=== PATIENT | female | born 1985 | race Caucasian/White ===

== ENCOUNTER 2018-07-26 11:37 | Inpatient (IN) | payer OTHER ==
[~2018-07-26] VITALS: Ht 167.6 cm; Wt 176.5 kg
[2018-07-26 15:00] VITALS: BP 134/63; PULSE 106; RESP 16
[2018-07-26 15:14] VITALS: Ht 167.6 cm; Wt 176.5 kg
[2018-07-26 16:25] VITALS: PULSE 108
[2018-07-26] MEDS ORDERED: VANCOMYCIN IV PER PHARMACY XX SCH (18:30)
[2018-07-26] MEDS ORDERED: ALBUTEROL/IPRATROPIUM (NEB) 3 ML AMP HHN PRN (18:30)
[2018-07-26] MEDS ORDERED: NITROGLYCERIN (SL) 0.4 MG TAB SL PRN (18:30)
[2018-07-26] MEDS ORDERED: NACL 0.9% 3 ML SYG IV SCH (18:30)
[2018-07-26] MEDS ORDERED: HYDROCODONE/APAP (5/325) TAB PO PRN (18:30)
[2018-07-26] MEDS ORDERED: MAGNESIUM HYDROXIDE 30ML CUP PO PRN (18:30)
[2018-07-26] MEDS ORDERED: LORAZEPAM 2 MG INJ IV PRN (18:30)
[2018-07-26] MEDS ORDERED: hydrALAzine 20 MG INJ IV PRN (18:30)
[2018-07-26] MEDS ORDERED: DOCUSATE SODIUM 100 MG CAP PO PRN (18:30)
[2018-07-26] MEDS ORDERED: ONDANSETRON 4 MG INJ IV PRN (18:30)
[2018-07-26] MEDS ORDERED: ACETAMINOPHEN 325 MG TAB PO PRN (18:30)
[2018-07-26] MEDS: PIPER-TAZO 3.375 GM IV (PMX) 100 ML IVPB SCH (18:41)
[2018-07-26] MEDS: SOD CHLORIDE 0.9% 1,000 ML IV SCH (18:41)
[2018-07-26 20:22] VITALS: PULSE 115
[2018-07-26 20:39] VITALS: BP 112/53; PULSE 117; RESP 18
[2018-07-26] MEDS ORDERED: VANCOMYCIN HCL 2 GM in SOD CHLORIDE 0.9% 500 ML IVPB SCH (21:00)
[2018-07-26] MEDS: HEPARIN 5,000 UNIT/1 ML VIAL SC SCH (21:43)
--- NOTE | 2018-07-26 23:57 | HP ---
Date/Time of Note Date/Time of Note DATE: 07/26/18 TIME: 23:57 Assessment/Plan VTE Prophylaxis Pharmacological prophylaxis: heparin Lines/Catheters IV Catheter Type (from Nrsg): [place] Lock Urinary Cath still in place: No Assessment/Plan Assessment/Plan 1. Left lower extremity cellulitis: Status post fall a week ago -IV antibiotic -Wound care consult -Pain management 2. Morbid obesity: Weight reduction advised 3. History of asthma: Currently no acute exacerbation -Supplemental oxygen and bronchodilators as needed Results 24hrs Laboratory Tests Test 07/26/18 19:13 Free Thyroxine 1.58 HPI/ROS Admit Date/Time Admit Date/Time Jul 26, 2018 at 14:58 Hx of Present Illness 32-year-old morbidly obese female with a history of asthma who presented to ER complaining of left lower extremity and pain. She fell about a week ago and since then she has been noticing progressively worsening left lower extremity redness and some leaking fluid. Denied fever/chills, chest pain or shortness of breath. PMH/Family/Social Past Medical History Past Surgical History Past Surgical Hx: other (see hpi) Family History Significant Family History: no pertinent family hx Social History Alcohol Use: other Smoking Status: Unknown if ever smoked Drug Use: other Exam Constitutional: other (no acute distress) Eyes: PERRL ENMT: nl external ears & nose Neck: supple Respiratory: normal air movement Cardiovascular: nl pulses Gastrointestinal: soft Extremities: normal pulses Medications Current Medications IV Flush (NS 3 ml) 3 ml PER PROTOCOL IV ; Start 07/26/18 at 18:30 Ondansetron HCl (Zofran Inj) 4 mg Q6H PRN IV NAUSEA/VOMITING; Start 07/26/18 at 18:30 Acetaminophen (Tylenol Tab) 650 mg Q6H PRN PO .PAIN 1-3 OR TEMP; Start 07/26/18 at 18:30 Acetaminophen/ Hydrocodone Bitart ([place] (5/325)) 1 tab Q6H PRN PO .MOD PAIN 4- 6 Last administered on 07/26/18at 22:03; Admin Dose 1 TAB; Start 07/26/18 at 18:30 Morphine Sulfate (morphine) 2 mg Q4H PRN IV .SEVERE PAIN 7-10; Start 07/26/18 at 18:30 Docusate Sodium (Colace) 100 mg Q12H PRN PO .CONSTIPATION; Start 07/26/18 at 18:30 Magnesium Hydroxide (Milk Of Mag) 30 ml DAILY PRN PO .CONSTIPATION; Start 07/26/18 at 18:30 Heparin Sodium (Porcine) (Heparin (5000 Units/1ml)) 5,000 unit Q12 SC Last administered on 07/26/18at 21:43; Admin Dose 5,000 UNIT; Start 07/26/18 at 21:00 Lorazepam (Ativan) 0.5 mg Q6H PRN IV ANXIETY; Start 07/26/18 at 18:30 Sodium Chloride 1,000 ml @ 100 mls/hr Q10H IV Last administered on 07/26/18at 18:41; Admin Dose 100 MLS/HR; Start 07/26/18 at 18:15 Albuterol/ Ipratropium (Duoneb) 3 ml Q4H RESP THERAPY PRN HHN SHORTNESS OF BREATH; Start 07/26/18 at 18:30 Piperacillin Sod/ Tazobactam Sod 100 ml @ 200 mls/hr Q6 IVPB Last administered on 07/26/18at 18:41; Admin Dose 200 MLS/HR; Start 07/26/18 at 18:00 Vancomycin HCl (Vanco Iv Per Pharmacy) VANCOMYCIN PER PHARMACY NOTE XX ; Start 07/26/18 at 18:30 Hydralazine HCl (Apresoline) 10 mg Q6H PRN IV ELEVATED BLOOD PRESSURE; Start 07/26/18 at 18:30 Clonidine (Catapres) 0.1 mg Q6H PRN PO ELEVATED BLOOD PRESSURE; Start 07/26/18 at 18:30 Nitroglycerin (Nitroglycerin (Sl Tab) 0.4 Mg) 1 tab Q5M PRN SL ANGINA; Start 07/26/18 at 18:30 Vancomycin HCl 2 gm/Sodium Chloride 500 ml @ 125 mls/hr 2100 IVPB Last administered on 07/26/18at 21:05; Admin Dose 125 MLS/HR; Start 07/26/18 at 21:00; Stop 07/27/18 at 05:59 Vancomycin HCl 1.25 gm/Sodium Chloride 250 ml @ 83.333 mls/ hr Q12H IVPB ; S tart 07/27/18 at 09:00 Coded Allergies: Iodine and Iodide Containing Produc (Verified Allergy, Severe, 07/26/18) only if iodine is introduced into the blood stream.skin is ok. Social History Smoking Status: Current every day smoker Exam/Review of Systems Vital Signs Vitals Vital Signs Date Temp Pulse Resp B/P (MAP) Pulse Ox O2 O2 Flow FiO2 Time Delivery Rate 07/26/18 98.5 117 18 112/53 92 20:39 (72) 07/26/18 Room Air 15:00 GILL GOLDSMITH MD Jul 26, 2018 23:57
[2018-07-27] VITALS (12 sets, daily range): BP systolic 120–147; BP diastolic 60–90; PULSE 103–118; RESP 18–22
[2018-07-27] MEDS ORDERED: SOD CHLORIDE 0.9% 1,000 ML IV ONE (01:00)
[2018-07-27] MEDS: PIPER-TAZO 3.375 GM IV (PMX) 100 ML IVPB SCH ×4 (02:57→18:01)
[2018-07-27] MEDS: morphine 2 MG INJ IV PRN (04:03)
[2018-07-27] MEDS: SOD CHLORIDE 0.9% 1,000 ML IV SCH ×2 (04:15→14:15)
[2018-07-27] MEDS: VANCOMYCIN HCL 1.25 GM in SOD CHLORIDE 0.9% 250 ML IVPB SCH ×2 (08:57→20:00)
[2018-07-27] MEDS: HEPARIN 5,000 UNIT/1 ML VIAL SC SCH ×2 (09:04→20:04)
--- NOTE | 2018-07-27 21:08 | PN ---
Date/Time of Note Date/Time of Note DATE: 07/27/18 TIME: 21:06 Assessment/Plan VTE Prophylaxis Risk score (from Ns)>0 risk: 4 SCD applied (from Ns): No SCD contraindicated: low risk/ambulating Pharmacological prophylaxis: LMWH Lines/Catheters IV Catheter Type (from Nrs): Peripheral IV Urinary Cath still in place: No Assessment/Plan Hospital Course A/P 1) LLE Cellulitis w ulceration; stable, cont wound care/ atb 2) ST 3) sp fall/ injury 4) Asthma 5) Tobacco 6) PETTY risk 7) M Obesity 8) Anemia S: mod pain; no fever/ toxicity O: vss, st PE no pallor/ reg s1s2 no mrg ctab bs+ nt nd; no rrg mild edema; llw dressed; pulses intact Result Diagram: 07/27/1832 07/27/18 0532 Results 24hrs Laboratory Tests Test 07/26/18 22:17 07/27/18 05:32 Urine Color YELLOW Urine Clarity TURBID A Urine pH 5.0 Urine Specific [place] 1.021 Urine Ketones NEGATIVE Urine Nitrite NEGATIVE Urine Bilirubin NEGATIVE Urine Urobilinogen NEGATIVE Urine Leukocyte Esterase NEGATIVE Urine Microscopic RBC 2 Urine Microscopic WBC 8 H Urine Squamous Epithelial Cells FEW Urine Bacteria FEW A Urine Mucus FEW A Urine Hemoglobin NEGATIVE Urine Glucose NEGATIVE Urine Total Protein NEGATIVE White Blood Count 12.7 H Red Blood Count 3.34 L Hemoglobin 8.4 L Hematocrit 28.2 L Mean Corpuscular Volume 84.4 Mean Corpuscular Hemoglobin 25.1 L Mean Corpuscular Hemoglobin Concent 29.8 L Red Cell Distribution Width 14.7 H Platelet Count 525 H Mean Platelet Volume 7.9 Immature Granulocytes % 1.100 H Neutrophils % 77.2 H Lymphocytes % 12.8 L Monocytes % 5.2 Eosinophils % 3.5 Basophils % 0.2 Nucleated Red Blood Cells % 0.0 Immature Granulocytes # 0.140 H Neutrophils # 9.8 H Lymphocytes # 1.6 Monocytes # 0.7 Eosinophils # 0.5 Basophils # 0.0 Nucleated Red Blood Cells # 0.0 Sodium Level 137 Potassium Level 4.6 Chloride Level 103 Carbon Dioxide Level 32 H Anion Gap 2 L Blood Urea Nitrogen 10 Creatinine 0.77 Est Glomerular Filtrat Rate mL/min > 60 Glucose Level 119 Hemoglobin A1c 5.8 Calcium Level 8.2 L Phosphorus Level 3.8 Magnesium Level 2.0 Triglycerides Level 61 Cholesterol Level 133 LDL Cholesterol, Calculated 83 HDL Cholesterol 38 Cholesterol/HDL Ratio 3.5 Thyroid Stimulating Hormone (TSH) 2.230 Exam/Review of Systems Exam Vitals Vital Signs Date Temp Pulse Resp B/P (MAP) Pulse Ox O2 O2 Flow FiO2 Time Delivery Rate 07/27/18 109 20:42 07/27/18 99.6 20 120/90 98 Room Air 19:27 (100) Intake and Output 07/26/18 07/26/18 07/27/18 1515:00 23:00 07:00 IntakeIntake Total 470 ml 2800 ml OutputOutput Total 1 ml BalanceBalance 469 ml 2800 ml Results Results 24hrs Laboratory Tests Test 07/26/18 22:17 07/27/18 05:32 Urine Color YELLOW Urine Clarity TURBID A Urine pH 5.0 Urine Specific [place] 1.021 Urine Ketones NEGATIVE Urine Nitrite NEGATIVE Urine Bilirubin NEGATIVE Urine Urobilinogen NEGATIVE Urine Leukocyte Esterase NEGATIVE Urine Microscopic RBC 2 Urine Microscopic WBC 8 H Urine Squamous Epithelial Cells FEW Urine Bacteria FEW A Urine Mucus FEW A Urine Hemoglobin NEGATIVE Urine Glucose NEGATIVE Urine Total Protein NEGATIVE White Blood Count 12.7 H Red Blood Count 3.34 L Hemoglobin 8.4 L Hematocrit 28.2 L Mean Corpuscular Volume 84.4 Mean Corpuscular Hemoglobin 25.1 L Mean Corpuscular Hemoglobin Concent 29.8 L Red Cell Distribution Width 14.7 H Platelet Count 525 H Mean Platelet Volume 7.9 Immature Granulocytes % 1.100 H Neutrophils % 77.2 H Lymphocytes % 12.8 L Monocytes % 5.2 Eosinophils % 3.5 Basophils % 0.2 Nucleated Red Blood Cells % 0.0 Immature Granulocytes # 0.140 H Neutrophils # 9.8 H Lymphocytes # 1.6 Monocytes # 0.7 Eosinophils # 0.5 Basophils # 0.0 Nucleated Red Blood Cells # 0.0 Sodium Level 137 Potassium Level 4.6 Chloride Level 103 Carbon Dioxide Level 32 H Anion Gap 2 L Blood Urea Nitrogen 10 Creatinine 0.77 Est Glomerular Filtrat Rate mL/min > 60 Glucose Level 119 Hemoglobin A1c 5.8 Calcium Level 8.2 L Phosphorus Level 3.8 Magnesium Level 2.0 Triglycerides Level 61 Cholesterol Level 133 LDL Cholesterol, Calculated 83 HDL Cholesterol 38 Cholesterol/HDL Ratio 3.5 Thyroid Stimulating Hormone (TSH) 2.230 Medications Medication Current Medications IV Flush (NS 3 ml) 3 ml PER PROTOCOL IV ; Start 07/26/18 at 18:30 Ondansetron HCl (Zofran Inj) 4 mg Q6H PRN IV NAUSEA/VOMITING; Start 07/26/18 at 18:30 Acetaminophen (Tylenol Tab) 650 mg Q6H PRN PO .PAIN 1-3 OR TEMP; Start 07/26/18 at 18:30 Acetaminophen/ Hydrocodone Bitart ([place] (5/325)) 1 tab Q6H PRN PO .MOD PAIN 4- 6 Last administered on 07/26/18at 22:03; Admin Dose 1 TAB; Start 07/26/18 at 18:30 Morphine Sulfate (morphine) 2 mg Q4H PRN IV .SEVERE PAIN 7-10 Last administered on 07/27/18 04:03; Admin Dose 2 MG; Start 07/26/18 at 18:30 Docusate Sodium (Colace) 100 mg Q12H PRN PO .CONSTIPATION; Start 07/26/18 at 18:30 Magnesium Hydroxide (Milk Of Mag) 30 ml DAILY PRN PO .CONSTIPATION; Start 07/26/18 at 18:30 Heparin Sodium (Porcine) (Heparin (5000 Units/1ml)) 5,000 unit Q12 SC Last administered on 07/27/18at 20:04; Admin Dose 5,000 UNIT; Start 07/26/18 at 21:00 Lorazepam (Ativan) 0.5 mg Q6H PRN IV ANXIETY; Start 07/26/18 at 18:30 Sodium Chloride 1,000 ml @ 100 mls/hr Q10H IV Last administered on 07/26/18at 18:41; Admin Dose 100 MLS/HR; Start 07/26/18 at 18:15 Albuterol/ Ipratropium (Duoneb) 3 ml Q4H RESP THERAPY PRN HHN SHORTNESS OF BREATH; Start 07/26/18 at 18:30 Piperacillin Sod/ Tazobactam Sod 100 ml @ 200 mls/hr Q6 IVPB Last administered on 07/27/18at 18:01; Admin Dose 200 MLS/HR; Start 07/26/18 at 18:00 Vancomycin HCl (Vanco Iv Per Pharmacy) VANCOMYCIN PER PHARMACY NOTE XX ; Start 07/26/18 at 18:30 Hydralazine HCl (Apresoline) 10 mg Q6H PRN IV ELEVATED BLOOD PRESSURE; Start 07/26/18 at 18:30 Clonidine (Catapres) 0.1 mg Q6H PRN PO ELEVATED BLOOD PRESSURE; Start 07/26/18 at 18:30 Nitroglycerin (Nitroglycerin (Sl Tab) 0.4 Mg) 1 tab Q5M PRN SL ANGINA; Start 07/26/18 at 18:30 Vancomycin HCl 1.25 gm/Sodium Chloride 250 ml @ 83.333 mls/ hr Q12H IVPB Last administered on 07/27/18at 20:00; Admin Dose 83.333 MLS/HR; Start 07/27/18 at 09:00 Miscellaneous Information (*Rx Drug Level Order Reminder*) VANCO TROUGH ON ... ONCE ONCE XX ; Start 07/28/18 at 08:00; Stop 07/28/18 at 08:01 DAVION NOONAN MD Jul 27, 2018 21:08
[2018-07-27] MEDS: HYDROCODONE/APAP (10/325) TAB PO PRN (23:47)
[2018-07-28] VITALS (11 sets, daily range): BP systolic 123–142; BP diastolic 66–86; PULSE 68–116; RESP 18–22
[2018-07-28] MEDS: SOD CHLORIDE 0.9% 1,000 ML IV SCH ×2 (00:15→05:00)
[2018-07-28] MEDS: PIPER-TAZO 3.375 GM IV (PMX) 100 ML IVPB SCH ×4 (00:54→18:38)
[2018-07-28] MEDS: LACTOBACILLUS RHAMNOSUS CAP PO SCH ×2 (09:00→20:51)
[2018-07-28] MEDS: VANCOMYCIN HCL 1.25 GM in SOD CHLORIDE 0.9% 250 ML IVPB SCH (10:54)
[2018-07-28] MEDS: HEPARIN 5,000 UNIT/1 ML VIAL SC SCH ×2 (11:01→20:56)
[2018-07-28] MEDS: VANCOMYCIN 1 GM 250 ML IVPB SCH (18:00)
--- NOTE | 2018-07-28 20:50 | PN ---
Date/Time of Note Date/Time of Note DATE: 07/28/18 TIME: 20:49 Assessment/Plan VTE Prophylaxis Risk score (from Nsg)>0 risk: 5 SCD applied (from Ns): No SCD contraindicated: low risk/ambulating Pharmacological prophylaxis: LMWH Lines/Catheters IV Catheter Type (from Nrsg): Peripheral IV Urinary Cath still in place: No Assessment/Plan Hospital Course A/P 1) LLE Cellulitis w ulceration; stable, cont wound care/ atb 2) ST 3) sp fall/ injury 4) Asthma 5) Tobacco 6) PETTY risk 7) M Obesity 8) Anemia S: 07/27 mod pain; no fever/ toxicity 07/28 about the same O: vss, st PE no pallor/ reg s1s2 no mrg ctab bs+ nt nd; no rrg mild edema; llw dressed; pulses intact Result Diagram: 07/28/18 0512 07/28/18 0816 Results 24hrs Laboratory Tests Test 07/28/18 05:10 07/28/18 05:12 07/28/18 08:16 Serum HCG, Qualitative NEGATIVE White Blood Count 12.6 H Red Blood Count 3.46 L Hemoglobin 8.7 L Hematocrit 28.3 L Mean Corpuscular Volume 81.8 L Mean Corpuscular Hemoglobin 25.1 L Mean Corpuscular Hemoglobin Concent 30.7 L Red Cell Distribution Width 14.8 H Platelet Count 527 H Mean Platelet Volume 8.0 Immature Granulocytes % 1.000 H Neutrophils % 75.8 Lymphocytes % 13.2 L Monocytes % 5.2 Eosinophils % 4.5 Basophils % 0.3 Nucleated Red Blood Cells % 0.2 H Immature Granulocytes # 0.120 H Neutrophils # 9.6 H Lymphocytes # 1.7 Monocytes # 0.7 Eosinophils # 0.6 H Basophils # 0.0 Nucleated Red Blood Cells # 0.0 Prothrombin Time 13.7 Prothrombin Time Ratio 1.1 INR International Normalized Ratio 1.04 Sodium Level 140 Potassium Level 3.9 Chloride Level 103 Carbon Dioxide Level 31 Anion Gap 6 Blood Urea Nitrogen 7 6 L Creatinine 0.76 0.65 Est Glomerular Filtrat Rate mL/min > 60 Glucose Level 112 Calcium Level 8.3 L Vancomycin Level Trough 7.2 L Exam/Review of Systems Exam Vitals Vital Signs Date Temp Pulse Resp B/P (MAP) Pulse Ox O2 O2 Flow FiO2 Time Delivery Rate 07/28/18 99.8 108 22 134/81 97 Room Air 19:44 (98) 07/28/18 08:16 Intake and Output 07/27/18 07/27/18 07/28/18 1414:59 22:59 06:59 IntakeIntake Total 360 ml 640 ml 1450 ml BalanceBalance 360 ml 640 ml 1450 ml Results Results 24hrs Laboratory Tests Test 07/28/18 05:10 07/28/18 05:12 07/28/18 08:16 Serum HCG, Qualitative NEGATIVE White Blood Count 12.6 H Red Blood Count 3.46 L Hemoglobin 8.7 L Hematocrit 28.3 L Mean Corpuscular Volume 81.8 L Mean Corpuscular Hemoglobin 25.1 L Mean Corpuscular Hemoglobin Concent 30.7 L Red Cell Distribution Width 14.8 H Platelet Count 527 H Mean Platelet Volume 8.0 Immature Granulocytes % 1.000 H Neutrophils % 75.8 Lymphocytes % 13.2 L Monocytes % 5.2 Eosinophils % 4.5 Basophils % 0.3 Nucleated Red Blood Cells % 0.2 H Immature Granulocytes # 0.120 H Neutrophils # 9.6 H Lymphocytes # 1.7 Monocytes # 0.7 Eosinophils # 0.6 H Basophils # 0.0 Nucleated Red Blood Cells # 0.0 Prothrombin Time 13.7 Prothrombin Time Ratio 1.1 INR International Normalized Ratio 1.04 Sodium Level 140 Potassium Level 3.9 Chloride Level 103 Carbon Dioxide Level 31 Anion Gap 6 Blood Urea Nitrogen 7 6 L Creatinine 0.76 0.65 Est Glomerular Filtrat Rate mL/min > 60 Glucose Level 112 Calcium Level 8.3 L Vancomycin Level Trough 7.2 L Medications Medication Current Medications IV Flush (NS 3 ml) 3 ml PER PROTOCOL IV ; Start 07/26/18 at 18:30 Ondansetron HCl (Zofran Inj) 4 mg Q6H PRN IV NAUSEA/VOMITING; Start 07/26/18 at 18:30 Acetaminophen (Tylenol Tab) 650 mg Q6H PRN PO .PAIN 1-3 OR TEMP; Start 07/26/18 at 18:30 Morphine Sulfate (morphine) 2 mg Q4H PRN IV .SEVERE PAIN 7-10 Last administered on 07/27/18at 04:03; Admin Dose 2 MG; Start 07/26/18 at 18:30 Docusate Sodium (Colace) 100 mg Q12H PRN PO .CONSTIPATION; Start 07/26/18 at 18:30 Magnesium Hydroxide (Milk Of Mag) 30 ml DAILY PRN PO .CONSTIPATION; Start 07/26/18 at 18:30 Heparin Sodium (Porcine) (Heparin (5000 Units/1ml)) 5,000 unit Q12 SC Last administered on 07/28/18at 11:01; Admin Dose 5,000 UNIT; Start 07/26/18 at 21:00 Lorazepam (Ativan) 0.5 mg Q6H PRN IV ANXIETY; Start 07/26/18 at 18:30 Sodium Chloride 1,000 ml @ 100 mls/hr Q10H IV Last administered on 07/28/18at 05:00; Admin Dose 100 MLS/HR; Start 07/26/18 at 18:15 Albuterol/ Ipratropium (Duoneb) 3 ml Q4H RESP THERAPY PRN HHN SHORTNESS OF BREATH; Start 07/26/18 at 18:30 Piperacillin Sod/ Tazobactam Sod 100 ml @ 200 mls/hr Q6 IVPB Last administered on 07/28/18at 18:38; Admin Dose 200 MLS/HR; Start 07/26/18 at 18:00 Vancomycin HCl (Vanco Iv Per Pharmacy) VANCOMYCIN PER PHARMACY NOTE XX ; Start 07/26/18 at 18:30 Hydralazine HCl (Apresoline) 10 mg Q6H PRN IV ELEVATED BLOOD PRESSURE; Start 07/26/18 at 18:30 Clonidine (Catapres) 0.1 mg Q6H PRN PO ELEVATED BLOOD PRESSURE; Start 07/26/18 at 18:30 Nitroglycerin (Nitroglycerin (Sl Tab) 0.4 Mg) 1 tab Q5M PRN SL ANGINA; Start 07/26/18 at 18:30 Acetaminophen/ Hydrocodone Bitart ([place] (10/325)) 1 tab Q3H PRN PO MODERATE PAIN LEVEL 4-6 Last administered on 07/27/18at 23:47; Admin Dose 1 TAB; Start 07/27/18 at 21:30 Lactobacillus Acidophilus/ Rhamnosus (Culturelle) 1 cap BID PO Last administered on 07/28/18at 09:00; Admin Dose 1 CAP; Start 07/28/18 at 09:00 Vancomycin HCl 250 ml @ 125 mls/hr Q8H IVPB Last administered on 07/28/18at 18:00; Admin Dose 125 MLS/HR; Start 07/28/18 at 18:00 DAVION NOONAN MD Jul 28, 2018 20:50
[2018-07-28] MEDS: HYDROCODONE/APAP (10/325) TAB PO PRN (20:52)
[2018-07-29] VITALS (12 sets, daily range): BP systolic 122–146; BP diastolic 59–86; PULSE 92–120; RESP 18–22
[2018-07-29] MEDS: PIPER-TAZO 3.375 GM IV (PMX) 100 ML IVPB SCH ×4 (00:15→18:46)
[2018-07-29] MEDS: VANCOMYCIN 1 GM 250 ML IVPB SCH ×3 (02:16→20:56)
[2018-07-29] MEDS: LACTOBACILLUS RHAMNOSUS CAP PO SCH ×2 (09:32→20:56)
[2018-07-29] MEDS: HEPARIN 5,000 UNIT/1 ML VIAL SC SCH ×2 (11:00→21:53)
[2018-07-29] MEDS: morphine 2 MG INJ IV PRN (17:07)
--- NOTE | 2018-07-29 18:46 | PN ---
Date/Time of Note Date/Time of Note DATE: 07/29/18 TIME: 18:44 Assessment/Plan VTE Prophylaxis Risk score (from Nsg)>0 risk: 6 SCD applied (from Ns): No SCD contraindicated: low risk/ambulating Pharmacological prophylaxis: LMWH Lines/Catheters IV Catheter Type (from Nrsg): Peripheral IV Urinary Cath still in place: No Assessment/Plan Hospital Course A/P 1) LLE Cellulitis w ulceration; stable, cont wound care/ atb. Leukocytosis remains. Will obtain MRI to rule out abscess and consult ID 2) ST, treat pain 3) sp fall/ injury 4) Asthma 5) Tobacco 6) PETTY risk of outpatient sleep study 7) M Obesity 8) Anemia S: 07/27 mod pain; no fever/ toxicity 07/28 about the same 07/29: Moderate pain. No fever toxicity. Feels the edema is same but I believe her edema/stasis has improved. O: vss, st PE no pallor/ reg s1s2 no mrg ctab bs+ nt nd; no rrg mild edema; tender left chopra; pulses intact Result Diagram: 07/29/18 0508 07/29/18 0508 Results 24hrs Laboratory Tests Test 07/29/18 05:08 07/29/18 17:02 White Blood Count 13.1 H Red Blood Count 3.55 L Hemoglobin 8.8 L Hematocrit 28.9 L Mean Corpuscular Volume 81.4 L Mean Corpuscular Hemoglobin 24.8 L Mean Corpuscular Hemoglobin Concent 30.4 L Red Cell Distribution Width 14.7 H Platelet Count 546 H Mean Platelet Volume 8.1 Immature Granulocytes % 1.500 H Neutrophils % 75.8 Lymphocytes % 11.4 L Monocytes % 6.4 Eosinophils % 4.6 Basophils % 0.3 Nucleated Red Blood Cells % 0.3 H Immature Granulocytes # 0.190 H Neutrophils # 9.9 H Lymphocytes # 1.5 Monocytes # 0.8 Eosinophils # 0.6 H Basophils # 0.0 Nucleated Red Blood Cells # 0.0 Sodium Level 139 Potassium Level 3.9 Chloride Level 104 Carbon Dioxide Level 27 Anion Gap 8 Blood Urea Nitrogen 7 Creatinine 0.62 Est Glomerular Filtrat Rate mL/min > 60 Glucose Level 142 Calcium Level 8.5 Vancomycin Level Trough 14.1 Exam/Review of Systems Exam Vitals Vital Signs Date Temp Pulse Resp B/P (MAP) Pulse Ox O2 O2 Flow FiO2 Time Delivery Rate 07/29/18 101 16:15 07/29/18 97.6 21 141/84 96 Room Air 15:48 (103) 07/28/18 08:16 Intake and Output 07/28/18 07/28/18 07/29/18 1515:00 23:00 07:00 IntakeIntake Total 900 ml 1350 ml OutputOutput Total 3600 ml BalanceBalance -2700 ml 1350 ml Results Results 24hrs Laboratory Tests Test 07/29/18 05:08 07/29/18 17:02 White Blood Count 13.1 H Red Blood Count 3.55 L Hemoglobin 8.8 L Hematocrit 28.9 L Mean Corpuscular Volume 81.4 L Mean Corpuscular Hemoglobin 24.8 L Mean Corpuscular Hemoglobin Concent 30.4 L Red Cell Distribution Width 14.7 H Platelet Count 546 H Mean Platelet Volume 8.1 Immature Granulocytes % 1.500 H Neutrophils % 75.8 Lymphocytes % 11.4 L Monocytes % 6.4 Eosinophils % 4.6 Basophils % 0.3 Nucleated Red Blood Cells % 0.3 H Immature Granulocytes # 0.190 H Neutrophils # 9.9 H Lymphocytes # 1.5 Monocytes # 0.8 Eosinophils # 0.6 H Basophils # 0.0 Nucleated Red Blood Cells # 0.0 Sodium Level 139 Potassium Level 3.9 Chloride Level 104 Carbon Dioxide Level 27 Anion Gap 8 Blood Urea Nitrogen 7 Creatinine 0.62 Est Glomerular Filtrat Rate mL/min > 60 Glucose Level 142 Calcium Level 8.5 Vancomycin Level Trough 14.1 Medications Medication Current Medications IV Flush (NS 3 ml) 3 ml PER PROTOCOL IV ; Start 07/26/18 at 18:30 Ondansetron HCl (Zofran Inj) 4 mg Q6H PRN IV NAUSEA/VOMITING; Start 07/26/18 at 18:30 Acetaminophen (Tylenol Tab) 650 mg Q6H PRN PO .PAIN 1-3 OR TEMP; Start 07/26/18 at 18:30 Morphine Sulfate (morphine) 2 mg Q4H PRN IV .SEVERE PAIN 7-10 Last administered on 07/29/18at 17:07; Admin Dose 2 MG; Start 07/26/18 at 18:30 Docusate Sodium (Colace) 100 mg Q12H PRN PO .CONSTIPATION; Start 07/26/18 at 18:30 Magnesium Hydroxide (Milk Of Mag) 30 ml DAILY PRN PO .CONSTIPATION; Start 07/26/18 at 18:30 Heparin Sodium (Porcine) (Heparin (5000 Units/1ml)) 5,000 unit Q12 SC Last administered on 07/29/18at 11:00; Admin Dose 5,000 UNIT; Start 07/26/18 at 21:00 Lorazepam (Ativan) 0.5 mg Q6H PRN IV ANXIETY; Start 07/26/18 at 18:30 Albuterol/ Ipratropium (Duoneb) 3 ml Q4H RESP THERAPY PRN HHN SHORTNESS OF BREATH; Start 07/26/18 at 18:30 Piperacillin Sod/ Tazobactam Sod 100 ml @ 200 mls/hr Q6 IVPB Last administered on 07/29/18at 12:32; Admin Dose 200 MLS/HR; Start 07/26/18 at 18:00 Vancomycin HCl (Vanco Iv Per Pharmacy) VANCOMYCIN PER PHARMACY NOTE XX ; Start 07/26/18 at 18:30 Hydralazine HCl (Apresoline) 10 mg Q6H PRN IV ELEVATED BLOOD PRESSURE; Start 07/26/18 at 18:30 Clonidine (Catapres) 0.1 mg Q6H PRN PO ELEVATED BLOOD PRESSURE; Start 07/26/18 at 18:30 Nitroglycerin (Nitroglycerin (Sl Tab) 0.4 Mg) 1 tab Q5M PRN SL ANGINA; Start 07/26/18 at 18:30 Acetaminophen/ Hydrocodone Bitart ([place] (10/325)) 1 tab Q3H PRN PO MODERATE PAIN LEVEL 4-6 Last administered on 07/28/18at 20:52; Admin Dose 1 TAB; Start 07/27/18 at 21:30 Lactobacillus Acidophilus/ Rhamnosus (Culturelle) 1 cap BID PO Last administered on 07/29/18at 09:32; Admin Dose 1 CAP; Start 07/28/18 at 09:00 Vancomycin HCl 250 ml @ 125 mls/hr Q8H IVPB Last administered on 07/29/18at 10:00; Admin Dose 125 MLS/HR; Start 07/28/18 at 18:00 DAVION NOONAN MD Jul 29, 2018 18:45
[2018-07-29] MEDS ORDERED: NICOTINE POLACRILEX 2 MG GUM BUCCAL PRN (19:00)
[2018-07-29] MEDS ORDERED: KETOROLAC 30 MG INJ IV PRN (19:00)
[2018-07-30] VITALS: BP 131/58; PULSE 104; PULSE 106; RESP 18
[2018-07-30] MEDS: PIPER-TAZO 3.375 GM IV (PMX) 100 ML IVPB SCH ×4 (00:49→17:47)
[2018-07-30] MEDS: HYDROCODONE/APAP (10/325) TAB PO PRN ×2 (01:02→23:16)
[2018-07-30] MEDS: VANCOMYCIN 1 GM 250 ML IVPB SCH ×4 (02:03→22:47)
[2018-07-30 04:00] VITALS: BP 135/68; PULSE 105; PULSE 93; RESP 18
[2018-07-30 07:52] VITALS: BP 138/75; PULSE 97; RESP 16
[2018-07-30] MEDS: LACTOBACILLUS RHAMNOSUS CAP PO SCH ×2 (10:09→21:18)
[2018-07-30] MEDS: HEPARIN 5,000 UNIT/1 ML VIAL SC SCH ×2 (10:12→21:19)
--- NOTE | 2018-07-30 10:30 | CONS ---
Assessment/Plan Assessment/Plan Hospital Course (Demo Recall) Patient is alert looks comfortable no fevers overnight. WBC today 13.4 H&H 8.9 28.8 platelets 541 neutrophils 77.7 BUN 6 creatinine 0.65 Antimicrobials: Vancomycin, Zosyn Physical examination: This is a morbidly obese well-developed middle-aged woman who is alert in no distress. Head atraumatic normocephalic sclera nonicteric. Chest rise symmetrical, breath sounds clear, diminished at bases. Heart: S1-S2. Abdomen obese soft bowel sounds present. Extremities with bilateral extremit ies edema left lower extremity with some erythema and open wound with purulent drainage Assessment: 1. Left lower extremity cellulitis with infected wound, status post fall 2. Morbid obesity 4. Chronic tobacco use Plan: We will keep patient on broad-spectrum antibiotics, order wound culture and swab her nares for MRSA, keep left lower extremity elevated, consider surgical evaluation Consultation Date/Type/Reason Admit Date/Time Jul 26, 2018 at 14:58 Initial Consult Date Type of Consult id Date/Time of Note DATE: 07/30/18 TIME: 10:30 Exam/Review of Systems Exam Vitals Vital Signs Date Temp Pulse Resp B/P (MAP) Pulse Ox O2 O2 Flow FiO2 Time Delivery Rate 07/30/18 98.8 97 16 138/75 94 Room Air 07:52 (96) 07/28/18 08:16 Intake and Output 07/29/18 07/29/18 07/30/18 1515:00 23:00 07:00 IntakeIntake Total 1550 ml 1230 ml OutputOutput Total 700 ml BalanceBalance 1550 ml 530 ml Results Result Diagram: 07/30/18 0508 07/30/18 0508 Results 24hrs Laboratory Tests Test 07/29/18 17:02 07/30/18 05:08 Vancomycin Level Trough 14.1 White Blood Count 13.4 H Red Blood Count 3.57 L Hemoglobin 8.9 L Hematocrit 28.8 L Mean Corpuscular Volume 80.7 L Mean Corpuscular Hemoglobin 24.9 L Mean Corpuscular Hemoglobin Concent 30.9 L Red Cell Distribution Width 14.8 H Platelet Count 501 H Mean Platelet Volume 8.0 Immature Granulocytes % 0.900 H Neutrophils % 77.7 H Lymphocytes % 11.1 L Monocytes % 5.5 Eosinophils % 4.5 Basophils % 0.3 Nucleated Red Blood Cells % 0.2 H Immature Granulocytes # 0.120 H Neutrophils # 10.4 H Lymphocytes # 1.5 Monocytes # 0.7 Eosinophils # 0.6 H Basophils # 0.0 Nucleated Red Blood Cells # 0.0 Prothrombin Time 13.1 Prothrombin Time Ratio 1.0 INR International Normalized Ratio 0.98 Sodium Level 141 Potassium Level 3.8 Chloride Level 103 Carbon Dioxide Level 28 Anion Gap 10 Blood Urea Nitrogen 8 Creatinine 0.63 Est Glomerular Filtrat Rate mL/min > 60 Glucose Level 131 Calcium Level 8.5 Total Bilirubin 0.2 Direct Bilirubin 0.00 Indirect Bilirubin 0.2 Aspartate Amino Transf (AST/SGOT) 24 Alanine Aminotransferase (ALT/SGPT) 11 L Alkaline Phosphatase 96 Total Protein 7.5 Albumin 3.4 Globulin 4.10 H Albumin/Globulin Ratio 0.82 Medications Medication Current Medications IV Flush (NS 3 ml) 3 ml PER PROTOCOL IV ; Start 07/26/18 at 18:30 Ondansetron HCl (Zofran Inj) 4 mg Q6H PRN IV NAUSEA/VOMITING; Start 07/26/18 at 18:30 Acetaminophen (Tylenol Tab) 650 mg Q6H PRN PO .PAIN 1-3 OR TEMP; Start 07/26/18 at 18:30 Morphine Sulfate (morphine) 2 mg Q4H PRN IV .SEVERE PAIN 7-10 Last administered on 07/29/18at 17:07; Admin Dose 2 MG; Start 07/26/18 at 18:30 Docusate Sodium (Colace) 100 mg Q12H PRN PO .CONSTIPATION; Start 07/26/18 at 18:30 Magnesium Hydroxide (Milk Of Mag) 30 ml DAILY PRN PO .CONSTIPATION; Start 07/26/18 at 18:30 Heparin Sodium (Porcine) (Heparin (5000 Units/1ml)) 5,000 unit Q12 SC Last adm inistered on 07/30/18at 10:12; Admin Dose 5,000 UNIT; Start 07/26/18 at 21:00 Lorazepam (Ativan) 0.5 mg Q6H PRN IV ANXIETY; Start 07/26/18 at 18:30 Albuterol/ Ipratropium (Duoneb) 3 ml Q4H RESP THERAPY PRN HHN SHORTNESS OF BREATH; Start 07/26/18 at 18:30 Piperacillin Sod/ Tazobactam Sod 100 ml @ 200 mls/hr Q6 IVPB Last administered on 07/30/18at 05:31; Admin Dose 200 MLS/HR; Start 07/26/18 at 18:00 Vancomycin HCl (Vanco Iv Per Pharmacy) VANCOMYCIN PER PHARMACY NOTE XX ; Start 07/26/18 at 18:30 Hydralazine HCl (Apresoline) 10 mg Q6H PRN IV ELEVATED BLOOD PRESSURE; Start 07/26/18 at 18:30 Clonidine (Catapres) 0.1 mg Q6H PRN PO ELEVATED BLOOD PRESSURE; Start 07/26/18 at 18:30 Nitroglycerin (Nitroglycerin (Sl Tab) 0.4 Mg) 1 tab Q5M PRN SL ANGINA; Start 07/26/18 at 18:30 Acetaminophen/ Hydrocodone Bitart (Sigel (10/325)) 1 tab Q3H PRN PO MODERATE PAIN LEVEL 4-6 Last administered on 07/30/18at 01:02; Admin Dose 1 TAB; Start 07/27/18 at 21:30 Lactobacillus Acidophilus/ Rhamnosus (Culturelle) 1 cap BID PO Last administered on 07/30/18at 10:09; Admin Dose 1 CAP; Start 07/28/18 at 09:00 Vancomycin HCl 250 ml @ 125 mls/hr Q8H IVPB Last administered on 07/30/18at 10:09; Admin Dose 125 MLS/HR; Start 07/28/18 at 18:00 Ketorolac Tromethamine (Toradol) 30 mg Q6H PRN IV MOD PAIN (4-6) OR TEMP>38C; Start 07/29/18 at 19:00; Stop 08/01/18 at 18:59 Nicotine Polacrilex (Nicorette) 2 mg Q4H PRN BUCCAL CONTROL WITHDRAWAL SYMPTOMS; Start 07/29/18 at 19:00 AGUSTÍN CUMMINGS NP Jul 30, 2018 10:30
[2018-07-30 10:54] VITALS: BP 131/62; PULSE 91; RESP 18
--- NOTE | 2018-07-30 11:53 | PN ---
Date/Time of Note Date/Time of Note DATE: 07/30/18 TIME: 11:51 Assessment/Plan VTE Prophylaxis Risk score (from Ns)>0 risk: 6 SCD applied (from Ns): No SCD contraindicated: other Pharmacological prophylaxis: heparin Lines/Catheters IV Catheter Type (from Rust): Peripheral IV Urinary Cath still in place: No Assessment/Plan Hospital Course SUBJECTIVE: Continues to complain of left lower extremity pain. OBJECTIVE: Physical Exam General: Morbidly obese, 32 year-old female lying in bed in no apparent distress. HEENT: Normocephalic, atraumatic. Eyes: Anicteric sclerae, conjunctivae clear. ENT: Nasal septum midline, oral mucosa moist. Neck supple, no JVD noticed. Respiratory: Bilaterally clear breath sounds. No use of accessory muscles of respiration. No adventitious breath sounds. Cardiovascular: S1, S2 heard. No murmurs or gallops. Abdomen: Soft, nontender, and nondistended. Bowel sounds positive in all 4 quadrants. Genitourinary: Deferred. Extremities: No cyanosis, no clubbing. Edema and erythema of the left chopra area with an open wound. Peripheral pulses palpable. Neurologic: Cranial nerves II through XII grossly intact. The patient is awake, alert, and oriented. Labs & Vitals per chart ASSESSMENT & PLAN 32-year-old female with comorbidities including morbid obesity (BMI more than 62 kg/m) and nicotine use, who had a mechanical fall with impact to the left chopra with a resultant penetrating wound that became worse over a few days before she sought medical attention. The patient was noticed to have left lower extremity cellulitis with an infected left lower extremity wound. The patient was admitted to inpatient setting for further treatment and evaluation. 1. Left lower extremity cellulitis with infected left lower extremity wound. -Continue antimicrobials as per ID. -X-ray of the left tibia and fibula showing marked soft tissue swelling and no acute fractures. Venous Doppler study negative. -Obtain podiatry consult. -Patient unable to get MRI because of weight limits. -Obtain left lower extremity CT scan to evaluate for any underlying abscess. -Continue wound care as per the wound care team. 2. Microcytic hypochromic anemia. -Etiology unclear. -Obtain iron panel. -Monitor H&H closely. 3. Morbid obesity -BMI more than 62. -Fasting lipid panel within normal limits. -Hemoglobin A1c (5.8) borderline elevated. -Weight reduction advised. 4. Nicotine use. -Continue nicotine patch. 5. Fluids, electrolytes, and nutrition. -Low-cholesterol diet. 6. DVT prophylaxis. -Subcutaneous heparin. 7. Plan. -Continue antimicrobials as per ID. -Obtain a left lower extremity CT scan. -Obtain podiatry consult. The patient was seen in collaboration with Dr. Alvarado. Result Diagram: 07/30/18 0508 07/30/18 0508 Results 24hrs Laboratory Tests Test 07/29/18 17:02 07/30/18 05:08 Vancomycin Level Trough 14.1 White Blood Count 13.4 H Red Blood Count 3.57 L Hemoglobin 8.9 L Hematocrit 28.8 L Mean Corpuscular Volume 80.7 L Mean Corpuscular Hemoglobin 24.9 L Mean Corpuscular Hemoglobin Concent 30.9 L Red Cell Distribution Width 14.8 H Platelet Count 501 H Mean Platelet Volume 8.0 Immature Granulocytes % 0.900 H Neutrophils % 77.7 H Lymphocytes % 11.1 L Monocytes % 5.5 Eosinophils % 4.5 Basophils % 0.3 Nucleated Red Blood Cells % 0.2 H Immature Granulocytes # 0.120 H Neutrophils # 10.4 H Lymphocytes # 1.5 Monocytes # 0.7 Eosinophils # 0.6 H Basophils # 0.0 Nucleated Red Blood Cells # 0.0 Prothrombin Time 13.1 Prothrombin Time Ratio 1.0 INR International Normalized Ratio 0.98 Sodium Level 141 Potassium Level 3.8 Chloride Level 103 Carbon Dioxide Level 28 Anion Gap 10 Blood Urea Nitrogen 8 Creatinine 0.63 Est Glomerular Filtrat Rate mL/min > 60 Glucose Level 131 Calcium Level 8.5 Total Bilirubin 0.2 Direct Bilirubin 0.00 Indirect Bilirubin 0.2 Aspartate Amino Transf (AST/SGOT) 24 Alanine Aminotransferase (ALT/SGPT) 11 L Alkaline Phosphatase 96 Total Protein 7.5 Albumin 3.4 Globulin 4.10 H Albumin/Globulin Ratio 0.82 Exam/Review of Systems Exam Vitals Vital Signs Date Temp Pulse Resp B/P (MAP) Pulse Ox O2 O2 Flow FiO2 Time Delivery Rate 07/30/18 97.2 91 18 131/62 96 Room Air 10:54 (85) 07/28/18 08:16 Intake and Output 07/29/18 07/29/18 07/30/18 1515:00 23:00 07:00 IntakeIntake Total 1550 ml 1230 ml OutputOutput Total 700 ml BalanceBalance 1550 ml 530 ml Results Results 24hrs Laboratory Tests Test 07/29/18 17:02 07/30/18 05:08 Vancomycin Level Trough 14.1 White Blood Count 13.4 H Red Blood Count 3.57 L Hemoglobin 8.9 L Hematocrit 28.8 L Mean Corpuscular Volume 80.7 L Mean Corpuscular Hemoglobin 24.9 L Mean Corpuscular Hemoglobin Concent 30.9 L Red Cell Distribution Width 14.8 H Platelet Count 501 H Mean Platelet Volume 8.0 Immature Granulocytes % 0.900 H Neutrophils % 77.7 H Lymphocytes % 11.1 L Monocytes % 5.5 Eosinophils % 4.5 Basophils % 0.3 Nucleated Red Blood Cells % 0.2 H Immature Granulocytes # 0.120 H Neutrophils # 10.4 H Lymphocytes # 1.5 Monocytes # 0.7 Eosinophils # 0.6 H Basophils # 0.0 Nucleated Red Blood Cells # 0.0 Prothrombin Time 13.1 Prothrombin Time Ratio 1.0 INR International Normalized Ratio 0.98 Sodium Level 141 Potassium Level 3.8 Chloride Level 103 Carbon Dioxide Level 28 Anion Gap 10 Blood Urea Nitrogen 8 Creatinine 0.63 Est Glomerular Filtrat Rate mL/min > 60 Glucose Level 131 Calcium Level 8.5 Total Bilirubin 0.2 Direct Bilirubin 0.00 Indirect Bilirubin 0.2 Aspartate Amino Transf (AST/SGOT) 24 Alanine Aminotransferase (ALT/SGPT) 11 L Alkaline Phosphatase 96 Total Protein 7.5 Albumin 3.4 Globulin 4.10 H Albumin/Globulin Ratio 0.82 Medications Medication Current Medications IV Flush (NS 3 ml) 3 ml PER PROTOCOL IV ; Start 07/26/18 at 18:30 Ondansetron HCl (Zofran Inj) 4 mg Q6H PRN IV NAUSEA/VOMITING; Start 07/26/18 at 18:30 Acetaminophen (Tylenol Tab) 650 mg Q6H PRN PO .PAIN 1-3 OR TEMP; Start 07/26/18 at 18:30 Morphine Sulfate (morphine) 2 mg Q4H PRN IV .SEVERE PAIN 7-10 Last administered on 07/29/18at 17:07; Admin Dose 2 MG; Start 07/26/18 at 18:30 Docusate Sodium (Colace) 100 mg Q12H PRN PO .CONSTIPATION; Start 07/26/18 at 18:30 Magnesium Hydroxide (Milk Of Mag) 30 ml DAILY PRN PO .CONSTIPATION; Start 07/26/18 at 18:30 Heparin Sodium (Porcine) (Heparin (5000 Units/1ml)) 5,000 unit Q12 SC Last administered on 07/30/18at 10:12; Admin Dose 5,000 UNIT; Start 07/26/18 at 21:00 Lorazepam (Ativan) 0.5 mg Q6H PRN IV ANXIETY; Start 07/26/18 at 18:30 Albuterol/ Ipratropium (Duoneb) 3 ml Q4H RESP THERAPY PRN HHN SHORTNESS OF BREATH; Start 07/26/18 at 18:30 Piperacillin Sod/ Tazobactam Sod 100 ml @ 200 mls/hr Q6 IVPB Last administered on 07/30/18at 05:31; Admin Dose 200 MLS/HR; Start 07/26/18 at 18:00 Vancomycin HCl (Vanco Iv Per Pharmacy) VANCOMYCIN PER PHARMACY NOTE XX ; Start 07/26/18 at 18:30 Hydralazine HCl (Apresoline) 10 mg Q6H PRN IV ELEVATED BLOOD PRESSURE; Start 07/26/18 at 18:30 Clonidine (Catapres) 0.1 mg Q6H PRN PO ELEVATED BLOOD PRESSURE; Start 07/26/18 at 18:30 Nitroglycerin (Nitroglycerin (Sl Tab) 0.4 Mg) 1 tab Q5M PRN SL ANGINA; Start 07/26/18 at 18:30 Acetaminophen/ Hydrocodone Bitart (Earth (10/325)) 1 tab Q3H PRN PO MODERATE PAIN LEVEL 4-6 Last administered on 07/30/18at 01:02; Admin Dose 1 TAB; Start 07/27/18 at 21:30 Lactobacillus Acidophilus/ Rhamnosus (Culturelle) 1 cap BID PO Last administered on 07/30/18at 10:09; Admin Dose 1 CAP; Start 07/28/18 at 09:00 Vancomycin HCl 250 ml @ 125 mls/hr Q8H IVPB Last administered on 07/30/18at 10:09; Admin Dose 125 MLS/HR; Start 07/28/18 at 18:00 Ketorolac Tromethamine (Toradol) 30 mg Q6H PRN IV MOD PAIN (4-6) OR TEMP>38C; Start 07/29/18 at 19:00; Stop 08/01/18 at 18:59 Nicotine Polacrilex (Nicorette) 2 mg Q4H PRN BUCCAL CONTROL WITHDRAWAL SYMPTOMS; Start 07/29/18 at 19:00 ARIELLE HILLS NP Jul 30, 2018 11:53
--- NOTE | 2018-07-30 13:57 | CONS ---
DATE OF ADMISSION: 07/26/2018 DATE OF CONSULTATION: 07/29/2018 TYPE OF CONSULTATION: Infectious disease. REQUESTING PHYSICIAN: Lorenzo Noonan MD Thank you for this consultation. HISTORY OF PRESENT ILLNESS: This is a 32-year-old morbidly obese woman without significant past medi brady history who was admitted with infected lower extremity. The patient apparently was running after her boyfriend and fell on concrete. It happened over a week ago. She developed abrasion that subse quently became infected. The patient denies other symptoms. VITAL SIGNS: She came with a temperature of 98.1, pulse 106, respirations 16, blood pressure 134/63, saturation 97% on room air. LABORATORY DATA: WBC 12.7, H and H 8.4 and 28.2, platelets 525, neutrophils 77.2. BUN 10, creatinin e 0.77. MICROBIOLOGY: Urinalysis was essentially negative. DIAGNOSTICS: Extremity venous study revealed no evidence for DVT. X-ray revealed no acute fracture, but marked soft tissue swelling. ANTIMICROBIALS: The patient was started on: 1. Vancomycin. 2. Zosyn. SOCIAL HISTORY: The patient lives with her boyfriend. She is a smoker, smokes about pack a day. De nies alcohol. She uses marijuana socially. PAST SURGICAL HISTORY: Denies. PAST MEDICAL HISTORY: Denies any. REVIEW OF SYSTEMS: As per history of present illness. PHYSICAL EXAMINATION: GENERAL: This is a morbidly obese, well-developed, middle-aged woman who is alert, in no distress. HEENT: Head is atraumatic, normocephalic. Sclerae are anicteric. Buccal mucosa is dry. NECK: Obese. CHEST: Rise symmetrical. Breath sounds diminished to bases. HEART: S1, S2. ABDOMEN: Obese, soft. Bowel tones are present. EXTREMITIES: With bilateral lower extremity edema. The patient has left lower extremity swelling, e rythema and open wound with some drainage. DIAGNOSTIC IMPRESSION: This is a morbidly obese 32-year-old woman admitted with infected wound on he r left lower extremity with surrounding cellulitis. The patient is on appropriate broad spectrum cov erage for which we will continue. We will order wound culture, swab her nares for methicillin-resist ant Staphylococcus aureus. Keep left lower extremity elevated. Further recommendations per patient' s clinical course, cultures and diagnostics. She may require surgical evaluation. I discussed with Dr. Reis who was covering for Dr. Houser. Dictated By: AGUSTÍN CUMMINGS G[employer]OLINE TESTER for DESI VERAS/AUBREE Conf#: [id number] DID#: [id number] CC: KWABENA SIMONS; LORENZO NOONAN MD; MARIA ELENA CENTENOM;*EndCC*
[2018-07-30] MEDS ORDERED: LIDOCAINE 1% (MPF) 30 ML INJ INJ PRN (14:30)
--- NOTE | 2018-07-30 14:34 | CONS ---
Assessment/Plan Assessment/Plan Assessment/Plan (Daily) Left lower extremity traumatic ulceration Suspicion for left lower extremity abscess Left lower extremity Cellulitis b/l venous insufficiency Lymphaedema Morbid obesity Nicotine dependence Plan: Consent was obtained and performed bedside excisional debridement of skin/subQ left lower extremity ulceration using a scalpel and pickup/scissors. Skin slough, biofilm, fibrotic tissue removed. Greater than 20cm2 of area was debrided. Copious irrigation and wound cultures were obtained. X-rays reviewed with no soft tissue gas or osseous involvement. Due to body habitus unable to perform MRI, CT is pending. Recommend daily dressing changes with compression. Continue with IV abx per ID recommendations. Patient may weight bear as tolerated. Plan to take to OR for further debridement and I&D for possible abscess formation. NPO after midnight tonight and prepare consent. Consultation Date/Type/Reason Admit Date/Time Jul 26, 2018 at 14:58 Date/Time of Note DATE: 07/30/18 TIME: 14:28 Hx of Present Illness 32 y/o F patient with hx of morbid obesity, nicotine dependence and anemia, presents to the floor with left lower extremity ulcer with cellulitis. Patient states 1 week she slipped and fell on concrete and resulted with a traumatic wound to the left lower extremity. Patient did not treat it and noticed that it worsened over time. Patient reports 8/10 sharp pain to the ulcer site which is local and non-radiating. Reported low grade fevers, denies other constitutional symptoms. ROS negative except for HPI Past Medical History morbid obesity, nicotine dependence and anemia Medications Current Medications IV Flush (NS 3 ml) 3 ml PER PROTOCOL IV ; Start 07/26/18 at 18:30 Ondansetron HCl (Zofran Inj) 4 mg Q6H PRN IV NAUSEA/VOMITING; Start 07/26/18 at 18:30 Acetaminophen (Tylenol Tab) 650 mg Q6H PRN PO .PAIN 1-3 OR TEMP; Start 07/26/18 at 18:30 Morphine Sulfate (morphine) 2 mg Q4H PRN IV .SEVERE PAIN 7-10 Last administered on 07/29/18at 17:07; Admin Dose 2 MG; Start 07/26/18 at 18:30 Docusate Sodium (Colace) 100 mg Q12H PRN PO .CONSTIPATION; Start 07/26/18 at 18:30 Magnesium Hydroxide (Milk Of Mag) 30 ml DAILY PRN PO .CONSTIPATION; Start 07/26/18 at 18:30 Heparin Sodium (Porcine) (Heparin (5000 Units/1ml)) 5,000 unit Q12 SC Last administered on 07/30/18at 10:12; Admin Dose 5,000 UNIT; Start 07/26/18 at 21:00 Lorazepam (Ativan) 0.5 mg Q6H PRN IV ANXIETY; Start 07/26/18 at 18:30 Albuterol/ Ipratropium (Duoneb) 3 ml Q4H RESP THERAPY PRN HHN SHORTNESS OF BREATH; Start 07/26/18 at 18:30 Piperacillin Sod/ Tazobactam Sod 100 ml @ 200 mls/hr Q6 IVPB Last administered on 07/30/18at 12:15; Admin Dose 200 MLS/HR; Start 07/26/18 at 18:00 Vancomycin HCl (Vanco Iv Per Pharmacy) VANCOMYCIN PER PHARMACY NOTE XX ; Start 07/26/18 at 18:30 Hydralazine HCl (Apresoline) 10 mg Q6H PRN IV ELEVATED BLOOD PRESSURE; Start 07/26/18 at 18:30 Clonidine (Catapres) 0.1 mg Q6H PRN PO ELEVATED BLOOD PRESSURE; Start 07/26/18 at 18:30 Nitroglycerin (Nitroglycerin (Sl Tab) 0.4 Mg) 1 tab Q5M PRN SL ANGINA; Start 07/26/18 at 18:30 Acetaminophen/ Hydrocodone Bitart ([place] (10/325)) 1 tab Q3H PRN PO MODERATE PAIN LEVEL 4-6 Last administered on 07/30/18at 01:02; Admin Dose 1 TAB; Start 07/27/18 at 21:30 Lactobacillus Acidophilus/ Rhamnosus (Culturelle) 1 cap BID PO Last admin istered on 07/30/18at 10:09; Admin Dose 1 CAP; Start 07/28/18 at 09:00 Vancomycin HCl 250 ml @ 125 mls/hr Q8H IVPB Last administered on 07/30/18at 10:09; Admin Dose 125 MLS/HR; Start 07/28/18 at 18:00 Ketorolac Tromethamine (Toradol) 30 mg Q6H PRN IV MOD PAIN (4-6) OR TEMP>38C; Start 07/29/18 at 19:00; Stop 08/01/18 at 18:59 Nicotine Polacrilex (Nicorette) 2 mg Q4H PRN BUCCAL CONTROL WITHDRAWAL SYMPTOMS; Start 07/29/18 at 19:00 Miscellaneous Information (*Rx Drug Level Order Reminder*) MERRY MCCAIN ON 07/31 @ 0,900 ONCE ONCE XX ; Start 07/31/18 at 09:00; Stop 07/31/18 at 09:01 Allergies: Coded Allergies: Iodine and Iodide Containing Produc (Verified Allergy, Severe, 07/26/18) only if iodine is introduced into the blood stream.skin is ok. Past Surgical History Past Surgical Hx: no surgical history Family History Significant Family History: no pertinent family hx Social History Smoking Status: Current every day smoker Exam/Review of Systems Exam Vitals Vital Signs Date Temp Pulse Resp B/P (MAP) Pulse Ox O2 O2 Flow FiO2 Time Delivery Rate 07/30/18 97.2 91 18 131/62 96 Room Air 10:54 (85) 07/28/18 08:16 Intake and Output 07/29/18 07/29/18 07/30/18 1515:00 23:00 07:00 IntakeIntake Total 1550 ml 1230 ml OutputOutput Total 700 ml BalanceBalance 1550 ml 530 ml Exam DP/PT pulses palpable b/l Protective sensations intact 3+ pitting edema to bilateral lower extremity There is induration appreciated to the lower extremities b/l Left lower extremity anterolateral ulceration 3 x 7 x 1.5cm. There is necrotic, fibrotic and granular tissue noted. Fluctuance was appreciated. Unable to express purulence. There is tunneling noted to the wound site. muscle strength 5/5 in all compartments of the foot. Tib fib X-ray L IMPRESSION: Marked soft tissue swelling. No acute fracture. Results Result Diagram: 07/30/18 0508 07/30/18 0508 Results 24hrs Laboratory Tests Test 07/29/18 17:02 07/30/18 05:02 07/30/18 05:08 Vancomycin Level Trough 14.1 Erythrocyte Sedimentation Rate 100.0 H C-Reactive Protein 8.4 H White Blood Count 13.4 H Red Blood Count 3.57 L Hemoglobin 8.9 L Hematocrit 28.8 L Mean Corpuscular Volume 80.7 L Mean Corpuscular Hemoglobin 24.9 L Mean Corpuscular Hemoglobin Concent 30.9 L Red Cell Distribution Width 14.8 H Platelet Count 501 H Mean Platelet Volume 8.0 Immature Granulocytes % 0.900 H Neutrophils % 77.7 H Lymphocytes % 11.1 L Monocytes % 5.5 Eosinophils % 4.5 Basophils % 0.3 Nucleated Red Blood Cells % 0.2 H Immature Granulocytes # 0.120 H Neutrophils # 10.4 H Lymphocytes # 1.5 Monocytes # 0.7 Eosinophils # 0.6 H Basophils # 0.0 Nucleated Red Blood Cells # 0.0 Prothrombin Time 13.1 Prothrombin Time Ratio 1.0 INR International Normalized Ratio 0.98 Sodium Level 141 Potassium Level 3.8 Chloride Level 103 Carbon Dioxide Level 28 Anion Gap 10 Blood Urea Nitrogen 8 Creatinine 0.63 Est Glomerular Filtrat Rate mL/min > 60 Glucose Level 131 Calcium Level 8.5 Iron Level 35 Total Iron Binding Capacity 304 Percent Iron Saturation 12 L Ferritin 68.6 Total Bilirubin 0.2 Direct Bilirubin 0.00 Indirect Bilirubin 0.2 Aspartate Amino Transf (AST/SGOT) 24 Alanine Aminotransferase (ALT/SGPT) 11 L Alkaline Phosphatase 96 Total Protein 7.5 Albumin 3.4 Globulin 4.10 H Albumin/Globulin Ratio 0.82 Medications Medication Current Medications IV Flush (NS 3 ml) 3 ml PER PROTOCOL IV ; Start 07/26/18 at 18:30 Ondansetron HCl (Zofran Inj) 4 mg Q6H PRN IV NAUSEA/VOMITING; Start 07/26/18 at 18:30 Acetaminophen (Tylenol Tab) 650 mg Q6H PRN PO .PAIN 1-3 OR TEMP; Start 07/26/18 at 18:30 Morphine Sulfate (morphine) 2 mg Q4H PRN IV .SEVERE PAIN 7-10 Last administered on 07/29/18at 17:07; Admin Dose 2 MG; Start 07/26/18 at 18:30 Docusate Sodium (Colace) 100 mg Q12H PRN PO .CONSTIPATION; Start 07/26/18 at 18:30 Magnesium Hydroxide (Milk Of Mag) 30 ml DAILY PRN PO .CONSTIPATION; Start 07/26/18 at 18:30 Heparin Sodium (Porcine) (Heparin (5000 Units/1ml)) 5,000 unit Q12 SC Last administered on 07/30/18at 10:12; Admin Dose 5,000 UNIT; Start 07/26/18 at 21:00 Lorazepam (Ativan) 0.5 mg Q6H PRN IV ANXIETY; Start 07/26/18 at 18:30 Albuterol/ Ipratropium (Duoneb) 3 ml Q4H RESP THERAPY PRN HHN SHORTNESS OF BREATH; Start 07/26/18 at 18:30 Piperacillin Sod/ Tazobactam Sod 100 ml @ 200 mls/hr Q6 IVPB Last administered on 07/30/18at 12:15; Admin Dose 200 MLS/HR; Start 07/26/18 at 18:00 Vancomycin HCl (Vanco Iv Per Pharmacy) VANCOMYCIN PER PHARMACY NOTE XX ; Start 07/26/18 at 18:30 Hydralazine HCl (Apresoline) 10 mg Q6H PRN IV ELEVATED BLOOD PRESSURE; Start 07/26/18 at 18:30 Clonidine (Catapres) 0.1 mg Q6H PRN PO ELEVATED BLOOD PRESSURE; Start 07/26/18 at 18:30 Nitroglycerin (Nitroglycerin (Sl Tab) 0.4 Mg) 1 tab Q5M PRN SL ANGINA; Start 07/26/18 at 18:30 Acetaminophen/ Hydrocodone Bitart ([place] (10/325)) 1 tab Q3H PRN PO MODERATE PAIN LEVEL 4-6 Last administered on 07/30/18at 01:02; Admin Dose 1 TAB; Start 07/27/18 at 21:30 Lactobacillus Acidophilus/ Rhamnosus (Culturelle) 1 cap BID PO Last administered on 07/30/18at 10:09; Admin Dose 1 CAP; Start 07/28/18 at 09:00 Vancomycin HCl 250 ml @ 125 mls/hr Q8H IVPB Last administered on 07/30/18at 10:09; Admin Dose 125 MLS/HR; Start 07/28/18 at 18:00 Ketorolac Tromethamine (Toradol) 30 mg Q6H PRN IV MOD PAIN (4-6) OR TEMP>38C; Start 07/29/18 at 19:00; Stop 08/01/18 at 18:59 Nicotine Polacrilex (Nicorette) 2 mg Q4H PRN BUCCAL CONTROL WITHDRAWAL SYMPTOMS; Start 07/29/18 at 19:00 Miscellaneous Information (*Rx Drug Level Order Reminder*) VANCO TR ON 07/31 @ 0,900 ONCE ONCE XX ; Start 07/31/18 at 09:00; Stop 07/31/18 at 09:01 SILVIA LINARES DPM Jul 30, 2018 14:34
[2018-07-30] MEDS: morphine 2 MG INJ IV PRN (14:38)
[2018-07-30] MEDS: SODIUM HYPOCHLORITE (1/40) 1 APPLIC BTL IRR SCH (15:03)
[2018-07-30 15:04] VITALS: BP 128/60; PULSE 82; RESP 19
[2018-07-30] MEDS ORDERED: IOHEXOL 300MG/ML 150 ML BTL ONE (15:33)
[2018-07-30] MEDS ORDERED: SOD CHLORIDE 0.9% 0 ML ONE (15:33)
[2018-07-30 20:00] VITALS: BP 155/68; PULSE 100; RESP 18
[2018-07-31] VITALS (23 sets, daily range): BP systolic 104–139; BP diastolic 51–77; PULSE 71–101; RESP 14–53
[2018-07-31] MEDS ORDERED: PIPER-TAZO 3.375 GM IV (PMX) 100 ML IVPB SCH (04:00)
[2018-07-31] MEDS: PIPER-TAZO 3.375 GM IV (PMX) 100 ML IVPB SCH ×3 (05:11→19:27)
[2018-07-31] MEDS: VANCOMYCIN 1 GM 250 ML IVPB SCH ×3 (06:50→23:15)
[2018-07-31] MEDS: morphine 2 MG INJ IV PRN (07:29)
--- NOTE | 2018-07-31 10:10 | PN ---
Date/Time of Note Date/Time of Note DATE: 07/31/18 TIME: 10:09 Assessment/Plan VTE Prophylaxis Risk score (from Ns)>0 risk: 2 SCD applied (from Ns): No SCD contraindicated: other Pharmacological prophylaxis: heparin Lines/Catheters IV Catheter Type (from [facility]): [facility] Urinary Cath still in place: No Assessment/Plan Hospital Course SUBJECTIVE: Continues to complain of left lower extremity pain. OBJECTIVE: Physical Exam General: Morbidly obese, 32 year-old female lying in bed in no apparent distress. HEENT: Normocephalic, atraumatic. Eyes: Anicteric sclerae, conjunctivae clear. ENT: Nasal septum midline, oral mucosa moist. Neck supple, no JVD noticed. Respiratory: Bilaterally clear breath sounds. No use of accessory muscles of respiration. No adventitious breath sounds. Cardiovascular: S1, S2 heard. No murmurs or gallops. Abdomen: Soft, nontender, and nondistended. Bowel sounds positive in all 4 quadrants. Genitourinary: Deferred. Extremities: No cyanosis, no clubbing. Edema and erythema of the left chopra area with an open wound. Peripheral pulses palpable. Neurologic: Cranial nerves II through XII grossly intact. The patient is awake, alert, and oriented. Labs & Vitals per chart ASSESSMENT & PLAN 32-year-old female with comorbidities including morbid obesity (BMI more than 62 kg/m) and nicotine use, who had a mechanical fall with impact to the left chopra with a resultant penetrating wound that became worse over a few days before she sought medical attention. The patient was noticed to have left lower extremity cellulitis with an infected left lower extremity wound. The patient was admitted to inpatient setting for further treatment and evaluation. 1. Left lower extremity cellulitis with infected left lower extremity wound. -Continue antimicrobials as per ID. -X-ray of the left tibia and fibula showing marked soft tissue swelling and no acute fractures. Venous Doppler study negative. -Patient unable to get MRI because of weight limits. -Left lower extremity CT scan showing complex 10.5 x 3.8 x 21.3 cm fluid collection deep in the subcutaneous fat of the lateral and anterolateral left foreleg. -Status post bedside excisional debridement of skin and subcutaneous tissue of the left lower extremity on 07/30/2018. -Plan for further debridement and I&D for possible abscess on 07/31/2018. 2. Microcytic hypochromic anemia. -Etiology unclear. -Iron panel showing no significant iron deficiency. -Monitor H&H closely. 3. Morbid obesity -BMI more than 62. -Fasting lipid panel within normal limits. -Hemoglobin A1c (5.8) borderline elevated. -Weight reduction advised. 4. Nicotine use. -Continue nicotine patch. 5. Fluids, electrolytes, and nutrition. -Low-cholesterol diet. 6. DVT prophylaxis. -Subcutaneous heparin. 7. Plan. -Continue antimicrobials as per ID. -Await further surgical debridement. The patient was seen in collaboration with Dr. Alvarado. Result Diagram: 07/31/18 0433 07/31/183 Results 24hrs Laboratory Tests Test 07/30/18 15:10 07/31/18 01:40 07/31/18 04:33 Erythrocyte Sedimentation Rate 125 H C-Reactive Protein 6.7 H Urine Test NEGATIVE White Blood Count 12.3 H Red Blood Count 3.62 L Hemoglobin 8.9 L Hematocrit 29.4 L Mean Corpuscular Volume 81.2 L Mean Corpuscular Hemoglobin 24.6 L Mean Corpuscular Hemoglobin Concent 30.3 L Red Cell Distribution Width 14.7 H Platelet Count 520 H Mean Platelet Volume 8.0 Immature Granulocytes % 1.100 H Neutrophils % 72.4 Lymphocytes % 14.5 L Monocytes % 6.0 Eosinophils % 5.6 Basophils % 0.4 Nucleated Red Blood Cells % 0.2 H Immature Granulocytes # 0.130 H Neutrophils # 8.9 H Lymphocytes # 1.8 Monocytes # 0.7 Eosinophils # 0.7 H Basophils # 0.1 Nucleated Red Blood Cells # 0.0 Sodium Level 141 Potassium Level 3.9 Chloride Level 102 Carbon Dioxide Level 28 Anion Gap 11 Blood Urea Nitrogen 10 Creatinine 0.70 Est Glomerular Filtrat Rate mL/min > 60 Glucose Level 107 Calcium Level 8.8 Phosphorus Level 4.6 Magnesium Level 1.9 Exam/Review of Systems Exam Vitals Vital Signs Date Temp Pulse Resp B/P (MAP) Pulse Ox O2 O2 Flow FiO2 Time Delivery Rate 07/31/18 98.2 92 18 139/77 96 Room Air 07:38 (97) 07/30/18 21 23:41 07/28/18 08:16 Intake and Output 07/30/18 07/30/18 07/31/18 1515:00 23:00 07:00 IntakeIntake Total 350 ml 420 ml 830 ml BalanceBalance 350 ml 420 ml 830 ml Results Results 24hrs Laboratory Tests Test 07/30/18 15:10 07/31/18 01:40 07/31/18 04:33 Erythrocyte Sedimentation Rate 125 H C-Reactive Protein 6.7 H Urine Test NEGATIVE White Blood Count 12.3 H Red Blood Count 3.62 L Hemoglobin 8.9 L Hematocrit 29.4 L Mean Corpuscular Volume 81.2 L Mean Corpuscular Hemoglobin 24.6 L Mean Corpuscular Hemoglobin Concent 30.3 L Red Cell Distribution Width 14.7 H Platelet Count 520 H Mean Platelet Volume 8.0 Immature Granulocytes % 1.100 H Neutrophils % 72.4 Lymphocytes % 14.5 L Monocytes % 6.0 Eosinophils % 5.6 Basophils % 0.4 Nucleated Red Blood Cells % 0.2 H Immature Granulocytes # 0.130 H Neutrophils # 8.9 H Lymphocytes # 1.8 Monocytes # 0.7 Eosinophils # 0.7 H Basophils # 0.1 Nucleated Red Blood Cells # 0.0 Sodium Level 141 Potassium Level 3.9 Chloride Level 102 Carbon Dioxide Level 28 Anion Gap 11 Blood Urea Nitrogen 10 Creatinine 0.70 Est Glomerular Filtrat Rate mL/min > 60 Glucose Level 107 Calcium Level 8.8 Phosphorus Level 4.6 Magnesium Level 1.9 Medications Medication Current Medications IV Flush (NS 3 ml) 3 ml PER PROTOCOL IV ; Start 07/26/18 at 18:30 Ondansetron HCl (Zofran Inj) 4 mg Q6H PRN IV NAUSEA/VOMITING; Start 07/26/18 at 18:30 Acetaminophen (Tylenol Tab) 650 mg Q6H PRN PO .PAIN 1-3 OR TEMP; Start 07/26/18 at 18:30 Morphine Sulfate (morphine) 2 mg Q4H PRN IV .SEVERE PAIN 7-10 Last administered on 07/31/18at 07:29; Admin Dose 2 MG; Start 07/26/18 at 18:30 Docusate Sodium (Colace) 100 mg Q12H PRN PO .CONSTIPATION; Start 07/26/18 at 18:30 Magnesium Hydroxide (Milk Of Mag) 30 ml DAILY PRN PO .CONSTIPATION; Start 07/26/18 at 18:30 Heparin Sodium (Porcine) (Heparin (5000 Units/1ml)) 5,000 unit Q12 SC Last administered on 07/30/18at 21:19; Admin Dose 5,000 UNIT; Start 07/26/18 at 21:00; Status Hold Lorazepam (Ativan) 0.5 mg Q6H PRN IV ANXIETY; Start 07/26/18 at 18:30 Albuterol/ Ipratropium (Duoneb) 3 ml Q4H RESP THERAPY PRN HHN SHORTNESS OF BREATH; Start 07/26/18 at 18:30 Vancomycin HCl (Vanco Iv Per Pharmacy) VANCOMYCIN PER PHARMACY NOTE XX ; Start 07/26/18 at 18:30 Hydralazine HCl (Apresoline) 10 mg Q6H PRN IV ELEVATED BLOOD PRESSURE; Start 07/26/18 at 18:30 Clonidine (Catapres) 0.1 mg Q6H PRN PO ELEVATED BLOOD PRESSURE; Start 07/26/18 at 18:30 Nitroglycerin (Nitroglycerin (Sl Tab) 0.4 Mg) 1 tab Q5M PRN SL ANGINA; Start 07/26/18 at 18:30 Acetaminophen/ Hydrocodone Bitart ([place] (10/325)) 1 tab Q3H PRN PO MODERATE PAIN LEVEL 4-6 Last administered on 07/30/18at 23:16; Admin Dose 1 TAB; Start 07/27/18 at 21:30 Lactobacillus Acidophilus/ Rhamnosus (Culturelle) 1 cap BID PO Last administered on 07/30/18at 21:18; Admin Dose 1 CAP; Start 07/28/18 at 09:00; Status Hold Ketorolac Tromethamine (Toradol) 30 mg Q6H PRN IV MOD PAIN (4-6) OR TEMP>38C; Start 07/29/18 at 19:00; Stop 08/01/18 at 18:59 Nicotine Polacrilex (Nicorette) 2 mg Q4H PRN BUCCAL CONTROL WITHDRAWAL SYMPTOMS; Start 07/29/18 at 19:00 Sodium Hypochlorite ([place]akin'S (Dilute )) 1 applic DAILY IRR Last administ ered on 07/30/18at 15:03; Admin Dose 1 APPLIC; Start 07/30/18 at 15:00 Piperacillin Sod/ Tazobactam Sod 100 ml @ 200 mls/hr Q6 IVPB Last administered on 07/31/18at 05:11; Admin Dose 200 MLS/HR; Start 07/31/18 at 04:00 Vancomycin HCl 250 ml @ 125 mls/hr Q8H IVPB Last administered on 07/31/18at 06:50; Admin Dose 125 MLS/HR; Start 07/30/18 at 23:00 Miscellaneous Information (*Rx Drug Level Order Reminder*) VANCOMYCIN TROUGH AT 2200 ONCE ONCE XX ; Start 07/31/18 at 22:00; Stop 07/31/18 at 22:01 ARIELLE HILLS NP Jul 31, 2018 10:10
[2018-07-31] MEDS: SODIUM HYPOCHLORITE (1/40) 1 APPLIC BTL IRR SCH (10:44)
--- NOTE | 2018-07-31 11:29 | PREAC ---
Date/Time of Note Date/Time of Note DATE: 07/31/18 TIME: 11:29 Anesthesia Eval and Record Evaluation Time Pre-Procedure Interview DATE: 07/31/18 TIME: 11:29 Age 32 Sex female NPO: 8 hrs Preoperative diagnosis Left lower extremity traumatic ulceration with cellulitis Planned procedure I & D, debridement Past Medical History Past Medical History: Includes Cardio: HTN Pulm: Asthma GI: Morbid obesity Heme: Anemia Surgery & Anesthesia Issues No known issue Meds Anticoagulation: No Beta Cristina within 24 hr: No Reason Beta Cristina not given: Pt. not on B-Cristina Current Medications IV Flush (NS 3 ml) 3 ml PER PROTOCOL IV ; Start 07/26/18 at 18:30 Ondansetron HCl (Zofran Inj) 4 mg Q6H PRN IV NAUSEA/VOMITING; Start 07/26/18 at 18:30 Acetaminophen (Tylenol Tab) 650 mg Q6H PRN PO .PAIN 1-3 OR TEMP; Start 07/26/18 at 18:30 Morphine Sulfate (morphine) 2 mg Q4H PRN IV .SEVERE PAIN 7-10 Last administered on 07/31/18at 07:29; Admin Dose 2 MG; Start 07/26/18 at 18:30 Docusate Sodium (Colace) 100 mg Q12H PRN PO .CONSTIPATION; Start 07/26/18 at 18:30 Magnesium Hydroxide (Milk Of Mag) 30 ml DAILY PRN PO .CONSTIPATION; Start 07/26/18 at 18:30 Heparin Sodium (Porcine) (Heparin (5000 Units/1ml)) 5,000 unit Q12 SC Last administered on 07/30/18at 21:19; Admin Dose 5,000 UNIT; Start 07/26/18 at 21:00; Status Hold Lorazepam (Ativan) 0.5 mg Q6H PRN IV ANXIETY; Start 07/26/18 at 18:30 Albuterol/ Ipratropium (Duoneb) 3 ml Q4H RESP THERAPY PRN HHN SHORTNESS OF B REATH; Start 07/26/18 at 18:30 Vancomycin HCl (Vanco Iv Per Pharmacy) VANCOMYCIN PER PHARMACY NOTE XX ; Start 07/26/18 at 18:30 Hydralazine HCl (Apresoline) 10 mg Q6H PRN IV ELEVATED BLOOD PRESSURE; Start 07/26/18 at 18:30 Clonidine (Catapres) 0.1 mg Q6H PRN PO ELEVATED BLOOD PRESSURE; Start 07/26/18 at 18:30 Nitroglycerin (Nitroglycerin (Sl Tab) 0.4 Mg) 1 tab Q5M PRN SL ANGINA; Start 07/26/18 at 18:30 Acetaminophen/ Hydrocodone Bitart ([place] (10/325)) 1 tab Q3H PRN PO MODERATE PAIN LEVEL 4-6 Last administered on 07/30/18at 23:16; Admin Dose 1 TAB; Start 07/27/18 at 21:30 Lactobacillus Acidophilus/ Rhamnosus (Culturelle) 1 cap BID PO Last administered on 07/30/18at 21:18; Admin Dose 1 CAP; Start 07/28/18 at 09:00; Status Hold Ketorolac Tromethamine (Toradol) 30 mg Q6H PRN IV MOD PAIN (4-6) OR TEMP>38C; Start 07/29/18 at 19:00; Stop 08/01/18 at 18:59 Nicotine Polacrilex (Nicorette) 2 mg Q4H PRN BUCCAL CONTROL WITHDRAWAL SYMPTOMS; Start 07/29/18 at 19:00 Sodium Hypochlorite ([place]akin'S (Dilute )) 1 applic DAILY IRR Last administered on 07/31/18at 10:44; Admin Dose 1 APPLIC; Start 07/30/18 at 15:00 Piperacillin Sod/ Tazobactam Sod 100 ml @ 200 mls/hr Q6 IVPB Last administered on 07/31/18at 05:11; Admin Dose 200 MLS/HR; Start 07/31/18 at 04:00 Vancomycin HCl 250 ml @ 125 mls/hr Q8H IVPB Last administered on 07/31/18at 06:50; Admin Dose 125 MLS/HR; Start 07/30/18 at 23:00 Miscellaneous Information (*Rx Drug Level Order Reminder*) VANCOMYCIN TROUGH AT 2200 ONCE ONCE XX ; Start 07/31/18 at 22:00; Stop 07/31/18 at 22:01 Meds reviewed: Yes Allergies Coded Allergies: Iodine and Iodide Containing Produc (Verified Allergy, Severe, 07/26/18) only if iodine is introduced into the blood stream.skin is ok. Allergies Reviewed: Yes Labs/Studies Labs Reviewed: Reviewed by anesthesiologist Result Diagram: 07/31/18 3556 07/31/18 0433 Laboratory Tests 07/31/18 04:33 test: Negative Pre-procedure Exam Last vitals Vital Signs Date Temp Pulse Resp B/P (MAP) Pulse Ox O2 O2 Flow FiO2 Time Delivery Rate 07/31/18 98.2 92 18 139/77 96 Room Air 07:38 (97) 07/30/18 21 23:41 07/28/18 08:16 Airway: Adequate mouth opening Mallampati: Mallampati II Teeth: Normal Lung: Normal Heart: Normal ASA Physical Status ASA physical status: 3 Emergency: None Planned Anesthetic General/MAC: LMA Planned Pain Management Parenteral pain med Pre-operative Attestations Prior to commencing anesthesia and surgery, the patient was re-evaluated, there was verification of: *The patient's identity *The results of appropriate recent lab work and preoperative vital signs *The above evaluation not changing prior to induction *Anesthetic plan, risk benefits, alternative and complications discussed with patient/family; questions answered; patient/family understands, accepts and wishes to proceed. GIBSON KNUTSON MD Jul 31, 2018 11:29
--- NOTE | 2018-07-31 11:35 | HPN ---
Date/Time of Note Date/Time of Note DATE: 07/31/18 TIME: 11:35 Interval H&P Admission Note Pt. seen H&P reviewed: No system changes SILVIA LINARES DPM Jul 31, 2018 11:35
[2018-07-31] MEDS ORDERED: POLYMYXIN/BACITRACIN 1L IRRIG ONE ×2 (11:46→13:31)
[2018-07-31] MEDS ORDERED: POLYMYXIN B 500000 UNIT INJ ONE ×2 (11:46→12:32)
[2018-07-31] MEDS ORDERED: LIDOCAINE 2% (SDV) 5 ML INJ ONE (11:53)
[2018-07-31] MEDS ORDERED: PROPOFOL 20 ML ONE (11:53)
[2018-07-31] MEDS ORDERED: MEPERIDINE 100 MG INJ ONE (11:53)
[2018-07-31] MEDS ORDERED: BUPIVACAINE 0.5% (SDV) 30 ML INJ ONE (11:59)
[2018-07-31] MEDS ORDERED: LIDOCAINE 1% (MPF) 30 ML INJ ONE (11:59)
[2018-07-31] MEDS ORDERED: hydrALAzine 20 MG INJ IV PRN (12:30)
[2018-07-31] MEDS ORDERED: METOCLOPRAMIDE 10 MG INJ IV PRN (12:30)
[2018-07-31] MEDS ORDERED: OXYCODONE/ACETAMINOPHEN (5/325) TAB PO PRN ×2 (12:30)
[2018-07-31] MEDS ORDERED: EPHEDrine SULFATE 50 MG/5 ML SYG IV PRN (12:30)
[2018-07-31] MEDS ORDERED: ONDANSETRON 4 MG INJ IV PRN (12:30)
[2018-07-31] MEDS ORDERED: DIPHENHYDRAMINE 50 MG INJ IV PRN (12:30)
[2018-07-31] MEDS ORDERED: LABETALOL HCL 20MG INJ IV PRN (12:30)
[2018-07-31] MEDS ORDERED: MIDAZOLAM 1 MG/ML 2 ML INJ IV PRN (12:30)
[2018-07-31] MEDS ORDERED: FENTAnyl 50 MCG/ML VIAL IV PRN ×2 (12:30)
[2018-07-31] MEDS ORDERED: MEPERIDINE 25 MG INJ IV PRN (12:30)
[2018-07-31] MEDS ORDERED: HYDROmorphONE 1 MG/5 ML IV SYRINGE IV PRN ×3 (12:30)
[2018-07-31] MEDS ORDERED: BACITRACIN 50000 UNITS INJ IRR ONE ×2 (12:37)
[2018-07-31] MEDS ORDERED: POLYMYXIN/BACITRACIN 1L IRRIG IRR ONE (12:38)
--- NOTE | 2018-07-31 13:01 | SIPON ---
Date/Time of Note Date/Time of Note DATE: 07/31/18 TIME: 13:00 Operative Report Preoperative Diagnosis left lower extremity traumatic ulcer Left lower extremity suspicion for abscess Left lower extremity Cellulitis b/l venous insufficiency Lymphaedema Postoperative Diagnosis left lower extremity traumatic ulcer Left lower extremity Hematoma Left lower extremity Cellulitis b/l venous insufficiency Lymphaedema Operation/Procedure Performed excisional debridement of left lower extremity Incision and drainage left lower extremity Application of wound VAC Surgeon see signature line personal injury legal assistant none Anesthesia: general Estimated blood loss: 150 - 200 ml's Transfusion Required none Specimen left lower extremity hematoma wound culture Grafts/Implants none Complications none SILVIA LINARES DPM Jul 31, 2018 13:01
--- NOTE | 2018-07-31 13:03 | OPR ---
Date/Time of Note Date/Time of Note DATE: 07/31/18 TIME: 13:03 Operative Report Preoperative Diagnosis left lower extremity traumatic ulcer Left lower extremity suspicion for abscess Left lower extremity Cellulitis b/l venous insufficiency Lymphaedema Postoperative Diagnosis left lower extremity traumatic ulcer Left lower extremity Hematoma Left lower extremity Cellulitis b/l venous insufficiency Lymphaedema Operation/Procedure Performed excisional debridement of left lower extremity Incision and drainage left lower extremity Application of wound VAC Surgeon see signature line An/Ssn 2 4 Operator none Anesthesia Type: general Estimated Blood Loss: 150 - 200 ml's Transfusion none Specimen left lower extremity hematoma wound culture Grafts/Implants none Complications none Indications 32 y/o F patient who suffered a fall on pavement and suffered a traumatic ulceration. Patient noted increased swelling, pain and worsening ulceration presentation. There is surrounding erythema and necrotic tissue formation to the wound base. A CT scan was done and revealed a significant fluid collection to the anterior lateral aspect of leg. Discussed the benefits of surgical intervention to manage ulceration. Patient is amenable to procedure. All of the patient's questions and concerns were addressed no promises or guarantees were given. Procedure Description The patient was brought into the OR and placed on the OR table in the supine position. The left lower extremity was scrubbed, prepped, and draped in the usual aseptic manner. A formal time out was conducted. Attention was directed to the anterior lateral mid diaphyseal region of the left lower extremity ulceration site. Using a scalpel blade a stab incision was made at the base of the ulceration site and there was hematoma and coagulated blood that was evacuated from the ulceration site. The fluid correlated with CT images and appeared to be hematoma formation. No purulence or foul smelling discharge was appreciated. Greater than 150mL of fluid was removed from the ulcer site. Wound cultures were obtained. Subsequently using a pickup/scissors excisional debridement of the ulceration site was performed of the skin/subQ/muscle/fascia. Removed necrotic adipose tissue, fibrotic tissue and biofilm. Less than 20cm2 of area was debrided. The wound measured 3 x 5 x 3.5cm, there was distal undermining of 8cm, proximal undermining 9cm, medial 4cm, and lateral 5cm undermining. Copious pulse lavage with antibiotic infused saline irrigation was used at the ulceration site. No probing to bone, no further drainage was appreciated. Next, a wound VAC was applied to the left lower extremity at 125mmHg low continuous therapy with a successful seal. Dry sterile dressings with compression were applied to the left lower extremity and patient was transferred to the PACU with vital signs stable and neurovascular status intact. SILVIA LINARES DPM Jul 31, 2018 13:03
--- NOTE | 2018-07-31 13:08 | CONS ---
Assessment/Plan Assessment/Plan Hospital Course (Demo Recall) No acute events, no fevers overnight Antimicrobials: Vancomycin, Zosyn Physical examination: This is a morbidly obese well-developed middle-aged woman who is alert in no distress. Head atraumatic normocephalic sclera nonicteric. Chest rise symmetrical, breath sounds clear, diminished at bases. Heart: S1-S2. Abdomen obese soft bowel sounds present. Extremities with bilateral extremitie s edema left lower extremity with some erythema and open wound with purulent drainage Assessment: 1. Left lower extremity cellulitis/abscess, status post fall 2. Morbid obesity 4. Chronic tobacco use Plan: Continue present care and antibiotics, follow wound cultures, follow podiatry recommendations, pending I&D Consultation Date/Type/Reason Admit Date/Time Jul 26, 2018 at 14:58 Initial Consult Date Type of Consult id Date/Time of Note DATE: 07/31/18 TIME: 13:06 Exam/Review of Systems Exam Vitals Vital Signs Date Temp Pulse Resp B/P (MAP) Pulse Ox O2 O2 Flow FiO2 Time Delivery Rate 07/31/18 98.2 92 18 139/77 96 Room Air 07:38 (97) 07/30/18 21 23:41 07/28/18 08:16 Intake and Output 07/30/18 07/30/18 07/31/18 1515:00 23:00 07:00 IntakeIntake Total 350 ml 420 ml 830 ml BalanceBalance 350 ml 420 ml 830 ml Results Result Diagram: 07/31/18 0433 07/31/18 0433 Results 24hrs Laboratory Tests Test 07/30/18 15:10 07/31/18 01:40 07/31/18 04:33 Erythrocyte Sedimentation Rate 125 H C-Reactive Protein 6.7 H Urine Test NEGATIVE White Blood Count 12.3 H Red Blood Count 3.62 L Hemoglobin 8.9 L Hematocrit 29.4 L Mean Corpuscular Volume 81.2 L Mean Corpuscular Hemoglobin 24.6 L Mean Corpuscular Hemoglobin Concent 30.3 L Red Cell Distribution Width 14.7 H Platelet Count 520 H Mean Platelet Volume 8.0 Immature Granulocytes % 1.100 H Neutrophils % 72.4 Lymphocytes % 14.5 L Monocytes % 6.0 Eosinophils % 5.6 Basophils % 0.4 Nucleated Red Blood Cells % 0.2 H Immature Granulocytes # 0.130 H Neutrophils # 8.9 H Lymphocytes # 1.8 Monocytes # 0.7 Eosinophils # 0.7 H Basophils # 0.1 Nucleated Red Blood Cells # 0.0 Sodium Level 141 Potassium Level 3.9 Chloride Level 102 Carbon Dioxide Level 28 Anion Gap 11 Blood Urea Nitrogen 10 Creatinine 0.70 Est Glomerular Filtrat Rate mL/min > 60 Glucose Level 107 Calcium Level 8.8 Phosphorus Level 4.6 Magnesium Level 1.9 Medications Medication Current Medications IV Flush (NS 3 ml) 3 ml PER PROTOCOL IV ; Start 07/26/18 at 18:30 Ondansetron HCl (Zofran Inj) 4 mg Q6H PRN IV NAUSEA/VOMITING; Start 07/26/18 at 18:30 Acetaminophen (Tylenol Tab) 650 mg Q6H PRN PO .PAIN 1-3 OR TEMP; Start 07/26/18 at 18:30 Morphine Sulfate (morphine) 2 mg Q4H PRN IV .SEVERE PAIN 7-10 Last administered on 07/31/18at 07:29; Admin Dose 2 MG; Start 07/26/18 at 18:30 Docusate Sodium (Colace) 100 mg Q12H PRN PO .CONSTIPATION; Start 07/26/18 at 18:30 Magnesium Hydroxide (Milk Of Mag) 30 ml DAILY PRN PO .CONSTIPATION; Start 07/26/18 at 18:30 Heparin Sodium (Porcine) (Heparin (5000 Units/1ml)) 5,000 unit Q12 SC Last administered on 07/30/18at 21:19; Admin Dose 5,000 UNIT; Start 07/26/18 at 21:00; Status Hold Lorazepam (Ativan) 0.5 mg Q6H PRN IV ANXIETY; Start 07/26/18 at 18:30 Albuterol/ Ipratropium (Duoneb) 3 ml Q4H RESP THERAPY PRN HHN SHORTNESS OF BREATH; Start 07/26/18 at 18:30 Vancomycin HCl (Vanco Iv Per Pharmacy) VANCOMYCIN PER PHARMACY NOTE XX ; Start 07/26/18 at 18:30 Hydralazine HCl (Apresoline) 10 mg Q6H PRN IV ELEVATED BLOOD PRESSURE; Start 07/26/18 at 18:30 Clonidine (Catapres) 0.1 mg Q6H PRN PO ELEVATED BLOOD PRESSURE; Start 07/26/18 at 18:30 Nitroglycerin (Nitroglycerin (Sl Tab) 0.4 Mg) 1 tab Q5M PRN SL ANGINA; Start 07/26/18 at 18:30 Acetaminophen/ Hydrocodone Bitart ([place] (10)) 1 tab Q3H PRN PO MODERATE PAIN LEVEL 4-6 Last administered on 07/30/18at 23:16; Admin Dose 1 TAB; Start 07/27/18 at 21:30 Lactobacillus Acidophilus/ Rhamnosus (Culturelle) 1 cap BID PO Last administered on 07/30/18at 21:18; Admin Dose 1 CAP; Start 07/28/18 at 09:00; Status Hold Ketorolac Tromethamine (Toradol) 30 mg Q6H PRN IV MOD PAIN (4-6) OR TEMP>38C; Start 07/29/18 at 19:00; Stop 08/01/18 at 18:59 Nicotine Polacrilex (Nicorette) 2 mg Q4H PRN BUCCAL CONTROL WITHDRAWAL SYMPTOM S; Start 07/29/18 at 19:00 Sodium Hypochlorite (Dakin'S (Dilute )) 1 applic DAILY IRR Last admi nistered on 07/31/18at 10:44; Admin Dose 1 APPLIC; Start 07/30/18 at 15:00 Piperacillin Sod/ Tazobactam Sod 100 ml @ 200 mls/hr Q6 IVPB Last administered on 07/31/18at 05:11; Admin Dose 200 MLS/HR; Start 07/31/18 at 04:00 Vancomycin HCl 250 ml @ 125 mls/hr Q8H IVPB Last administered on 07/31/18at 0 6:50; Admin Dose 125 MLS/HR; Start 07/30/18 at 23:00 Miscellaneous Information (*Rx Drug Level Order Reminder*) VANCOMYCIN TROUGH AT 2200 ONCE ONCE XX ; Start 07/31/18 at 22:00; Stop 07/31/18 at 22:01 Hydromorphone HCl (Dilaudid) 0.2 mg PACU PRN IV MILD PAIN 1-3; Start 07/31/18 at 12:30; Stop 07/31/18 at 18:00 Hydromorphone HCl (Dilaudid) 0.4 mg PACU PRN IV MOD PAIN 4-6; Start 07/31/18 at 12:30; Stop 07/31/18 at 18:00 Hydromorphone HCl (Dilaudid) 0.6 mg PACU PRN IV SEVERE PAIN 7-10; Start 07/31/18 at 12:30; Stop 07/31/18 at 18:00 Fentanyl (Sublimaze) 25 mcg PACU ORDER PRN IV MILD PAIN 1-3; Start 07/31/18 at 12:30; Stop 07/31/18 at 18:00 Fentanyl (Sublimaze) 50 mcg PACU ORDER PRN IV MOD PAIN 4-6; Start 07/31/18 at 12:30; Stop 07/31/18 at 18:00 Fentanyl (Sublimaze) 75 mcg PACU ORDER PRN IV SEVERE PAIN 7-10; Start 07/31/18 at 12:30; Stop 07/31/18 at 18:00 Oxycodone/ Acetaminophen (Percocet (5/ 325)) 1 tab PACU ORDER PRN PO .PAIN 1-5; Start 07/31/18 at 12:30; Stop 07/31/18 at 18:00 Oxycodone/ Acetaminophen (Percocet (5/ 325)) 2 tab PACU ORDER PRN PO .PAIN 6-10; Start 07/31/18 at 12:30; Stop 07/31/18 at 18:00 Ondansetron HCl (Zofran Inj) 4 mg PACU ORDER PRN IV NAUSEA/VOMITING; Start 07/31/18 at 12:30; Stop 07/31/18 at 18:00 Metoclopramide HCl (Reglan) 10 mg PACU ORDER PRN IV NAUSEA/VOMITING; Start 07/31/18 at 12:30; Stop 07/31/18 at 18:00 Labetalol HCl (Labetalol) 5 mg PACU ORDER PRN IV HIGH BLOOD PRESSURE; Start 07/31/18 at 12:30; Stop 07/31/18 at 18:00 Hydralazine HCl (Apresoline) 5 mg PACU ORDER PRN IV HIGH BLOOD PRESSURE; Start 07/31/18 at 12:30; Stop 07/31/18 at 18:00 Ephedrine Sulfate 5 mg PACU ORDER PRN IV BLOOD PRESSURE SUPPORT; Start 07/31/18 at 12:30; Stop 07/31/18 at 18:00 Meperidine HCl (Demerol) 25 mg PACU ORDER PRN IV .RIGORS; Start 07/31/18 at 12:30; Stop 07/31/18 at 18:00 Diphenhydramine HCl (Benadryl) 25 mg PACU ORDER PRN IV .PRURITUS; Start 07/31/18 at 12:30; Stop 07/31/18 at 18:00 Midazolam HCl (Versed) 0.5 mg PACU ORDER PRN IV .ANXIETY; Start 07/31/18 at 12:30; Stop 07/31/18 at 18:00 AGUSTÍN CUMMINGS NP Jul 31, 2018 13:08
[2018-07-31] MEDS: FENTAnyl 50 MCG/ML VIAL IV PRN ×2 (13:24→13:42)
[2018-07-31] MEDS ORDERED: BACITRACIN 50000 UNITS INJ ONE (13:31)
--- NOTE | 2018-07-31 15:16 | PAC ---
Date/Time of Note Date/Time of Note DATE: 07/31/18 TIME: 15:15 Post-Anesthesia Notes Post-Anesthesia Note Last documented vital signs Vital Signs Date Temp Pulse Resp B/P (MAP) Pulse Ox O2 O2 Flow FiO2 Time Delivery Rate 07/31/18 97.6 87 19 125/67 96 Nasal 14:44 (86) Cannula 07/31/18 2.0 14:06 07/30/18 21 23:41 Activity: WNL Respiratory function: WNL Cardiovascular function: WNL Mental status: Baseline Pain reasonably controlled: Yes Hydration appropriate: Yes Nausea/Vomiting absent: Yes GIBSON KNUTSON MD Jul 31, 2018 15:16
[2018-08-01] MEDS: HYDROCODONE/APAP (10/325) TAB PO PRN ×2 (00:09→10:16)
[2018-08-01] MEDS: PIPER-TAZO 3.375 GM IV (PMX) 100 ML IVPB SCH ×4 (01:30→18:19)
[2018-08-01 01:49] VITALS: BP 120/59; PULSE 76; RESP 18
[2018-08-01] MEDS: morphine 2 MG INJ IV PRN ×4 (03:11→20:26)
[2018-08-01] MEDS: VANCOMYCIN 1 GM 250 ML IVPB SCH (07:23)
[2018-08-01] MEDS: SODIUM HYPOCHLORITE (1/40) 1 APPLIC BTL IRR SCH (07:55)
--- NOTE | 2018-08-01 08:16 | PN ---
Date/Time of Note Date/Time of Note DATE: 08/01/18 TIME: 08:14 Assessment/Plan VTE Prophylaxis Risk score (from Ns)>0 risk: 2 SCD applied (from Ns): No SCD contraindicated: other Pharmacological prophylaxis: heparin Lines/Catheters IV [facility]from [facility] [place] Urinary Cath still in place: No Assessment/Plan Hospital Course SUBJECTIVE: Continues to complain of left lower extremity pain. OBJECTIVE: Physical Exam General: Morbidly obese, 32 year-old female lying in bed in no apparent distress. HEENT: Normocephalic, atraumatic. Eyes: Anicteric sclerae, conjunctivae clear. ENT: Nasal septum midline, oral mucosa moist. Neck supple, no JVD noticed. Respiratory: Bilaterally clear breath sounds. No use of accessory muscles of respiration. No adventitious breath sounds. Cardiovascular: S1, S2 heard. No murmurs or gallops. Abdomen: Soft, nontender, and nondistended. Bowel sounds positive in all 4 quadrants. Genitourinary: Deferred. Extremities: No cyanosis, no clubbing. Edema and erythema of the left chopra area with an open wound. Peripheral pulses palpable. Neurologic: Cranial nerves II through XII grossly intact. The patient is awake, alert, and oriented. Labs & Vitals per chart ASSESSMENT & PLAN 32-year-old female with comorbidities including morbid obesity (BMI more than 62 kg/m) and nicotine use, who had a mechanical fall with impact to the left chopra with a resultant penetrating wound that became worse over a few days before she sought medical attention. The patient was noticed to have left lower extremity cellulitis with an infected left lower extremity wound. The patient was admitted to inpatient setting for further treatment and evaluation. 1. Left lower extremity cellulitis with infected left lower extremity wound. -Continue antimicrobials as per ID. -X-ray of the left tibia and fibula showing marked soft tissue swelling and no acute fractures. Venous Doppler study negative. -Patient unable to get MRI because of weight limits. -Left lower extremity CT scan showing complex 10.5 x 3.8 x 21.3 cm fluid collection deep in the subcutaneous fat of the lateral and anterolateral left foreleg. -Status post bedside excisional debridement of skin and subcutaneous tissue of the left lower extremity on 07/30/2018. -S/P excisional debridement of left lower extremity; incision and drainage left lower extremity; and application of wound VAC on 07/31/2018. -Plan for further debridement and I&D for possible abscess on 07/31/2018. 2. Microcytic hypochromic anemia. -Etiology unclear. -Iron panel showing no significant iron deficiency. -Monitor H&H closely. 3. Morbid obesity -BMI more than 62. -Fasting lipid panel within normal limits. -Hemoglobin A1c (5.8) borderline elevated. -Weight reduction advised. 4. Nicotine use. -Continue nicotine patch. 5. Fluids, electrolytes, and nutrition. -Low-cholesterol diet. 6. DVT prophylaxis. -Subcutaneous heparin. 7. Plan. -Continue antimicrobials as per ID. -Await further surgical recommendations. The patient was seen in collaboration with Dr. Alvarado. Result Diagram: 08/01/1842708/01/18427 Results 24hrs Laboratory Tests Test 07/31/18 22:06 08/01/18 04:28 Vancomycin Level Trough 15.6 White Blood Count 12.2 H Red Blood Count 3.50 L Hemoglobin 8.5 L Hematocrit 28.7 L Mean Corpuscular Volume 82.0 Mean Corpuscular Hemoglobin 24.3 L Mean Corpuscular Hemoglobin Concent 29.6 L Red Cell Distribution Width 15.2 H Platelet Count 500 H Mean Platelet Volume 8.1 Immature Granulocytes % 0.800 H Neutrophils % 73.9 Lymphocytes % 11.7 L Monocytes % 6.6 Eosinophils % 6.6 Basophils % 0.4 Nucleated Red Blood Cells % 0.2 H Immature Granulocytes # 0.100 H Neutrophils # 9.0 H Lymphocytes # 1.4 Monocytes # 0.8 Eosinophils # 0.8 H Basophils # 0.1 Nucleated Red Blood Cells # 0.0 Sodium Level 141 Potassium Level 4.4 Chloride Level 105 Carbon Dioxide Level 27 Anion Gap 9 Blood Urea Nitrogen 12 Creatinine 1.06 H Est Glomerular Filtrat Rate mL/min 59 L Glucose Level 146 Calcium Level 8.4 Phosphorus Level 4.7 Magnesium Level 2.2 Exam/Review of Systems Exam Vitals Vital Signs Date Temp Pulse Resp B/P (MAP) Pulse Ox O2 O2 Flow FiO2 Time Delivery Rate 08/01/18 2.0 04:59 08/01/18 98.5 76 18 120/59 93 01:49 (79) 07/31/18 Nasal 20:00 Cannula 07/30/18 21 23:41 Intake and Output 07/31/18 07/31/18 08/01/18 1515:00 23:00 07:00 IntakeIntake Total 1050 ml 570 ml 350 ml OutputOutput Total 50 ml BalanceBalance 1000 ml 570 ml 350 ml Results Results 24hrs Laboratory Tests Test 07/31/18 22:06 08/01/18 04:28 Vancomycin Level Trough 15.6 White Blood Count 12.2 H Red Blood Count 3.50 L Hemoglobin 8.5 L Hematocrit 28.7 L Mean Corpuscular Volume 82.0 Mean Corpuscular Hemoglobin 24.3 L Mean Corpuscular Hemoglobin Concent 29.6 L Red Cell Distribution Width 15.2 H Platelet Count 500 H Mean Platelet Volume 8.1 Immature Granulocytes % 0.800 H Neutrophils % 73.9 Lymphocytes % 11.7 L Monocytes % 6.6 Eosinophils % 6.6 Basophils % 0.4 Nucleated Red Blood Cells % 0.2 H Immature Granulocytes # 0.100 H Neutrophils # 9.0 H Lymphocytes # 1.4 Monocytes # 0.8 Eosinophils # 0.8 H Basophils # 0.1 Nucleated Red Blood Cells # 0.0 Sodium Level 141 Potassium Level 4.4 Chloride Level 105 Carbon Dioxide Level 27 Anion Gap 9 Blood Urea Nitrogen 12 Creatinine 1.06 H Est Glomerular Filtrat Rate mL/min 59 L Glucose Level 146 Calcium Level 8.4 Phosphorus Level 4.7 Magnesium Level 2.2 Medications Medication Current Medications IV Flush (NS 3 ml) 3 ml PER PROTOCOL IV ; Start 07/26/18 at 18:30 Ondansetron HCl (Zofran Inj) 4 mg Q6H PRN IV NAUSEA/VOMITING; Start 07/26/18 at 18:30 Acetaminophen (Tylenol Tab) 650 mg Q6H PRN PO .PAIN 1-3 OR TEMP; Start 07/26/18 at 18:30 Morphine Sulfate (morphine) 2 mg Q4H PRN IV .SEVERE PAIN 7-10 Last administered on 08/01/18at 07:46; Admin Dose 2 MG; Start 07/26/18 at 18:30 Docusate Sodium (Colace) 100 mg Q12H PRN PO .CONSTIPATION; Start 07/26/18 at 18:30 Magnesium Hydroxide (Milk Of Mag) 30 ml DAILY PRN PO .CONSTIPATION; Start 07/26/18 at 18:30 Heparin Sodium (Porcine) (Heparin (5000 Units/1ml)) 5,000 unit Q12 SC Last administered on 07/30/18at 21:19; Admin Dose 5,000 UNIT; Start 07/26/18 at 21:00; Status Hold Lorazepam (Ativan) 0.5 mg Q6H PRN IV ANXIETY; Start 07/26/18 at 18:30 Albuterol/ Ipratropium (Duoneb) 3 ml Q4H RESP THERAPY PRN HHN SHORTNESS OF BREATH; Start 07/26/18 at 18:30 Vancomycin HCl (Vanco Iv Per Pharmacy) VANCOMYCIN PER PHARMACY NOTE XX ; Start 07/26/18 at 18:30 Hydralazine HCl (Apresoline) 10 mg Q6H PRN IV ELEVATED BLOOD PRESSURE; Start 07/26/18 at 18:30 Clonidine (Catapres) 0.1 mg Q6H PRN PO ELEVATED BLOOD PRESSURE; Start 07/26/18 at 18:30 Nitroglycerin (Nitroglycerin (Sl Tab) 0.4 Mg) 1 tab Q5M PRN SL ANGINA; Start 07/26/18 at 18:30 Acetaminophen/ Hydrocodone Bitart ([place] (10/325)) 1 tab Q3H PRN PO MODERATE PAIN LEVEL 4-6 Last administered on 08/01/18at 00:09; Admin Dose 1 TAB; Start 07/27/18 at 21:30 Lactobacillus Acidophilus/ Rhamnosus (Culturelle) 1 cap BID PO Last administered on 07/30/18at 21:18; Admin Dose 1 CAP; Start 07/28/18 at 09:00; Status Hold Ketorolac Tromethamine (Toradol) 30 mg Q6H PRN IV MOD PAIN (4-6) OR TEMP>38C Last administered on 07/31/18at 14:50; Admin Dose 30 MG; Start 07/29/18 at 19:00; Stop 08/01/18 at 18:59 Nicotine Polacrilex (Nicorette) 2 mg Q4H PRN BUCCAL CONTROL WITHDRAWAL SYMPTOMS; Start 07/29/18 at 19:00 Sodium Hypochlorite (Dakin'S (Dilute )) 1 applic DAILY IRR Last adminis tered on 07/31/18at 10:44; Admin Dose 1 APPLIC; Start 07/30/18 at 15:00 Piperacillin Sod/ Tazobactam Sod 100 ml @ 200 mls/hr Q6 IVPB Last administered on 08/01/18at 06:39; Admin Dose 200 MLS/HR; Start 07/31/18 at 04:00 Vancomycin HCl 250 ml @ 125 mls/hr Q8H IVPB Last administered on 08/01/18at 07:23; Admin Dose 125 MLS/HR; Start 07/30/18 at 23:00 ARIELLE HILLS NP Aug 01, 2018 08:16
[2018-08-01 08:30] VITALS: BP 117/63; PULSE 93; RESP 18
[2018-08-01] MEDS: LACTOBACILLUS RHAMNOSUS CAP PO SCH ×2 (09:29→20:56)
[2018-08-01] MEDS: HEPARIN 5,000 UNIT/1 ML VIAL SC SCH ×2 (09:31→21:04)
--- NOTE | 2018-08-01 14:09 | CONS ---
Assessment/Plan Assessment/Plan Hospital Course (Demo Recall) Alert, looks comfortable Antimicrobials: Vancomycin, Zosyn Physical examination: This is a morbidly obese well-developed middle-aged woman who is alert in no distress. Head atraumatic normocephalic sclera nonicteric. Chest rise symmetrical, breath sounds clear, diminished at bases. Heart: S1-S2. Abdomen obese soft bowel sounds present. Extremities with bilateral extremities edema left lower extremity with some erythema and open wound with purulent drainage Assessment: 1. Left lower extremity cellulitis/abscess, status post i/d 2. Morbid obesity 4. Chronic tobacco use Plan: Stable, continue present care and antibiotics, follow wound cultures, podiatry recommendations, wound vac DW pt Consultation Date/Type/Reason Admit Date/Time Jul 26, 2018 at 14:58 Initial Consult Date Type of Consult id Date/Time of Note DATE: 08/01/18 TIME: 14:08 Exam/Review of Systems Exam Vitals Vital Signs Date Temp Pulse Resp B/P (MAP) Pulse Ox O2 O2 Flow FiO2 Time Delivery Rate 08/01/18 2.0 11:33 08/01/18 98.8 93 18 117/63 94 08:30 (81) 07/31/18 Nasal 20:00 Cannula 07/30/18 21 23:41 Intake and Output 07/31/18 07/31/18 08/01/18 1515:00 23:00 07:00 IntakeIntake Total 1050 ml 570 ml 350 ml OutputOutput Total 50 ml BalanceBalance 1000 ml 570 ml 350 ml Results Result Diagram: 08/01/18 0428 08/01/18 0428 Results 24hrs Laboratory Tests Test 07/31/18 22:06 08/01/18 04:28 Vancomycin Level Trough 15.6 White Blood Count 12.2 H Red Blood Count 3.50 L Hemoglobin 8.5 L Hematocrit 28.7 L Mean Corpuscular Volume 82.0 Mean Corpuscular Hemoglobin 24.3 L Mean Corpuscular Hemoglobin Concent 29.6 L Red Cell Distribution Width 15.2 H Platelet Count 500 H Mean Platelet Volume 8.1 Immature Granulocytes % 0.800 H Neutrophils % 73.9 Lymphocytes % 11.7 L Monocytes % 6.6 Eosinophils % 6.6 Basophils % 0.4 Nucleated Red Blood Cells % 0.2 H Immature Granulocytes # 0.100 H Neutrophils # 9.0 H Lymphocytes # 1.4 Monocytes # 0.8 Eosinophils # 0.8 H Basophils # 0.1 Nucleated Red Blood Cells # 0.0 Sodium Level 141 Potassium Level 4.4 Chloride Level 105 Carbon Dioxide Level 27 Anion Gap 9 Blood Urea Nitrogen 12 Creatinine 1.06 H Est Glomerular Filtrat Rate mL/min 59 L Glucose Level 146 Calcium Level 8.4 Phosphorus Level 4.7 Magnesium Level 2.2 Medications Medication Current Medications IV Flush (NS 3 ml) 3 ml PER PROTOCOL IV ; Start 07/26/18 at 18:30 Ondansetron HCl (Zofran Inj) 4 mg Q6H PRN IV NAUSEA/VOMITING; Start 07/26/18 at 18:30 Acetaminophen (Tylenol Tab) 650 mg Q6H PRN PO .PAIN 1-3 OR TEMP; Start 07/26/18 at 18:30 Morphine Sulfate (morphine) 2 mg Q4H PRN IV .SEVERE PAIN 7-10 Last administered on 08/01/18at 07:46; Admin Dose 2 MG; Start 07/26/18 at 18:30 Docusate Sodium (Colace) 100 mg Q12H PRN PO .CONSTIPATION; Start 07/26/18 at 18:30 Magnesium Hydroxide (Milk Of Mag) 30 ml DAILY PRN PO .CONSTIPATION; Start 07/26/18 at 18:30 Heparin Sodium (Porcine) (Heparin (5000 Units/1ml)) 5,000 unit Q12 SC Last administered on 08/01/18at 09:31; Admin Dose 5,000 UNIT; Start 07/26/18 at 21:00 Lorazepam (Ativan) 0.5 mg Q6H PRN IV ANXIETY; Start 07/26/18 at 18:30 Albuterol/ Ipratropium (Duoneb) 3 ml Q4H RESP THERAPY PRN HHN SHORTNESS OF BREATH; Start 07/26/18 at 18:30 Vancomycin HCl (Vanco Iv Per Pharmacy) VANCOMYCIN PER PHARMACY NOTE XX ; Start 07/26/18 at 18:30 Hydralazine HCl (Apresoline) 10 mg Q6H PRN IV ELEVATED BLOOD PRESSURE; Start 07/26/18 at 18:30 Clonidine (Catapres) 0.1 mg Q6H PRN PO ELEVATED BLOOD PRESSURE; Start 07/26/18 at 18:30 Nitroglycerin (Nitroglycerin (Sl Tab) 0.4 Mg) 1 tab Q5M PRN SL ANGINA; Start 07/26/18 at 18:30 Acetaminophen/ Hydrocodone Bitart ([place] (10/325)) 1 tab Q3H PRN PO MODERATE PAIN LEVEL 4-6 Last administered on 08/01/18 10:16; Admin Dose 1 TAB; Start 07/27/18 at 21:30 Lactobacillus Acidophilus/ Rhamnosus (Culturelle) 1 cap BID PO Last administered on 08/01/18 09:29; Admin Dose 1 CAP; Start 07/28/18 at 09:00 Ketorolac Tromethamine (Toradol) 30 mg Q6H PRN IV MOD PAIN (4-6) OR TEMP>38C Last administered on 07/31/18 14:50; Admin Dose 30 MG; Start 07/29/18 at 19:00; Stop 08/01/18 at 18:59 Nicotine Polacrilex (Nicorette) 2 mg Q4H PRN BUCCAL CONTROL WITHDRAWAL SYMPTOMS; Start 07/29/18 at 19:00 Sodium Hypochlorite (Dakin'S (Dilute 40)) 1 applic DAILY IRR Last administered on 07/31/18 10:44; Admin Dose 1 APPLIC; Start 07/30/18 at 15:00 Piperacillin Sod/ Tazobactam Sod 100 ml @ 200 mls/hr Q6 IVPB Last administered on 08/01/18 12:36; Admin Dose 200 MLS/HR; Start 07/31/18 at 04:00 AGUSTÍN CUMMINGS NP Aug 01, 2018 14:09
[2018-08-01 14:28] VITALS: BP 124/67; PULSE 92; RESP 18
[2018-08-01 19:15] VITALS: BP 130/81; PULSE 97; RESP 20
[2018-08-01] MEDS: VANCOMYCIN HCL 1.25 GM in SOD CHLORIDE 0.9% 250 ML IVPB SCH (20:56)
[2018-08-02] MEDS: PIPER-TAZO 3.375 GM IV (PMX) 100 ML IVPB SCH ×3 (00:40→11:47)
[2018-08-02 02:05] VITALS: BP 132/76; PULSE 102; RESP 20
[2018-08-02] MEDS: morphine 2 MG INJ IV PRN ×3 (04:40→17:37)
[2018-08-02 07:44] VITALS: BP 132/84; PULSE 94; RESP 18
[2018-08-02] MEDS: SODIUM HYPOCHLORITE (1/40) 1 APPLIC BTL IRR SCH (08:33)
[2018-08-02] MEDS: VANCOMYCIN HCL 1.25 GM in SOD CHLORIDE 0.9% 250 ML IVPB SCH (08:33)
[2018-08-02] MEDS: LACTOBACILLUS RHAMNOSUS CAP PO SCH ×2 (08:35→22:07)
[2018-08-02] MEDS: HEPARIN 5,000 UNIT/1 ML VIAL SC SCH ×2 (09:03→22:07)
--- NOTE | 2018-08-02 13:22 | CONS ---
Assessment/Plan Assessment/Plan Hospital Course (Demo Recall) Looks comfortable, no fevers Antimicrobials: Vancomycin, Zosyn Physical examination: This is a morbidly obese well-developed middle-aged woman who is alert in no distress. Head atraumatic normocephalic sclera nonicteric. Chest rise symmetrical, breath sounds clear, diminished at bases. Heart: S1-S2. Abdomen obese soft bowel sounds present. Extremities with bilateral extremities edema left lower extremity with some erythema and open wound with purulent drainage Assessment: 1. Left lower extremity cellulitis/abscess, status post i/d===> cx neg 2. Morbid obesity 4. Chronic tobacco use Plan: Stable, will change abx to Bactrim and Cipro [facility] staff Consultation Date/Type/Reason Admit Date/Time Jul 26, 2018 at 14:58 Initial Consult Date Type of Consult id Date/Time of Note DATE: 08/02/18 TIME: 13:22 Exam/Review of Systems Exam Vitals Vital Signs Date Temp Pulse Resp B/P (MAP) Pulse Ox O2 O2 Flow FiO2 Time Delivery Rate 08/02/18 98.0 94 18 132/84 95 Room Air 07:44 (100) 08/02/18 2.0 04:40 07/30/18 21 23:41 Intake and Output 08/01/18 08/01/18 08/02/18 1515:00 23:00 07:00 IntakeIntake Total 1250 ml 508 ml 750 ml OutputOutput Total 600 ml 300 ml BalanceBalance 1250 ml -92 ml 450 ml Results Result Diagram: 08/02/18 0433 08/02/18 0433 Results 24hrs Laboratory Tests Test 08/01/18 14:19 08/02/18 04:33 Erythrocyte Sedimentation Rate 120 H C-Reactive Protein 5.8 H White Blood Count 12.6 H Red Blood Count 3.48 L Hemoglobin 8.5 L Hematocrit 29.0 L Mean Corpuscular Volume 83.3 Mean Corpuscular Hemoglobin 24.4 L Mean Corpuscular Hemoglobin Concent 29.3 L Red Cell Distribution Width 15.5 H Platelet Count 538 H Mean Platelet Volume 8.3 Immature Granulocytes % 1.000 H Neutrophils % 70.1 Lymphocytes % 14.9 L Monocytes % 7.1 Eosinophils % 6.6 Basophils % 0.3 Nucleated Red Blood Cells % 0.4 H Immature Granulocytes # 0.120 H Neutrophils # 8.8 H Lymphocytes # 1.9 Monocytes # 0.9 Eosinophils # 0.8 H Basophils # 0.0 Nucleated Red Blood Cells # 0.1 H Sodium Level 143 Potassium Level 4.6 Chloride Level 104 Carbon Dioxide Level 30 Anion Gap 9 Blood Urea Nitrogen 12 Creatinine 0.95 Est Glomerular Filtrat Rate mL/min > 60 Glucose Level 88 # Calcium Level 8.9 Phosphorus Level 3.5 Magnesium Level 2.3 Medications Medication Current Medications IV Flush (NS 3 ml) 3 ml PER PROTOCOL IV ; Start 07/26/18 at 18:30 Ondansetron HCl (Zofran Inj) 4 mg Q6H PRN IV NAUSEA/VOMITING; Start 07/26/18 at 18:30 Acetaminophen (Tylenol Tab) 650 mg Q6H PRN PO .PAIN 1-3 OR TEMP; Start 07/26/18 at 18:30 Morphine Sulfate (morphine) 2 mg Q4H PRN IV .SEVERE PAIN 7-10 Last administered on 08/02/18at 12:30; Admin Dose 2 MG; Start 07/26/18 at 18:30 Docusate Sodium (Colace) 100 mg Q12H PRN PO .CONSTIPATION; Start 07/26/18 at 18:30 Magnesium Hydroxide (Milk Of Mag) 30 ml DAILY PRN PO .CONSTIPATION; Start 07/26/18 at 18:30 Heparin Sodium (Porcine) (Heparin (5000 Units/1ml)) 5,000 unit Q12 SC Last administered on 08/02/18at 09:03; Admin Dose 5,000 UNIT; Start 07/26/18 at 21:00 Lorazepam (Ativan) 0.5 mg Q6H PRN IV ANXIETY; Start 07/26/18 at 18:30 Albuterol/ Ipratropium (Duoneb) 3 ml Q4H RESP THERAPY PRN HHN SHORTNESS OF BREATH; Start 07/26/18 at 18:30 Vancomycin HCl (Vanco Iv Per Pharmacy) VANCOMYCIN PER PHARMACY NOTE XX ; Start 07/26/18 at 18:30 Hydralazine HCl (Apresoline) 10 mg Q6H PRN IV ELEVATED BLOOD PRESSURE; Start 07/26/18 at 18:30 Clonidine (Catapres) 0.1 mg Q6H PRN PO ELEVATED BLOOD PRESSURE; Start 07/26/18 at 18:30 Nitroglycerin (Nitroglycerin (Sl Tab) 0.4 Mg) 1 tab Q5M PRN SL ANGINA; Start 07/26/18 at 18:30 Acetaminophen/ Hydrocodone Bitart ([place] (10/325)) 1 tab Q3H PRN PO MODERATE PAIN LEVEL 4-6 Last administered on 08/01/18 10:16; Admin Dose 1 TAB; Start 07/27/18 at 21:30 Lactobacillus Acidophilus/ Rhamnosus (Culturelle) 1 cap BID PO Last administered on 08/02/18 08:35; Admin Dose 1 CAP; Start 07/28/18 at 09:00 Nicotine Polacrilex (Nicorette) 2 mg Q4H PRN BUCCAL CONTROL WITHDRAWAL SYMPTOMS; Start 07/29/18 at 19:00 Sodium Hypochlorite (Dakin'S (Dilute )) 1 applic DAILY IRR Last administered on 07/31/18 10:44; Admin Dose 1 APPLIC; Start 07/30/18 at 15:00 Piperacillin Sod/ Tazobactam Sod 100 ml @ 200 mls/hr Q6 IVPB Last administered on 08/02/18at 11:47; Admin Dose 200 MLS/HR; Start 07/31/18 at 04:00 Vancomycin HCl 1.25 gm/Sodium Chloride 250 ml @ 83.333 mls/ hr Q12H IVPB Last administered on 08/02/18 08:33; Admin Dose 83.333 MLS/HR; Start 08/01/18 at 20:00 AGUSTÍN CUMMINGS NP Aug 02, 2018 13:22
--- NOTE | 2018-08-02 13:36 | PN ---
Date/Time of Note Date/Time of Note DATE: 08/02/18 TIME: 13:35 Assessment/Plan VTE Prophylaxis Risk score (from Nsg)>0 risk: 3 SCD applied (from Nsg): Yes Pharmacological prophylaxis: heparin Lines/Catheters IV Catheter Type (from Nrsg): Peripheral IV Urinary Cath still in place: No Assessment/Plan Hospital Course SUBJECTIVE: Continues to complain of left lower extremity pain. OBJECTIVE: Physical Exam General: Morbidly obese, 32 year-old female lying in bed in no apparent distress. HEENT: Normocephalic, atraumatic. Eyes: Anicteric sclerae, conjunctivae clear. ENT: Nasal septum midline, oral mucosa moist. Neck supple, no JVD noticed. Respiratory: Bilaterally clear breath sounds. No use of accessory muscles of respiration. No adventitious breath sounds. Cardiovascular: S1, S2 heard. No murmurs or gallops. Abdomen: Soft, nontender, and nondistended. Bowel sounds positive in all 4 quadrants. Genitourinary: Deferred. Extremities: No cyanosis, no clubbing. Left lower extremity wound with a wound VAC connected to it. Peripheral pulses palpable. Neurologic: Cranial nerves II through XII grossly intact. The patient is awake, alert, and oriented. Labs & Vitals per chart ASSESSMENT & PLAN 32-year-old female with comorbidities including morbid obesity (BMI more than 62 kg/m) and nicotine use, who had a mechanical fall with impact to the left chopra with a resultant penetrating wound that became worse over a few days before she sought medical attention. The patient was noticed to have left lower extremity cellulitis with an infected left lower extremity wound. The patient was admitted to inpatient setting for further treatment and evaluation. 1. Left lower extremity cellulitis with infected left lower extremity wound. -Continue antimicrobials as per ID. -X-ray of the left tibia and fibula showing marked soft tissue swelling and no acute fractures. Venous Doppler study negative. -Patient unable to get MRI because of weight limits. -Left lower extremity CT scan showing complex 10.5 x 3.8 x 21.3 cm fluid collection deep in the subcutaneous fat of the lateral and anterolateral left foreleg. -Status post bedside excisional debridement of skin and subcutaneous tissue of the left lower extremity on 07/30/2018. -S/P excisional debridement of left lower extremity; incision and drainage left lower extremity; and application of wound VAC on 07/31/2018. 2. Microcytic hypochromic anemia. -Etiology unclear. -Iron panel showing no significant iron deficiency. -Monitor H&H closely. 3. Morbid obesity -BMI more than 62. -Fasting lipid panel within normal limits. -Hemoglobin A1c (5.8) borderline elevated. -Weight reduction advised. 4. Nicotine use. -Continue nicotine patch. 5. Fluids, electrolytes, and nutrition. -Low-cholesterol diet. 6. DVT prophylaxis. -Subcutaneous heparin. 7. Plan. -Continue antimicrobials as per ID. -Plan is to discharge the patient home on oral antibiotics after arranging home health for wound care. The patient was seen in collaboration with Dr. Alvarado. Result Diagram: 08/02/1843208/02/183 Results 24hrs Laboratory Tests Test 08/01/18 14:19 08/02/18 04:33 Erythrocyte Sedimentation Rate 120 H C-Reactive Protein 5.8 H White Blood Count 12.6 H Red Blood Count 3.48 L Hemoglobin 8.5 L Hematocrit 29.0 L Mean Corpuscular Volume 83.3 Mean Corpuscular Hemoglobin 24.4 L Mean Corpuscular Hemoglobin Concent 29.3 L Red Cell Distribution Width 15.5 H Platelet Count 538 H Mean Platelet Volume 8.3 Immature Granulocytes % 1.000 H Neutrophils % 70.1 Lymphocytes % 14.9 L Monocytes % 7.1 Eosinophils % 6.6 Basophils % 0.3 Nucleated Red Blood Cells % 0.4 H Immature Granulocytes # 0.120 H Neutrophils # 8.8 H Lymphocytes # 1.9 Monocytes # 0.9 Eosinophils # 0.8 H Basophils # 0.0 Nucleated Red Blood Cells # 0.1 H Sodium Level 143 Potassium Level 4.6 Chloride Level 104 Carbon Dioxide Level 30 Anion Gap 9 Blood Urea Nitrogen 12 Creatinine 0.95 Est Glomerular Filtrat Rate mL/min > 60 Glucose Level 88 # Calcium Level 8.9 Phosphorus Level 3.5 Magnesium Level 2.3 Exam/Review of Systems Exam Vitals Vital Signs Date Temp Pulse Resp B/P (MAP) Pulse Ox O2 O2 Flow FiO2 Time Delivery Rate 08/02/18 98.0 94 18 132/84 95 Room Air 07:44 (100) 08/02/18 2.0 04:40 07/30/18 21 23:41 Intake and Output 08/01/18 08/01/18 08/02/18 1515:00 23:00 07:00 IntakeIntake Total 1250 ml 508 ml 750 ml OutputOutput Total 600 ml 300 ml BalanceBalance 1250 ml -92 ml 450 ml Results Results 24hrs Laboratory Tests Test 08/01/18 14:19 08/02/18 04:33 Erythrocyte Sedimentation Rate 120 H C-Reactive Protein 5.8 H White Blood Count 12.6 H Red Blood Count 3.48 L Hemoglobin 8.5 L Hematocrit 29.0 L Mean Corpuscular Volume 83.3 Mean Corpuscular Hemoglobin 24.4 L Mean Corpuscular Hemoglobin Concent 29.3 L Red Cell Distribution Width 15.5 H Platelet Count 538 H Mean Platelet Volume 8.3 Immature Granulocytes % 1.000 H Neutrophils % 70.1 Lymphocytes % 14.9 L Monocytes % 7.1 Eosinophils % 6.6 Basophils % 0.3 Nucleated Red Blood Cells % 0.4 H Immature Granulocytes # 0.120 H Neutrophils # 8.8 H Lymphocytes # 1.9 Monocytes # 0.9 Eosinophils # 0.8 H Basophils # 0.0 Nucleated Red Blood Cells # 0.1 H Sodium Level 143 Potassium Level 4.6 Chloride Level 104 Carbon Dioxide Level 30 Anion Gap 9 Blood Urea Nitrogen 12 Creatinine 0.95 Est Glomerular Filtrat Rate mL/min > 60 Glucose Level 88 # Calcium Level 8.9 Phosphorus Level 3.5 Magnesium Level 2.3 Medications Medication Current Medications IV Flush (NS 3 ml) 3 ml PER PROTOCOL IV ; Start 07/26/18 at 18:30 Ondansetron HCl (Zofran Inj) 4 mg Q6H PRN IV NAUSEA/VOMITING; Start 07/26/18 at 18:30 Acetaminophen (Tylenol Tab) 650 mg Q6H PRN PO .PAIN 1-3 OR TEMP; Start 07/26/18 at 18:30 Morphine Sulfate (morphine) 2 mg Q4H PRN IV .SEVERE PAIN 7-10 Last administered on 08/02/18at 12:30; Admin Dose 2 MG; Start 07/26/18 at 18:30 Docusate Sodium (Colace) 100 mg Q12H PRN PO .CONSTIPATION; Start 07/26/18 at 18:30 Magnesium Hydroxide (Milk Of Mag) 30 ml DAILY PRN PO .CONSTIPATION; Start 07/26/18 at 18:30 Heparin Sodium (Porcine) (Heparin (5000 Units/1ml)) 5,000 unit Q12 SC Last administered on 08/02/18 09:03; Admin Dose 5,000 UNIT; Start 07/26/18 at 21:00 Lorazepam (Ativan) 0.5 mg Q6H PRN IV ANXIETY; Start 07/26/18 at 18:30 Albuterol/ Ipratropium (Duoneb) 3 ml Q4H RESP THERAPY PRN HHN SHORTNESS OF BREATH; Start 07/26/18 at 18:30 Vancomycin HCl (Vanco Iv Per Pharmacy) VANCOMYCIN PER PHARMACY NOTE XX ; Start 07/26/18 at 18:30 Hydralazine HCl (Apresoline) 10 mg Q6H PRN IV ELEVATED BLOOD PRESSURE; Start 07/26/18 at 18:30 Clonidine (Catapres) 0.1 mg Q6H PRN PO ELEVATED BLOOD PRESSURE; Start 07/26/18 at 18:30 Nitroglycerin (Nitroglycerin (Sl Tab) 0.4 Mg) 1 tab Q5M PRN SL ANGINA; Start 07/26/18 at 18:30 Acetaminophen/ Hydrocodone Bitart ([place] (10/325)) 1 tab Q3H PRN PO MODERATE PAIN LEVEL 4-6 Last administered on 08/01/18 10:16; Admin Dose 1 TAB; Start 07/27/18 at 21:30 Lactobacillus Acidophilus/ Rhamnosus (Culturelle) 1 cap BID PO Last administered on 08/02/18 08:35; Admin Dose 1 CAP; Start 07/28/18 at 09:00 Nicotine Polacrilex (Nicorette) 2 mg Q4H PRN BUCCAL CONTROL WITHDRAWAL SYMPTOMS; Start 07/29/18 at 19:00 Sodium Hypochlorite (Dakin'S (Dilute )) 1 applic DAILY IRR Last administered on 07/31/18 10:44; Admin Dose 1 APPLIC; Start 07/30/18 at 15:00 Piperacillin Sod/ Tazobactam Sod 100 ml @ 200 mls/hr Q6 IVPB Last administered on 08/02/18at 11:47; Admin Dose 200 MLS/HR; Start 07/31/18 at 04:00 Vancomycin HCl 1.25 gm/Sodium Chloride 250 ml @ 83.333 mls/ hr Q12H IVPB Last administered on 3/21/19at 08:33; Admin Dose 83.333 MLS/HR; Start 08/01/18 at 20:00 Trimethoprim/ Sulfamethoxazole (Bactrim (Ds)) 1 tab BID PO ; Start 08/02/18 at 21:00; Status UNV Levofloxacin (Levaquin) 500 mg DAILY@06 PO ; Start 08/03/18 at 06:00; Status UNV ARIELLE HILLS NP Aug 02, 2018 13:36
[2018-08-02] MEDS: HYDROCODONE/APAP (10/325) TAB PO PRN (14:24)
--- NOTE | 2018-08-02 14:27 | CONS ---
Assessment/Plan Assessment/Plan Assessment/Plan (Daily) Left lower extremity traumatic ulceration Left lower extremity hematoma Left lower extremity Cellulitis b/l venous insufficiency Lymphaedema Morbid obesity Nicotine dependence Plan: Recommend to continue with wound VAC dressings. Wound care consulted to change MWF. Patient will need home VAC. Wound Cx currently showing no growth. Patient will need staged procedures for the future to assist with wound healing. Recommend follow up in outpatient [facility] wound clinic. Patient may weight bear as tolerated. Consultation Date/Type/Reason Admit Date/Time Jul 26, 2018 at 14:58 Initial Consult Date Date/Time of Note DATE: 08/02/18 TIME: 14:25 24 HR Interval Summary Free Text/Dictation No acute events overnight. Exam/Review of Systems Exam Vitals Vital Signs Date Temp Pulse Resp B/P (MAP) Pulse Ox O2 O2 Flow FiO2 Time Delivery Rate 08/02/18 98.0 94 18 132/84 95 Room Air 07:44 (100) 08/02/18 2.0 04:40 07/30/18 23:41 Intake and Output 08/01/18 08/01/18 08/02/18 1515:00 23:00 07:00 IntakeIntake Total 1250 ml 508 ml 750 ml OutputOutput Total 600 ml 300 ml BalanceBalance 1250 ml -92 ml 450 ml Exam Dressings are clean dry and intact. Wound VAC canister with serosanguinous drainage output. No strikethrough drainage no proximal streaking. Results Result Diagram: 08/02/18 0433 08/02/18 0433 Results 24hrs Laboratory Tests Test 08/02/18 04:33 White Blood Count 12.6 H Red Blood Count 3.48 L Hemoglobin 8.5 L Hematocrit 29.0 L Mean Corpuscular Volume 83.3 Mean Corpuscular Hemoglobin 24.4 L Mean Corpuscular Hemoglobin Concent 29.3 L Red Cell Distribution Width 15.5 H Platelet Count 538 H Mean Platelet Volume 8.3 Immature Granulocytes % 1.000 H Neutrophils % 70.1 Lymphocytes % 14.9 L Monocytes % 7.1 Eosinophils % 6.6 Basophils % 0.3 Nucleated Red Blood Cells % 0.4 H Immature Granulocytes # 0.120 H Neutrophils # 8.8 H Lymphocytes # 1.9 Monocytes # 0.9 Eosinophils # 0.8 H Basophils # 0.0 Nucleated Red Blood Cells # 0.1 H Sodium Level 143 Potassium Level 4.6 Chloride Level 104 Carbon Dioxide Level 30 Anion Gap 9 Blood Urea Nitrogen 12 Creatinine 0.95 Est Glomerular Filtrat Rate mL/min > 60 Glucose Level 88 # Calcium Level 8.9 Phosphorus Level 3.5 Magnesium Level 2.3 Medications Medication Current Medications IV Flush (NS 3 ml) 3 ml PER PROTOCOL IV ; Start 07/26/18 at 18:30 Ondansetron HCl (Zofran Inj) 4 mg Q6H PRN IV NAUSEA/VOMITING; Start 07/26/18 at 18:30 Acetaminophen (Tylenol Tab) 650 mg Q6H PRN PO .PAIN 1-3 OR TEMP; Start 07/26/18 at 18:30 Morphine Sulfate (morphine) 2 mg Q4H PRN IV .SEVERE PAIN 7-10 Last administered on 08/02/18at 12:30; Admin Dose 2 MG; Start 07/26/18 at 18:30 Docusate Sodium (Colace) 100 mg Q12H PRN PO .CONSTIPATION; Start 07/26/18 at 18:30 Magnesium Hydroxide (Milk Of Mag) 30 ml DAILY PRN PO .CONSTIPATION; Start 07/26/18 at 18:30 Heparin Sodium (Porcine) (Heparin (5000 Units/1ml)) 5,000 unit Q12 SC Last administered on 08/02/18at 09:03; Admin Dose 5,000 UNIT; Start 07/26/18 at 21:00 Lorazepam (Ativan) 0.5 mg Q6H PRN IV ANXIETY; Start 07/26/18 at 18:30 Albuterol/ Ipratropium (Duoneb) 3 ml Q4H RESP THERAPY PRN HHN SHORTNESS OF BREATH; Start 07/26/18 at 18:30 Hydralazine HCl (Apresoline) 10 mg Q6H PRN IV ELEVATED BLOOD PRESSURE; Start 07/26/18 at 18:30 Clonidine (Catapres) 0.1 mg Q6H PRN PO ELEVATED BLOOD PRESSURE; Start 07/26/18 at 18:30 Nitroglycerin (Nitroglycerin (Sl Tab) 0.4 Mg) 1 tab Q5M PRN SL ANGINA; Start 07/26/18 at 18:30 Acetaminophen/ Hydrocodone Bitart ([place] (10/325)) 1 tab Q3H PRN PO MODERATE PAIN LEVEL 4-6 Last administered on 08/01/18at 10:16; Admin Dose 1 TAB; Start 07/27/18 at 21:30 Lactobacillus Acidophilus/ Rhamnosus (Culturelle) 1 cap BID PO Last administered on 08/02/18at 08:35; Admin Dose 1 CAP; Start 07/28/18 at 09:00 Nicotine Polacrilex (Nicorette) 2 mg Q4H PRN BUCCAL CONTROL WITHDRAWAL SYMPTOMS; Start 07/29/18 at 19:00 Sodium Hypochlorite (Dakin'S (Dilute )) 1 applic DAILY IRR Last administered on 07/31/18at 10:44; Admin Dose 1 APPLIC; Start 07/30/18 at 15:00 Trimethoprim/ Sulfamethoxazole (Bactrim (Ds)) 1 tab BID PO ; Start 08/02/18 at 21:00 Levofloxacin (Levaquin) 500 mg DAILY@06 PO ; Start 08/03/18 at 06:00 SILVIA LINARES DPM Aug 02, 2018 14:27
[2018-08-02 15:26] VITALS: BP 120/71; PULSE 89; RESP 18
[2018-08-02 19:50] VITALS: BP 128/63; PULSE 88; RESP 20
[2018-08-02] MEDS: TRIMETHOPRIM/SULFAMETHOX (DS) TAB PO SCH (22:07)
[2018-08-03 02:54] VITALS: BP 137/70; PULSE 98; RESP 20
[2018-08-03] MEDS: HYDROCODONE/APAP (10/325) TAB PO PRN ×3 (05:30→14:58)
[2018-08-03] MEDS ORDERED: LEVOFLOXACIN 500 MG TAB PO SCH (06:00)
[2018-08-03 08:29] VITALS: BP 118/56; PULSE 88; RESP 20
[2018-08-03] MEDS: SODIUM HYPOCHLORITE (1/40) 1 APPLIC BTL IRR SCH (09:00)
[2018-08-03] MEDS: LACTOBACILLUS RHAMNOSUS CAP PO SCH (09:18)
[2018-08-03] MEDS: TRIMETHOPRIM/SULFAMETHOX (DS) TAB PO SCH (09:18)
[2018-08-03] MEDS: HEPARIN 5,000 UNIT/1 ML VIAL SC SCH (09:21)
[2018-08-03] MEDS ORDERED: SULF-182 PO (09:23)
[2018-08-03] MEDS ORDERED: LEVO500T48 PO (09:23)
--- NOTE | 2018-08-03 10:43 | CONS ---
Assessment/Plan Assessment/Plan Hospital Course (Demo Recall) Looks comfortable, no fevers Antimicrobials: Bactrim, Levaquin Wound cx negative Physical examination: This is a morbidly obese well-developed middle-aged woman who is alert in no distress. Head atraumatic normocephalic sclera nonicteric. Chest rise symmetrical, breath sounds clear, diminished at bases. Heart: S1-S2. Abdomen obese soft bowel sounds present. Extremities with bilateral extremities edema left lower extremity with some erythema and open wound with purulent drainage Assessment: 1. Left lower extremity cellulitis/abscess, status post i/d/wound vac===> cx neg 2. Morbid obesity 4. Chronic tobacco use Plan: Stable, podiatry rec-s noted, continue abx/wound vac [facility] staff Consultation Date/Type/Reason Admit Date/Time Jul 26, 2018 at 14:58 Initial Consult Date Type of Consult id Date/Time of Note DATE: 08/03/18 TIME: 10:41 Exam/Review of Systems Exam Vitals Vital Signs Date Temp Pulse Resp B/P (MAP) Pulse Ox O2 O2 Flow FiO2 Time Delivery Rate 08/03/18 98.4 88 20 118/56 97 Room Air 08:29 (76) 08/02/18 2.0 04:40 07/30/18 21 23:41 Intake and Output 08/02/18 08/02/18 08/03/18 1515:00 23:00 07:00 IntakeIntake Total 1050 ml 900 ml 400 ml OutputOutput Total 1 ml 100 ml 410 ml BalanceBalance 1049 ml 800 ml -10 ml Results Result Diagram: 08/03/18 0438 08/03/18 0438 Results 24hrs Laboratory Tests Test 08/03/18 04:38 White Blood Count 13.6 H Red Blood Count 3.54 L Hemoglobin 8.7 L Hematocrit 29.1 L Mean Corpuscular Volume 82.2 Mean Corpuscular Hemoglobin 24.6 L Mean Corpuscular Hemoglobin Concent 29.9 L Red Cell Distribution Width 15.5 H Platelet Count 564 H Mean Platelet Volume 8.4 Immature Granulocytes % 0.700 H Neutrophils % 70.5 Lymphocytes % 16.1 Monocytes % 5.8 Eosinophils % 6.5 Basophils % 0.4 Nucleated Red Blood Cells % 0.1 H Immature Granulocytes # 0.100 H Neutrophils # 9.6 H Lymphocytes # 2.2 Monocytes # 0.8 Eosinophils # 0.9 H Basophils # 0.1 Nucleated Red Blood Cells # 0.0 Sodium Level 140 Potassium Level 4.3 Chloride Level 104 Carbon Dioxide Level 28 Anion Gap 8 Blood Urea Nitrogen 12 Creatinine 0.80 Est Glomerular Filtrat Rate mL/min > 60 Glucose Level 118 Calcium Level 9.1 Medications Medication Current Medications IV Flush (NS 3 ml) 3 ml PER PROTOCOL IV ; Start 07/26/18 at 18:30 Ondansetron HCl (Zofran Inj) 4 mg Q6H PRN IV NAUSEA/VOMITING; Start 07/26/18 at 18:30 Acetaminophen (Tylenol Tab) 650 mg Q6H PRN PO .PAIN 1-3 OR TEMP; Start 07/26/18 at 18:30 Morphine Sulfate (morphine) 2 mg Q4H PRN IV .SEVERE PAIN 7-10 Last administered on 08/02/18at 17:37; Admin Dose 2 MG; Start 07/26/18 at 18:30 Docusate Sodium (Colace) 100 mg Q12H PRN PO .CONSTIPATION; Start 07/26/18 at 1 8:30 Magnesium Hydroxide (Milk Of Mag) 30 ml DAILY PRN PO .CONSTIPATION; Start 07/26/18 at 18:30 Heparin Sodium (Porcine) (Heparin (5000 Units/1ml)) 5,000 unit Q12 SC Last administered on 08/03/18at 09:21; Admin Dose 5,000 UNIT; Start 07/26/18 at 21:00 Lorazepam (Ativan) 0.5 mg Q6H PRN IV ANXIETY; Start 07/26/18 at 18:30 Albuterol/ Ipratropium (Duoneb) 3 ml Q4H RESP THERAPY PRN HHN SHORTNESS OF BREATH; Start 07/26/18 at 18:30 Hydralazine HCl (Apresoline) 10 mg Q6H PRN IV ELEVATED BLOOD PRESSURE; Start 07/26/18 at 18:30 Clonidine (Catapres) 0.1 mg Q6H PRN PO ELEVATED BLOOD PRESSURE; Start 07/26/18 at 18:30 Nitroglycerin (Nitroglycerin (Sl Tab) 0.4 Mg) 1 tab Q5M PRN SL ANGINA; Start 07/26/18 at 18:30 Acetaminophen/ Hydrocodone Bitart ([place] (10/325)) 1 tab Q3H PRN PO MODERATE PAIN LEVEL 4-6 Last administered on 08/03/18 10:07; Admin Dose 1 TAB; Start 07/27/18 at 21:30 Lactobacillus Acidophilus/ Rhamnosus (Culturelle) 1 cap BID PO Last administered on 08/03/18 09:18; Admin Dose 1 CAP; Start 07/28/18 at 09:00 Nicotine Polacrilex (Nicorette) 2 mg Q4H PRN BUCCAL CONTROL WITHDRAWAL SYMPTOMS; Start 07/29/18 at 19:00 Sodium Hypochlorite (Dakin'S (Dilute )) 1 applic DAILY IRR Last administered on 07/31/18 10:44; Admin Dose 1 APPLIC; Start 07/30/18 at 15:00 Trimethoprim/ Sulfamethoxazole (Bactrim (Ds)) 1 tab BID PO Last administered on 08/03/18 09:18; Admin Dose 1 TAB; Start 08/02/18 at 21:00 Levofloxacin (Levaquin) 500 mg DAILY@06 PO Last administered on 08/03/18at 05:30; Admin Dose 500 MG; Start 08/03/18 at 06:00 AGUSTÍN CUMMINGS NP Aug 03, 2018 10:43
--- NOTE | 2018-08-03 11:01 | PDOCDIS ---
Discharge Instructions CONDITION [id number] Patient Condition: [id number] Stable HOME CARE INSTRUCTIONS: [id number] Diet Instructions: [id number] Regular FOLLOW UP/APPOINTMENTS Follow-up Plan Wound Care Clinic at [facility] in one week. . OTHER ORDERS: Other Orders: 1. Complete the course of antibiotics. 2. Take [id number] pain medications as needed for pain control. 3. Please follow-up with the wound care clinic at [facility] in 1 week. 4. Weightbearing on the left lower extremity as tolerated. 5. Please go to the nearest emergency room if you have persistent fevers, significant pain in the left lower extremity despite pain medications, or any other unusual signs/symptoms. 6. Take a regular, preferably low carbohydrate, low-cholesterol diet. ARIELLE HILLS NP Aug 03, 2018 11:01
[2018-08-03] MEDS ORDERED: HYDR-3609 PO (11:46)
--- NOTE | 2018-08-03 17:30 | DS ---
Date/Time of Note Date/Time of Note DATE: 08/03/18 TIME: 17:28 Discharge Summary Admission/Discharge Info Admit Date/Time Jul 26, 2018 at 14:58 Discharge Date/Time Discharge Diagnosis 1. Left lower extremity cellulitis. 2. Left lower extremity hematoma. S/P excisional debridement of left lower extremity; incision and drainage left lower extremity; and application of wound VAC on 07/31/2018. 3. Microcytic hypochromic anemia. 4. Morbid obesity. BMI more than 62. 5. Nicotine use. 6. Homeless status. Patient Condition: Stable Consults 1. Addy Houser MD, Infectious Diseases. 2. Cas Alegre DPM, Podiatry. Procedures Operative Report Preoperative Diagnosis left lower extremity traumatic ulcer Left lower extremity suspicion for abscess Left lower extremity Cellulitis b/l venous insufficiency Lymphedema Postoperative Diagnosis left lower extremity traumatic ulcer Left lower extremity Hematoma Left lower extremity Cellulitis b/l venous insufficiency Lymphaedema Operation/Procedure Performed excisional debridement of left lower extremity Incision and drainage left lower extremity Application of wound VAC Left Lower Extremity CT IMPRESSION: 1. Complex 10.5 x 3.8 x 21.3 cm fluid collection deep in the subcutaneous fat of the lateral and anterolateral left foreleg. This could represent organizing inflammatory phlegmon with or without abscess. Without contrast enhancement, it is difficult, not possible to ascertain if an abscess is present. In the more superficial subcutaneous fat, there is soft tissue stranding representing more diffuse and less extensive cellulitis. 2. No evidence of osteomyelitis. Hx of Present Illness This is a 32-year-old female with comorbidities including morbid obesity (BMI more than 62 kg/m) and nicotine use, who had a mechanical fall with impact to the left chopra with a resultant penetrating wound that became worse over a few days before she sought medical attention. The patient was noticed to have left lower extremity cellulitis with an infected left lower extremity wound. The patient was admitted to inpatient setting for further treatment and evaluation. Hospital Course The patient was maintained on empiric antimicrobial therapy. The patient's left foot wound was growing Streptococcus species. The patient's left foot wound was not getting better. Therefore, a podiatry consult was obtained on 07/30/2018. The patient underwent a bedside excisional debridement of skin and subcutaneous tissue of the left lower extremity on 07/30/2018 followed by excisional debridement of left lower extremity; incision and drainage of hematoma on the left lower extremity; application of wound VAC on 07/31/2018. The patient's left lower extremity CT scan was showing complex 10.5 x 3.8 x 21.3 cm fluid collection deep in the subcutaneous fat of the lateral farhana-lateral left foreleg. The patient was unable to obtain an MRI because of morbid obesity. The patient could not get a CT scan with IV contrast because of allergy to IV dye. The patient was maintained on antimicrobials as per infectious diseases. Wound wound care was following the patient. The patient needs to be continued on wound VAC therapy and the patient may need staged debridement for further management of the wound. The patient already received a tetanus injection at the transferring facility as per the patient. Home health was arranged for dr josette villeda of the left lower extremity. The patient was noticed to have microcytic and hypochromic anemia. The patient's iron panel was not showing any significant iron deficiency. The patient was also noted to be morbidly obese with a BMI of more than 62 kg/m. The patient's hemoglobin A1c was borderline elevated at 5.8. Weight reduction was advised. The patient is also a current nicotine user. The patient was advised on cessation. The patient was maintained on nicotine patch. The patient had a stable hospital course. The patient is stable to be discharged. On the day of discharge, the patient verbalized that she is homeless. Therefore, social staff worker was involved in the patient's care. As per the final conversation with the telephonic nurse case manager, the patient will be discharged to a hotel where the patient can be followed by home health agency. Discharge Instructions 1. Complete the course of antibiotics. 2. Take [id number] pain medications as needed for pain control. 3. Please follow-up with the wound care clinic at [facility] in 1 week. 4. Weightbearing on the left lower extremity as tolerated. 5. Please go to the nearest emergency room if you have persistent fevers, significant pain in the left lower extremity despite pain medications, or any other unusual signs/symptoms. 6. Take a regular, preferably low carbohydrate, low-cholesterol diet. The patient verbalized understanding of her discharge instructions. At this time I would like to thank all the consultants for seeing the patient, doing the necessary procedures, and providing clinical recommendations. The patient was seen in collaboration with Dr. Alvarado. Home Meds Active Scripts Hydrocodone/Acetaminophen (Hydrocodone-Acetamin 10-325 mg) 1 Each Tablet, 1 TAB PO Q6H PRN for MODERATE PAIN LEVEL 4-6, #10 TAB Prov:ARIELLE HILLS PHYSICIAN GYNECOLOGIST 08/03/18 Sulfamethoxazole/Trimethoprim (Sulfamethoxazole-Tmp Ds Tablet) 1 Each Tablet, 1 TAB PO BID, #28 TAB Prov:ARIELLE HILLS PHYSICIAN GYNECOLOGIST 08/03/18 Levofloxacin* (Levaquin*) 500 Mg Tablet, 500 MG PO DAILY@06, #14 TAB Prov:ARIELLE HILLS PHYSICIAN GYNECOLOGIST 08/03/18 Follow-up Plan Wound Care Clinic at [facility] in one week. . Primary Care Provider Not On Staff Doctor Time spent on discharge: > 30 minutes Pending Labs Laboratory Tests Test 08/03/18 04:38 White Blood Count 13.6 10^3/ul (4.8-10.8) Red Blood Count 3.54 10^6/ul (4.20-5.40) Hemoglobin 8.7 g/dl (12.0-16.0) Hematocrit 29.1 % (37.0-47.0) Mean Corpuscular Volume 82.2 fl (82.0-101.0) Mean Corpuscular Hemoglobin 24.6 pg (29.0-33.0) Mean Corpuscular Hemoglobin Concent 29.9 g/dl (32.0-37.0) Red Cell Distribution Width 15.5 % (11.5-14.5) Platelet Count 564 10^3/UL (140-415) Mean Platelet Volume 8.4 fl (7.4-10.4) Immature Granulocytes % 0.700 % (0.001-0.429) Neutrophils % 70.5 % (39.0-77.0) Lymphocytes % 16.1 % (15.0-51.0) Monocytes % 5.8 % (0.0-11.0) Eosinophils % 6.5 % (0.0-7.0) Basophils % 0.4 % (0.0-2.0) Nucleated Red Blood Cells % 0.1 /100WBC (0.0-0.0) Immature Granulocytes # 0.100 10^3/ul (0.0-0.031) Neutrophils # 9.6 10^3/ul (1.6-7.5) Lymphocytes # 2.2 10^3/ul (0.8-2.9) Monocytes # 0.8 10^3/ul (0.3-0.9) Eosinophils # 0.9 10^3/ul (0.0-0.5) Basophils # 0.1 10^3/ul (0.0-0.1) Nucleated Red Blood Cells # 0.0 10^3/ul (0.0-0.0) Sodium Level 140 mmol/L (135-144) Potassium Level 4.3 mmol/L (3.5-5.1) Chloride Level 104 mmol/L (97-110) Carbon Dioxide Level 28 mmol/L (21-31) Anion Gap 8 (5-13) Blood Urea Nitrogen 12 mg/dl (7-20) Creatinine 0.80 mg/dl (0.44-1.00) Est Glomerular Filtrat Rate mL/min > 60 mL/min (>60) Glucose Level 118 mg/dl (70-220) Calcium Level 9.1 mg/dl (8.4-10.2) ARIELLE HILLS NP Aug 03, 2018 17:30
== END 2018-08-03 20:00 | disposition home health service (06) | DRG 571 ==
LOC: 6WM 14:58 → MS1 07-30 08:45
PROVIDERS: ADMIT Hospitalist; ATTEND Internal Medicine
PROC: 0JBP0ZZ Excision of Left Lower Leg Subcutaneous Tissue and Fascia, Open Approach (ICD-10-PCS; 2018-07-26)
PROC: 0JCP0ZZ Extirpation of Matter from Left Lower Leg Subcutaneous Tissue and Fascia, Open Approach (ICD-10-PCS; 2018-07-31)
PROC: 0KBT0ZZ Excision of Left Lower Leg Muscle, Open Approach (ICD-10-PCS; principal; 2018-07-31 11:30)
DX: L03.116 Cellulitis of left lower limb (principal); Z68.44 Body mass index [BMI] 60.0-69.9, adult; S81.802A Unspecified open wound, left lower leg, initial encounter; L08.9 Local infection of the skin and subcutaneous tissue, unspecified; S80.12XA Contusion of left lower leg, initial encounter; E66.01 Morbid (severe) obesity due to excess calories; F17.200 Nicotine dependence, unspecified, uncomplicated; D64.9 Anemia, unspecified; I87.2 Venous insufficiency (chronic) (peripheral); I89.0 Lymphedema, not elsewhere classified; J45.909 Unspecified asthma, uncomplicated; D50.9 Iron deficiency anemia, unspecified; W01.0XXA Fall on same level from slipping, tripping and stumbling without subsequent striking against object, initial encounter
CPT/HCPCS: 73590; 73700; 80048; 80053; 80061; 80202; 81001; 82565; 82728; 83036; 83540; 83735; 84100; 84439; 84443; 84520; 84703; 85025; 85610; 85651; 86140; 87070; 87075; 87086; 87102; 93971; J1170; J1644; J1885; J2175; J2270; J2405; J2543; J3010; J3370; J7030; J7040; J7050; Q9967

== ENCOUNTER 2018-08-31 19:30 | Inpatient (IN) | payer OTHER ==
[~2018-08-31] VITALS: Ht 167.6 cm; Wt 169.0 kg
[~2018-08-31 19:30] MED LIST: HYDR-3609 PO; LEVO500T48 PO; SULF-182 PO
[2018-08-31] MEDS ORDERED: CLINDAMYCIN 900 MG/D5W (PMX) 50 ML IVPB STA (20:34)
[2018-08-31] MEDS ORDERED: CEFEPIME 2GM/50 ML (PMX) 50 ML IVPB STA (20:34)
[2018-08-31] MEDS ORDERED: SODIUM CHLORIDE 0.9% 1L BAG IV* STA (20:34)
[2018-08-31] MEDS ORDERED: VANCOMYCIN 1 GM (PMX) 250 ML IVPB ONE (21:00)
--- NOTE | 2018-08-31 22:59 | ERD ---
ER Documentation Chief Complaint Chief Complaint left leg pain/swelling. sent by pmd for admission HPI 33-year-old female who presents to the emergency room because of left lower extremity cellulitis. Dr. Alegre sent the patient to be admitted. The patient notes significant swelling and drainage from a wound to the lateral asp ect of the left lower extremity. The pain is mild at this time. Patient is currently taking oral antibiotics without success. ROS All systems reviewed and are negative except as per history of present illness. Medications Home Meds Discontinued Scripts Hydrocodone/Acetaminophen (Hydrocodone-Acetamin 10-325 mg) 1 Each Tablet, 1 TAB PO Q6H PRN for MODERATE PAIN LEVEL 4-6, #10 TAB Prov:ARIELLE HILLS MILL HAND 08/03/18 Sulfamethoxazole/Trimethoprim (Sulfamethoxazole-Tmp Ds Tablet) 1 Each Tablet, 1 TAB PO BID, #28 TAB Prov:ARIELLE HILLS MILL HAND 08/03/18 Levofloxacin* (Levaquin*) 500 Mg Tablet, 500 MG PO DAILY@06, #14 TAB Prov:ARIELLE HILLS MILL HAND 08/03/18 Allergies Allergies: Coded Allergies: Iodine and Iodide Containing Produc (Unverified Allergy, Severe, 08/31/18) only if iodine is introduced into the blood stream.skin is ok. PMhx/Soc History of Surgery: Yes (tonsillectomy) Anesthesia Reaction: No Hx Neurological Disorder: No Hx Respiratory Disorders: Yes (asthma) Hx Cardiac Disorders: No Hx Psychiatric Problems: No Hx Miscellaneous Medical Probl: No Hx Alcohol Use: No Hx Substance Use: No Hx Tobacco Use: Yes Smoking Status: Never smoker FmHx Family History: No diabetes Physical Exam Vitals Vital Signs Date Temp Pulse Resp B/P (MAP) Pulse Ox O2 O2 Flow FiO2 Time Delivery Rate 08/31/18 99.7 102 18 130/81 98 Room Air 21:17 (97) 08/31/18 Nasal 20:53 Cannula 08/31/18 99.7 88 18 129/80 98 Room Air 20:18 (96) 08/31/18 99.7 109 18 127/70 97 19:35 (89) Physical Exam General: Well developed, well nourished, no acute distress Head: Normocephalic, atraumatic. Eyes: EOM intact ENT: Moist mucous membranes Neck: Full ROM Respiratory: No respiratory distress Cardiovascular: Well perfused distally Abdominal: Nondistended : Deferred MSK: Significant bilateral lower extremity edema, wound to the left lateral aspect of the leg with associated cellulitis with erythema warmth and tend erness, wound is slightly drainage but the base of the wound was with good granulation tissue. Neurologic: Alert and oriented, moving all extremities, normal speech Skin: As described above Psych: Normal mood Result Diagram: 08/31/18204808/31/182048 Results 24 hrs Laboratory Tests Test 08/31/18 20:49 08/31/18 20:51 White Blood Count 12.6 10^3/ul Red Blood Count 3.96 10^6/ul Hemoglobin 9.6 g/dl Hematocrit 31.9 % Mean Corpuscular Volume 80.6 fl Mean Corpuscular Hemoglobin 24.2 pg Mean Corpuscular Hemoglobin Concent 30.1 g/dl Red Cell Distribution Width 15.9 % Platelet Count 460 10^3/UL Mean Platelet Volume 7.8 fl Immature Granulocytes % 0.500 % Neutrophils % 70.8 % Lymphocytes % 17.0 % Monocytes % 5.0 % Eosinophils % 6.4 % Basophils % 0.3 % Nucleated Red Blood Cells % 0.0 /100WBC Immature Granulocytes # 0.060 10^3/ul Neutrophils # 8.9 10^3/ul Lymphocytes # 2.1 10^3/ul Monocytes # 0.6 10^3/ul Eosinophils # 0.8 10^3/ul Basophils # 0.0 10^3/ul Nucleated Red Blood Cells # 0.0 10^3/ul Erythrocyte Sedimentation Rate 70 mm/Hr Prothrombin Time 13.1 Sec Prothrombin Time Ratio 1.0 INR International Normalized Ratio 0.98 Activated Partial Thromboplast Time 33.2 Sec Sodium Level 141 mmol/L Potassium Level 3.9 mmol/L Chloride Level 105 mmol/L Carbon Dioxide Level 30 mmol/L Anion Gap 6 Blood Urea Nitrogen 15 mg/dl Creatinine 1.02 mg/dl Est Glomerular Filtrat Rate mL/min > 60 mL/min Glucose Level 100 mg/dl Calcium Level 9.6 mg/dl C-Reactive Protein 3.7 mg/dl POC Venous Lactate 1.2 mmol/L Current Medications Medications Dose Sig/Anthony Start Time Status Last (Trade) Ordered Route PRN Stop Time Admin Dose Reason Admin Sodium 1,780 ml BOLUS OVER 2 08/31/18 DC 08/31/18 Chloride HOURS STAT 20:34 20:53 (NS) IV* 08/31/18 20:36 Cefepime HCl 50 ml @ ONCE STAT 08/31/18 DC 08/31/18 100 mls/hr IVPB 20:34 21:14 08/31/18 21:03 Vancomycin 250 ml @ ONCE ONCE 08/31/18 08/31/18 HCl 125 mls/hr IVPB 21:00 21:00 08/31/18 22:59 Clindamycin 50 ml @ 50 ONCE STAT 08/31/18 DC 08/31/18 HCl/ mls/hr IVPB 20:34 21:27 Dextrose 08/31/18 21:33 Procedures/MDM EKG, MONITORS, & DIAGNOSTIC IMAGING: EKG: I reviewed and interpreted a 12-lead EKG. Rhythm: Normal sinus rhythm ST Changes: No contiguous ST segment elevations T waves: No contiguous T wave inversions Impression: No evidence of acute cardiac ischemia Chest x-ray: I reviewed and interpreted a 1 view of the chest Mediastinum: No enlargement Cardiac silhouette: No cardiomegaly Airspace: Clear lung reeder bilaterally without evidence of pneumothorax Bones: No evidence of fracture LAB INTERPRETATION: I reviewed the laboratory testing and it shows white count of 12, elevated ESR and CRP MEDICAL DECISION MAKING: Patient presents with left lower extremity cellulitis. The patient technically qualifies for 2 out of 4 Sirs criteria with source consistent with sepsis. No evidence of endorgan dysfunction. ER COURSE: * Labs reassuring. BP stable. Pain well controlled. CONSULTATION: None DISPOSITION PLAN: Dr Santillan to admit based on insurance information Dr Alegre notified Sepsis Documentation: Patient's infectious symptoms have not stabilized and the patient is at risk of rapid decompensation. The patient will be admitted for careful hydration, antibiotic therapy, and infectious source control. SEVERE SEPSIS CRITERIA: Infectious source: Left lower extremity cellulitis End organ damage indicated by: No endorgan dysfunction at this time SEPSIS MANAGEMENT Time of recognition of sepsis: Upon results of CBC. Time of recognition of severe sepsis: No severe sepsis at this time. Time of recognition of septic shock: No septic shock at this time. 3 HOUR BUNDLE Blood cultures x 2 before broad-spectrum antibiotics: Yes 30 ml/kg NS bolus completed Initial lactate less than 2 Repeat lactate less than 2 SEPTIC SHOCK ASSESSMENT: No lactic acid > 4.0 No persistent hypotension (SBP < 90 or 40 mmHg drop, MAP < 65) despite 30 mL/kg IV fluid bolus VOLUME REASSESSMENT FOR SEPTIC SHOCK: The patient does not meet criteria for septic shock in the emergency department at this time PERSISTENT HYPOTENSION TREATMENT: Comfort care no Central line not Required Vasopressor started not required I considered further perfusion assessment with CVP measurement, SCVO2, bedside ultrasound volume assessment, passive leg raise, trial of further fluid bolus. And proceeded with 30 ml/kg fluid bolus of NSS, broad spectrum antibiotics, and admission. CRITICAL CARE Critical care time 35 minutes Emergent fluid management while maintaining close respiratory support. Provision of immediate and broad-spectrum antibiotic therapy. Simultaneous assessment for possible sources in order to direct targeted therapy. Cons ideration for invasive and chemical support to prevent cardiopulmonary collapse. Critical care time is independent of procedures performed. Departure Diagnosis: Primary Impression: Left leg cellulitis Additional Impression: Sepsis Sepsis type: sepsis due to unspecified organism Qualified Codes: A41.9 - Sepsis, unspecified organism Condition: Stable LINDSEY SANCHEZ MD Aug 31, 2018 22:59
[2018-08-31] MEDS ORDERED: ACETAMINOPHEN 325 MG TAB PO PRN (23:00)
[2018-08-31] MEDS ORDERED: ONDANSETRON 4 MG INJ IV PRN (23:00)
[2018-08-31 23:30] VITALS: BP 132/67; PULSE 106; RESP 18
[2018-08-31] MEDS ORDERED: BISACODYL (EC) 5 MG TAB PO PRN (23:30)
[2018-08-31] MEDS ORDERED: NICOTINE POLACRILEX 2 MG GUM BUCCAL PRN (23:30)
[2018-08-31] MEDS ORDERED: NACL 0.9% 3 ML SYG IV SCH (23:30)
[2018-08-31] MEDS ORDERED: ONDANSETRON 4 MG TAB PO PRN (23:30)
[2018-08-31] MEDS ORDERED: DOCUSATE SODIUM 100 MG CAP PO PRN (23:30)
[2018-08-31] MEDS ORDERED: VANCOMYCIN IV PER PHARMACY XX SCH (23:30)
--- NOTE | 2018-08-31 23:34 | HP ---
Date/Time of Note Date/Time of Note DATE: 08/31/18 TIME: 23:33 Assessment/Plan VTE Prophylaxis SCD applied (from Nsg): Yes Pharmacological prophylaxis: NA/contraindicated (To the right lower extremity) Pharm contraindication: surgical contra Lines/Catheters IV Catheter Type (from Nrsg): Saline Lock Assessment/Plan Hospital Course This is a 33-year-old female being admitted to the [facility] floor for: #1 left lower extremity wound with cellulitis: Patient was previously treated with incision and debridement along with a wound VAC and antibiotic. Appears to be extensive cellulitis of the left lower extremity along with foul odor and discharge noted from the wound. We will put the patient on broad-spectrum antibiotics of vancomycin and Zosyn. Will obtain a CT of the lower extremity to further evaluate. Wound culture. Pain control. Podiatry has been consulted will await further recommendations. ESR and CRP are elevated will trend these. #2 microcytic anemia: Continue to monitor, no signs of bleeding #3 Cardiomegaly: obtain echo #4 Morbid obesity: Most recent hemoglobin A1c was 5.8. Encourage diet and lifestyle modification. We will put the patient on a 1500-calorie diet at the current time #5 DVT GI prophylaxis: SCD to the right lower extremity, no GI prophylaxis indicated Further treatment strategy will be implemented as per the clinical course Result Diagram: 08/31/18204808/31/182048 Results 24hrs Laboratory Tests Test 08/31/18 20:49 08/31/18 20:51 08/31/18 22:40 08/31/18 23:22 White Blood Count 12.6 H Red Blood Count 3.96 L Hemoglobin 9.6 L Hematocrit 31.9 L Mean Corpuscular 80.6 L Volume Mean Corpuscular 24.2 L Hemoglobin Mean Corpuscular 30.1 L Hemoglobin Concent Red Cell 15.9 H Distribution Width Platelet Count 460 H Mean Platelet Volume 7.8 Immature 0.500 H Granulocytes % Neutrophils % 70.8 Lymphocytes % 17.0 Monocytes % 5.0 Eosinophils % 6.4 Basophils % 0.3 Nucleated Red Blood 0.0 Cells % Immature 0.060 H Granulocytes # Neutrophils # 8.9 H Lymphocytes # 2.1 Monocytes # 0.6 Eosinophils # 0.8 H Basophils # 0.0 Nucleated Red Blood 0.0 Cells # Erythrocyte 70 H Sedimentation Rate Prothrombin Time 13.1 Prothrombin Time 1.0 Ratio INR International 0.98 Normalized Ratio Activated 33.2 Partial Thromboplast Time Sodium Level 141 Potassium Level 3.9 Chloride Level 105 Carbon Dioxide Level 30 Anion Gap 6 Blood Urea Nitrogen 15 Creatinine 1.02 H Est Glomerular > 60 Filtrat Rate mL/min Glucose Level 100 Calcium Level 9.6 C-Reactive Protein 3.7 H POC Venous Lactate 1.2 Lactic Acid Level 0.7 POC Beta HCG, NEGATIVE Qualitative HPI/ROS Admit Date/Time Admit Date/Time Hx of Present Illness Chief complaint: Left lower extremity wound, cellulitis This is a 33-year-old female who presents to the emergency room because of left lower extremity cellulitis. Dr. Alegre the hand packer sent the patient to be admitted. The patient notes significant swelling and drainage from a wound to the lateral aspect of the left lower extremity. The pain is mild at this time. Previously was treated for cellulitis and a hematoma with debridement status post wound VAC. She states that she was walking and she fell but she is unsure whether her bone got worse or not. She does report foul odor and discharge from the wound. Denies any fevers. Allergies: Iodine Medications: See Jul Const: As per HPI Eyes : No pain discharge or redness or change in visual acuity ENT: No pain, sore throat, congestion, congestion, dysphagia or discharge Respiratory: No shortness of breath, cough, sputum, wheezing, or pleuritic pain Cardiovascular: No chest pain, palpitation, PND, or edema GI : no change in appetite, abdominal pain, nausea, vomiting, diarrhea, constipation, or change in the color his stool Genitourinary: No dysuria, hematuria, flank pain , discharge or CVA tenderness Musculoskeletal: As per HPI Skin: As per HPI Neuro: No headache, dizziness, syncope, seizure, focal weakness Endocrine: No polyuria, polydipsia, temperature intolerance Psych: No hallucination, depression, anxiety or suicidal ideation PMH/Family/Social Past Medical History 1. Left lower extremity cellulitis. 2. Left lower extremity hematoma. S/P excisional debridement of left lower extremity; 3. Microcytic hypochromic anemia. 4. Morbid obesity. BMI more than 62. Medications Current Medications Ondansetron HCl (Zofran Inj) 4 mg BRIDGE ORDER PRN IV NAUSEA/VOMITING; Start 08/31/18 at 23:00; Stop 4/20/19 at 22:59 Acetaminophen (Tylenol Tab) 650 mg ER BRIDGE PRN PO .MILD PAIN 1-3 OR TEMP; Start 08/31/18 at 23:00; Stop 09/01/18 at 22:59 Vancomycin HCl (Vanco Iv Per Pharmacy) VANCOMYCIN PER PHARMACY PER PROTOCOL XX ; Start 08/31/18 at 23:30 Piperacillin Sod/ Tazobactam Sod 100 ml @ 200 mls/hr Q6 IVPB ; Start 09/01/18 at 00:00 IV Flush (NS 3 ml) 3 ml PER PROTOCOL IV ; Start 08/31/18 at 23:30 Ondansetron HCl (Zofran Tab) 4 mg Q6H PRN PO NAUSEA/VOMITING; Start 08/31/18 at 23:30 Acetaminophen (Tylenol Tab) 650 mg Q6H PRN PO .PAIN 1-3 OR TEMP; Start 08/31/18 at 23:30 Acetaminophen/ Hydrocodone Bitart ([place] (5/325)) 1 tab Q6H PRN PO .MOD PAIN 4- 6; Start 08/31/18 at 23:30 Morphine Sulfate (morphine) 2 mg Q4H PRN IV .SEVERE PAIN 7-10; Start 08/31/18 at 23:30 Docusate Sodium (Colace) 100 mg Q12H PRN PO .CONSTIPATION; Start 08/31/18 at 23:30 Bisacodyl (Dulcolax) 5 mg DAILY PRN PO .CONSTIPATION; Start 08/31/18 at 23:30 Nicotine (Nicoderm 21 Mg/ 24hr) 1 patch DAILY TRANSDERM ; Start 09/01/18 at 09:00 Nicotine Polacrilex (Nicorette) 2 mg Q2H PRN BUCCAL CONTROL WITHDRAWAL SYMPTOMS; Start 08/31/18 at 23:30 Coded Allergies: Iodine and Iodide Containing Produc (Unverified Allergy, Severe, 08/31/18) only if iodine is introduced into the blood stream.skin is ok. Past Surgical History excisional debridement of left lower extremity Incision and drainage left lower extremity Application of wound VAC Family History Significant Family History: no pertinent family hx Social History Homeless Alcohol Use: none Smoking Status: Current every day smoker Drug Use: none Exam/Review of Systems Vital Signs Vitals Vital Signs Date Temp Pulse Resp B/P (MAP) Pulse Ox O2 O2 Flow FiO2 Time Delivery Rate 08/31/18 99.7 98 18 139/82 98 Room Air 23:17 (101) Exam Exam General: Patient is lying in bed in no acute distress HEENT: Atraumatic, normocephalic. The pupils are equal, round and reactive. Extraocular motor are intact Neck: Supple with full range of motion. No rigidity or meningismus Chest: Nontender Lungs: Clear to auscultation bilaterally no crackles rales or wheezing Heart: normal S1-S2, Regular rhythm and rate. No murmur, S3, or S4 Abdomen: Morbidly obese, soft , nontender, nondistended , bowel sounds are present. No guarding no rebound tenderness , No masses or organomegaly. No costovertebral temporal angle mass Extremities: Left lower extremity extensive cellulitis, with a approximately 3 x 6.5cm leg wound below the knee Skin: Approximately 3 x 6.5 cm open leg wound, drainage and foul odor below the knee, cellulitis surrounding the wound Neurologic: Normal mental status, speech normal, cranial nerves II through XII are intact, motor and sensory are intact, no focal weakness Additional Comments PROCEDURE: XR Chest. CLINICAL INDICATION: Shortness of breath. Possible sepsis TECHNIQUE: Single portable view of the chest was obtained COMPARISON: No priors for comparison FINDINGS: The trachea is midline. The cardiac silhouette and pulmonary vascularity are mildly prominent. The lungs are clear. The costophrenic angles are sharp. IMPRESSION: 1. Cardiomegaly and borderline central pulmonary vascular congestion. RPTAT: AAPP Physician [place] Date Time Electronically viewed and signed by Dakota Alexander Physician on 08/31/2018 21:55 JL/ CC: LINDSEY SANCHEZ MD [id number] JACKSON MATTHEW Aug 31, 2018 23:34
[2018-08-31] MEDS: morphine 2 MG INJ IV PRN (23:46)
[2018-08-31] MEDS: PIPER-TAZO 3.375 GM IV (PMX) 100 ML IVPB SCH (23:50)
[2018-08-31 23:57] VITALS: Ht 167.6 cm; Wt 169.0 kg
[2018-09-01] MEDS ORDERED: PENDING SANTYL ORDER FOR WOUND CARE XX PRN (00:30)
[2018-09-01] MEDS: LORAZEPAM 0.5 MG TAB PO PRN ×2 (00:57→22:02)
[2018-09-01] MEDS ORDERED: VANCOMYCIN 1 GM in 250 ML IVPB ONE (01:00)
[2018-09-01] MEDS ORDERED: COLLAGENASE 5 GM (UD JAR) TOP PRN (01:00)
[2018-09-01 02:00] VITALS: BP 136/64; PULSE 104; RESP 18
[2018-09-01] MEDS: morphine 2 MG INJ IV PRN ×3 (04:03→22:02)
[2018-09-01] MEDS: PIPER-TAZO 3.375 GM IV (PMX) 100 ML IVPB SCH ×3 (05:59→17:50)
[2018-09-01 08:12] VITALS: BP 124/70; PULSE 94; RESP 18
[2018-09-01] MEDS: VANCOMYCIN 1 GM 250 ML IVPB SCH ×2 (08:58→18:42)
[2018-09-01] MEDS: COLLAGENASE 5 GM (UD JAR) TOP SCH (08:58)
[2018-09-01] MEDS: NICOTINE (21 MG/24 HR) PATCH TRANSDERM SCH (08:58)
[2018-09-01] MEDS ORDERED: VANCOMYCIN HCL 2 GM in SOD CHLORIDE 0.9% 500 ML IVPB SCH (09:00)
--- NOTE | 2018-09-01 13:18 | PN ---
Date/Time of Note Date/Time of Note DATE: 09/01/18 TIME: 13:16 Assessment/Plan VTE Prophylaxis Risk score (from Ns)>0 risk: 4 SCD applied (from [facility] [place] No SCD contraindicated: low risk/ambulating Pharmacological prophylaxis: heparin Pharm contraindication: low risk/ambulating Lines/Catheters IV Catheter Type (from [facility]): Saline Lock Assessment/Plan Problems: (1) Left leg cellulitis Status: Acute Comment: On antibiotics. Pending is the imaging study of the left lower extremity and consult from podiatry. Continue aggressive management. I am concerned there is some degree of postphlebitic syndrome going on with this extremity. The patient declines to have any type of ultrasound testing done (2) Systemic inflammatory response syndrome (SIRS) Status: Acute Comment: Improving with treatment (3) Asthma Status: Chronic Comment: Quiescent at this time Qualifiers: Asthma severity: mild Asthma persistence: intermittent Asthma complication type: uncomplicated Qualified Codes: J45.20 - Mild intermittent asthma, uncomplicated (4) Morbid obesity with BMI of 60.0-69.9, adult Status: Chronic Comment: Calorie restriction diet, this is compulsive eating disorder (5) Anemia Status: Chronic Comment: Due to chronic inflammation. Qualifiers: Anemia type: unspecified type Qualified Codes: D64.9 - Anemia, unspecified (6) Smoker unmotivated to quit Result Diagram: 09/01/18 0542 09/01/18 0542 Results 24hrs Laboratory Tests Test 08/31/18 20:40 08/31/18 20:49 08/31/18 20:51 08/31/18 22:40 B-Type Natriuretic 79 Peptide White Blood Count 12.6 H Red Blood Count 3.96 L Hemoglobin 9.6 L Hematocrit 31.9 L Mean Corpuscular 80.6 L Volume Mean Corpuscular 24.2 L Hemoglobin Mean Corpuscular 30.1 L Hemoglobin Concent Red Cell 15.9 H Distribution Width Platelet Count 460 H Mean Platelet Volume 7.8 Immature 0.500 H Granulocytes % Neutrophils % 70.8 Lymphocytes % 17.0 Monocytes % 5.0 Eosinophils % 6.4 Basophils % 0.3 Nucleated Red Blood 0.0 Cells % Immature 0.060 H Granulocytes # Neutrophils # 8.9 H Lymphocytes # 2.1 Monocytes # 0.6 Eosinophils # 0.8 H Basophils # 0.0 Nucleated Red Blood 0.0 Cells # Erythrocyte 70 H Sedimentation Rate Prothrombin Time 13.1 Prothrombin Time 1.0 Ratio INR International 0.98 Normalized Ratio Activated 33.2 Partial Thromboplast Time Sodium Level 141 Potassium Level 3.9 Chloride Level 105 Carbon Dioxide Level 30 Anion Gap 6 Blood Urea Nitrogen 15 Creatinine 1.02 H Est Glomerular > 60 Filtrat Rate mL/min Glucose Level 100 Calcium Level 9.6 C-Reactive Protein 3.7 H POC Venous Lactate 1.2 Lactic Acid Level 0.7 Test 08/31/18 23:22 09/01/18 05:42 POC Beta HCG, NEGATIVE Qualitative White Blood Count 11.7 H Red Blood Count 3.83 L Hemoglobin 9.2 L Hematocrit 30.8 L Mean Corpuscular 80.4 L Volume Mean Corpuscular 24.0 L Hemoglobin Mean Corpuscular 29.9 L Hemoglobin Concent Red Cell 16.1 H Distribution Width Platelet Count 436 H Mean Platelet Volume 8.0 Immature 0.500 H Granulocytes % Neutrophils % 69.7 Lymphocytes % 14.9 L Monocytes % 7.2 Eosinophils % 7.4 H Basophils % 0.3 Nucleated Red Blood 0.0 Cells % Immature 0.060 H Granulocytes # Neutrophils # 8.2 H Lymphocytes # 1.8 Monocytes # 0.9 Eosinophils # 0.9 H Basophils # 0.0 Nucleated Red Blood 0.0 Cells # Erythrocyte 65 H Sedimentation Rate Sodium Level 141 Potassium Level 3.8 Chloride Level 107 Carbon Dioxide Level 25 Anion Gap 9 Blood Urea Nitrogen 14 Creatinine 0.84 Est Glomerular > 60 Filtrat Rate mL/min Glucose Level 130 Calcium Level 8.9 Magnesium Level 2.1 Total Bilirubin 0.1 L Direct Bilirubin 0.00 Indirect Bilirubin 0.1 Aspartate Amino 15 Transf (AST/SGOT) Alanine 15 Aminotransferase (AL T/SGPT) Alkaline Phosphatase 113 C-Reactive Protein 3.8 H Total Protein 7.2 Albumin 3.4 Globulin 3.80 H Albumin/Globulin 0.89 Ratio Subjective 24 Hr Interval Summary Free Text/Dictation She reports she is having some degree of pain from the left lower extremity. Constitutional: no complaints (Denies fevers chills or sweats) Respiratory: no complaints Cardiovascular: no complaints Gastrointestinal: no complaints Genitourinary: no complaints Exam/Review of Systems Exam Vitals Vital Signs Date Temp Pulse Resp B/P (MAP) Pulse Ox O2 O2 Flow FiO2 Time Delivery Rate 09/01/18 98.4 94 18 124/70 100 Room Air 08:12 (88) Intake and Output 08/31/18 08/31/18 09/01/18 1515:00 23:00 07:00 IntakeIntake Total 700 ml BalanceBalance 700 ml Constitutional: alert, oriented Neck: supple, non-tender Respiratory: clear to auscultation, normal air movement Cardiovascular: regular rate and rhythm, nl pulses Extremities: other (Left lower extremity with dressing on with areas of erythema but also some chronic venous stasis changes) Results Results 24hrs Laboratory Tests Test 08/31/18 20:40 08/31/18 20:49 08/31/18 20:51 08/31/18 22:40 B-Type Natriuretic 79 Peptide White Blood Count 12.6 H Red Blood Count 3.96 L Hemoglobin 9.6 L Hematocrit 31.9 L Mean Corpuscular 80.6 L Volume Mean Corpuscular 24.2 L Hemoglobin Mean Corpuscular 30.1 L Hemoglobin Concent Red Cell 15.9 H Distribution Width Platelet Count 460 H Mean Platelet Volume 7.8 Immature 0.500 H Granulocytes % Neutrophils % 70.8 Lymphocytes % 17.0 Monocytes % 5.0 Eosinophils % 6.4 Basophils % 0.3 Nucleated Red Blood 0.0 Cells % Immature 0.060 H Granulocytes # Neutrophils # 8.9 H Lymphocytes # 2.1 Monocytes # 0.6 Eosinophils # 0.8 H Basophils # 0.0 Nucleated Red Blood 0.0 Cells # Erythrocyte 70 H Sedimentation Rate Prothrombin Time 13.1 Prothrombin Time 1.0 Ratio INR International 0.98 Normalized Ratio Activated 33.2 Partial Thromboplast Time Sodium Level 141 Potassium Level 3.9 Chloride Level 105 Carbon Dioxide Level 30 Anion Gap 6 Blood Urea Nitrogen 15 Creatinine 1.02 H Est Glomerular > 60 Filtrat Rate mL/min Glucose Level 100 Calcium Level 9.6 C-Reactive Protein 3.7 H POC Venous Lactate 1.2 Lactic Acid Level 0.7 Test 08/31/18 23:22 09/01/18 05:42 POC Beta HCG, NEGATIVE Qualitative White Blood Count 11.7 H Red Blood Count 3.83 L Hemoglobin 9.2 L Hematocrit 30.8 L Mean Corpuscular 80.4 L Volume Mean Corpuscular 24.0 L Hemoglobin Mean Corpuscular 29.9 L Hemoglobin Concent Red Cell 16.1 H Distribution Width Platelet Count 436 H Mean Platelet Volume 8.0 Immature 0.500 H Granulocytes % Neutrophils % 69.7 Lymphocytes % 14.9 L Monocytes % 7.2 Eosinophils % 7.4 H Basophils % 0.3 Nucleated Red Blood 0.0 Cells % Immature 0.060 H Granulocytes # Neutrophils # 8.2 H Lymphocytes # 1.8 Monocytes # 0.9 Eosinophils # 0.9 H Basophils # 0.0 Nucleated Red Blood 0.0 Cells # Erythrocyte 65 H Sedimentation Rate Sodium Level 141 Potassium Level 3.8 Chloride Level 107 Carbon Dioxide Level 25 Anion Gap 9 Blood Urea Nitrogen 14 Creatinine 0.84 Est Glomerular > 60 Filtrat Rate mL/min Glucose Level 130 Calcium Level 8.9 Magnesium Level 2.1 Total Bilirubin 0.1 L Direct Bilirubin 0.00 Indirect Bilirubin 0.1 Aspartate Amino 15 Transf (AST/SGOT) Alanine 15 Aminotransferase (AL T/SGPT) Alkaline Phosphatase 113 C-Reactive Protein 3.8 H Total Protein 7.2 Albumin 3.4 Globulin 3.80 H Albumin/Globulin 0.89 Ratio Medications Medication Current Medications Ondansetron HCl (Zofran Inj) 4 mg BRIDGE ORDER PRN IV NAUSEA/VOMITING; Start 08/31/18 at 23:00; Stop 09/01/18 at 22:59 Acetaminophen (Tylenol Tab) 650 mg ER BRIDGE PRN PO .MILD PAIN 1-3 OR TEMP; Start 08/31/18 at 23:00; Stop 09/01/18 at 22:59 Vancomycin HCl (Vanco Iv Per Pharmacy) VANCOMYCIN PER PHARMACY PER PROTOCOL XX ; Start 08/31/18 at 23:30 Piperacillin Sod/ Tazobactam Sod 100 ml @ 200 mls/hr Q6 IVPB Last administered on 09/01/18at 12:56; Admin Dose 200 MLS/HR; Start 09/01/18 at 00:00 IV Flush (NS 3 ml) 3 ml PER PROTOCOL IV ; Start 08/31/18 at 23:30 Ondansetron HCl (Zofran Tab) 4 mg Q6H PRN PO NAUSEA/VOMITING; Start 08/31/18 at 23:30 Acetaminophen (Tylenol Tab) 650 mg Q6H PRN PO .PAIN 1-3 OR TEMP; Start 08/31/18 at 23:30 Acetaminophen/ Hydrocodone Bitart ([place] (5/325)) 1 tab Q6H PRN PO .MOD PAIN 4- 6; Start 08/31/18 at 23:30 Morphine Sulfate (morphine) 2 mg Q4H PRN IV .SEVERE PAIN 7-10 Last administered on 09/01/18at 04:03; Admin Dose 2 MG; Start 08/31/18 at 23:30 Docusate Sodium (Colace) 100 mg Q12H PRN PO .CONSTIPATION; Start 08/31/18 at 23:30 Bisacodyl (Dulcolax) 5 mg DAILY PRN PO .CONSTIPATION; Start 08/31/18 at 23:30 Nicotine (Nicoderm 21 Mg/ 24hr) 1 patch DAILY TRANSDERM Last administered on 09/01/18 08:58; Admin Dose 1 PATCH; Start 09/01/18 at 09:00 Nicotine Polacrilex (Nicorette) 2 mg Q2H PRN BUCCAL CONTROL WITHDRAWAL SYMPTOMS; Start 08/31/18 at 23:30 Lorazepam (Ativan) 0.5 mg Q8H PRN PO ANXIETY Last administered on 09/01/18 00:57; Admin Dose 0.5 MG; Start 09/01/18 at 00:30 Collagenase (Santyl) 1 applic DAILY TOP Last administered on 09/01/18 08:58; Admin Dose 1 APPLIC; Start 09/01/18 at 09:00 Collagenase (Santyl) 1 applic PRN PRN TOP SOIL Last administered on 09/01/18 01:13; Admin Dose 1 APPLIC; Start 09/01/18 at 01:00 Vancomycin HCl 250 ml @ 125 mls/hr Q8H IVPB Last administered on 09/01/18 08:58; Admin Dose 125 MLS/HR; Start 09/01/18 at 09:00 Miscellaneous Information (*Rx Drug Level Order Reminder*) VANCO TROUGH ON @ 0,000 0000 ONCE XX ; Start 09/02/18 at 00:00; Stop 09/02/18 at 00:01 KATELYNN WHEELER MD Sep 01, 2018 13:18
--- NOTE | 2018-09-01 15:58 | RADRPT ---
Echocardiogram Report Patient Name: BRENNAN DENNEYPatient ID: [id number] : 1985 (33y 1m)Study Date: 09/01/2018 10:39:20 AM Gender: FAccession #: [id number] Tech: Amanda De Leon [facility] Location: [id number]- Ref.Physician: JACKSON MATTHEW Height(Cm): BSA: Weight(Kg): Quality: Technically Difficult StudyAccount #: Procedures: Echocardiographic Report: Transthoracic echocardiogram with complete 2D, M-Mode, and doppler examination. Indications: Cardiomegaly. Measurements: 2D/M Mode Doppler Measurement Value Normal Range Measurement Value Normal Range LVIDd 2D 3.8 [ 3.8 - 5.2 ] cm AV Peak Rohan 1.8 [ 100.0 - 170.0 ] cm/sec LVIDs 2D 2.5 [ 2.2 - 3.5 ] cm AV Peak PG 13.0 [ 2.0 - 9.0 ] mmHg LVPWd 2D 1.0 [ 0.6 - 0.9 ] cm LVOT Peak Rohan 1.0 [ 70.0 - 110.0 ] cm/sec IVSd 2D 1.1 [ 0.6 - 0.9 ] cm LVOT Peak PG 4.0 [ 2.0 - 6.0 ] mmHg IVS/LVPW 2D 1.1 ratio MV E Peak Rohan 1.1 [ 60.0 - 130.0 ] cm/sec AoR Diam 2D 2.3 [ 2.3 - 3.1 ] cm MV A Peak Rohan 0.8 [ 100.0 - 120.0 ] cm/sec LA/Ao 2D 1 ratio MV E/A 1.4 [ 0.8 - 1.5 ] ratio LA Dimen 2D 3.4 [ 2.7 - 3.8 ] cm MV Decel Time 183 [ 104 - 258 ] msec Med E` Rohan 0.1 cm/sec MV E/A 1.4 [ 0.8 - 1.5 ] ratio Findings: Left Ventricle: Normal left ventricular systolic function. Normal left ventricular cavity size. Normal left ventricular wall thickness. Ejection fraction is visually estimated at 55-60 %. Tissue Doppler/Mitral Doppler indices are within normal limits. Right Ventricle: Normal right ventricular size. Normal right ventricular systolic function. Left Atrium: The left atrium is normal in size. Right Atrium: The right atrium is normal in size. Atrial Septum: Normal atrial septum. Ventricular septum: Normal/intact ventricular septum. Mitral Valve: Normal appearance of the mitral valve. No mitral valve regurgitation is seen. Aortic Valve: Aortic valve not well visualized. No aortic regurgitation. Tricuspid Valve: Normal appearance of the tricuspid valve. Unable to obtain RVSP due to minimal presence of tricuspid regurgitation. No evidence of tricuspid regurgitation. Pulmonic Valve: Pulmonic valve not well visualized. Pericardium: No significant pericardial effusion. Aorta: Normal aortic root. IVC: The IVC is not well visualized. Pulmonary Artery: Not well visualized. Conclusions: Technically difficult study due to patient body habitus. Normal left ventricular systolic and diastolic function. No significant valvular abnormalities seen. Electronically Signed By: Lindsey Salazar 2018-09-01 15:57:40 PDT
--- NOTE | 2018-09-01 19:39 | CONS ---
Assessment/Plan Assessment/Plan Assessment/Plan (Daily) Left lower extremity venous ulceration Hx of trauma and laceration to left lower extremity Hx of hematoma Left lower extremity cellulitis Edema b/l Morbid obesity homelessness Nicotine dependence Plan Continue with daily dressing changes and elevate limbs and apply compression. Continue with IV abx. Appreciate assistance from aids social worker for placement. Plan for monday OR debridement with application of wound vac. NPO after midnight tonight and prepare consent. Attempted to order vascular studies, however per nursing patient refused exam. Consultation Date/Type/Reason Admit Date/Time Date/Time of Note DATE: 09/01/18 TIME: 19:38 Hx of Present Illness 33 y/o F patient who is homeless presents to the floor with left lower extremity ulceration and increased redness. Patient states she has been living in her car for the past couple weeks and has been doing wound VAC dressing changes herself. She also reports that it has been difficult to control the swelling and her legs have been in the downward position for the majority of the time. Patient denies f/c/n/v no chest pain or shortness of breath. She denies significant pain to the leg ROS Negative except for HPI Past Medical History 1. Left lower extremity cellulitis. 2. Left lower extremity hematoma. 3. Microcytic hypochromic anemia. 4. Morbid obesity. BMI more than 62. Home Meds Discontinued Scripts Hydrocodone/Acetaminophen (Hydrocodone-Acetamin 10-325 mg) 1 Each Tablet, 1 TAB PO Q6H PRN for MODERATE PAIN LEVEL 4-6, #10 TAB Prov:[employer] 08/03/18 Sulfamethoxazole/Trimethoprim (Sulfamethoxazole-Tmp Ds Tablet) 1 Each Tablet, 1 TAB PO BID, #28 TAB Prov:[employer] 08/03/18 Levofloxacin* (Levaquin*) 500 Mg Tablet, 500 MG PO DAILY@06, #14 TAB Prov:[employer] 08/03/18 Medications Current Medications Ondansetron HCl (Zofran Inj) 4 mg BRIDGE ORDER PRN IV NAUSEA/VOMITING; Start 08/31/18 at 23:00; Stop 09/01/18 at 22:59 Acetaminophen (Tylenol Tab) 650 mg ER BRIDGE PRN PO .MILD PAIN 1-3 OR TEMP; Start 08/31/18 at 23:00; Stop 09/01/18 at 22:59 Vancomycin HCl (Vanco Iv Per Pharmacy) VANCOMYCIN PER PHARMACY PER PROTOCOL XX ; Start 08/31/18 at 23:30 Piperacillin Sod/ Tazobactam Sod 100 ml @ 200 mls/hr Q6 IVPB Last administered on 09/01/18at 17:50; Admin Dose 200 MLS/HR; Start 09/01/18 at 00:00 IV Flush (NS 3 ml) 3 ml PER PROTOCOL IV ; Start 08/31/18 at 23:30 Ondansetron HCl (Zofran Tab) 4 mg Q6H PRN PO NAUSEA/VOMITING; Start 08/31/18 at 23:30 Acetaminophen (Tylenol Tab) 650 mg Q6H PRN PO .PAIN 1-3 OR TEMP; Start 08/31/18 at 23:30 Acetaminophen/ Hydrocodone Bitart ([place] (5/325)) 1 tab Q6H PRN PO .MOD PAIN 4- 6; Start 08/31/18 at 23:30 Morphine Sulfate (morphine) 2 mg Q4H PRN IV .SEVERE PAIN 7-10 Last administered on 09/01/18at 14:50; Admin Dose 2 MG; Start 08/31/18 at 23:30 Docusate Sodium (Colace) 100 mg Q12H PRN PO .CONSTIPATION; Start 08/31/18 at 23:30 Bisacodyl (Dulcolax) 5 mg DAILY PRN PO .CONSTIPATION; Start 08/31/18 at 23:30 Nicotine (Nicoderm 21 Mg/ 24hr) 1 patch DAILY TRANSDERM Last administered on 09/01/18 08:58; Admin Dose 1 PATCH; Start 09/01/18 at 09:00 Nicotine Polacrilex (Nicorette) 2 mg Q2H PRN BUCCAL CONTROL WITHDRAWAL SYMPTOMS; Start 08/31/18 at 23:30 Lorazepam (Ativan) 0.5 mg Q8H PRN PO ANXIETY Last administered on 09/01/18 00:57; Admin Dose 0.5 MG; Start 09/01/18 at 00:30 Collagenase (Santyl) 1 applic DAILY TOP Last administered on 09/01/18 08:58; Admin Dose 1 APPLIC; Start 09/01/18 at 09:00 Collagenase (Santyl) 1 applic PRN PRN TOP SOIL Last administered on 09/01/18 01:13; Admin Dose 1 APPLIC; Start 09/01/18 at 01:00 Vancomycin HCl 250 ml @ 125 mls/hr Q8H IVPB Last administered on 09/01/18at 18:42; Admin Dose 125 MLS/HR; Start 09/01/18 at 09:00 Miscellaneous Information (*Rx Drug Level Order Reminder*) VANCO TROUGH ON @ 0,000 0000 ONCE XX ; Start 09/02/18 at 00:00; Stop 09/02/18 at 00:01 Allergies: Coded Allergies: Iodine and Iodide Containing Produc (Unverified Allergy, Severe, 08/31/18) only if iodine is introduced into the blood stream.skin is ok. Past Surgical History incision and drainage and previous debridement of leg Family History Significant Family History: hypertension Social History Alcohol Use: none Smoking Status: Never smoker Drug Use: none Exam/Review of Systems Exam Vitals Vital Signs Date Temp Pulse Resp B/P (MAP) Pulse Ox O2 O2 Flow FiO2 Time Delivery Rate 09/01/18 98.4 94 18 124/70 100 Room Air 08:12 (88) Intake and Output 08/31/18 08/31/18 09/01/18 1515:00 23:00 07:00 IntakeIntake Total 800 ml BalanceBalance 800 ml Exam Palpable pedal pulses 3+ pitting edema Left leg ulceration 8 x 5 x 1.5cm, wound base is fibrogranular there is tunneling in the proximal and lateral aspect of the ulcer with mild serous drainage. No active purulence appreciated. Mild pain on palpation to ulcer site Protective sensations intact Muscle strength 5/5 in all compartments of the foot. Results Result Diagram: 09/01/18 0542 09/01/18 0542 Results 24hrs Laboratory Tests Test 08/31/18 20:40 08/31/18 20:49 08/31/18 20:51 08/31/18 22:40 B-Type Natriuretic 79 Peptide White Blood Count 12.6 H Red Blood Count 3.96 L Hemoglobin 9.6 L Hematocrit 31.9 L Mean Corpuscular 80.6 L Volume Mean Corpuscular 24.2 L Hemoglobin Mean Corpuscular 30.1 L Hemoglobin Concent Red Cell 15.9 H Distribution Width Platelet Count 460 H Mean Platelet Volume 7.8 Immature 0.500 H Granulocytes % Neutrophils % 70.8 Lymphocytes % 17.0 Monocytes % 5.0 Eosinophils % 6.4 Basophils % 0.3 Nucleated Red Blood 0.0 Cells % Immature 0.060 H Granulocytes # Neutrophils # 8.9 H Lymphocytes # 2.1 Monocytes # 0.6 Eosinophils # 0.8 H Basophils # 0.0 Nucleated Red Blood 0.0 Cells # Erythrocyte 70 H Sedimentation Rate Prothrombin Time 13.1 Prothrombin Time 1.0 Ratio INR International 0.98 Normalized Ratio Activated 33.2 Partial Thromboplast Time Sodium Level 141 Potassium Level 3.9 Chloride Level 105 Carbon Dioxide Level 30 Anion Gap 6 Blood Urea Nitrogen 15 Creatinine 1.02 H Est Glomerular > 60 Filtrat Rate mL/min Glucose Level 100 Calcium Level 9.6 C-Reactive Protein 3.7 H POC Venous Lactate 1.2 Lactic Acid Level 0.7 Test 08/31/18 23:22 09/01/18 05:42 POC Beta HCG, NEGATIVE Qualitative White Blood Count 11.7 H Red Blood Count 3.83 L Hemoglobin 9.2 L Hematocrit 30.8 L Mean Corpuscular 80.4 L Volume Mean Corpuscular 24.0 L Hemoglobin Mean Corpuscular 29.9 L Hemoglobin Concent Red Cell 16.1 H Distribution Width Platelet Count 436 H Mean Platelet Volume 8.0 Immature 0.500 H Granulocytes % Neutrophils % 69.7 Lymphocytes % 14.9 L Monocytes % 7.2 Eosinophils % 7.4 H Basophils % 0.3 Nucleated Red Blood 0.0 Cells % Immature 0.060 H Granulocytes # Neutrophils # 8.2 H Lymphocytes # 1.8 Monocytes # 0.9 Eosinophils # 0.9 H Basophils # 0.0 Nucleated Red Blood 0.0 Cells # Erythrocyte 65 H Sedimentation Rate Sodium Level 141 Potassium Level 3.8 Chloride Level 107 Carbon Dioxide Level 25 Anion Gap 9 Blood Urea Nitrogen 14 Creatinine 0.84 Est Glomerular > 60 Filtrat Rate mL/min Glucose Level 130 Calcium Level 8.9 Magnesium Level 2.1 Total Bilirubin 0.1 L Direct Bilirubin 0.00 Indirect Bilirubin 0.1 Aspartate Amino 15 Transf (AST/SGOT) Alanine 15 Aminotransferase (AL T/SGPT) Alkaline Phosphatase 113 C-Reactive Protein 3.8 H Total Protein 7.2 Albumin 3.4 Globulin 3.80 H Albumin/Globulin 0.89 Ratio Medications Medication Current Medications Ondansetron HCl (Zofran Inj) 4 mg BRIDGE ORDER PRN IV NAUSEA/VOMITING; Start 08/31/18 at 23:00; Stop 09/01/18 at 22:59 Acetaminophen (Tylenol Tab) 650 mg ER BRIDGE PRN PO .MILD PAIN 1-3 OR TEMP; Start 08/31/18 at 23:00; Stop 09/01/18 at 22:59 Vancomycin HCl (Vanco Iv Per Pharmacy) VANCOMYCIN PER PHARMACY PER PROTOCOL XX ; Start 08/31/18 at 23:30 Piperacillin Sod/ Tazobactam Sod 100 ml @ 200 mls/hr Q6 IVPB Last administered on 09/01/18at 17:50; Admin Dose 200 MLS/HR; Start 09/01/18 at 00:00 IV Flush (NS 3 ml) 3 ml PER PROTOCOL IV ; Start 08/31/18 at 23:30 Ondansetron HCl (Zofran Tab) 4 mg Q6H PRN PO NAUSEA/VOMITING; Start 08/31/18 at 23:30 Acetaminophen (Tylenol Tab) 650 mg Q6H PRN PO .PAIN 1-3 OR TEMP; Start 08/31/18 at 23:30 Acetaminophen/ Hydrocodone Bitart ([place] (5/325)) 1 tab Q6H PRN PO .MOD PAIN 4- 6; Start 08/31/18 at 23:30 Morphine Sulfate (morphine) 2 mg Q4H PRN IV .SEVERE PAIN 7-10 Last administered on 09/01/18at 14:50; Admin Dose 2 MG; Start 08/31/18 at 23:30 Docusate Sodium (Colace) 100 mg Q12H PRN PO .CONSTIPATION; Start 08/31/18 at 23 :30 Bisacodyl (Dulcolax) 5 mg DAILY PRN PO .CONSTIPATION; Start 08/31/18 at 23:30 Nicotine (Nicoderm 21 Mg/ 24hr) 1 patch DAILY TRANSDERM Last administered on 09/01/18at 08:58; Admin Dose 1 PATCH; Start 09/01/18 at 09:00 Nicotine Polacrilex (Nicorette) 2 mg Q2H PRN BUCCAL CONTROL WITHDRAWAL SYMPTO MS; Start 08/31/18 at 23:30 Lorazepam (Ativan) 0.5 mg Q8H PRN PO ANXIETY Last administered on 09/01/18at 00:57; Admin Dose 0.5 MG; Start 09/01/18 at 00:30 Collagenase (Santyl) 1 applic DAILY TOP Last administered on 09/01/18at 08:58; Admin Dose 1 APPLIC; Start 09/01/18 at 09:00 Collagenase (Santyl) 1 applic PRN PRN TOP SOIL Last administered on 09/01/18at 01:13; Admin Dose 1 APPLIC; Start 09/01/18 at 01:00 Vancomycin HCl 250 ml @ 125 mls/hr Q8H IVPB Last administered on 09/01/18at 18:42; Admin Dose 125 MLS/HR; Start 09/01/18 at 09:00 Miscellaneous Information (*Rx Drug Level Order Reminder*) VANCO TROUGH ON @ 0,000 0000 ONCE XX ; Start 09/02/18 at 00:00; Stop 09/02/18 at 00:01 SILVIA LINARES DPM Sep 01, 2018 19:39
[2018-09-01 20:28] VITALS: BP 117/59; PULSE 87; RESP 18
[2018-09-02] MEDS: PIPER-TAZO 3.375 GM IV (PMX) 100 ML IVPB SCH ×4 (00:29→19:57)
[2018-09-02] MEDS: VANCOMYCIN 1 GM 250 ML IVPB SCH ×3 (02:09→17:18)
[2018-09-02 02:32] VITALS: BP 127/52; PULSE 100; RESP 20
[2018-09-02 08:03] VITALS: BP 115/55; PULSE 90; RESP 20
[2018-09-02] MEDS: NICOTINE (21 MG/24 HR) PATCH TRANSDERM SCH (09:25)
[2018-09-02] MEDS: morphine 2 MG INJ IV PRN ×3 (09:35→19:56)
--- NOTE | 2018-09-02 09:59 | PN ---
Date/Time of Note Date/Time of Note DATE: 09/02/18 TIME: 09:57 Assessment/Plan VTE [place] [facility] [place]: 4 [place] [facility] [place] SCD contraindicated: bilateral LE trauma Pharmacological prophylaxis: heparin Lines/Catheters IV Catheter Type (from [facility] Saline Lock Assessment/Plan Problems: (1) Left leg cellulitis Status: Acute Comment: Improving with IV antibiotic therapy nicely. The wound will be dealt with tomorrow by podiatry,. She is going to need long-term antibiotic therapy and a wound VAC we will try make arrangements for her to have a place to go to. (2) Systemic inflammatory response syndrome (SIRS) Status: Acute Comment: Resolving nicely (3) Morbid obesity with BMI of 60.0-69.9, adult Status: Chronic Comment: Calorie restriction diet (4) Asthma Status: Chronic Comment: Quiescent at this time Qualifiers: Asthma severity: mild Asthma persistence: intermittent Asthma complication type: uncomplicated Qualified Codes: J45.20 - Mild intermittent asthma, uncomplicated (5) Homeless single person Status: Chronic Comment: Assistance from social work for placement while she has a wound VAC (6) Smoker unmotivated to quit Status: Chronic Comment: Re-counseled Result Diagram: 09/02/18 0535 09/02/18 0535 Results 24hrs Laboratory Tests Test 09/02/18 01:08 09/02/18 05:35 Vancomycin Level Trough 14.5 White Blood Count 11.4 H Red Blood Count 3.84 L Hemoglobin 9.2 L Hematocrit 30.5 L Mean Corpuscular Volume 79.4 L Mean Corpuscular Hemoglobin 24.0 L Mean Corpuscular Hemoglobin Concent 30.2 L Red Cell Distribution Width 15.8 H Platelet Count 446 H Mean Platelet Volume 8.2 Immature Granulocytes % 0.500 H Neutrophils % 69.3 Lymphocytes % 14.6 L Monocytes % 4.7 Eosinophils % 10.6 H Basophils % 0.3 Nucleated Red Blood Cells % 0.0 Immature Granulocytes # 0.060 H Neutrophils # 7.9 H Lymphocytes # 1.7 Monocytes # 0.5 Eosinophils # 1.2 H Basophils # 0.0 Nucleated Red Blood Cells # 0.0 Erythrocyte Sedimentation Rate 58 H Sodium Level 139 Potassium Level 4.2 Chloride Level 106 Carbon Dioxide Level 27 Anion Gap 6 Blood Urea Nitrogen 10 Creatinine 0.79 Est Glomerular Filtrat Rate mL/min > 60 Glucose Level 111 Calcium Level 8.7 Total Bilirubin 0.2 Direct Bilirubin 0.00 Indirect Bilirubin 0.2 Aspartate Amino Transf (AST/SGOT) 15 Alanine Aminotransferase (ALT/SGPT) 10 L Alkaline Phosphatase 113 C-Reactive Protein 4.7 H Total Protein 7.4 Albumin 3.4 Globulin 4.00 H Albumin/Globulin Ratio 0.85 Subjective 24 Hr Interval Summary Free Text/Dictation Patient reports the pain from her leg is better. Constitutional: no complaints Respiratory: no complaints Cardiovascular: no complaints Gastrointestinal: no complaints Genitourinary: no complaints Skin: other (Still with pain at left lower extremity wound but better) Exam/Review of Systems Exam Vitals Vital Signs Date Temp Pulse Resp B/P (MAP) Pulse Ox O2 O2 Flow FiO2 Time Delivery Rate 09/02/18 98.0 90 20 115/55 98 08:03 (75) 09/02/18 Room Air 02:32 Intake and Output 09/01/18 09/01/18 09/02/18 1515:00 23:00 07:00 IntakeIntake Total 550 ml 600 ml 500 ml BalanceBalance 550 ml 600 ml 500 ml Constitutional: alert, oriented Neck: supple, non-tender Respiratory: clear to auscultation, normal air movement Cardiovascular: regular rate and rhythm, nl pulses Gastrointestinal: soft, nl liver, spleen, non-tender Extremities: other (Area of erythema is receding from pen sorensen) Results Results 24hrs Laboratory Tests Test 09/02/18 01:08 09/02/18 05:35 Vancomycin Level Trough 14.5 White Blood Count 11.4 H Red Blood Count 3.84 L Hemoglobin 9.2 L Hematocrit 30.5 L Mean Corpuscular Volume 79.4 L Mean Corpuscular Hemoglobin 24.0 L Mean Corpuscular Hemoglobin Concent 30.2 L Red Cell Distribution Width 15.8 H Platelet Count 446 H Mean Platelet Volume 8.2 Immature Granulocytes % 0.500 H Neutrophils % 69.3 Lymphocytes % 14.6 L Monocytes % 4.7 Eosinophils % 10.6 H Basophils % 0.3 Nucleated Red Blood Cells % 0.0 Immature Granulocytes # 0.060 H Neutrophils # 7.9 H Lymphocytes # 1.7 Monocytes # 0.5 Eosinophils # 1.2 H Basophils # 0.0 Nucleated Red Blood Cells # 0.0 Erythrocyte Sedimentation Rate 58 H Sodium Level 139 Potassium Level 4.2 Chloride Level 106 Carbon Dioxide Level 27 Anion Gap 6 Blood Urea Nitrogen 10 Creatinine 0.79 Est Glomerular Filtrat Rate mL/min > 60 Glucose Level 111 Calcium Level 8.7 Total Bilirubin 0.2 Direct Bilirubin 0.00 Indirect Bilirubin 0.2 Aspartate Amino Transf (AST/SGOT) 15 Alanine Aminotransferase (ALT/SGPT) 10 L Alkaline Phosphatase 113 C-Reactive Protein 4.7 H Total Protein 7.4 Albumin 3.4 Globulin 4.00 H Albumin/Globulin Ratio 0.85 Medications Medication Current Medications Vancomycin HCl (Vanco Iv Per Pharmacy) VANCOMYCIN PER PHARMACY PER PROTOCOL XX ; Start 08/31/18 at 23:30 Piperacillin Sod/ Tazobactam Sod 100 ml @ 200 mls/hr Q6 IVPB Last administered on 09/02/18at 05:42; Admin Dose 200 MLS/HR; Start 09/01/18 at 00:00 IV Flush (NS 3 ml) 3 ml PER PROTOCOL IV ; Start 08/31/18 at 23:30 Ondansetron HCl (Zofran Tab) 4 mg Q6H PRN PO NAUSEA/VOMITING; Start 08/31/18 at 23:30 Acetaminophen (Tylenol Tab) 650 mg Q6H PRN PO .PAIN 1-3 OR TEMP; Start 08/31/18 at 23:30 Acetaminophen/ Hydrocodone Bitart ([place] (5/325)) 1 tab Q6H PRN PO .MOD PAIN 4-6; Start 08/31/18 at 23:30 Morphine Sulfate (morphine) 2 mg Q4H PRN IV .SEVERE PAIN 7-10 Last administered on 09/02/18at 09:35; Admin Dose 2 MG; Start 08/31/18 at 23:30 Docusate Sodium (Colace) 100 mg Q12H PRN PO .CONSTIPATION; Start 08/31/18 at 23:30 Bisacodyl (Dulcolax) 5 mg DAILY PRN PO .CONSTIPATION; Start 08/31/18 at 23:30 Nicotine (Nicoderm 21 Mg/ 24hr) 1 patch DAILY TRANSDERM Last administered on 09/02/18at 09:25; Admin Dose 1 PATCH; Start 09/01/18 at 09:00 Nicotine Polacrilex (Nicorette) 2 mg Q2H PRN BUCCAL CONTROL WITHDRAWAL SYMPTOMS; Start 08/31/18 at 23:30 Lorazepam (Ativan) 0.5 mg Q8H PRN PO ANXIETY Last administered on 09/01/18at 22:02; Admin Dose 0.5 MG; Start 09/01/18 at 00:30 Collagenase (Santyl) 1 applic DAILY TOP Last administered on 09/01/18at 08:58; Admin Dose 1 APPLIC; Start 09/01/18 at 09:00 Collagenase (Santyl) 1 applic PRN PRN TOP SOIL Last administered on 09/01/18at 01:13; Admin Dose 1 APPLIC; Start 09/01/18 at 01:00 Vancomycin HCl 250 ml @ 125 mls/hr Q8H IVPB Last administered on 09/02/18 09:26; Admin Dose 125 MLS/HR; Start 09/01/18 at 09:00 Miscellaneous Information (*Rx Drug Level Order Reminder*) VANCO TROUGH ON 08/14... 0800 ONCE XX ; Start 09/03/18 at 08:00; Stop 09/03/18 at 08:01 KATELYNN WHEELER MD Sep 02, 2018 09:59
[2018-09-02 14:30] VITALS: BP 135/76; PULSE 95; RESP 20
[2018-09-02] MEDS: COLLAGENASE 5 GM (UD JAR) TOP SCH (17:01)
[2018-09-02 20:30] VITALS: BP 100/55; PULSE 91; RESP 18
[2018-09-03] MEDS: morphine 2 MG INJ IV PRN ×4 (00:05→18:08)
[2018-09-03] MEDS: PIPER-TAZO 3.375 GM IV (PMX) 100 ML IVPB SCH ×4 (01:01→18:06)
[2018-09-03] MEDS: VANCOMYCIN 1 GM 250 ML IVPB SCH ×3 (01:02→16:49)
[2018-09-03 02:20] VITALS: BP 120/59; PULSE 97; RESP 18
[2018-09-03 08:09] VITALS: BP 122/77; PULSE 94; RESP 18
[2018-09-03] MEDS: COLLAGENASE 5 GM (UD JAR) TOP SCH (08:51)
[2018-09-03] MEDS: NICOTINE (21 MG/24 HR) PATCH TRANSDERM SCH (08:51)
--- NOTE | 2018-09-03 12:30 | PN ---
Date/Time of Note Date/Time of Note DATE: 09/03/18 TIME: 12:26 Assessment/Plan VTE Prophylaxis Risk score (from [facility])>0 risk: 5 SCD applied (from [facility] [place]): No SCD contraindicated: other Pharmacological prophylaxis: LMWH Lines/Catheters IV Catheter Type (from [facility]): Saline Lock Urinary Cath still in place: No Assessment/Plan Assessment/Plan 1. Left lower extremity cellulitis and wound, on zosyn and vancomycin, surgery today, keep it elevated 2. sepsis, improve 3. Morbid obesity, weight loss 4. Asthma, stable 5. Tobacco use, advise to quit 6. DVT prophylaxis: lovenox Result Diagram: 09/03/18 0848 09/03/18 0848 Results 24hrs Laboratory Tests Test 09/03/18 08:48 White Blood Count 10.3 Red Blood Count 3.76 L Hemoglobin 9.0 L Hematocrit 30.0 L Mean Corpuscular Volume 79.8 L Mean Corpuscular Hemoglobin 23.9 L Mean Corpuscular Hemoglobin Concent 30.0 L Red Cell Distribution Width 15.9 H Platelet Count 433 H Mean Platelet Volume 8.3 Immature Granulocytes % 0.700 H Neutrophils % 69.5 Lymphocytes % 15.9 Monocytes % 5.0 Eosinophils % 8.5 H Basophils % 0.4 Nucleated Red Blood Cells % 0.0 Immature Granulocytes # 0.070 H Neutrophils # 7.2 Lymphocytes # 1.6 Monocytes # 0.5 Eosinophils # 0.9 H Basophils # 0.0 Nucleated Red Blood Cells # 0.0 Erythrocyte Sedimentation Rate 82 H Sodium Level 139 Potassium Level 4.1 Chloride Level 106 Carbon Dioxide Level 28 Anion Gap 5 Blood Urea Nitrogen 9 Creatinine 0.79 Est Glomerular Filtrat Rate mL/min > 60 Glucose Level 98 Calcium Level 8.6 Total Bilirubin 0.2 Direct Bilirubin 0.00 Indirect Bilirubin 0.2 Aspartate Amino Transf (AST/SGOT) 14 L Alanine Aminotransferase (ALT/SGPT) 10 L Alkaline Phosphatase 99 C-Reactive Protein 3.7 H Total Protein 7.4 Albumin 3.3 Globulin 4.10 H Albumin/Globulin Ratio 0.80 Beta HCG, Quantitative < 2.4 Vancomycin Level Trough 14.2 Subjective 24 Hr Interval Summary Free Text/Dictation no fever or chills Exam/Review of Systems Exam Vitals Vital Signs Date Temp Pulse Resp B/P (MAP) Pulse Ox O2 O2 Flow FiO2 Time Delivery Rate 09/03/18 99.1 94 18 122/77 96 Room Air 08:09 (92) Intake and Output 09/02/18 09/02/18 09/03/18 1515:00 23:00 07:00 IntakeIntake Total 350 ml 1850 ml 450 ml BalanceBalance 350 ml 1850 ml 450 ml Constitutional: alert, oriented, well developed, obese Head: normocephalic, atraumatic Eyes: nl conjunctiva, EOMI, nl lids, PERRL ENMT: nl external ears & nose, nl lips & teeth, nl nasal mucosa & septum Neck: supple, non-tender Respiratory: clear to auscultation, normal air movement; No congested cough, No crackles/rales, No diminished breath sounds, No intercostal retraction, No labored breathing, No respirations, No tactile fremitus, No wheezing, No other Cardiovascular: regular rate and rhythm, nl pulses; No bruits, No diastolic murmur, No edema, No gallop, No irregular rhythm, No jugular venous distention (JVD), No murmurs/extra sounds, No rub, No systolic murmur, No S3, No S4, No other Gastrointestinal: soft, nl liver, spleen, non-tender Extremities: other (left lower extremity swelling, wound) Neurological: INVENTORY AND PRICING ASSOCIATE II-XII intact, nl mental status, nl speech, nl strength Results Results 24hrs Laboratory Tests Test 09/03/18 08:48 White Blood Count 10.3 Red Blood Count 3.76 L Hemoglobin 9.0 L Hematocrit 30.0 L Mean Corpuscular Volume 79.8 L Mean Corpuscular Hemoglobin 23.9 L Mean Corpuscular Hemoglobin Concent 30.0 L Red Cell Distribution Width 15.9 H Platelet Count 433 H Mean Platelet Volume 8.3 Immature Granulocytes % 0.700 H Neutrophils % 69.5 Lymphocytes % 15.9 Monocytes % 5.0 Eosinophils % 8.5 H Basophils % 0.4 Nucleated Red Blood Cells % 0.0 Immature Granulocytes # 0.070 H Neutrophils # 7.2 Lymphocytes # 1.6 Monocytes # 0.5 Eosinophils # 0.9 H Basophils # 0.0 Nucleated Red Blood Cells # 0.0 Erythrocyte Sedimentation Rate 82 H Sodium Level 139 Potassium Level 4.1 Chloride Level 106 Carbon Dioxide Level 28 Anion Gap 5 Blood Urea Nitrogen 9 Creatinine 0.79 Est Glomerular Filtrat Rate mL/min > 60 Glucose Level 98 Calcium Level 8.6 Total Bilirubin 0.2 Direct Bilirubin 0.00 Indirect Bilirubin 0.2 Aspartate Amino Transf (AST/SGOT) 14 L Alanine Aminotransferase (ALT/SGPT) 10 L Alkaline Phosphatase 99 C-Reactive Protein 3.7 H Total Protein 7.4 Albumin 3.3 Globulin 4.10 H Albumin/Globulin Ratio 0.80 Beta HCG, Quantitative < 2.4 Vancomycin Level Trough 14.2 Medications Medication Current Medications Vancomycin HCl (Vanco Iv Per Pharmacy) VANCOMYCIN PER PHARMACY PER PROTOCOL XX ; Start 08/31/18 at 23:30 Piperacillin Sod/ Tazobactam Sod 100 ml @ 200 mls/hr Q6 IVPB Last administered on 09/03/18at 05:56; Admin Dose 200 MLS/HR; Start 09/01/18 at 00:00 IV Flush (NS 3 ml) 3 ml PER PROTOCOL IV ; Start 08/31/18 at 23:30 Ondansetron HCl (Zofran Tab) 4 mg Q6H PRN PO NAUSEA/VOMITING; Start 08/31/18 at 23:30 Acetaminophen (Tylenol Tab) 650 mg Q6H PRN PO .PAIN 1-3 OR TEMP; Start 08/31/18 at 23:30 Acetaminophen/ Hydrocodone Bitart ([place] (5/325)) 1 tab Q6H PRN PO .MOD PAIN 4- 6; Start 08/31/18 at 23:30 Morphine Sulfate (morphine) 2 mg Q4H PRN IV .SEVERE PAIN 7-10 Last administered on 09/03/18at 08:50; Admin Dose 2 MG; Start 08/31/18 at 23:30 Docusate Sodium (Colace) 100 mg Q12H PRN PO .CONSTIPATION; Start 08/31/18 at 23:30 Bisacodyl (Dulcolax) 5 mg DAILY PRN PO .CONSTIPATION; Start 08/31/18 at 23:30 Nicotine (Nicoderm 21 Mg/ 24hr) 1 patch DAILY TRANSDERM Last administered on 09/03/18at 08:51; Admin Dose 1 PATCH; Start 09/01/18 at 09:00 Nicotine Polacrilex (Nicorette) 2 mg Q2H PRN BUCCAL CONTROL WITHDRAWAL SYMPTOMS; Start 08/31/18 at 23:30 Lorazepam (Ativan) 0.5 mg Q8H PRN PO ANXIETY Last administered on 09/01/18 22:02; Admin Dose 0.5 MG; Start 09/01/18 at 00:30 Collagenase (Santyl) 1 applic DAILY TOP Last administered on 09/03/18 08:51; Admin Dose 1 APPLIC; Start 09/01/18 at 09:00 Collagenase (Santyl) 1 applic PRN PRN TOP SOIL Last administered on 09/01/18 01:13; Admin Dose 1 APPLIC; Start 09/01/18 at 01:00 Vancomycin HCl 250 ml @ 125 mls/hr Q8H IVPB Last administered on 09/03/18 08:51; Admin Dose 125 MLS/HR; Start 09/01/18 at 09:00 JEREMI KEN MD Sep 03, 2018 12:30
[2018-09-03 14:00] VITALS: BP 146/79; PULSE 93; RESP 18
--- NOTE | 2018-09-03 16:56 | HPN ---
Date/Time of Note Date/Time of Note DATE: 09/03/18 TIME: 16:56 Interval H&P Admission Note Pt. seen H&P reviewed: No system changes SILVIA LINARES DPM Sep 03, 2018 16:56
--- NOTE | 2018-09-03 19:10 | CONS ---
Assessment/Plan Assessment/Plan Assessment/Plan (Daily) Left lower extremity venous ulceration Hx of trauma and laceration to left lower extremity Hx of hematoma Left lower extremity cellulitis Edema b/l Morbid obesity homelessness Nicotine dependence Plan Per nursing, patient ordered food and ate prior to surgery despite explaining to patient that she had surgery today and needed to be kept NPO. Spoke with patient and explained that surgery will need to be delayed. Rescheduled for Monday 7:30am. Continue with daily dressing changes and elevate limbs and apply compression. Continue with IV abx. Appreciate assistance from social scientist for placement. Consultation Date/Type/Reason Admit Date/Time Aug 31, 2018 at 22:53 Initial Consult Date Date/Time of Note DATE: 09/03/18 TIME: 19:10 24 HR Interval Summary Free Text/Dictation Patient complaining of NPO status. Exam/Review of Systems Exam Vitals Vital Signs Date Temp Pulse Resp B/P (MAP) Pulse Ox O2 O2 Flow FiO2 Time Delivery Rate 09/03/18 98.3 93 18 146/79 99 Room Air 14:00 (101) Intake and Output 09/02/18 09/02/18 09/03/18 1515:00 23:00 07:00 IntakeIntake Total 350 ml 1850 ml 450 ml BalanceBalance 350 ml 1850 ml 450 ml Exam Palpable pedal pulses 3+ pitting edema Left leg ulceration 8 x 5 x 1.5cm, wound base is fibrogranular there is tunneling in the proximal and lateral aspect of the ulcer with mild serous d rainage. No active purulence appreciated. Mild pain on palpation to ulcer site Protective sensations intact Muscle strength 5/5 in all compartments of the foot. Results Result Diagram: 09/03/18 0848 09/03/18 0848 Results 24hrs Laboratory Tests Test 09/03/18 08:48 White Blood Count 10.3 Red Blood Count 3.76 L Hemoglobin 9.0 L Hematocrit 30.0 L Mean Corpuscular Volume 79.8 L Mean Corpuscular Hemoglobin 23.9 L Mean Corpuscular Hemoglobin Concent 30.0 L Red Cell Distribution Width 15.9 H Platelet Count 433 H Mean Platelet Volume 8.3 Immature Granulocytes % 0.700 H Neutrophils % 69.5 Lymphocytes % 15.9 Monocytes % 5.0 Eosinophils % 8.5 H Basophils % 0.4 Nucleated Red Blood Cells % 0.0 Immature Granulocytes # 0.070 H Neutrophils # 7.2 Lymphocytes # 1.6 Monocytes # 0.5 Eosinophils # 0.9 H Basophils # 0.0 Nucleated Red Blood Cells # 0.0 Erythrocyte Sedimentation Rate 82 H Sodium Level 139 Potassium Level 4.1 Chloride Level 106 Carbon Dioxide Level 28 Anion Gap 5 Blood Urea Nitrogen 9 Creatinine 0.79 Est Glomerular Filtrat Rate mL/min > 60 Glucose Level 98 Calcium Level 8.6 Total Bilirubin 0.2 Direct Bilirubin 0.00 Indirect Bilirubin 0.2 Aspartate Amino Transf (AST/SGOT) 14 L Alanine Aminotransferase (ALT/SGPT) 10 L Alkaline Phosphatase 99 C-Reactive Protein 3.7 H Total Protein 7.4 Albumin 3.3 Globulin 4.10 H Albumin/Globulin Ratio 0.80 Beta HCG, Quantitative < 2.4 Vancomycin Level Trough 14.2 Medications Medication Current Medications Vancomycin HCl (Vanco Iv Per Pharmacy) VANCOMYCIN PER PHARMACY PER PROTOCOL XX ; Start 08/31/18 at 23:30 Piperacillin Sod/ Tazobactam Sod 100 ml @ 200 mls/hr Q6 IVPB Last administered on 09/03/18at 18:06; Admin Dose 200 MLS/HR; Start 09/01/18 at 00:00 IV Flush (NS 3 ml) 3 ml PER PROTOCOL IV ; Start 08/31/18 at 23:30 Ondansetron HCl (Zofran Tab) 4 mg Q6H PRN PO NAUSEA/VOMITING; Start 08/31/18 at 23:30 Acetaminophen (Tylenol Tab) 650 mg Q6H PRN PO .PAIN 1-3 OR TEMP; Start 08/31/18 at 23:30 Acetaminophen/ Hydrocodone Bitart ([place] (5/325)) 1 tab Q6H PRN PO .MOD PAIN 4- 6; Start 08/31/18 at 23:30 Morphine Sulfate (morphine) 2 mg Q4H PRN IV .SEVERE PAIN 7-10 Last administered on 09/03/18at 18:08; Admin Dose 2 MG; Start 08/31/18 at 23:30 Docusate Sodium (Colace) 100 mg Q12H PRN PO .CONSTIPATION; Start 08/31/18 at 23:30 Bisacodyl (Dulcolax) 5 mg DAILY PRN PO .CONSTIPATION; Start 08/31/18 at 23:30 Nicotine (Nicoderm 21 Mg/ 24hr) 1 patch DAILY TRANSDERM Last administered on 09/03/18 08:51; Admin Dose 1 PATCH; Start 09/01/18 at 09:00 Nicotine Polacrilex (Nicorette) 2 mg Q2H PRN BUCCAL CONTROL WITHDRAWAL SYMPTOMS; Start 08/31/18 at 23:30 Lorazepam (Ativan) 0.5 mg Q8H PRN PO ANXIETY Last administered on 09/01/18 22:02; Admin Dose 0.5 MG; Start 09/01/18 at 00:30 Collagenase (Santyl) 1 applic DAILY TOP Last administered on 09/03/18 08:51; Admin Dose 1 APPLIC; Start 09/01/18 at 09:00 Collagenase (Santyl) 1 applic PRN PRN TOP SOIL Last administered on 09/01/18 01:13; Admin Dose 1 APPLIC; Start 09/01/18 at 01:00 Vancomycin HCl 250 ml @ 125 mls/hr Q8H IVPB Last administered on 09/03/18 16:49; Admin Dose 125 MLS/HR; Start 09/01/18 at 09:00 SILVIA LINARES DPM Sep 03, 2018 19:10
[2018-09-03 20:35] VITALS: BP 141/77; PULSE 96; RESP 18
[2018-09-04] MEDS: PIPER-TAZO 3.375 GM IV (PMX) 100 ML IVPB SCH ×4 (00:28→17:38)
[2018-09-04] MEDS: VANCOMYCIN 1 GM 250 ML IVPB SCH ×3 (01:20→18:08)
[2018-09-04 01:58] VITALS: BP 129/56; PULSE 93; RESP 18
[2018-09-04] MEDS: morphine 2 MG INJ IV PRN ×3 (06:15→21:42)
[2018-09-04 08:00] VITALS: BP 125/58; PULSE 76; RESP 18
[2018-09-04] MEDS: NICOTINE (21 MG/24 HR) PATCH TRANSDERM SCH (08:34)
[2018-09-04] MEDS: COLLAGENASE 5 GM (UD JAR) TOP SCH (08:34)
--- NOTE | 2018-09-04 11:28 | PN ---
Date/Time of Note Date/Time of Note DATE: 09/04/18 TIME: 11:26 Assessment/Plan VTE Prophylaxis Risk score (from Ns)>0 risk: 5 [place] [facility] [place] contraindicated: other Pharmacological prophylaxis: LMWH Lines/Catheters IV [facility] Type (from [facility] Saline Lock Urinary Cath still in place: No Assessment/Plan Assessment/Plan 1. Left lower extremity cellulitis and wound, on zosyn and vancomycin, surgery postponed yesterday since she ate prior to surgery, keep it elevated 2. sepsis, improve 3. Morbid obesity, weight loss 4. Asthma, stable 5. Tobacco use, advise to quit 6. DVT prophylaxis: lovenox Result Diagram: 09/04/184 09/04/184 Results 24hrs Laboratory Tests Test 09/04/18 04:54 White Blood Count 12.7 #H Red Blood Count 3.83 L Hemoglobin 9.3 L Hematocrit 30.2 L Mean Corpuscular Volume 78.9 L Mean Corpuscular Hemoglobin 24.3 L Mean Corpuscular Hemoglobin Concent 30.8 L Red Cell Distribution Width 15.6 H Platelet Count 481 H Mean Platelet Volume 8.1 Immature Granulocytes % 0.700 H Neutrophils % 68.0 Lymphocytes % 17.8 Monocytes % 5.4 Eosinophils % 7.8 H Basophils % 0.3 Nucleated Red Blood Cells % 0.0 Immature Granulocytes # 0.090 H Neutrophils # 8.7 H Lymphocytes # 2.3 Monocytes # 0.7 Eosinophils # 1.0 H Basophils # 0.0 Nucleated Red Blood Cells # 0.0 Sodium Level 140 Potassium Level 4.1 Chloride Level 105 Carbon Dioxide Level 28 Anion Gap 7 Blood Urea Nitrogen 13 Creatinine 0.79 Est Glomerular Filtrat Rate mL/min > 60 Glucose Level 109 Calcium Level 9.5 Total Bilirubin 0.2 Direct Bilirubin 0.00 Indirect Bilirubin 0.2 Aspartate Amino Transf (AST/SGOT) 19 Alanine Aminotransferase (ALT/SGPT) 11 L Alkaline Phosphatase 124 H Total Protein 8.1 Albumin 3.7 Globulin 4.40 H Albumin/Globulin Ratio 0.84 Subjective 24 Hr Interval Summary Free Text/Dictation afebrile.surgery postponed since she ate yesterday Exam/Review of Systems Exam Vitals Vital Signs Date Temp Pulse Resp B/P (MAP) Pulse Ox O2 O2 Flow FiO2 Time Delivery Rate 09/04/18 98.8 76 18 125/58 94 08:00 (80) 09/03/18 Room Air 14:00 Intake and Output 09/03/18 09/03/18 09/04/18 1515:00 23:00 07:00 IntakeIntake Total 650 ml 850 ml 1410 ml BalanceBalance 650 ml 850 ml 1410 ml Constitutional: alert, oriented, well developed, obese Psych: no complaints Head: normocephalic, atraumatic Eyes: nl conjunctiva, EOMI, nl lids ENMT: nl external ears & nose, nl lips & teeth, nl nasal mucosa & septum Neck: supple, non-tender Respiratory: clear to auscultation, normal air movement; No congested cough, No crackles/rales, No diminished breath sounds, No intercostal retraction, No labored breathing, No respirations, No tactile fremitus, No wheezing, No other Cardiovascular: regular rate and rhythm, nl pulses; No bruits, No diastolic murmur, No edema, No gallop, No irregular rhythm, No jugular venous distention (JVD), No murmurs/extra sounds, No rub, No systolic murmur, No S3, No S4, No other Gastrointestinal: soft, nl liver, spleen, non-tender Musculoskeletal: nl extremities to inspection Extremities: normal pulses, other (left lower extremity wound) Neurological: HORSE TRADER II-XII intact, nl mental status, nl speech, nl strength Results Results 24hrs Laboratory Tests Test 09/04/18 04:54 White Blood Count 12.7 #H Red Blood Count 3.83 L Hemoglobin 9.3 L Hematocrit 30.2 L Mean Corpuscular Volume 78.9 L Mean Corpuscular Hemoglobin 24.3 L Mean Corpuscular Hemoglobin Concent 30.8 L Red Cell Distribution Width 15.6 H Platelet Count 481 H Mean Platelet Volume 8.1 Immature Granulocytes % 0.700 H Neutrophils % 68.0 Lymphocytes % 17.8 Monocytes % 5.4 Eosinophils % 7.8 H Basophils % 0.3 Nucleated Red Blood Cells % 0.0 Immature Granulocytes # 0.090 H Neutrophils # 8.7 H Lymphocytes # 2.3 Monocytes # 0.7 Eosinophils # 1.0 H Basophils # 0.0 Nucleated Red Blood Cells # 0.0 Sodium Level 140 Potassium Level 4.1 Chloride Level 105 Carbon Dioxide Level 28 Anion Gap 7 Blood Urea Nitrogen 13 Creatinine 0.79 Est Glomerular Filtrat Rate mL/min > 60 Glucose Level 109 Calcium Level 9.5 Total Bilirubin 0.2 Direct Bilirubin 0.00 Indirect Bilirubin 0.2 Aspartate Amino Transf (AST/SGOT) 19 Alanine Aminotransferase (ALT/SGPT) 11 L Alkaline Phosphatase 124 H Total Protein 8.1 Albumin 3.7 Globulin 4.40 H Albumin/Globulin Ratio 0.84 Medications Medication Current Medications Vancomycin HCl (Vanco Iv Per Pharmacy) VANCOMYCIN PER PHARMACY PER PROTOCOL XX ; Start 08/31/18 at 23:30 Piperacillin Sod/ Tazobactam Sod 100 ml @ 200 mls/hr Q6 IVPB Last administered on 09/04/18at 05:38; Admin Dose 200 MLS/HR; Start 09/01/18 at 00:00 IV Flush (NS 3 ml) 3 ml PER PROTOCOL IV ; Start 08/31/18 at 23:30 Ondansetron HCl (Zofran Tab) 4 mg Q6H PRN PO NAUSEA/VOMITING; Start 08/31/18 at 23:30 Acetaminophen (Tylenol Tab) 650 mg Q6H PRN PO .PAIN 1-3 OR TEMP; Start 08/31/18 at 23:30 Acetaminophen/ Hydrocodone Bitart ([place] (5/325)) 1 tab Q6H PRN PO .MOD PAIN 4- 6; Start 08/31/18 at 23:30 Morphine Sulfate (morphine) 2 mg Q4H PRN IV .SEVERE PAIN 7-10 Last administered on 09/04/18at 06:15; Admin Dose 2 MG; Start 08/31/18 at 23:30 Docusate Sodium (Colace) 100 mg Q12H PRN PO .CONSTIPATION; Start 08/31/18 at 23:30 Bisacodyl (Dulcolax) 5 mg DAILY PRN PO .CONSTIPATION; Start 08/31/18 at 23:30 Nicotine (Nicoderm 21 Mg/ 24hr) 1 patch DAILY TRANSDERM Last administered on 09/04/18at 08:34; Admin Dose 1 PATCH; Start 09/01/18 at 09:00 Nicotine Polacrilex (Nicorette) 2 mg Q2H PRN BUCCAL CONTROL WITHDRAWAL SYMPTOMS; Start 08/31/18 at 23:30 Lorazepam (Ativan) 0.5 mg Q8H PRN PO ANXIETY Last administered on 09/01/18 22:02; Admin Dose 0.5 MG; Start 09/01/18 at 00:30 Collagenase (Santyl) 1 applic DAILY TOP Last administered on 09/04/18 08:34; Admin Dose 1 APPLIC; Start 09/01/18 at 09:00 Collagenase (Santyl) 1 applic PRN PRN TOP SOIL Last administered on 09/01/18 01:13; Admin Dose 1 APPLIC; Start 09/01/18 at 01:00 Vancomycin HCl 250 ml @ 125 mls/hr Q8H IVPB Last administered on 09/04/18 08:34; Admin Dose 125 MLS/HR; Start 09/01/18 at 09:00 JEREMI KEN MD Sep 04, 2018 11:28
[2018-09-04 14:00] VITALS: BP 165/53; PULSE 76; RESP 18
[2018-09-04 21:29] VITALS: BP 126/60; PULSE 85; RESP 18
[2018-09-04] MEDS ORDERED: DIPHENHYDRAMINE 25 MG CAP PO PRN (23:00)
[2018-09-05] MEDS: VANCOMYCIN 1 GM 250 ML IVPB SCH ×3 (00:58→16:42)
[2018-09-05] MEDS: morphine 2 MG INJ IV PRN ×4 (02:02→18:43)
[2018-09-05 02:50] VITALS: BP 109/55; PULSE 98; RESP 20
[2018-09-05] MEDS: PIPER-TAZO 3.375 GM IV (PMX) 100 ML IVPB SCH ×5 (07:45→23:16)
[2018-09-05 08:00] VITALS: BP 111/59; PULSE 77; RESP 18
[2018-09-05] MEDS: NICOTINE (21 MG/24 HR) PATCH TRANSDERM SCH (09:26)
[2018-09-05] MEDS: COLLAGENASE 5 GM (UD JAR) TOP SCH (09:26)
--- NOTE | 2018-09-05 12:37 | PN ---
Date/Time of Note Date/Time of Note DATE: 09/05/18 TIME: 12:34 Assessment/Plan VTE Prophylaxis Risk score (from Ns)>0 risk: 5 SCD applied (from [facility] [place] No SCD contraindicated: other Pharmacological prophylaxis: LMWH Lines/Catheters IV [facility] Type (from [facility] Saline Lock Urinary Cath still in place: No Assessment/Plan Assessment/Plan 1. Left lower extremity cellulitis and wound, on zosyn and vancomycin, awaiting for surgical I&D today 2. sepsis, improve 3. Morbid obesity, weight loss 4. Asthma, stable 5. Tobacco use, advise to quit 6. DVT prophylaxis: lovenox Result Diagram: 09/04/18 0454 09/04/18 0454 Subjective 24 Hr Interval Summary Free Text/Dictation no event, awaiting for surgery Exam/Review of Systems Exam Vitals Vital Signs Date Temp Pulse Resp B/P (MAP) Pulse Ox O2 O2 Flow FiO2 Time Delivery Rate 09/05/18 98.4 77 18 111/59 96 08:00 (76) 09/03/18 Room Air 14:00 Intake and Output 09/04/18 09/04/18 09/05/18 1515:00 23:00 07:00 IntakeIntake Total 350 ml 350 ml 350 ml BalanceBalance 350 ml 350 ml 350 ml Constitutional: alert, oriented, well developed, obese Psych: no complaints, nl mood/affect Head: normocephalic, atraumatic Eyes: nl conjunctiva, EOMI, nl lids, PERRL ENMT: nl external ears & nose, nl lips & teeth, nl nasal mucosa & septum, mucosa pink and moist Neck: supple, non-tender Respiratory: clear to auscultation, normal air movement; No congested cough, No crackles/rales, No diminished breath sounds, No intercostal retraction, No labored breathing, No respirations, No tactile fremitus, No wheezing, No other Cardiovascular: regular rate and rhythm, nl pulses; No bruits, No diastolic murmur, No edema, No gallop, No irregular rhythm, No jugular venous distention (JVD), No murmurs/extra sounds, No rub, No systolic murmur, No S3, No S4, No other Gastrointestinal: soft, nl liver, spleen, non-tender Musculoskeletal: nl extremities to inspection Extremities: normal pulses, other (left lower extremity wound) Neurological: CAVING GUIDE II-XII intact, nl mental status, nl speech, nl strength Medications Medication Current Medications Vancomycin HCl (Vanco Iv Per Pharmacy) VANCOMYCIN PER PHARMACY PER PROTOCOL XX ; Start 08/31/18 at 23:30 Piperacillin Sod/ Tazobactam Sod 100 ml @ 200 mls/hr Q6 IVPB Last administered on 09/05/18 12:31; Admin Dose 200 MLS/HR; Start 09/01/18 at 00:00 IV Flush (NS 3 ml) 3 ml PER PROTOCOL IV ; Start 08/31/18 at 23:30 Ondansetron HCl (Zofran Tab) 4 mg Q6H PRN PO NAUSEA/VOMITING; Start 08/31/18 at 23:30 Acetaminophen (Tylenol Tab) 650 mg Q6H PRN PO .PAIN 1-3 OR TEMP; Start 08/31/18 at 23:30 Acetaminophen/ Hydrocodone Bitart ([place] (5/325)) 1 tab Q6H PRN PO .MOD PAIN 4- 6; Start 08/31/18 at 23:30 Morphine Sulfate (morphine) 2 mg Q4H PRN IV .SEVERE PAIN 7-10 Last administered on 09/05/18 09:24; Admin Dose 2 MG; Start 08/31/18 at 23:30 Docusate Sodium (Colace) 100 mg Q12H PRN PO .CONSTIPATION; Start 08/31/18 at 23:30 Bisacodyl (Dulcolax) 5 mg DAILY PRN PO .CONSTIPATION; Start 08/31/18 at 23:30 Nicotine (Nicoderm 21 Mg/ 24hr) 1 patch DAILY TRANSDERM Last administered on 09/05/18 09:26; Admin Dose 1 PATCH; Start 09/01/18 at 09:00 Nicotine Polacrilex (Nicorette) 2 mg Q2H PRN BUCCAL CONTROL WITHDRAWAL SYMPTOMS; Start 08/31/18 at 23:30 Lorazepam (Ativan) 0.5 mg Q8H PRN PO ANXIETY Last administered on 09/01/18 22:02; Admin Dose 0.5 MG; Start 09/01/18 at 00:30 Collagenase (Santyl) 1 applic DAILY TOP Last administered on 09/05/18 09:26; Admin Dose 1 APPLIC; Start 09/01/18 at 09:00 Collagenase (Santyl) 1 applic PRN PRN TOP SOIL Last administered on 09/01/18at 01:13; Admin Dose 1 APPLIC; Start 09/01/18 at 01:00 Vancomycin HCl 250 ml @ 125 mls/hr Q8H IVPB Last administered on 09/05/18at 09:27; Admin Dose 125 MLS/HR; Start 09/01/18 at 09:00 Diphenhydramine HCl (Benadryl) 25 mg Q6H PRN PO ITCHING; Start 09/04/18 at 23:00; Stop 09/05/18 at 23:00 JEREMI KEN MD Sep 05, 2018 12:37
[2018-09-05 14:00] VITALS: BP 133/64; PULSE 76; RESP 18
--- NOTE | 2018-09-05 16:04 | PREAC ---
Date/Time of Note Date/Time of Note DATE: 09/05/18 TIME: 16:03 Anesthesia Eval and Record Evaluation Time Pre-Procedure Interview DATE: 09/05/18 TIME: 16:03 Age 33 Sex female NPO: 8 hrs Preoperative diagnosis Left lower extremity cellulitis Planned procedure LEFT FOOT LOWER EXTREMITY DEBRIDEMENT Past Medical History Past Medical History: Includes GI: Morbid obesity Heme: Anemia Surgery & Anesthesia Issues No known issue Meds Anticoagulation: No Beta Cristina within 24 hr: No Reason Beta Cristina not given: Pt. not on B-Cristina Discontinued Scripts Hydrocodone/Acetaminophen (Hydrocodone-Acetamin 10-325 mg) 1 Each Tablet, 1 TAB PO Q6H PRN for MODERATE PAIN LEVEL 4-6, #10 TAB Prov:[employer]IST 08/03/18 Sulfamethoxazole/Trimethoprim (Sulfamethoxazole-Tmp Ds Tablet) 1 Each Tablet, 1 TAB PO BID, #28 TAB Prov:[employer]LE [employer]IST 08/03/18 Levofloxacin* (Levaquin*) 500 Mg Tablet, 500 MG PO DAILY@06, #14 TAB Prov:ARIELLE [employer] ARTIST 08/03/18 Current Medications Vancomycin HCl (Vanco Iv Per Pharmacy) VANCOMYCIN PER PHARMACY PER PROTOCOL XX ; Start 08/31/18 at 23:30 Piperacillin Sod/ Tazobactam Sod 100 ml @ 200 mls/hr Q6 IVPB Last administered on 09/05/18at 12:31; Admin Dose 200 MLS/HR; Start 09/01/18 at 00:00 IV Flush (NS 3 ml) 3 ml PER PROTOCOL IV ; Start 08/31/18 at 23:30 Ondansetron HCl (Zofran Tab) 4 mg Q6H PRN PO NAUSEA/VOMITING; Start 08/31/18 at 23:30 Acetaminophen (Tylenol Tab) 650 mg Q6H PRN PO .PAIN 1-3 OR TEMP; Start 08/31/18 at 23:30 Acetaminophen/ Hydrocodone Bitart ([place] (5/325)) 1 tab Q6H PRN PO .MOD PAIN 4- 6; Start 08/31/18 at 23:30 Morphine Sulfate (morphine) 2 mg Q4H PRN IV .SEVERE PAIN 7-10 Last administered on 09/05/18at 14:09; Admin Dose 2 MG; Start 08/31/18 at 23:30 Docusate Sodium (Colace) 100 mg Q12H PRN PO .CONSTIPATION; Start 08/31/18 at 23:30 Bisacodyl (Dulcolax) 5 mg DAILY PRN PO .CONSTIPATION; Start 08/31/18 at 23:30 Nicotine (Nicoderm 21 Mg/ 24hr) 1 patch DAILY TRANSDERM Last administered on 09/05/18 09:26; Admin Dose 1 PATCH; Start 09/01/18 at 09:00 Nicotine Polacrilex (Nicorette) 2 mg Q2H PRN BUCCAL CONTROL WITHDRAWAL SYMPTOMS; Start 08/31/18 at 23:30 Lorazepam (Ativan) 0.5 mg Q8H PRN PO ANXIETY Last administered on 09/01/18 22:02; Admin Dose 0.5 MG; Start 09/01/18 at 00:30 Collagenase (Santyl) 1 applic DAILY TOP Last administered on 09/05/18 09:26; Admin Dose 1 APPLIC; Start 09/01/18 at 09:00 Collagenase (Santyl) 1 applic PRN PRN TOP SOIL Last administered on 09/01/18 01:13; Admin Dose 1 APPLIC; Start 09/01/18 at 01:00 Vancomycin HCl 250 ml @ 125 mls/hr Q8H IVPB Last administered on 09/05/18 09:27; Admin Dose 125 MLS/HR; Start 09/01/18 at 09:00 Diphenhydramine HCl (Benadryl) 25 mg Q6H PRN PO ITCHING; Start 09/04/18 at 23:00; Stop 09/05/18 at 23:00 Meds reviewed: Yes Allergies Coded Allergies: Iodine and Iodide Containing Produc (Unverified Allergy, Severe, 08/31/18) only if iodine is introduced into the blood stream.skin is ok. Allergies Reviewed: Yes Labs/Studies Labs Reviewed: Reviewed by anesthesiologist Result Diagram: 09/04/184 09/04/18453 test: Negative Studies: 2D Echo (EF 55%) Pre-procedure Exam Last vitals Vital Signs Date Temp Pulse Resp B/P (MAP) Pulse Ox O2 O2 Flow FiO2 Time Delivery Rate 09/05/18 98.8 76 18 133/64 96 14:00 (87) 09/03/18 Room Air 14:00 Airway: Adequate mouth opening Mallampati: Mallampati II Teeth: Normal Lung: Normal Heart: Normal ASA Physical Status ASA physical status: 4 Emergency: None Planned Anesthetic General/MAC: ETT Pre-operative Attestations Prior to commencing anesthesia and surgery, the patient was re-evaluated, there was verification of: *The patient's identity *The results of appropriate recent lab work and preoperative vital signs *The above evaluation not changing prior to induction *Anesthetic plan, risk benefits, alternative and complications discussed with patient/family; questions answered; patient/family understands, accepts and wishes to proceed. ARMANDO TOTH Sep 05, 2018 16:04
[2018-09-05 20:23] VITALS: BP 125/56; PULSE 93; RESP 20
[2018-09-05] MEDS: HYDROCODONE/APAP (5/325) TAB PO PRN (23:16)
[2018-09-06] VITALS (17 sets, daily range): BP systolic 101–136; BP diastolic 52–72; PULSE 74–97; RESP 16–19
[2018-09-06] MEDS: VANCOMYCIN 1 GM 250 ML IVPB SCH ×3 (00:57→22:48)
[2018-09-06] MEDS: PIPER-TAZO 3.375 GM IV (PMX) 100 ML IVPB SCH ×3 (05:24→22:07)
[2018-09-06] MEDS ORDERED: CEFAZOLIN 1 GM INJ ONE (07:00)
[2018-09-06] MEDS: NICOTINE (21 MG/24 HR) PATCH TRANSDERM SCH (08:46)
[2018-09-06] MEDS: HYDROCODONE/APAP (5/325) TAB PO PRN ×2 (08:51→22:17)
[2018-09-06] MEDS: COLLAGENASE 5 GM (UD JAR) TOP SCH (09:00)
--- NOTE | 2018-09-06 13:29 | PN ---
Date/Time of Note Date/Time of Note DATE: 09/06/18 TIME: 13:27 Assessment/Plan VTE Prophylaxis Risk score (from Ns)>0 risk: 3 [place] [facility] [place] contraindicated: other Pharmacological prophylaxis: LMWH Lines/Catheters IV Catheter Type (from [facility] Saline Lock Urinary Cath still in place: No Assessment/Plan Assessment/Plan 1. Left lower extremity cellulitis and wound, on zosyn and vancomycin, surgical I&D today 2. sepsis, improve 3. Morbid obesity, weight loss 4. Asthma, stable 5. Tobacco use, advise to quit 6. 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 Result Diagram: 09/06/18 0849 09/06/18 0849 Results 24hrs Laboratory Tests Test 09/06/18 08:49 White Blood Count 12.6 H Red Blood Count 3.93 L Hemoglobin 9.3 L Hematocrit 30.9 L Mean Corpuscular Volume 78.6 L Mean Corpuscular Hemoglobin 23.7 L Mean Corpuscular Hemoglobin Concent 30.1 L Red Cell Distribution Width 15.7 H Platelet Count 491 H Mean Platelet Volume 8.1 Immature Granulocytes % 0.500 H Neutrophils % 75.2 Lymphocytes % 14.7 L Monocytes % 4.2 Eosinophils % 5.1 Basophils % 0.3 Nucleated Red Blood Cells % 0.0 Immature Granulocytes # 0.060 H Neutrophils # 9.5 H Lymphocytes # 1.9 Monocytes # 0.5 Eosinophils # 0.6 H Basophils # 0.0 Nucleated Red Blood Cells # 0.0 Sodium Level 141 Potassium Level 3.9 Chloride Level 107 Carbon Dioxide Level 25 Anion Gap 9 Blood Urea Nitrogen 13 Creatinine 0.71 Est Glomerular Filtrat Rate mL/min > 60 Glucose Level 152 Calcium Level 9.0 Vancomycin Level Trough 11.9 Subjective 24 Hr Interval Summary Free Text/Dictation no event, afebrile Exam/Review of Systems Exam Vitals Vital Signs Date Temp Pulse Resp B/P (MAP) Pulse Ox O2 O2 Flow FiO2 Time Delivery Rate 09/06/18 97.8 81 18 118/59 94 08:57 (78) 09/03/18 Room Air 14:00 Intake and Output 09/05/18 09/05/18 09/06/18 1515:00 23:00 07:00 IntakeIntake Total 900 ml 350 ml 770 ml BalanceBalance 900 ml 350 ml 770 ml Constitutional: alert, oriented, well developed Psych: no complaints, nl mood/affect Head: normocephalic, atraumatic Eyes: nl conjunctiva, EOMI, nl lids, PERRL ENMT: nl external ears & nose, nl lips & teeth, nl nasal mucosa & septum Neck: supple, non-tender Respiratory: clear to auscultation, normal air movement; No congested cough, No crackles/rales, No diminished breath sounds, No intercostal retraction, No labored breathing, No respirations, No tactile fremitus, No wheezing, No other Cardiovascular: regular rate and rhythm, nl pulses; No bruits, No diastolic murmur, No edema, No gallop, No irregular rhythm, No jugular venous distention (JVD), No murmurs/extra sounds, No rub, No systolic murmur, No S3, No S4, No other Gastrointestinal: soft, nl liver, spleen, non-tender Musculoskeletal: nl extremities to inspection Extremities: normal pulses, other (left lower extremity wound) Neurological: TONGUE AND GROOVE MACHINE SETTER II-XII intact, nl mental status, nl speech, nl strength Results Results 24hrs Laboratory Tests Test 09/06/18 08:49 White Blood Count 12.6 H Red Blood Count 3.93 L Hemoglobin 9.3 L Hematocrit 30.9 L Mean Corpuscular Volume 78.6 L Mean Corpuscular Hemoglobin 23.7 L Mean Corpuscular Hemoglobin Concent 30.1 L Red Cell Distribution Width 15.7 H Platelet Count 491 H Mean Platelet Volume 8.1 Immature Granulocytes % 0.500 H Neutrophils % 75.2 Lymphocytes % 14.7 L Monocytes % 4.2 Eosinophils % 5.1 Basophils % 0.3 Nucleated Red Blood Cells % 0.0 Immature Granulocytes # 0.060 H Neutrophils # 9.5 H Lymphocytes # 1.9 Monocytes # 0.5 Eosinophils # 0.6 H Basophils # 0.0 Nucleated Red Blood Cells # 0.0 Sodium Level 141 Potassium Level 3.9 Chloride Level 107 Carbon Dioxide Level 25 Anion Gap 9 Blood Urea Nitrogen 13 Creatinine 0.71 Est Glomerular Filtrat Rate mL/min > 60 Glucose Level 152 Calcium Level 9.0 Vancomycin Level Trough 11.9 Medications Medication Current Medications Vancomycin HCl (Vanco Iv Per Pharmacy) VANCOMYCIN PER PHARMACY PER PROTOCOL XX ; Start 08/31/18 at 23:30 Piperacillin Sod/ Tazobactam Sod 100 ml @ 200 mls/hr Q6 IVPB Last administered on 09/06/18 05:24; Admin Dose 200 MLS/HR; Start 09/01/18 at 00:00 IV Flush (NS 3 ml) 3 ml PER PROTOCOL IV ; Start 08/31/18 at 23:30 Ondansetron HCl (Zofran Tab) 4 mg Q6H PRN PO NAUSEA/VOMITING; Start 08/31/18 at 23:30 Acetaminophen (Tylenol Tab) 650 mg Q6H PRN PO .PAIN 1-3 OR TEMP; Start 08/31/18 at 23:30 Acetaminophen/ Hydrocodone Bitart ([place] (5/325)) 1 tab Q6H PRN PO .MOD PAIN 4- 6 Last administered on 09/06/18 08:51; Admin Dose 1 TAB; Start 08/31/18 at 23:30 Morphine Sulfate (morphine) 2 mg Q4H PRN IV .SEVERE PAIN 7-10 Last administered on 09/05/18 18:43; Admin Dose 2 MG; Start 08/31/18 at 23:30 Docusate Sodium (Colace) 100 mg Q12H PRN PO .CONSTIPATION; Start 08/31/18 at 23:30 Bisacodyl (Dulcolax) 5 mg DAILY PRN PO .CONSTIPATION; Start 08/31/18 at 23:30 Nicotine (Nicoderm 21 Mg/ 24hr) 1 patch DAILY TRANSDERM Last administered on 09/06/18 08:46; Admin Dose 1 PATCH; Start 09/01/18 at 09:00 Nicotine Polacrilex (Nicorette) 2 mg Q2H PRN BUCCAL CONTROL WITHDRAWAL SYMPTOMS; Start 08/31/18 at 23:30 Lorazepam (Ativan) 0.5 mg Q8H PRN PO ANXIETY Last administered on 09/01/18 22:02; Admin Dose 0.5 MG; Start 09/01/18 at 00:30 Collagenase (Santyl) 1 applic DAILY TOP Last administered on 09/05/18 09:26; Admin Dose 1 APPLIC; Start 09/01/18 at 09:00 Collagenase (Santyl) 1 applic PRN PRN TOP SOIL Last administered on 09/01/18 01:13; Admin Dose 1 APPLIC; Start 09/01/18 at 01:00 Vancomycin HCl 250 ml @ 125 mls/hr Q8H IVPB Last administered on 09/06/18at 10:16; Admin Dose 125 MLS/HR; Start 09/01/18 at 09:00 JEREMI KEN MD Sep 06, 2018 13:29
[2018-09-06] MEDS: morphine 2 MG INJ IV PRN (13:45)
--- NOTE | 2018-09-06 13:50 | CONS ---
DATE OF ADMISSION: 08/31/2018 DATE OF CONSULTATION: 09/06/2018 TYPE OF CONSULTATION: Infectious disease. REASON FOR CONSULTATION: Antibiotic management. HISTORY OF PRESENT ILLNESS: Cheryle Wood is a 33-year-old female on 08/31/2018 with left leg pain, s welling and being seen for left lower extremity cellulitis. Dr. Linares sent the patient to be adm itted. She has significant swelling and drainage from the wound on the lateral aspect of the left lo wer extremity. Pain is mild at this time. PAST MEDICAL HISTORY: Status post tonsillectomy. The patient also has a history of asthma. She was placed on Bactrim and Levaquin prior to admission. FAMILY HISTORY: Noncontributory. SOCIAL HISTORY: She is a smoker. She does not drink or abuse drugs. ALLERGIES: 1. IODINE. 2. IODIDE. MEDICATIONS: Per chart. REVIEW OF SYSTEMS: Noncontributory. HOSPITAL COURSE: On admission, white count 12.6, H and H 9.6 and 31.9, platelet count 460,000. BUN and creatinine is 15/1.02, glucose of 100, neutrophils 71%. The patient was started on vancomycin an d cefepime as well as clindamycin. Chest x-ray shows no acute infiltrates, no evidence of pneumothor ax. The patient was seen by Dr. Linares for left lower extremity venous ulceration, history of tra jes and laceration of the left lower extremity, history of hematoma, left lower extremity cellulitis, edema, morbid obesity, homelessness, nicotine dependence. He recommended to continue daily dressing . Plan for debridement with application of wound VAC. On 09/03/2018, the patient was seen by Dr. Goddard. On 09/04/2018, she ate prior to surgery. Currently, left lower extremity cellulitis on van comycin and Zosyn. White count on 09/04/2018 is 12.7, on 09/05/2018 no change and plan is for left l ower extremity debridement on vancomycin and Zosyn. PAST MEDICAL HISTORY: Operations as outlined. PHYSICAL EXAMINATION: GENERAL: She is a morbidly obese female who is alert, responsive, in no acute distress. VITAL SIGNS: Stable. She is afebrile. SKIN: Without generalized rash. HEENT: Within normal limits. NECK: Supple. LYMPH NODES: None palpable. CHEST: Decreased breath sounds at the bases. HEART: Without murmur or gallop. ABDOMEN: Soft, nontender without organosplenomegaly or masses. EXTREMITIES: She has bilateral lower extremity edema, wound on the left lateral aspect of the leg as sociated with cellulitis, erythema, warmth and tenderness. ANCILLARY LABORATORY DATA: Her blood cultures are negative. Her white count is 12.6 today. We will await the surgery. I will dictate my findings to the hospitalist and to Dr. Linares. Dictated By: DESI MARTINEZ MD, JD/AUBREE Conf#: [id number] DID#: [id number] CC: SILVIA LINARES DPM; JEREMI KEN MD; JACKSON MATTHEW MD;*End*
--- NOTE | 2018-09-06 17:02 | HPN ---
Date/Time of Note Date/Time of Note DATE: 09/06/18 TIME: 17:02 Interval H&P Admission Note Pt. seen H&P reviewed: No system changes SILVIA LINARES DPM Sep 06, 2018 17:02
[2018-09-06] MEDS ORDERED: MIDAZOLAM 1 MG/ML 2 ML INJ ONE (17:23)
[2018-09-06] MEDS ORDERED: LIDOCAINE 2% (SDV) 5 ML INJ ONE (18:39)
[2018-09-06] MEDS ORDERED: PROPOFOL 20 ML ONE (18:39)
[2018-09-06] MEDS ORDERED: ETOMIDATE 20 MG INJ ONE (18:39)
[2018-09-06] MEDS ORDERED: METOCLOPRAMIDE 10 MG INJ ONE (18:39)
[2018-09-06] MEDS ORDERED: ONDANSETRON 4 MG INJ ONE (18:39)
--- NOTE | 2018-09-06 18:44 | SIPON ---
Date/Time of Note Date/Time of Note DATE: 09/06/18 TIME: 18:44 Operative Report Preoperative Diagnosis Left lower extremity venous ulceration Hx of trauma and laceration to left lower extremity Hx of hematoma Left lower extremity cellulitis Edema b/l Morbid obesity Postoperative Diagnosis Left lower extremity venous ulceration Hx of trauma and laceration to left lower extremity Hx of hematoma Left lower extremity cellulitis Edema b/l Morbid obesity Operation/Procedure Performed excisional debridement of left lower extremity application of wound VAC left lower extremity Surgeon see signature line application assistant none Anesthesia: general Estimated blood loss: 10 - 50 ml's Transfusion Required none Specimen left leg wound culture Grafts/Implants none Complications none SILVIA LINARES DPM Sep 06, 2018 18:44
--- NOTE | 2018-09-06 18:46 | OPR ---
Date/Time of Note Date/Time of Note DATE: 09/06/18 TIME: 18:46 Operative Report Preoperative Diagnosis Left lower extremity venous ulceration Hx of trauma and laceration to left lower extremity Hx of hematoma Left lower extremity cellulitis Edema b/l Morbid obesity Postoperative Diagnosis Left lower extremity venous ulceration Hx of trauma and laceration to left lower extremity Hx of hematoma Left lower extremity cellulitis Edema b/l Morbid obesity Operation/Procedure Performed excisional debridement of left lower extremity application of wound VAC left lower extremity Surgeon see signature line Industrial Twisting 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 Patient had developed cellulitis and was admitted to the hospital to receive IV antibiotics. Patient is amenable to surgical excisional debridement with application of wound VAC. All of the patient's questions and concerns were addressed. No promises or guarantees were given. Procedure Description Patient was brought into the OR and placed on the OR table in the supine position. The left lower extremity was scrubbed, prepped, and draped in the usual aseptic fashion. A formal time out was conducted. Attention was directed to the left lower extremity ulceration site which measured 5.5 x 6.5 x 1.5cm, wound base was fibrotic and granular there was adipose tissue exposed. Excisional debridement of skin/subQ/fascia was performed using sharp debridement pickup/scissors and curette. Biofilm, fibrotic tissue, and non-viable tissue was removed. 35.75cm2 of area was debrided. There was tunneling noted to the proximal aspect approximately 3cm. There was no purulence expressed and there was no probing to bone. Copious pulse lavage irrigation was used for the surgical site. Wound cultures were obtained from the ulcer site. A wound VAC was applied using black foam with a successful seal and set to 125mmHg low continuous therapy. Compression dressings were applied and patient was transferred to the PACU with vital signs stable and neurovascular status intact. SILVIA LINARES DPM Sep 06, 2018 18:46
--- NOTE | 2018-09-06 18:57 | PAC ---
Date/Time of Note Date/Time of Note DATE: 09/06/18 TIME: 18:57 Post-Anesthesia Notes Post-Anesthesia Note Last documented vital signs Vital Signs Date Temp Pulse Resp B/P (MAP) Pulse Ox O2 O2 Flow FiO2 Time Delivery Rate 09/06/18 97.8 88 18 111/54 98 14:14 (73) 09/03/18 Room Air 14:00 Activity: WNL Respiratory function: WNL Cardiovascular function: WNL Mental status: Baseline Pain reasonably controlled: Yes Hydration appropriate: Yes Nausea/Vomiting absent: Yes Comments BP:107/56, P:92, Spo2:100%, T:98,8 SYMONE ROPER MD Sep 06, 2018 18:57
[2018-09-06] MEDS ORDERED: OXYCODONE/ACETAMINOPHEN (5/325) TAB PO PRN ×2 (19:00)
[2018-09-06] MEDS ORDERED: FENTAnyl 50 MCG/ML VIAL IV PRN (19:00)
[2018-09-06] MEDS ORDERED: DIPHENHYDRAMINE 50 MG INJ IV PRN (19:00)
[2018-09-06] MEDS ORDERED: MEPERIDINE 25 MG INJ IV PRN (19:00)
[2018-09-06] MEDS ORDERED: ONDANSETRON 4 MG INJ IV PRN (19:00)
[2018-09-06] MEDS ORDERED: METOCLOPRAMIDE 10 MG INJ IV PRN (19:00)
[2018-09-06] MEDS ORDERED: HYDROmorphONE 1 MG/5 ML IV SYRINGE IV PRN ×2 (19:00)
[2018-09-07 02:00] VITALS: BP 130/67; PULSE 87; RESP 18
[2018-09-07] MEDS: PIPER-TAZO 3.375 GM IV (PMX) 100 ML IVPB SCH ×4 (04:17→21:59)
[2018-09-07] MEDS: morphine 2 MG INJ IV PRN ×2 (04:18→17:07)
[2018-09-07] MEDS: VANCOMYCIN 1 GM 250 ML IVPB SCH ×3 (05:19→22:54)
[2018-09-07] MEDS: ACETAMINOPHEN 325 MG TAB PO PRN ×2 (07:32→17:09)
[2018-09-07] MEDS: NICOTINE (21 MG/24 HR) PATCH TRANSDERM SCH (07:43)
[2018-09-07] MEDS: HYDROCODONE/APAP (5/325) TAB PO PRN (07:43)
[2018-09-07] MEDS: COLLAGENASE 5 GM (UD JAR) TOP SCH (07:43)
[2018-09-07 08:22] VITALS: BP 132/81; PULSE 89; RESP 18
--- NOTE | 2018-09-07 14:11 | PN ---
Date/Time of Note Date/Time of Note DATE: 09/07/18 TIME: 14:05 Assessment/Plan VTE Prophylaxis Risk score (from Ns)>0 risk: 5 [place] [facility] [place] contraindicated: other Pharmacological prophylaxis: LMWH Lines/Catheters IV C[facility]ter Type (from [facility]): Peripheral IV Urinary Cath still in place: No Assessment/Plan Assessment/Plan 1. Left lower extremity venous ulcer and cellulitis and wound, s/p excisional debridement on 10/06/2018, on wound VAC, continue on zosyn and vancomycin 2. sepsis, improve 3. Morbid obesity, weight loss 4. Asthma, stable 5. Tobacco use, advise to quit 6. 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 Result Diagram: 09/07/18 0854 09/07/18 0854 Results 24hrs Laboratory Tests Test 09/07/18 08:54 White Blood Count 11.7 H Red Blood Count 3.67 L Hemoglobin 8.9 L Hematocrit 29.6 L Mean Corpuscular Volume 80.7 L Mean Corpuscular Hemoglobin 24.3 L Mean Corpuscular Hemoglobin Concent 30.1 L Red Cell Distribution Width 15.8 H Platelet Count 486 H Mean Platelet Volume 8.2 Immature Granulocytes % 0.500 H Neutrophils % 73.7 Lymphocytes % 16.1 Monocytes % 4.4 Eosinophils % 5.0 Basophils % 0.3 Nucleated Red Blood Cells % 0.0 Immature Granulocytes # 0.060 H Neutrophils # 8.6 H Lymphocytes # 1.9 Monocytes # 0.5 Eosinophils # 0.6 H Basophils # 0.0 Nucleated Red Blood Cells # 0.0 Sodium Level 139 Potassium Level 4.3 Chloride Level 104 Carbon Dioxide Level 27 Anion Gap 8 Blood Urea Nitrogen 12 Creatinine 0.85 Est Glomerular Filtrat Rate mL/min > 60 Glucose Level 161 Calcium Level 8.6 Subjective 24 Hr Interval Summary Free Text/Dictation afebrile, talked about discharge plan, states she has no place to go Exam/Review of Systems Exam Vitals Vital Signs Date Temp Pulse Resp B/P (MAP) Pulse Ox O2 O2 Flow FiO2 Time Delivery Rate 09/07/18 98.0 89 18 132/81 97 08:22 (98) 09/06/18 Nasal 2.0 19:47 Cannula Intake and Output 09/06/18 09/06/1809/07/19 1515:00 23:00 07:00 IntakeIntake Total 690 ml 1100 ml 350 ml OutputOutput Total 10 ml BalanceBalance 690 ml 1090 ml 350 ml Constitutional: alert, oriented, well developed, obese Psych: no complaints, nl mood/affect Head: normocephalic, atraumatic Eyes: nl conjunctiva, EOMI, nl lids, nl sclera, PERRL ENMT: nl external ears & nose, nl lips & teeth, nl nasal mucosa & septum Neck: supple, non-tender Respiratory: clear to auscultation, normal air movement; No congested cough, No crackles/rales, No diminished breath sounds, No intercostal retraction, No labored breathing, No respirations, No tactile fremitus, No wheezing, No other Cardiovascular: regular rate and rhythm, nl pulses Gastrointestinal: soft, nl liver, spleen, non-tender Musculoskeletal: nl extremities to inspection Extremities: other (left lower extremity wound) Neurological: [employer]DS II-XII intact, nl mental status, nl speech, nl strength Results Results 24hrs Laboratory Tests Test 09/07/18 08:54 White Blood Count 11.7 H Red Blood Count 3.67 L Hemoglobin 8.9 L Hematocrit 29.6 L Mean Corpuscular Volume 80.7 L Mean Corpuscular Hemoglobin 24.3 L Mean Corpuscular Hemoglobin Concent 30.1 L Red Cell Distribution Width 15.8 H Platelet Count 486 H Mean Platelet Volume 8.2 Immature Granulocytes % 0.500 H Neutrophils % 73.7 Lymphocytes % 16.1 Monocytes % 4.4 Eosinophils % 5.0 Basophils % 0.3 Nucleated Red Blood Cells % 0.0 Immature Granulocytes # 0.060 H Neutrophils # 8.6 H Lymphocytes # 1.9 Monocytes # 0.5 Eosinophils # 0.6 H Basophils # 0.0 Nucleated Red Blood Cells # 0.0 Sodium Level 139 Potassium Level 4.3 Chloride Level 104 Carbon Dioxide Level 27 Anion Gap 8 Blood Urea Nitrogen 12 Creatinine 0.85 Est Glomerular Filtrat Rate mL/min > 60 Glucose Level 161 Calcium Level 8.6 Medications Medication Current Medications Vancomycin HCl (Vanco Iv Per Pharmacy) VANCOMYCIN PER PHARMACY PER PROTOCOL XX ; Start 08/31/18 at 23:30 IV Flush (NS 3 ml) 3 ml PER PROTOCOL IV ; Start 08/31/18 at 23:30 Ondansetron HCl (Zofran Tab) 4 mg Q6H PRN PO NAUSEA/VOMITING; Start 08/31/18 at 23:30 Acetaminophen (Tylenol Tab) 650 mg Q6H PRN PO .PAIN 1-3 OR TEMP Last administered on 09/07/18 07:32; Admin Dose 650 MG; Start 08/31/18 at 23:30 Acetaminophen/ Hydrocodone Bitart ([place] (5/325)) 1 tab Q6H PRN PO .MOD PAIN 4- 6 Last administered on 09/07/18 07:43; Admin Dose 1 TAB; Start 08/31/18 at 23:30 Morphine Sulfate (morphine) 2 mg Q4H PRN IV .SEVERE PAIN 7-10 Last administered on 09/07/18 04:18; Admin Dose 2 MG; Start 08/31/18 at 23:30 Docusate Sodium (Colace) 100 mg Q12H PRN PO .CONSTIPATION; Start 08/31/18 at 23:30 Bisacodyl (Dulcolax) 5 mg DAILY PRN PO .CONSTIPATION; Start 08/31/18 at 23:30 Nicotine (Nicoderm 21 Mg/ 24hr) 1 patch DAILY TRANSDERM Last administered on 09/07/18 07:43; Admin Dose 1 PATCH; Start 09/01/18 at 09:00 Nicotine Polacrilex (Nicorette) 2 mg Q2H PRN BUCCAL CONTROL WITHDRAWAL SYMPTOMS; Start 08/31/18 at 23:30 Lorazepam (Ativan) 0.5 mg Q8H PRN PO ANXIETY Last administered on 09/01/18 22:02; Admin Dose 0.5 MG; Start 09/01/18 at 00:30 Collagenase (Santyl) 1 applic DAILY TOP Last administered on 09/05/18 09:26; Admin Dose 1 APPLIC; Start 09/01/18 at 09:00 Collagenase (Santyl) 1 applic PRN PRN TOP SOIL Last administered on 09/01/18 01:13; Admin Dose 1 APPLIC; Start 09/01/18 at 01:00 Vancomycin HCl 250 ml @ 125 mls/hr Q8H IVPB Last administered on 09/07/18 05:19; Admin Dose 125 MLS/HR; Start 09/06/18 at 22:00 Piperacillin Sod/ Tazobactam Sod 100 ml @ 200 mls/hr Q6H IVPB Last administered on 09/07/18at 09:59; Admin Dose 200 MLS/HR; Start 09/06/18 at 21:30 JEREMI KEN MD Sep 07, 2018 14:11
--- NOTE | 2018-09-07 14:51 | CONS ---
Assessment/Plan Assessment/Plan Hospital Course (Demo Recall) Alert looks comfortable no fevers overnight WBC 11.7 platelets 486 neutrophils 73.7 BUN 12 creatinine 0.85 Microbiology: Blood cultures remain negative wound culture pending, previously grew strep Antimicrobials: Zosyn, vancomycin Physical examination: Morbidly obese well-developed middle-aged white woman who is in no distress. Head atraumatic normocephalic. Neck is obese. Chest rise s ymmetrical. Breath sounds diminished to bases. Heart: S1-S2. Abdomen obese bowel tones present. Extremities: Left lower extremity dressing intact Assessment: 1. Left lower extremity cellulitis/venous ulceration status post I&D with wound VAC application 2. Morbid obesity Plan: Patient is stable, continue present care and antibiotics, wound care per podiatry, follow intraoperative cultures Consultation Date/Type/Reason Admit Date/Time Aug 31, 2018 at 22:53 Initial Consult Date Type of Consult id Date/Time of Note DATE: 09/07/18 TIME: 14:50 Exam/Review of Systems Exam Vitals Vital Signs Date Temp Pulse Resp B/P (MAP) Pulse Ox O2 O2 Flow FiO2 Time Delivery Rate 09/07/18 98.0 89 18 132/81 97 08:22 (98) 09/06/18 Nasal 2.0 19:47 Cannula Intake and Output 09/06/18 09/06/18 09/07/18 1515:00 23:00 07:00 IntakeIntake Total 690 ml 1100 ml 350 ml OutputOutput Total 10 ml BalanceBalance 690 ml 1090 ml 350 ml Results Result Diagram: 09/07/18 0854 09/07/18 0854 Results 24hrs Laboratory Tests Test 09/07/18 08:54 White Blood Count 11.7 H Red Blood Count 3.67 L Hemoglobin 8.9 L Hematocrit 29.6 L Mean Corpuscular Volume 80.7 L Mean Corpuscular Hemoglobin 24.3 L Mean Corpuscular Hemoglobin Concent 30.1 L Red Cell Distribution Width 15.8 H Platelet Count 486 H Mean Platelet Volume 8.2 Immature Granulocytes % 0.500 H Neutrophils % 73.7 Lymphocytes % 16.1 Monocytes % 4.4 Eosinophils % 5.0 Basophils % 0.3 Nucleated Red Blood Cells % 0.0 Immature Granulocytes # 0.060 H Neutrophils # 8.6 H Lymphocytes # 1.9 Monocytes # 0.5 Eosinophils # 0.6 H Basophils # 0.0 Nucleated Red Blood Cells # 0.0 Sodium Level 139 Potassium Level 4.3 Chloride Level 104 Carbon Dioxide Level 27 Anion Gap 8 Blood Urea Nitrogen 12 Creatinine 0.85 Est Glomerular Filtrat Rate mL/min > 60 Glucose Level 161 Calcium Level 8.6 Medications Medication Current Medications Vancomycin HCl (Vanco Iv Per Pharmacy) VANCOMYCIN PER PHARMACY PER PROTOCOL XX ; Start 08/31/18 at 23:30 IV Flush (NS 3 ml) 3 ml PER PROTOCOL IV ; Start 08/31/18 at 23:30 Ondansetron HCl (Zofran Tab) 4 mg Q6H PRN PO NAUSEA/VOMITING; Start 08/31/18 at 23:30 Acetaminophen (Tylenol Tab) 650 mg Q6H PRN PO .PAIN 1-3 OR TEMP Last administered on 09/07/18 07:32; Admin Dose 650 MG; Start 08/31/18 at 23:30 Acetaminophen/ Hydrocodone Bitart ([place] (5/325)) 1 tab Q6H PRN PO .MOD PAIN 4- 6 Last administered on 09/07/18 07:43; Admin Dose 1 TAB; Start 08/31/18 at 23:30 Morphine Sulfate (morphine) 2 mg Q4H PRN IV .SEVERE PAIN 7-10 Last administered on 09/07/18 04:18; Admin Dose 2 MG; Start 08/31/18 at 23:30 Docusate Sodium (Colace) 100 mg Q12H PRN PO .CONSTIPATION; Start 08/31/18 at 23:30 Bisacodyl (Dulcolax) 5 mg DAILY PRN PO .CONSTIPATION; Start 08/31/18 at 23:30 Nicotine (Nicoderm 21 Mg/ 24hr) 1 patch DAILY TRANSDERM Last administered on 09/07/18 07:43; Admin Dose 1 PATCH; Start 09/01/18 at 09:00 Nicotine Polacrilex (Nicorette) 2 mg Q2H PRN BUCCAL CONTROL WITHDRAWAL SYMPTOMS; Start 08/31/18 at 23:30 Lorazepam (Ativan) 0.5 mg Q8H PRN PO ANXIETY Last administered on 09/01/18 22:02; Admin Dose 0.5 MG; Start 09/01/18 at 00:30 Collagenase (Santyl) 1 applic DAILY TOP Last administered on 4/24/19at 09:26; Admin Dose 1 APPLIC; Start 09/01/18 at 09:00 Collagenase (Santyl) 1 applic PRN PRN TOP SOIL Last administered on 09/01/18 01:13; Admin Dose 1 APPLIC; Start 09/01/18 at 01:00 Vancomycin HCl 250 ml @ 125 mls/hr Q8H IVPB Last administered on 09/07/18 14:20; Admin Dose 125 MLS/HR; Start 09/06/18 at 22:00 Piperacillin Sod/ Tazobactam Sod 100 ml @ 200 mls/hr Q6H IVPB Last adm inistered on 09/07/18 09:59; Admin Dose 200 MLS/HR; Start 09/06/18 at 21:30 AGUSTÍN CUMMINGS NP Sep 07, 2018 14:51
[2018-09-07 14:53] VITALS: BP 121/61; PULSE 96; RESP 18
[2018-09-07 20:00] VITALS: BP 120/66; PULSE 87; RESP 18
[2018-09-08 02:04] VITALS: BP 124/68; PULSE 99; RESP 19
[2018-09-08] MEDS: PIPER-TAZO 3.375 GM IV (PMX) 100 ML IVPB SCH ×4 (04:35→20:53)
[2018-09-08] MEDS: VANCOMYCIN 1 GM 250 ML IVPB SCH ×3 (05:48→22:02)
[2018-09-08 08:00] VITALS: BP 110/64; PULSE 76; RESP 20
[2018-09-08] MEDS: COLLAGENASE 5 GM (UD JAR) TOP SCH (08:39)
[2018-09-08] MEDS: NICOTINE (21 MG/24 HR) PATCH TRANSDERM SCH (08:39)
[2018-09-08] MEDS: morphine 2 MG INJ IV PRN (10:14)
[2018-09-08] MEDS: HYDROCODONE/APAP (5/325) TAB PO PRN (11:05)
[2018-09-08 14:00] VITALS: BP 129/60; PULSE 95; RESP 20
--- NOTE | 2018-09-08 15:33 | PN ---
Date/Time of Note Date/Time of Note DATE: 09/08/18 TIME: 15:31 Assessment/Plan VTE Prophylaxis Risk score (from Ns)>0 risk: 4 SCD applied (from [facility] [place]): No SCD contraindicated: bilateral LE trauma Pharmacological prophylaxis: LMWH Lines/Catheters IV Catheter Type (from [facility]): Peripheral IV Urinary Cath still in place: No Assessment/Plan Problems: (1) Left leg cellulitis Status: Acute Comment: Status post debridement with a wound VAC. If podiatry is in agreement having the patient ambulate will be in the patient's best interest. (2) Morbid obesity with BMI of 60.0-69.9, adult Status: Chronic Comment: Calorie restriction diet Result Diagram: 09/08/18 0502 09/07/18 0854 Results 24hrs Laboratory Tests Test 09/08/18 05:02 White Blood Count 11.3 H Red Blood Count 3.61 L Hemoglobin 8.7 L Hematocrit 29.0 L Mean Corpuscular Volume 80.3 L Mean Corpuscular Hemoglobin 24.1 L Mean Corpuscular Hemoglobin Concent 30.0 L Red Cell Distribution Width 15.8 H Platelet Count 474 H Mean Platelet Volume 8.4 Immature Granulocytes % 0.400 Neutrophils % 69.4 Lymphocytes % 18.8 Monocytes % 5.4 Eosinophils % 5.7 Basophils % 0.3 Nucleated Red Blood Cells % 0.0 Immature Granulocytes # 0.050 H Neutrophils # 7.8 H Lymphocytes # 2.1 Monocytes # 0.6 Eosinophils # 0.7 H Basophils # 0.0 Nucleated Red Blood Cells # 0.0 Subjective 24 Hr Interval Summary Free Text/Dictation Patient reports that she would like to be able to walk around Constitutional: no complaints Respiratory: no complaints Cardiovascular: no complaints Gastrointestinal: no complaints Exam/Review of Systems Exam Vitals Vital Signs Date Temp Pulse Resp B/P (MAP) Pulse Ox O2 O2 Flow FiO2 Time Delivery Rate 09/08/18 98.8 95 20 129/60 96 14:00 (83) 09/07/18 Room Air 14:53 09/06/18 2.0 19:47 Intake and Output 09/07/18 09/07/18 09/08/18 1515:00 23:00 07:00 IntakeIntake Total 830 ml 690 ml 350 ml BalanceBalance 830 ml 690 ml 350 ml Constitutional: alert, oriented Respiratory: clear to auscultation, normal air movement Cardiovascular: regular rate and rhythm, nl pulses Gastrointestinal: soft, nl liver, spleen, non-tender Results Results 24hrs Laboratory Tests Test 09/08/18 05:02 White Blood Count 11.3 H Red Blood Count 3.61 L Hemoglobin 8.7 L Hematocrit 29.0 L Mean Corpuscular Volume 80.3 L Mean Corpuscular Hemoglobin 24.1 L Mean Corpuscular Hemoglobin Concent 30.0 L Red Cell Distribution Width 15.8 H Platelet Count 474 H Mean Platelet Volume 8.4 Immature Granulocytes % 0.400 Neutrophils % 69.4 Lymphocytes % 18.8 Monocytes % 5.4 Eosinophils % 5.7 Basophils % 0.3 Nucleated Red Blood Cells % 0.0 Immature Granulocytes # 0.050 H Neutrophils # 7.8 H Lymphocytes # 2.1 Monocytes # 0.6 Eosinophils # 0.7 H Basophils # 0.0 Nucleated Red Blood Cells # 0.0 Medications Medication Current Medications Vancomycin HCl (Vanco Iv Per Pharmacy) VANCOMYCIN PER PHARMACY PER PROTOCOL XX ; Start 08/31/18 at 23:30 IV Flush (NS 3 ml) 3 ml PER PROTOCOL IV ; Start 08/31/18 at 23:30 Ondansetron HCl (Zofran Tab) 4 mg Q6H PRN PO NAUSEA/VOMITING; Start 08/31/18 at 23:30 Acetaminophen (Tylenol Tab) 650 mg Q6H PRN PO .PAIN 1-3 OR TEMP Last administered on 09/07/18at 17:09; Admin Dose 650 MG; Start 08/31/18 at 23:30 Acetaminophen/ Hydrocodone Bitart ([place] (5/325)) 1 tab Q6H PRN PO .MOD PAIN 4- 6 Last administered on 09/08/18at 11:05; Admin Dose 1 TAB; Start 08/31/18 at 23:30 Morphine Sulfate (morphine) 2 mg Q4H PRN IV .SEVERE PAIN 7-10 Last administered on 09/08/18at 10:14; Admin Dose 2 MG; Start 08/31/18 at 23:30 Docusate Sodium (Colace) 100 mg Q12H PRN PO .CONSTIPATION; Start 08/31/18 at 23:30 Bisacodyl (Dulcolax) 5 mg DAILY PRN PO .CONSTIPATION; Start 08/31/18 at 23:30 Nicotine (Nicoderm 21 Mg/ 24hr) 1 patch DAILY TRANSDERM Last administered on 09/08/18 08:39; Admin Dose 1 PATCH; Start 09/01/18 at 09:00 Nicotine Polacrilex (Nicorette) 2 mg Q2H PRN BUCCAL CONTROL WITHDRAWAL SYMPTOMS; Start 08/31/18 at 23:30 Lorazepam (Ativan) 0.5 mg Q8H PRN PO ANXIETY Last administered on 09/01/18 22:02; Admin Dose 0.5 MG; Start 09/01/18 at 00:30 Collagenase (Santyl) 1 applic DAILY TOP Last administered on 09/08/18 08:39; Admin Dose 1 APPLIC; Start 09/01/18 at 09:00 Collagenase (Santyl) 1 applic PRN PRN TOP SOIL Last administered on 09/01/18 01:13; Admin Dose 1 APPLIC; Start 09/01/18 at 01:00 Vancomycin HCl 250 ml @ 125 mls/hr Q8H IVPB Last administered on 09/08/18 13:29; Admin Dose 125 MLS/HR; Start 09/06/18 at 22:00 Piperacillin Sod/ Tazobactam Sod 100 ml @ 200 mls/hr Q6H IVPB Last administered on 09/08/18 08:39; Admin Dose 200 MLS/HR; Start 09/06/18 at 21:30 Lactobacillus Acidophilus/ Rhamnosus (Culturelle) 1 cap BID PO ; Start 09/08/18 at 21:00 Enoxaparin Sodium (Lovenox) 40 mg DAILY SC ; Start 09/08/18 at 15:30 KATELYNN WHEELER MD Sep 08, 2018 15:33
--- NOTE | 2018-09-08 15:40 | CONS ---
Assessment/Plan Assessment/Plan Hospital Course (Demo Recall) ID PROGRESS NOTE ID ASSESSMENT = see alternative ID Note of same date DUPLICATE NOTE OPENED IN ERROR . Consultation Date/Type/Reason Admit Date/Time Aug 31, 2018 at 22:53 Initial Consult Date Date/Time of Note DATE: 09/08/18 TIME: 15:40 Exam/Review of Systems Exam Vitals Vital Signs Date Temp Pulse Resp B/P (MAP) Pulse Ox O2 O2 Flow FiO2 Time Delivery Rate 09/08/18 98.8 95 20 129/60 96 14:00 (83) 09/07/18 Room Air 14:53 09/06/18 2.0 19:47 Intake and Output 09/07/18 09/07/18 09/08/18 1515:00 23:00 07:00 IntakeIntake Total 830 ml 690 ml 350 ml BalanceBalance 830 ml 690 ml 350 ml Results Result Diagram: 09/08/18 0502 09/07/18 0854 Results 24hrs Laboratory Tests Test 09/08/18 05:02 White Blood Count 11.3 H Red Blood Count 3.61 L Hemoglobin 8.7 L Hematocrit 29.0 L Mean Corpuscular Volume 80.3 L Mean Corpuscular Hemoglobin 24.1 L Mean Corpuscular Hemoglobin Concent 30.0 L Red Cell Distribution Width 15.8 H Platelet Count 474 H Mean Platelet Volume 8.4 Immature Granulocytes % 0.400 Neutrophils % 69.4 Lymphocytes % 18.8 Monocytes % 5.4 Eosinophils % 5.7 Basophils % 0.3 Nucleated Red Blood Cells % 0.0 Immature Granulocytes # 0.050 H Neutrophils # 7.8 H Lymphocytes # 2.1 Monocytes # 0.6 Eosinophils # 0.7 H Basophils # 0.0 Nucleated Red Blood Cells # 0.0 Medications Medication Current Medications Vancomycin HCl (Vanco Iv Per Pharmacy) VANCOMYCIN PER PHARMACY PER PROTOCOL XX ; Start 08/31/18 at 23:30 IV Flush (NS 3 ml) 3 ml PER PROTOCOL IV ; Start 08/31/18 at 23:30 Ondansetron HCl (Zofran Tab) 4 mg Q6H PRN PO NAUSEA/VOMITING; Start 08/31/18 at 23:30 Acetaminophen (Tylenol Tab) 650 mg Q6H PRN PO .PAIN 1-3 OR TEMP Last administered on 09/07/18at 17:09; Admin Dose 650 MG; Start 08/31/18 at 23:30 Acetaminophen/ Hydrocodone Bitart ([place] (5/325)) 1 tab Q6H PRN PO .MOD PAIN 4- 6 Last administered on 09/08/18 11:05; Admin Dose 1 TAB; Start 08/31/18 at 23:30 Morphine Sulfate (morphine) 2 mg Q4H PRN IV .SEVERE PAIN 7-10 Last administered on 09/08/18 10:14; Admin Dose 2 MG; Start 08/31/18 at 23:30 Docusate Sodium (Colace) 100 mg Q12H PRN PO .CONSTIPATION; Start 08/31/18 at 23:30 Bisacodyl (Dulcolax) 5 mg DAILY PRN PO .CONSTIPATION; Start 08/31/18 at 23:30 Nicotine (Nicoderm 21 Mg/ 24hr) 1 patch DAILY TRANSDERM Last administered on 09/08/18 08:39; Admin Dose 1 PATCH; Start 09/01/18 at 09:00 Nicotine Polacrilex (Nicorette) 2 mg Q2H PRN BUCCAL CONTROL WITHDRAWAL SYMPTOMS; Start 08/31/18 at 23:30 Lorazepam (Ativan) 0.5 mg Q8H PRN PO ANXIETY Last administered on 09/01/18 22:02; Admin Dose 0.5 MG; Start 09/01/18 at 00:30 Collagenase (Santyl) 1 applic DAILY TOP Last administered on 09/08/18 08:39; Admin Dose 1 APPLIC; Start 09/01/18 at 09:00 Collagenase (Santyl) 1 applic PRN PRN TOP SOIL Last administered on 09/01/18 01:13; Admin Dose 1 APPLIC; Start 09/01/18 at 01:00 Vancomycin HCl 250 ml @ 125 mls/hr Q8H IVPB Last administered on 09/08/18 13:29; Admin Dose 125 MLS/HR; Start 09/06/18 at 22:00 Piperacillin Sod/ Tazobactam Sod 100 ml @ 200 mls/hr Q6H IVPB Last administered on 09/08/18 08:39; Admin Dose 200 MLS/HR; Start 09/06/18 at 21:30 Lactobacillus Acidophilus/ Rhamnosus (Culturelle) 1 cap BID PO ; Start 09/08/18 at 21:00 Enoxaparin Sodium (Lovenox) 40 mg DAILY SC ; Start 09/08/18 at 15:30 SANJAY MCNEIL NP Sep 08, 2018 15:40
[2018-09-08] MEDS: ENOXAPARIN 40 MG/0.4 ML SYG SC SCH (16:12)
--- NOTE | 2018-09-08 17:22 | CONS ---
Assessment/Plan Assessment/Plan Hospital Course (Demo Recall) ID PROGRESS NOTE CURRENT ABX=Day # => Vanco IV + Zosyn 24H INTERVAL SUMMARY * Ambulatory in room, no fevers, VSS, she reports messy soft stools * Pleasant, polite, appears to be coping well MICRO * 09/06/18 LEFT LEG WOUND: WOUND CULTURE Preliminary Organism 1 ENTEROCOCCUS SPECIES QUANTITY SCANT GROWTH * 08/31/18 BCX (-) PHYSICAL EXAMINATION: GENERAL:VSS, NAD == super morbid obese HEENT: Unremarkable NECK: Supple, trachea midline. CHEST: Rise symmetrical, without dyspnea on observation HEART: Pulse RRR ABDOMEN: Soft, ND EXTREMITIES: Warm, moves all extremities == BLEXT hyperpigmentation changes, llext wound wrapped == photos reviewed ID ASSESSMENT 33 yo F admit with: 1. Left lower extremity cellulitis/venous ulceration status post I&D 2. Morbid obesity 3. COPD-> Asthma = asymptomatic 4. ABX associated loose stools INVASIVES: ABX ALLERGY: IODINE CURRENT ABX: => Vanco IV + Zosyn ID RECOMMENDATIONS 1. Awaiting results of wound Cx pending final 2. If Enterococcus is sensitive to Vanco -- will consider DC Zosyn due to soft stools, difficult personal hygeine due to large body habitus. . . Consultation Date/Type/Reason Admit Date/Time Aug 31, 2018 at 22:53 Initial Consult Date Date/Time of Note DATE: 09/08/18 TIME: 17:17 Exam/Review of Systems Exam Vitals Vital Signs Date Temp Pulse Resp B/P (MAP) Pulse Ox O2 O2 Flow FiO2 Time Delivery Rate 09/08/18 98.8 95 20 129/60 96 14:00 (83) 09/07/18 Room Air 14:53 09/06/18 2.0 19:47 Intake and Output 09/07/18 09/07/18 09/08/18 1414:59 22:59 06:59 IntakeIntake Total 830 ml 690 ml 350 ml BalanceBalance 830 ml 690 ml 350 ml Results Result Diagram: 09/08/18 0502 09/07/18 0854 Results 24hrs Laboratory Tests Test 09/08/18 05:02 White Blood Count 11.3 H Red Blood Count 3.61 L Hemoglobin 8.7 L Hematocrit 29.0 L Mean Corpuscular Volume 80.3 L Mean Corpuscular Hemoglobin 24.1 L Mean Corpuscular Hemoglobin Concent 30.0 L Red Cell Distribution Width 15.8 H Platelet Count 474 H Mean Platelet Volume 8.4 Immature Granulocytes % 0.400 Neutrophils % 69.4 Lymphocytes % 18.8 Monocytes % 5.4 Eosinophils % 5.7 Basophils % 0.3 Nucleated Red Blood Cells % 0.0 Immature Granulocytes # 0.050 H Neutrophils # 7.8 H Lymphocytes # 2.1 Monocytes # 0.6 Eosinophils # 0.7 H Basophils # 0.0 Nucleated Red Blood Cells # 0.0 Medications Medication Current Medications Vancomycin HCl (Vanco Iv Per Pharmacy) VANCOMYCIN PER PHARMACY PER PROTOCOL XX ; Start 08/31/18 at 23:30 IV Flush (NS 3 ml) 3 ml PER PROTOCOL IV ; Start 08/31/18 at 23:30 Ondansetron HCl (Zofran Tab) 4 mg Q6H PRN PO NAUSEA/VOMITING; Start 08/31/18 at 23:30 Acetaminophen (Tylenol Tab) 650 mg Q6H PRN PO .PAIN 1-3 OR TEMP Last administered on 09/07/18at 17:09; Admin Dose 650 MG; Start 08/31/18 at 23:30 Acetaminophen/ Hydrocodone Bitart ([place] (5/325)) 1 tab Q6H PRN PO .MOD PAIN 4- 6 Last administered on 09/08/18at 11:05; Admin Dose 1 TAB; Start 08/31/18 at 23:30 Morphine Sulfate (morphine) 2 mg Q4H PRN IV .SEVERE PAIN 7-10 Last administered on 09/08/18at 10:14; Admin Dose 2 MG; Start 08/31/18 at 23:30 Docusate Sodium (Colace) 100 mg Q12H PRN PO .CONSTIPATION; Start 08/31/18 at 23:30 Bisacodyl (Dulcolax) 5 mg DAILY PRN PO .CONSTIPATION; Start 08/31/18 at 23:30 Nicotine (Nicoderm 21 Mg/ 24hr) 1 patch DAILY TRANSDERM Last administered on 09/08/18at 08:39; Admin Dose 1 PATCH; Start 09/01/18 at 09:00 Nicotine Polacrilex (Nicorette) 2 mg Q2H PRN BUCCAL CONTROL WITHDRAWAL SYMPTOMS; Start 08/31/18 at 23:30 Lorazepam (Ativan) 0.5 mg Q8H PRN PO ANXIETY Last administered on 09/01/18 22:02; Admin Dose 0.5 MG; Start 09/01/18 at 00:30 Collagenase (Santyl) 1 applic DAILY TOP Last administered on 09/08/18 08:39; Admin Dose 1 APPLIC; Start 09/01/18 at 09:00 Collagenase (Santyl) 1 applic PRN PRN TOP SOIL Last administered on 09/01/18 01:13; Admin Dose 1 APPLIC; Start 09/01/18 at 01:00 Vancomycin HCl 250 ml @ 125 mls/hr Q8H IVPB Last administered on 09/08/18 13:29; Admin Dose 125 MLS/HR; Start 09/06/18 at 22:00 Piperacillin Sod/ Tazobactam Sod 100 ml @ 200 mls/hr Q6H IVPB Last administered on 09/08/18 16:00; Admin Dose 200 MLS/HR; Start 09/06/18 at 21:30 Lactobacillus Acidophilus/ Rhamnosus (Culturelle) 1 cap BID PO ; Start 09/08/18 at 21:00 Enoxaparin Sodium (Lovenox) 40 mg DAILY SC Last administered on 09/08/18 16:12; Admin Dose 40 MG; Start 09/08/18 at 15:30 SANJAY MCNEIL NP Sep 08, 2018 17:22
[2018-09-08 19:30] VITALS: BP 142/86; PULSE 99; RESP 20
[2018-09-08] MEDS: LACTOBACILLUS RHAMNOSUS CAP PO SCH (20:52)
[2018-09-09] MEDS: HYDROCODONE/APAP (5/325) TAB PO PRN (01:33)
[2018-09-09 02:15] VITALS: BP 131/65; PULSE 104; RESP 18
[2018-09-09] MEDS: PIPER-TAZO 3.375 GM IV (PMX) 100 ML IVPB SCH ×4 (04:06→21:42)
[2018-09-09] MEDS: VANCOMYCIN 1 GM 250 ML IVPB SCH ×3 (07:02→22:25)
[2018-09-09 08:01] VITALS: BP 128/62; PULSE 99; RESP 17
--- NOTE | 2018-09-09 09:07 | PN ---
Date/Time of Note Date/Time of Note DATE: 09/09/18 TIME: 09:04 Assessment/Plan VTE Prophylaxis Risk score (from Ns)>0 risk: 4 SCD applied (from [facility]): No SCD contraindicated: bilateral LE trauma Pharmacological prophylaxis: LMWH Lines/Catheters IV Catheter Type (from [facility]): Peripheral IV Urinary Cath still in place: No Assessment/Plan Problems: (1) Left leg cellulitis Status: Acute Comment: At this time we do not have this sensitivities for enterococcus. As such he antibiotics at this moment remain unchanged. Now on probiotics, ambulation as per podiatry consult (2) Anemia Status: Chronic Comment: Noted. Stable Qualifiers: Anemia type: unspecified type Qualified Codes: D64.9 - Anemia, unspecified (3) Smoker unmotivated to quit Status: Chronic Comment: On nicotine patch. (4) Morbid obesity with BMI of 60.0-69.9, adult Status: Chronic Comment: Calorie restriction diet (5) Asthma Status: Chronic Comment: Quiescent at this time Qualifiers: Asthma severity: mild Asthma persistence: intermittent Asthma complication type: uncomplicated Qualified Codes: J45.20 - Mild intermittent asthma, uncomplicated Result Diagram: 09/08/18 0502 09/07/18 0854 Subjective 24 Hr Interval Summary Free Text/Dictation Patient reports that her leg feels a little bit better. She has not been ambulatory. Constitutional: no complaints (No fevers chills or sweats) Respiratory: no complaints (No wheezing no shortness of breath no cough) Cardiovascular: no complaints Gastrointestinal: no complaints Genitourinary: no complaints Exam/Review of Systems Exam Vitals Vital Signs Date Temp Pulse Resp B/P (MAP) Pulse Ox O2 O2 Flow FiO2 Time Delivery Rate 09/09/18 98.5 99 17 128/62 98 Room Air 08:01 (84) 09/06/18 2.0 19:47 Intake and Output 09/08/18 09/08/18 09/09/18 1515:00 23:00 07:00 IntakeIntake Total 1530 ml 900 ml 350 ml BalanceBalance 1530 ml 900 ml 350 ml Constitutional: alert, oriented Neck: supple, non-tender Respiratory: clear to auscultation, normal air movement Cardiovascular: regular rate and rhythm Extremities: other (Left leg wound smaller than photos from admission. There is still area of erythema on the leg which may represent chronic venous stasis changes) Medications Medication Current Medications Vancomycin HCl (Vanco Iv Per Pharmacy) VANCOMYCIN PER PHARMACY PER PROTOCOL XX ; Start 08/31/18 at 23:30 IV Flush (NS 3 ml) 3 ml PER PROTOCOL IV ; Start 08/31/18 at 23:30 Ondansetron HCl (Zofran Tab) 4 mg Q6H PRN PO NAUSEA/VOMITING; Start 08/31/18 at 23:30 Acetaminophen (Tylenol Tab) 650 mg Q6H PRN PO .PAIN 1-3 OR TEMP Last administered on 09/07/18 17:09; Admin Dose 650 MG; Start 08/31/18 at 23:30 Acetaminophen/ Hydrocodone Bitart ([place] (5/325)) 1 tab Q6H PRN PO .MOD PAIN 4- 6 Last administered on 09/09/18 01:33; Admin Dose 1 TAB; Start 08/31/18 at 23:30 Morphine Sulfate (morphine) 2 mg Q4H PRN IV .SEVERE PAIN 7-10 Last administered on 09/08/18 10:14; Admin Dose 2 MG; Start 08/31/18 at 23:30 Docusate Sodium (Colace) 100 mg Q12H PRN PO .CONSTIPATION; Start 08/31/18 at 23:30 Bisacodyl (Dulcolax) 5 mg DAILY PRN PO .CONSTIPATION; Start 08/31/18 at 23:30 Nicotine (Nicoderm 21 Mg/ 24hr) 1 patch DAILY TRANSDERM Last administered on 09/08/18 08:39; Admin Dose 1 PATCH; Start 09/01/18 at 09:00 Nicotine Polacrilex (Nicorette) 2 mg Q2H PRN BUCCAL CONTROL WITHDRAWAL SYMPTOMS; Start 08/31/18 at 23:30 Lorazepam (Ativan) 0.5 mg Q8H PRN PO ANXIETY Last administered on 09/01/18 22:02; Admin Dose 0.5 MG; Start 09/01/18 at 00:30 Collagenase (Santyl) 1 applic DAILY TOP Last administered on 09/08/18 08:39; Admin Dose 1 APPLIC; Start 09/01/18 at 09:00 Collagenase (Santyl) 1 applic PRN PRN TOP SOIL Last administered on 09/01/18 01:13; Admin Dose 1 APPLIC; Start 09/01/18 at 01:00 Vancomycin HCl 250 ml @ 125 mls/hr Q8H IVPB Last administered on 09/09/18at 07:02; Admin Dose 125 MLS/HR; Start 09/06/18 at 22:00 Piperacillin Sod/ Tazobactam Sod 100 ml @ 200 mls/hr Q6H IVPB Last administered on 09/09/18at 04:06; Admin Dose 200 MLS/HR; Start 09/06/18 at 21:30 Lactobacillus Acidophilus/ Rhamnosus (Culturelle) 1 cap BID PO Last administered on 09/08/18at 20:52; Admin Dose 1 CAP; Start 09/08/18 at 21:00 Enoxaparin Sodium (Lovenox) 40 mg DAILY SC Last administered on 09/08/18at 16:12; Admin Dose 40 MG; Start 09/08/18 at 15:30 KATELYNN WHEELER MD Sep 09, 2018 09:06
[2018-09-09] MEDS: NICOTINE (21 MG/24 HR) PATCH TRANSDERM SCH (09:33)
[2018-09-09] MEDS: COLLAGENASE 5 GM (UD JAR) TOP SCH (09:34)
[2018-09-09] MEDS: ENOXAPARIN 40 MG/0.4 ML SYG SC SCH (09:35)
[2018-09-09] MEDS: LACTOBACILLUS RHAMNOSUS CAP PO SCH ×2 (09:35→20:58)
--- NOTE | 2018-09-09 13:32 | CONS ---
Assessment/Plan Assessment/Plan Hospital Course (Demo Recall) ID PROGRESS NOTE CURRENT ABX=Day # => Vanco IV + Zosyn 24H INTERVAL SUMMARY * NO fevers, VSS, no new issues == still pending micro sensitivities * Pleasant, polite, appears to be coping well MICRO * 09/06/18 LEFT LEG WOUND: WOUND CULTURE Preliminary WOUND CULTURE Preliminary Organism 1 ENTEROCOCCUS SPECIES QUANTITY SCANT GROWTH Organism 2 DIPTHEROIDS QUANTITY SCANT GROWTH * 08/31/18 BCX (-) PHYSICAL EXAMINATION: GENERAL:VSS, NAD == super morbid obese HEENT: Unremarkable NECK: Supple, trachea midline. CHEST: Rise symmetrical, without dyspnea on observation HEART: Pulse RRR ABDOMEN: Soft, ND EXTREMITIES: Warm, moves all extremities == BLEXT hyperpigmentation changes, llext wound wrapped == photos reviewed ID ASSESSMENT 33 yo F admit with: 1. Left lower extremity cellulitis/venous ulceration status post I&D 2. Morbid obesity 3. COPD-> Asthma = asymptomatic 4. ABX associated loose stools INVASIVES: ABX ALLERGY: IODINE CURRENT ABX: => Vanco IV + Zosyn ID RECOMMENDATIONS 1. Awaiting results of wound Cx pending final == If sensitive to Amoxicillin -- may DC home on PO Amoxillin x 10 days to OP follow up . Consultation Date/Type/Reason Admit Date/Time Aug 31, 2018 at 22:53 Initial Consult Date Date/Time of Note DATE: 09/09/18 TIME: 13:29 Exam/Review of Systems Exam Vitals Vital Signs Date Temp Pulse Resp B/P (MAP) Pulse Ox O2 O2 Flow FiO2 Time Delivery Rate 09/09/18 98.5 99 17 128/62 98 Room Air 08:01 (84) 09/06/18 2.0 19:47 Intake and Output 09/08/18 09/08/18 09/09/18 1515:00 23:00 07:00 IntakeIntake Total 1530 ml 900 ml 350 ml BalanceBalance 1530 ml 900 ml 350 ml Results Result Diagram: 09/08/18 0502 09/07/18 0854 Medications Medication Current Medications Vancomycin HCl (Vanco Iv Per Pharmacy) VANCOMYCIN PER PHARMACY PER PROTOCOL XX ; Start 08/31/18 at 23:30 IV Flush (NS 3 ml) 3 ml PER PROTOCOL IV ; Start 08/31/18 at 23:30 Ondansetron HCl (Zofran Tab) 4 mg Q6H PRN PO NAUSEA/VOMITING; Start 08/31/18 at 23:30 Acetaminophen (Tylenol Tab) 650 mg Q6H PRN PO .PAIN 1-3 OR TEMP Last administered on 09/07/18 17:09; Admin Dose 650 MG; Start 08/31/18 at 23:30 Acetaminophen/ Hydrocodone Bitart ([place] (5/325)) 1 tab Q6H PRN PO .MOD PAIN 4- 6 Last administered on 09/09/18 01:33; Admin Dose 1 TAB; Start 08/31/18 at 23:30 Morphine Sulfate (morphine) 2 mg Q4H PRN IV .SEVERE PAIN 7-10 Last administered on 09/08/18 10:14; Admin Dose 2 MG; Start 08/31/18 at 23:30 Docusate Sodium (Colace) 100 mg Q12H PRN PO .CONSTIPATION; Start 08/31/18 at 23:30 Bisacodyl (Dulcolax) 5 mg DAILY PRN PO .CONSTIPATION; Start 08/31/18 at 23:30 Nicotine (Nicoderm 21 Mg/ 24hr) 1 patch DAILY TRANSDERM Last administered on 09/09/18 09:33; Admin Dose 1 PATCH; Start 09/01/18 at 09:00; Stop 10/01/18 at 08:59 Nicotine Polacrilex (Nicorette) 2 mg Q2H PRN BUCCAL CONTROL WITHDRAWAL SYMPTOMS; Start 08/31/18 at 23:30 Lorazepam (Ativan) 0.5 mg Q8H PRN PO ANXIETY Last administered on 09/01/18 22:02; Admin Dose 0.5 MG; Start 09/01/18 at 00:30 Collagenase (Santyl) 1 applic DAILY TOP Last administered on 09/09/18 09:34; Admin Dose 1 APPLIC; Start 09/01/18 at 09:00 Collagenase (Santyl) 1 applic PRN PRN TOP SOIL Last administered on 09/01/18 01:13; Admin Dose 1 APPLIC; Start 09/01/18 at 01:00 Vancomycin HCl 250 ml @ 125 mls/hr Q8H IVPB Last administered on 09/09/18 07:02; Admin Dose 125 MLS/HR; Start 09/06/18 at 22:00 Piperacillin Sod/ Tazobactam Sod 100 ml @ 200 mls/hr Q6H IVPB Last administered on 09/09/18 09:34; Admin Dose 200 MLS/HR; Start 09/06/18 at 21:30 Lactobacillus Acidophilus/ Rhamnosus (Culturelle) 1 cap BID PO Last admi nistered on 09/09/18 09:35; Admin Dose 1 CAP; Start 09/08/18 at 21:00 Enoxaparin Sodium (Lovenox) 40 mg DAILY SC Last administered on 09/09/18 09:35; Admin Dose 40 MG; Start 09/08/18 at 15:30 SANJAY MCNEIL NP Sep 09, 2018 13:32
[2018-09-09 15:03] VITALS: BP 163/87; PULSE 103; RESP 17
[2018-09-09 15:26] VITALS: BP 139/86; PULSE 94
[2018-09-09 20:00] VITALS: BP 138/77; PULSE 96; RESP 19
[2018-09-10 02:00] VITALS: BP 128/78; PULSE 98; RESP 19
[2018-09-10] MEDS: PIPER-TAZO 3.375 GM IV (PMX) 100 ML IVPB SCH (06:01)
[2018-09-10] MEDS: VANCOMYCIN 1 GM 250 ML IVPB SCH (06:55)
[2018-09-10 08:00] VITALS: BP 116/60; PULSE 94; RESP 17
[2018-09-10] MEDS: COLLAGENASE 5 GM (UD JAR) TOP SCH (09:00)
[2018-09-10] MEDS: LACTOBACILLUS RHAMNOSUS CAP PO SCH ×2 (10:17→21:39)
[2018-09-10] MEDS: ENOXAPARIN 40 MG/0.4 ML SYG SC SCH (10:19)
[2018-09-10] MEDS: NICOTINE (21 MG/24 HR) PATCH TRANSDERM SCH (10:20)
[2018-09-10] MEDS: ZYVOX 600 MG TAB PO SCH ×2 (11:49→21:39)
--- NOTE | 2018-09-10 13:52 | CONS ---
Assessment/Plan Assessment/Plan Hospital Course (Demo Recall) Alert looks comfortable no fevers overnight Microbiology: Blood cultures remain negative wound culture + VRE Antimicrobials: Zyvox Physical examination: Morbidly obese well-developed middle-aged white woman who is in no distress. Head atraumatic normocephalic. Neck is obese. Chest rise symmetrical. Breath sounds diminished to bases. Heart: S1-S2. Abdomen obese bowel tones present. Extremities: Left lower extremity dressing intact Assessment: 1. Left lower extremity cellulitis/venous ulceration status post I&D with wound VAC application 2. Morbid obesity Plan: Patient is stable, commend discharge home on oral Zyvox for 2 weeks Consultation Date/Type/Reason Admit Date/Time Aug 31, 2018 at 22:53 Initial Consult Date Type of Consult id Date/Time of Note DATE: 09/10/18 TIME: 13:51 Exam/Review of Systems Exam Vitals Vital Signs Date Temp Pulse Resp B/P (MAP) Pulse Ox O2 O2 Flow FiO2 Time Delivery Rate 09/10/18 94 17 116/60 100 Room Air 08:00 (78) 09/10/18 98.3 02:00 09/06/18 2.0 19:47 Intake and Output 09/09/18 09/09/18 09/10/18 1515:00 23:00 07:00 IntakeIntake Total 350 ml 1590 ml 350 ml OutputOutput Total 50 ml 10 ml BalanceBalance 350 ml 1540 ml 340 ml Results Result Diagram: 09/10/18 0617 09/10/18 0617 Results 24hrs Laboratory Tests Test 09/10/18 06:17 White Blood Count 10.6 Red Blood Count 3.71 L Hemoglobin 8.9 L Hematocrit 29.7 L Mean Corpuscular Volume 80.1 L Mean Corpuscular Hemoglobin 24.0 L Mean Corpuscular Hemoglobin Concent 30.0 L Red Cell Distribution Width 15.9 H Platelet Count 502 H Mean Platelet Volume 8.3 Immature Granulocytes % 0.400 Neutrophils % 71.7 Lymphocytes % 17.6 Monocytes % 4.9 Eosinophils % 5.0 Basophils % 0.4 Nucleated Red Blood Cells % 0.0 Immature Granulocytes # 0.040 H Neutrophils # 7.6 H Lymphocytes # 1.9 Monocytes # 0.5 Eosinophils # 0.5 Basophils # 0.0 Nucleated Red Blood Cells # 0.0 Erythrocyte Sedimentation Rate 64 H Sodium Level 142 Potassium Level 4.0 Chloride Level 106 Carbon Dioxide Level 29 Anion Gap 7 Blood Urea Nitrogen 10 Creatinine 0.74 Est Glomerular Filtrat Rate mL/min > 60 Glucose Level 94 Calcium Level 9.4 Total Bilirubin 0.1 L Direct Bilirubin 0.00 Indirect Bilirubin 0.1 Aspartate Amino Transf (AST/SGOT) 18 Alanine Aminotransferase (ALT/SGPT) 13 Alkaline Phosphatase 88 Total Protein 7.8 Albumin 3.6 Globulin 4.20 H Albumin/Globulin Ratio 0.85 Medications Medication Current Medications IV Flush (NS 3 ml) 3 ml PER PROTOCOL IV ; Start 08/31/18 at 23:30 Ondansetron HCl (Zofran Tab) 4 mg Q6H PRN PO NAUSEA/VOMITING; Start 08/31/18 at 23:30 Acetaminophen (Tylenol Tab) 650 mg Q6H PRN PO .PAIN 1-3 OR TEMP Last administered on 09/07/18 17:09; Admin Dose 650 MG; Start 08/31/18 at 23:30 Acetaminophen/ Hydrocodone Bitart ([place] (5/325)) 1 tab Q6H PRN PO .MOD PAIN 4- 6 Last administered on 09/09/18 01:33; Admin Dose 1 TAB; Start 08/31/18 at 23:30 Morphine Sulfate (morphine) 2 mg Q4H PRN IV .SEVERE PAIN 7-10 Last administered on 09/08/18 10:14; Admin Dose 2 MG; Start 08/31/18 at 23:30 Docusate Sodium (Colace) 100 mg Q12H PRN PO .CONSTIPATION; Start 08/31/18 at 23:30 Bisacodyl (Dulcolax) 5 mg DAILY PRN PO .CONSTIPATION; Start 08/31/18 at 23:30 Nicotine (Nicoderm 21 Mg/ 24hr) 1 patch DAILY TRANSDERM Last administered on 09/10/18 10:20; Admin Dose 1 PATCH; Start 09/01/18 at 09:00; Stop 10/01/18 at 08:59 Nicotine Polacrilex (Nicorette) 2 mg Q2H PRN BUCCAL CONTROL WITHDRAWAL SYM PTOMS; Start 08/31/18 at 23:30 Lorazepam (Ativan) 0.5 mg Q8H PRN PO ANXIETY Last administered on 09/01/18 22:02; Admin Dose 0.5 MG; Start 09/01/18 at 00:30 Collagenase (Santyl) 1 applic DAILY TOP Last administered on 09/09/18at 09:34; Admin Dose 1 APPLIC; Start 09/01/18 at 09:00 Collagenase (Santyl) 1 applic PRN PRN TOP SOIL Last administered on 09/01/18at 01:13; Admin Dose 1 APPLIC; Start 09/01/18 at 01:00 Lactobacillus Acidophilus/ Rhamnosus (Culturelle) 1 cap BID PO Last administered on 09/10/18at 10:17; Admin Dose 1 CAP; Start 09/08/18 at 21:00 Enoxaparin Sodium (Lovenox) 40 mg DAILY SC Last administered on 09/10/18 10:19; Admin Dose 40 MG; Start 09/08/18 at 15:30 Linezolid (Zyvox) 600 mg BID PO Last administered on 09/10/18at 11:49; Admin Dose 600 MG; Start 09/10/18 at 11:00 AGUSTÍN CUMMINGS NP Sep 10, 2018 13:52
[2018-09-10 14:17] VITALS: BP 150/89; PULSE 105; RESP 17
--- NOTE | 2018-09-10 15:41 | PN ---
Date/Time of Note Date/Time of Note DATE: 09/10/18 TIME: 15:40 Assessment/Plan VTE Prophylaxis Risk score (from Ns)>0 risk: 2 SCD applied (from Ns): Yes Pharmacological prophylaxis: heparin Lines/Catheters IV C[facility] Type [facility]from [facility] [place] Urinary Cath still in place: No Assessment/Plan Hospital Course A/P: 33 yo female with morbid obesity and wound infection of L leg - wound vac - Requires MRSA coverage -> linezolid as outpatient Result Diagram: 09/10/18 0617 09/10/18 0617 Results 24hrs Laboratory Tests Test 09/10/18 06:17 White Blood Count 10.6 Red Blood Count 3.71 L Hemoglobin 8.9 L Hematocrit 29.7 L Mean Corpuscular Volume 80.1 L Mean Corpuscular Hemoglobin 24.0 L Mean Corpuscular Hemoglobin Concent 30.0 L Red Cell Distribution Width 15.9 H Platelet Count 502 H Mean Platelet Volume 8.3 Immature Granulocytes % 0.400 Neutrophils % 71.7 Lymphocytes % 17.6 Monocytes % 4.9 Eosinophils % 5.0 Basophils % 0.4 Nucleated Red Blood Cells % 0.0 Immature Granulocytes # 0.040 H Neutrophils # 7.6 H Lymphocytes # 1.9 Monocytes # 0.5 Eosinophils # 0.5 Basophils # 0.0 Nucleated Red Blood Cells # 0.0 Erythrocyte Sedimentation Rate 64 H Sodium Level 142 Potassium Level 4.0 Chloride Level 106 Carbon Dioxide Level 29 Anion Gap 7 Blood Urea Nitrogen 10 Creatinine 0.74 Est Glomerular Filtrat Rate mL/min > 60 Glucose Level 94 Calcium Level 9.4 Total Bilirubin 0.1 L Direct Bilirubin 0.00 Indirect Bilirubin 0.1 Aspartate Amino Transf (AST/SGOT) 18 Alanine Aminotransferase (ALT/SGPT) 13 Alkaline Phosphatase 88 Total Protein 7.8 Albumin 3.6 Globulin 4.20 H Albumin/Globulin Ratio 0.85 Subjective 24 Hr Interval Summary Free Text/Dictation Wound vac placed to LLE wound Comfortable Frustrated to still be hospitalized Exam/Review of Systems Exam Vitals Vital Signs Date Temp Pulse Resp B/P (MAP) Pulse Ox O2 O2 Flow FiO2 Time Delivery Rate 09/10/18 98.2 105 17 150/89 98 Room Air 14:17 (109) 09/06/18 2.0 19:47 Intake and Output 09/09/18 09/09/18 09/10/18 1414:59 22:59 06:59 IntakeIntake Total 350 ml 1590 ml 350 ml OutputOutput Total 50 ml 10 ml BalanceBalance 350 ml 1540 ml 340 ml Constitutional: alert, oriented, well developed Psych: no complaints, nl mood/affect Head: normocephalic, atraumatic Eyes: nl conjunctiva, EOMI, nl lids, nl sclera, PERRL ENMT: nl external ears & nose, nl lips & teeth, nl nasal mucosa & septum Neck: supple, non-tender Respiratory: clear to auscultation, normal air movement Cardiovascular: regular rate and rhythm, nl pulses Gastrointestinal: soft, nl liver, spleen, non-tender Musculoskeletal: nl extremities to inspection, nl gait and stance Extremities: normal pulses Neurological: HOSE TUBING BACKER II-XII intact, nl mental status, nl speech, nl strength Skin: nl turgor; No rash or lesions Lymph: nl lymph nodes Results Results 24hrs Laboratory Tests Test 09/10/18 06:17 White Blood Count 10.6 Red Blood Count 3.71 L Hemoglobin 8.9 L Hematocrit 29.7 L Mean Corpuscular Volume 80.1 L Mean Corpuscular Hemoglobin 24.0 L Mean Corpuscular Hemoglobin Concent 30.0 L Red Cell Distribution Width 15.9 H Platelet Count 502 H Mean Platelet Volume 8.3 Immature Granulocytes % 0.400 Neutrophils % 71.7 Lymphocytes % 17.6 Monocytes % 4.9 Eosinophils % 5.0 Basophils % 0.4 Nucleated Red Blood Cells % 0.0 Immature Granulocytes # 0.040 H Neutrophils # 7.6 H Lymphocytes # 1.9 Monocytes # 0.5 Eosinophils # 0.5 Basophils # 0.0 Nucleated Red Blood Cells # 0.0 Erythrocyte Sedimentation Rate 64 H Sodium Level 142 Potassium Level 4.0 Chloride Level 106 Carbon Dioxide Level 29 Anion Gap 7 Blood Urea Nitrogen 10 Creatinine 0.74 Est Glomerular Filtrat Rate mL/min > 60 Glucose Level 94 Calcium Level 9.4 Total Bilirubin 0.1 L Direct Bilirubin 0.00 Indirect Bilirubin 0.1 Aspartate Amino Transf (AST/SGOT) 18 Alanine Aminotransferase (ALT/SGPT) 13 Alkaline Phosphatase 88 Total Protein 7.8 Albumin 3.6 Globulin 4.20 H Albumin/Globulin Ratio 0.85 Medications Medication Current Medications IV Flush (NS 3 ml) 3 ml PER PROTOCOL IV ; Start 08/31/18 at 23:30 Ondansetron HCl (Zofran Tab) 4 mg Q6H PRN PO NAUSEA/VOMITING; Start 08/31/18 at 23:30 Acetaminophen (Tylenol Tab) 650 mg Q6H PRN PO .PAIN 1-3 OR TEMP Last administered on 09/07/18 17:09; Admin Dose 650 MG; Start 08/31/18 at 23:30 Acetaminophen/ Hydrocodone Bitart ([place] (5/325)) 1 tab Q6H PRN PO .MOD PAIN 4- 6 Last administered on 09/09/18 01:33; Admin Dose 1 TAB; Start 08/31/18 at 23:30 Morphine Sulfate (morphine) 2 mg Q4H PRN IV .SEVERE PAIN 7-10 Last administered on 09/08/18 10:14; Admin Dose 2 MG; Start 08/31/18 at 23:30 Docusate Sodium (Colace) 100 mg Q12H PRN PO .CONSTIPATION; Start 08/31/18 at 23:30 Bisacodyl (Dulcolax) 5 mg DAILY PRN PO .CONSTIPATION; Start 08/31/18 at 23:30 Nicotine (Nicoderm 21 Mg/ 24hr) 1 patch DAILY TRANSDERM Last administered on 09/10/18 10:20; Admin Dose 1 PATCH; Start 09/01/18 at 09:00; Stop 10/01/18 at 08:59 Nicotine Polacrilex (Nicorette) 2 mg Q2H PRN BUCCAL CONTROL WITHDRAWAL SYMPTOMS; Start 08/31/18 at 23:30 Lorazepam (Ativan) 0.5 mg Q8H PRN PO ANXIETY Last administered on 09/01/18 22:02; Admin Dose 0.5 MG; Start 09/01/18 at 00:30 Collagenase (Santyl) 1 applic DAILY TOP Last administered on 09/09/18 09:34; Admin Dose 1 APPLIC; Start 09/01/18 at 09:00 Collagenase (Santyl) 1 applic PRN PRN TOP SOIL Last administered on 09/01/18 01:13; Admin Dose 1 APPLIC; Start 09/01/18 at 01:00 Lactobacillus Acidophilus/ Rhamnosus (Culturelle) 1 cap BID PO Last administered on 09/10/18 10:17; Admin Dose 1 CAP; Start 09/08/18 at 21:00 Enoxaparin Sodium (Lovenox) 40 mg DAILY SC Last administered on 09/10/18at 10:19; Admin Dose 40 MG; Start 09/08/18 at 15:30 Linezolid (Zyvox) 600 mg BID PO Last administered on 09/10/18at 11:49; Admin Dose 600 MG; Start 09/10/18 at 11:00 LYNDA TREJO MD Sep 10, 2018 15:41
--- NOTE | 2018-09-10 19:33 | CONS ---
Assessment/Plan Assessment/Plan Assessment/Plan (Daily) Left lower extremity venous ulceration Hx of trauma and laceration to left lower extremity Hx of hematoma Left lower extremity cellulitis Edema b/l Morbid obesity homelessness Nicotine dependence Plan Continue with wound VAC dressing changes. 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 Appreciate ID recommendations 2 weeks linezolid. Appreciate assistance from licensed clinical social worker for placement. Recommend continue with compression dressing changes. Educated patient on infection precautions. Will need to continue with wound VAC in outpatient setting. Consultation Date/Type/Reason Admit Date/Time Aug 31, 2018 at 22:53 Initial Consult Date Date/Time of Note DATE: 09/10/18 TIME: 19:32 24 HR Interval Summary Free Text/Dictation No acute events overnight Exam/Review of Systems Exam Vitals Vital Signs Date Temp Pulse Resp B/P (MAP) Pulse Ox O2 O2 Flow FiO2 Time Delivery Rate 09/10/18 98.2 105 17 150/89 98 Room Air 14:17 (109) 09/06/18 2.0 19:47 Intake and Output 09/09/18 09/09/18 09/10/18 1515:00 23:00 07:00 IntakeIntake Total 350 ml 1590 ml 350 ml OutputOutput Total 50 ml 10 ml BalanceBalance 350 ml 1540 ml 340 ml Exam Wound VAC dressings clean dry and intact No erythema appreciated to the left lower extremity Serosanguinous drainage noted in canister operating at 125mmHg low continuous therapy Results Result Diagram: 09/10/18 0617 09/10/18 0617 Results 24hrs Laboratory Tests Test 09/10/18 06:17 White Blood Count 10.6 Red Blood Count 3.71 L Hemoglobin 8.9 L Hematocrit 29.7 L Mean Corpuscular Volume 80.1 L Mean Corpuscular Hemoglobin 24.0 L Mean Corpuscular Hemoglobin Concent 30.0 L Red Cell Distribution Width 15.9 H Platelet Count 502 H Mean Platelet Volume 8.3 Immature Granulocytes % 0.400 Neutrophils % 71.7 Lymphocytes % 17.6 Monocytes % 4.9 Eosinophils % 5.0 Basophils % 0.4 Nucleated Red Blood Cells % 0.0 Immature Granulocytes # 0.040 H Neutrophils # 7.6 H Lymphocytes # 1.9 Monocytes # 0.5 Eosinophils # 0.5 Basophils # 0.0 Nucleated Red Blood Cells # 0.0 Erythrocyte Sedimentation Rate 64 H Sodium Level 142 Potassium Level 4.0 Chloride Level 106 Carbon Dioxide Level 29 Anion Gap 7 Blood Urea Nitrogen 10 Creatinine 0.74 Est Glomerular Filtrat Rate mL/min > 60 Glucose Level 94 Hemoglobin A1c 5.9 Calcium Level 9.4 Total Bilirubin 0.1 L Direct Bilirubin 0.00 Indirect Bilirubin 0.1 Aspartate Amino Transf (AST/SGOT) 18 Alanine Aminotransferase (ALT/SGPT) 13 Alkaline Phosphatase 88 Total Protein 7.8 Albumin 3.6 Globulin 4.20 H Albumin/Globulin Ratio 0.85 Medications Medication Current Medications IV Flush (NS 3 ml) 3 ml PER PROTOCOL IV ; Start 08/31/18 at 23:30 Ondansetron HCl (Zofran Tab) 4 mg Q6H PRN PO NAUSEA/VOMITING; Start 08/31/18 at 23:30 Acetaminophen (Tylenol Tab) 650 mg Q6H PRN PO .PAIN 1-3 OR TEMP Last administered on 09/07/18 17:09; Admin Dose 650 MG; Start 08/31/18 at 23:30 Acetaminophen/ Hydrocodone Bitart ([place] (5/325)) 1 tab Q6H PRN PO .MOD PAIN 4- 6 Last administered on 09/09/18 01:33; Admin Dose 1 TAB; Start 08/31/18 at 23:30 Morphine Sulfate (morphine) 2 mg Q4H PRN IV .SEVERE PAIN 7-10 Last administered on 09/08/18 10:14; Admin Dose 2 MG; Start 08/31/18 at 23:30 Docusate Sodium (Colace) 100 mg Q12H PRN PO .CONSTIPATION; Start 08/31/18 at 23:30 Bisacodyl (Dulcolax) 5 mg DAILY PRN PO .CONSTIPATION; Start 08/31/18 at 23:30 Nicotine (Nicoderm 21 Mg/ 24hr) 1 patch DAILY TRANSDERM Last administered on 09/10/18 10:20; Admin Dose 1 PATCH; Start 09/01/18 at 09:00; Stop 10/01/18 at 08:59 Nicotine Polacrilex (Nicorette) 2 mg Q2H PRN BUCCAL CONTROL WITHDRAWAL SYMPTOMS; Start 08/31/18 at 23:30 Lorazepam (Ativan) 0.5 mg Q8H PRN PO ANXIETY Last administered on 4/20/19at 22:02; Admin Dose 0.5 MG; Start 09/01/18 at 00:30 Collagenase (Santyl) 1 applic DAILY TOP Last administered on 09/09/18at 09:34; Admin Dose 1 APPLIC; Start 09/01/18 at 09:00 Collagenase (Santyl) 1 applic PRN PRN TOP SOIL Last administered on 09/01/18at 01:13; Admin Dose 1 APPLIC; Start 09/01/18 at 01:00 Lactobacillus Acidophilus/ Rhamnosus (Culturelle) 1 cap BID PO Last administ ered on 09/10/18at 10:17; Admin Dose 1 CAP; Start 09/08/18 at 21:00 Enoxaparin Sodium (Lovenox) 40 mg DAILY SC Last administered on 09/10/18at 10:19; Admin Dose 40 MG; Start 09/08/18 at 15:30 Linezolid (Zyvox) 600 mg BID PO Last administered on 09/10/18at 11:49; Admin Dose 600 MG; Start 09/10/18 at 11:00 SILVIA LINARES DPM Sep 10, 2018 19:33
[2018-09-10 20:18] VITALS: BP 152/93; PULSE 86; RESP 18
[2018-09-11 02:38] VITALS: BP 133/70; PULSE 94; RESP 20
[2018-09-11 07:30] VITALS: BP 122/58; PULSE 91; RESP 18
[2018-09-11] MEDS: ENOXAPARIN 40 MG/0.4 ML SYG SC SCH ×2 (09:00→09:31)
[2018-09-11] MEDS: NICOTINE (21 MG/24 HR) PATCH TRANSDERM SCH (09:29)
[2018-09-11] MEDS: LACTOBACILLUS RHAMNOSUS CAP PO SCH ×2 (09:32→21:16)
[2018-09-11] MEDS: ZYVOX 600 MG TAB PO SCH ×2 (09:32→21:16)
[2018-09-11] MEDS: COLLAGENASE 5 GM (UD JAR) TOP SCH (09:32)
--- NOTE | 2018-09-11 11:47 | CONS ---
Assessment/Plan Assessment/Plan Hospital Course (Demo Recall) All noted, no events Microbiology: Blood cultures remain negative wound culture + VRE, Cory[place] bacterium group JK Antimicrobials: Zyvox Physical examination: Morbidly obese well-developed middle-aged white woman who is in no distress. Head atraumatic normocephalic. Neck is obese. Chest rise symmetrical. Breath sounds diminished to bases. Heart: S1-S2. Abdomen obese bowel tones present. Extremities: Left lower extremity dressing intact Assessment: 1. Left lower extremity cellulitis/venous ulceration status post I&D with wound VAC application 2. Morbid obesity Plan: Patient is stable, pending discharge home on oral Zyvox to complete 2 weeks Consultation Date/Type/Reason Admit Date/Time Aug 31, 2018 at 22:53 Initial Consult Date Type of Consult id Date/Time of Note DATE: 09/11/18 TIME: 11:46 Exam/Review of Systems Exam Vitals Vital Signs Date Temp Pulse Resp B/P (MAP) Pulse Ox O2 O2 Flow FiO2 Time Delivery Rate 09/11/18 97.6 91 18 122/58 96 Room Air 07:30 (79) Intake and Output 09/10/18 09/10/18 09/11/18 1515:00 23:00 07:00 IntakeIntake Total 850 ml 650 ml OutputOutput Total 13 ml BalanceBalance 850 ml 637 ml Results Result Diagram: 09/10/18 0617 09/10/18 0617 Medications Medication Current Medications IV Flush (NS 3 ml) 3 ml PER PROTOCOL IV ; Start 08/31/18 at 23:30 Ondansetron HCl (Zofran Tab) 4 mg Q6H PRN PO NAUSEA/VOMITING; Start 08/31/18 at 23:30 Acetaminophen (Tylenol Tab) 650 mg Q6H PRN PO .PAIN 1-3 OR TEMP Last administered on 09/07/18at 17:09; Admin Dose 650 MG; Start 08/31/18 at 23:30 Acetaminophen/ Hydrocodone Bitart ([place] (5/325)) 1 tab Q6H PRN PO .MOD PAIN 4- 6 Last administered on 09/09/18at 01:33; Admin Dose 1 TAB; Start 08/31/18 at 23:30 Morphine Sulfate (morphine) 2 mg Q4H PRN IV .SEVERE PAIN 7-10 Last administered on 09/08/18 10:14; Admin Dose 2 MG; Start 08/31/18 at 23:30 Docusate Sodium (Colace) 100 mg Q12H PRN PO .CONSTIPATION; Start 08/31/18 at 23:30 Bisacodyl (Dulcolax) 5 mg DAILY PRN PO .CONSTIPATION; Start 08/31/18 at 23:30 Nicotine (Nicoderm 21 Mg/ 24hr) 1 patch DAILY TRANSDERM Last administered on 09/11/18 09:29; Admin Dose 1 PATCH; Start 09/01/18 at 09:00; Stop 10/01/18 at 08:59 Nicotine Polacrilex (Nicorette) 2 mg Q2H PRN BUCCAL CONTROL WITHDRAWAL SYMPTOMS; Start 08/31/18 at 23:30 Lorazepam (Ativan) 0.5 mg Q8H PRN PO ANXIETY Last administered on 09/01/18 22:02; Admin Dose 0.5 MG; Start 09/01/18 at 00:30 Collagenase (Santyl) 1 applic DAILY TOP Last administered on 09/11/18 09:32; Admin Dose 1 APPLIC; Start 09/01/18 at 09:00 Collagenase (Santyl) 1 applic PRN PRN TOP SOIL Last administered on 09/01/18 01:13; Admin Dose 1 APPLIC; Start 09/01/18 at 01:00 Lactobacillus Acidophilus/ Rhamnosus (Culturelle) 1 cap BID PO Last admin istered on 09/11/18 09:32; Admin Dose 1 CAP; Start 09/08/18 at 21:00 Enoxaparin Sodium (Lovenox) 40 mg DAILY SC Last administered on 09/10/18 10:19; Admin Dose 40 MG; Start 09/08/18 at 15:30 Linezolid (Zyvox) 600 mg BID PO Last administered on 09/11/18 09:32; Admin Dose 600 MG; Start 09/10/18 at 11:00 AGUSTÍN CUMMINGS NP Sep 11, 2018 11:47
[2018-09-11] MEDS: HYDROCODONE/APAP (5/325) TAB PO PRN (12:56)
[2018-09-11 14:00] VITALS: BP 168/88; PULSE 80; RESP 18
--- NOTE | 2018-09-11 14:39 | PN ---
Date/Time of Note Date/Time of Note DATE: 09/11/18 TIME: 14:35 Assessment/Plan VTE Prophylaxis Risk score (from Nsg)>0 risk: 5 SCD applied (from Nsg): Yes Pharmacological prophylaxis: heparin Lines/Catheters IV Catheter Type (from Nrsg): Saline Lock Urinary Cath still in place: No Assessment/Plan Hospital Course A/P: 33 yo female with morbid obesity and wound infection of L leg - wound vac x [address] Alegre - Requires MRSA coverage -> abx per ID Placement in SNF pending Result Diagram: 09/10/1861609/10/18616 Subjective 24 Hr Interval Summary Free Text/Dictation No change to clinical status Awaiting placement Exam/Review of Systems Exam Vitals Vital Signs Date Temp Pulse Resp B/P (MAP) Pulse Ox O2 O2 Flow FiO2 Time Delivery Rate 09/11/18 97.6 91 18 122/58 96 Room Air 07:30 (79) Intake and Output 09/10/18 09/10/18 09/11/18 1515:00 23:00 07:00 IntakeIntake Total 850 ml 650 ml OutputOutput Total 13 ml BalanceBalance 850 ml 637 ml Medications Medication Current Medications IV Flush (NS 3 ml) 3 ml PER PROTOCOL IV ; Start 08/31/18 at 23:30 Ondansetron HCl (Zofran Tab) 4 mg Q6H PRN PO NAUSEA/VOMITING; Start 08/31/18 at 23:30 Acetaminophen (Tylenol Tab) 650 mg Q6H PRN PO .PAIN 1-3 OR TEMP Last administered on 09/07/18at 17:09; Admin Dose 650 MG; Start 08/31/18 at 23:30 Acetaminophen/ Hydrocodone Bitart ([place] (5/325)) 1 tab Q6H PRN PO .MOD PAIN 4- 6 Last administered on 09/11/18 12:56; Admin Dose 1 TAB; Start 08/31/18 at 23:30 Morphine Sulfate (morphine) 2 mg Q4H PRN IV .SEVERE PAIN 7-10 Last administered on 09/08/18at 10:14; Admin Dose 2 MG; Start 08/31/18 at 23:30 Docusate Sodium (Colace) 100 mg Q12H PRN PO .CONSTIPATION; Start 08/31/18 at 23 :30 Bisacodyl (Dulcolax) 5 mg DAILY PRN PO .CONSTIPATION; Start 08/31/18 at 23:30 Nicotine (Nicoderm 21 Mg/ 24hr) 1 patch DAILY TRANSDERM Last administered on 09/11/18 09:29; Admin Dose 1 PATCH; Start 09/01/18 at 09:00; Stop 10/01/18 at 08:59 Nicotine Polacrilex (Nicorette) 2 mg Q2H PRN BUCCAL CONTROL WITHDRAWAL SYMPTOMS; Start 08/31/18 at 23:30 Lorazepam (Ativan) 0.5 mg Q8H PRN PO ANXIETY Last administered on 09/01/18 22:02; Admin Dose 0.5 MG; Start 09/01/18 at 00:30 Collagenase (Santyl) 1 applic DAILY TOP Last administered on 09/11/18 09:32; Admin Dose 1 APPLIC; Start 09/01/18 at 09:00 Collagenase (Santyl) 1 applic PRN PRN TOP SOIL Last administered on 09/01/18 01:13; Admin Dose 1 APPLIC; Start 09/01/18 at 01:00 Lactobacillus Acidophilus/ Rhamnosus (Culturelle) 1 cap BID PO Last administered on 09/11/18 09:32; Admin Dose 1 CAP; Start 09/08/18 at 21:00 Enoxaparin Sodium (Lovenox) 40 mg DAILY SC Last administered on 09/10/18 10:19; Admin Dose 40 MG; Start 09/08/18 at 15:30 Linezolid (Zyvox) 600 mg BID PO Last administered on 09/11/18 09:32; Admin Dose 600 MG; Start 09/10/18 at 11:00 LYNDA TREJO MD Sep 11, 2018 14:39
[2018-09-11 16:48] VITALS: BP 130/79; PULSE 92
[2018-09-11 20:00] VITALS: BP 136/81; PULSE 95; RESP 19
[2018-09-12 02:00] VITALS: BP 133/68; PULSE 104; RESP 19
[2018-09-12 08:00] VITALS: BP 133/78; PULSE 89; RESP 16
[2018-09-12] MEDS: COLLAGENASE 5 GM (UD JAR) TOP SCH (09:00)
[2018-09-12] MEDS: LACTOBACILLUS RHAMNOSUS CAP PO SCH ×2 (09:46→21:32)
[2018-09-12] MEDS: ZYVOX 600 MG TAB PO SCH ×2 (09:46→21:32)
[2018-09-12] MEDS: NICOTINE (21 MG/24 HR) PATCH TRANSDERM SCH (09:46)
[2018-09-12] MEDS: ENOXAPARIN 40 MG/0.4 ML SYG SC SCH (09:48)
--- NOTE | 2018-09-12 11:50 | CONS ---
Assessment/Plan Assessment/Plan Hospital Course (Demo Recall) No acute events per report Microbiology: Blood cultures remain negative wound culture + VRE, Corynebacterium group JK Antimicrobials: Zyvox Physical examination: Morbidly obese well-developed middle-aged white woman who is in no distress. Head atraumatic normocephalic. Neck is obese. Chest rise symmetrical. Breath sounds diminished to bases. Heart: S1-S2. Abdomen obese bowel tones present. Extremities: Left lower extremity dressing intact Assessment: 1. Left lower extremity cellulitis/venous ulceration status post I&D with wound VAC application 2. Morbid obesity Plan: Stable, pending discharge arrangements, Zyvox to complete 10-14 days Consultation Date/Type/Reason Admit Date/Time Aug 31, 2018 at 22:53 Initial Consult Date Type of Consult id Date/Time of Note DATE: 09/12/18 TIME: 11:48 Exam/Review of Systems Exam Vitals Vital Signs Date Temp Pulse Resp B/P (MAP) Pulse Ox O2 O2 Flow FiO2 Time Delivery Rate 09/12/18 98.1 89 16 133/78 99 Room Air 08:00 (96) Intake and Output 09/11/18 09/11/18 09/12/18 1515:00 23:00 07:00 IntakeIntake Total 500 ml 600 ml OutputOutput Total 10 ml 5 ml BalanceBalance 490 ml 595 ml Results Result Diagram: 09/10/1861609/10/18616 Medications Medication Current Medications IV Flush (NS 3 ml) 3 ml PER PROTOCOL IV ; Start 08/31/18 at 23:30 Ondansetron HCl (Zofran Tab) 4 mg Q6H PRN PO NAUSEA/VOMITING; Start 08/31/18 at 23:30 Acetaminophen (Tylenol Tab) 650 mg Q6H PRN PO .PAIN 1-3 OR TEMP Last administered on 09/07/18at 17:09; Admin Dose 650 MG; Start 08/31/18 at 23:30 Acetaminophen/ Hydrocodone Bitart ([place] (5/325)) 1 tab Q6H PRN PO .MOD PAIN 4- 6 Last administered on 09/11/18at 12:56; Admin Dose 1 TAB; Start 08/31/18 at 23:30 Morphine Sulfate (morphine) 2 mg Q4H PRN IV .SEVERE PAIN 7-10 Last administered on 09/08/18 10:14; Admin Dose 2 MG; Start 08/31/18 at 23:30 Docusate Sodium (Colace) 100 mg Q12H PRN PO .CONSTIPATION; Start 08/31/18 at 23:30 Bisacodyl (Dulcolax) 5 mg DAILY PRN PO .CONSTIPATION; Start 08/31/18 at 23:30 Nicotine (Nicoderm 21 Mg/ 24hr) 1 patch DAILY TRANSDERM Last administered on 09/12/18 09:46; Admin Dose 1 PATCH; Start 09/01/18 at 09:00; Stop 10/01/18 at 08:59 Nicotine Polacrilex (Nicorette) 2 mg Q2H PRN BUCCAL CONTROL WITHDRAWAL SYMPTOMS; Start 08/31/18 at 23:30 Lorazepam (Ativan) 0.5 mg Q8H PRN PO ANXIETY Last administered on 09/01/18 22:02; Admin Dose 0.5 MG; Start 09/01/18 at 00:30 Collagenase (Santyl) 1 applic DAILY TOP Last administered on 09/11/18 09:32; Admin Dose 1 APPLIC; Start 09/01/18 at 09:00 Collagenase (Santyl) 1 applic PRN PRN TOP SOIL Last administered on 09/01/18 01:13; Admin Dose 1 APPLIC; Start 09/01/18 at 01:00 Lactobacillus Acidophilus/ Rhamnosus (Culturelle) 1 cap BID PO Last admini stered on 09/12/18 09:46; Admin Dose 1 CAP; Start 09/08/18 at 21:00 Enoxaparin Sodium (Lovenox) 40 mg DAILY SC Last administered on 09/12/18 09:48; Admin Dose 40 MG; Start 09/08/18 at 15:30 Linezolid (Zyvox) 600 mg BID PO Last administered on 09/12/18 09:46; Admin Dose 600 MG; Start 09/10/18 at 11:00 AGUSTÍN CUMMINGS NP September 12, 2018 11:50
--- NOTE | 2018-09-12 13:22 | PN ---
Date/Time of Note Date/Time of Note DATE: 09/12/18 TIME: 13:21 Assessment/Plan VTE Prophylaxis Risk score (from Nsg)>0 risk: 5 SCD applied (from Nsg): Yes Pharmacological prophylaxis: heparin Lines/Catheters IV Catheter Type (from Nrsg): Saline Lock Urinary Cath still in place: No Assessment/Plan Hospital Course Exam: Well-appearing in no distress AO x3 Regular rate and rhythm Breathing comfortably Obese Left lower extremity wound VAC in place A/P: 33 yo female with morbid obesity and wound infection of L leg - wound vac x [address] Alegre - Requires MRSA coverage -> abx per ID Placement in SNF pending Result Diagram: 09/10/18 0617 09/10/18 0617 Subjective 24 Hr Interval Summary Free Text/Dictation No change to clinical status. Continues wound VAC and antibiotics. Awaiting placement Exam/Review of Systems Exam Vitals Vital Signs Date Temp Pulse Resp B/P (MAP) Pulse Ox O2 O2 Flow FiO2 Time Delivery Rate 09/12/18 98.1 89 16 133/78 99 Room Air 08:00 (96) Intake and Output 09/11/18 09/11/18 09/12/18 1515:00 23:00 07:00 IntakeIntake Total 500 ml 600 ml OutputOutput Total 10 ml 5 ml BalanceBalance 490 ml 595 ml Medications Medication Current Medications IV Flush (NS 3 ml) 3 ml PER PROTOCOL IV ; Start 08/31/18 at 23:30 Ondansetron HCl (Zofran Tab) 4 mg Q6H PRN PO NAUSEA/VOMITING; Start 08/31/18 at 23:30 Acetaminophen (Tylenol Tab) 650 mg Q6H PRN PO .PAIN 1-3 OR TEMP Last administered on 09/07/18 17:09; Admin Dose 650 MG; Start 08/31/18 at 23:30 Acetaminophen/ Hydrocodone Bitart ([place] (5/325)) 1 tab Q6H PRN PO .MOD PAIN 4- 6 Last administered on 09/11/18at 12:56; Admin Dose 1 TAB; Start 08/31/18 at 23:30 Morphine Sulfate (morphine) 2 mg Q4H PRN IV .SEVERE PAIN 7-10 Last administered on 09/08/18at 10:14; Admin Dose 2 MG; Start 08/31/18 at 23:30 Docusate Sodium (Colace) 100 mg Q12H PRN PO .CONSTIPATION; Start 08/31/18 at 23:30 Bisacodyl (Dulcolax) 5 mg DAILY PRN PO .CONSTIPATION; Start 08/31/18 at 23:30 Nicotine (Nicoderm 21 Mg/ 24hr) 1 patch DAILY TRANSDERM Last administered on 09/12/18 09:46; Admin Dose 1 PATCH; Start 09/01/18 at 09:00; Stop 10/01/18 at 08:59 Nicotine Polacrilex (Nicorette) 2 mg Q2H PRN BUCCAL CONTROL WITHDRAWAL SYMPTOM S; Start 08/31/18 at 23:30 Lorazepam (Ativan) 0.5 mg Q8H PRN PO ANXIETY Last administered on 09/01/18 22:02; Admin Dose 0.5 MG; Start 09/01/18 at 00:30 Collagenase (Santyl) 1 applic DAILY TOP Last administered on 09/11/18 09:32; Admin Dose 1 APPLIC; Start 09/01/18 at 09:00 Collagenase (Santyl) 1 applic PRN PRN TOP SOIL Last administered on 09/01/18 01:13; Admin Dose 1 APPLIC; Start 09/01/18 at 01:00 Lactobacillus Acidophilus/ Rhamnosus (Culturelle) 1 cap BID PO Last administered on 09/12/18 09:46; Admin Dose 1 CAP; Start 09/08/18 at 21:00 Enoxaparin Sodium (Lovenox) 40 mg DAILY SC Last administered on 09/12/18 09:48; Admin Dose 40 MG; Start 09/08/18 at 15:30 Linezolid (Zyvox) 600 mg BID PO Last administered on 09/12/18 09:46; Admin Dose 600 MG; Start 09/10/18 at 11:00 LYNDA TREJO MD September 12, 2018 13:22
[2018-09-12 14:40] VITALS: BP 156/92; PULSE 100; RESP 16
[2018-09-12 20:30] VITALS: BP 135/77; PULSE 93; RESP 18
[2018-09-13 02:30] VITALS: BP 143/77; PULSE 90; RESP 18
[2018-09-13 07:45] VITALS: BP 159/87; PULSE 94; RESP 18
[2018-09-13] MEDS: COLLAGENASE 5 GM (UD JAR) TOP SCH (09:00)
[2018-09-13] MEDS: ASCORBIC ACID 500 MG TAB PO SCH ×2 (10:17→20:23)
[2018-09-13] MEDS: NICOTINE (21 MG/24 HR) PATCH TRANSDERM SCH (10:17)
[2018-09-13] MEDS: LACTOBACILLUS RHAMNOSUS CAP PO SCH ×2 (10:17→20:23)
[2018-09-13] MEDS: MULTIVITAMINS/MINERALS TAB PO SCH (10:18)
[2018-09-13] MEDS: ENOXAPARIN 40 MG/0.4 ML SYG SC SCH (10:18)
[2018-09-13] MEDS: ZYVOX 600 MG TAB PO SCH ×2 (10:18→20:23)
[2018-09-13] MEDS: HYDROCODONE/APAP (5/325) TAB PO PRN (10:38)
--- NOTE | 2018-09-13 13:53 | CONS ---
Assessment/Plan Assessment/Plan Hospital Course (Demo Recall) No acute events Microbiology: Blood cultures remain negative wound culture + VRE, Corynebact erium group JK Antimicrobials: Zyvox Physical examination: Morbidly obese well-developed middle-aged white woman who is in no distress. Head atraumatic normocephalic. Neck is obese. Chest rise symmetrical. Breath sounds diminished to bases. Heart: S1-S2. Abdomen obese bowel tones present. Extremities: Left lower extremity dressing intact Assessment: 1. Left lower extremity cellulitis/venous ulceration status post I&D with wound VAC application 2. Morbid obesity Plan: Stable, pending discharge arrangements, Zyvox to complete 10-14 days Consultation Date/Type/Reason Admit Date/Time Aug 31, 2018 at 22:53 Initial Consult Date Type of Consult id Date/Time of Note DATE: 09/13/18 TIME: 13:53 Exam/Review of Systems Exam Vitals Vital Signs Date Temp Pulse Resp B/P (MAP) Pulse Ox O2 O2 Flow FiO2 Time Delivery Rate 09/13/18 98.0 94 18 159/87 97 Room Air 07:45 (111) Intake and Output 09/12/18 09/12/18 09/13/18 1515:00 23:00 07:00 IntakeIntake Total 950 ml 1230 ml OutputOutput Total 10 ml BalanceBalance 950 ml 1220 ml Results Result Diagram: 09/10/1861609/10/1817 Medications Medication Current Medications IV Flush (NS 3 ml) 3 ml PER PROTOCOL IV ; Start 08/31/18 at 23:30 Ondansetron HCl (Zofran Tab) 4 mg Q6H PRN PO NAUSEA/VOMITING; Start 08/31/18 at 23:30 Acetaminophen (Tylenol Tab) 650 mg Q6H PRN PO .PAIN 1-3 OR TEMP Last administered on 09/07/18at 17:09; Admin Dose 650 MG; Start 08/31/18 at 23:30 Acetaminophen/ Hydrocodone Bitart ([place] (5/325)) 1 tab Q6H PRN PO .MOD PAIN 4- 6 Last administered on 09/13/18at 10:38; Admin Dose 1 TAB; Start 08/31/18 at 23:30 Morphine Sulfate (morphine) 2 mg Q4H PRN IV .SEVERE PAIN 7-10 Last administered on 09/08/18 10:14; Admin Dose 2 MG; Start 08/31/18 at 23:30 Docusate Sodium (Colace) 100 mg Q12H PRN PO .CONSTIPATION; Start 08/31/18 at 23:30 Bisacodyl (Dulcolax) 5 mg DAILY PRN PO .CONSTIPATION; Start 08/31/18 at 23:30 Nicotine (Nicoderm 21 Mg/ 24hr) 1 patch DAILY TRANSDERM Last administered on 09/13/18 10:17; Admin Dose 1 PATCH; Start 09/01/18 at 09:00; Stop 10/01/18 at 08:59 Nicotine Polacrilex (Nicorette) 2 mg Q2H PRN BUCCAL CONTROL WITHDRAWAL SYMPT OMS; Start 08/31/18 at 23:30 Lorazepam (Ativan) 0.5 mg Q8H PRN PO ANXIETY Last administered on 09/01/18 22:02; Admin Dose 0.5 MG; Start 09/01/18 at 00:30 Collagenase (Santyl) 1 applic DAILY TOP Last administered on 09/11/18 09:32; Admin Dose 1 APPLIC; Start 09/01/18 at 09:00 Collagenase (Santyl) 1 applic PRN PRN TOP SOIL Last administered on 09/01/18 01:13; Admin Dose 1 APPLIC; Start 09/01/18 at 01:00 Lactobacillus Acidophilus/ Rhamnosus (Culturelle) 1 cap BID PO Last administered on 09/13/18 10:17; Admin Dose 1 CAP; Start 09/08/18 at 21:00 Enoxaparin Sodium (Lovenox) 40 mg DAILY SC Last administered on 09/13/18 10:18; Admin Dose 40 MG; Start 09/08/18 at 15:30 Linezolid (Zyvox) 600 mg BID PO Last administered on 09/13/18 10:18; Admin Dose 600 MG; Start 09/10/18 at 11:00 Ascorbic Acid (Vitamin C) 500 mg BID PO Last administered on 09/13/18 10:17; Admin Dose 500 MG; Start 09/13/18 at 09:00 Multivitamins/ Minerals (Theragran-M) 1 tab DAILY PO Last administered on 09/13/18 10:18; Admin Dose 1 TAB; Start 09/13/18 at 09:00 AGUSTÍN CUMMINGS NP September 13, 2018 13:53
[2018-09-13 14:24] VITALS: BP 138/84; PULSE 109; RESP 16
--- NOTE | 2018-09-13 17:04 | PN ---
Date/Time of Note Date/Time of Note DATE: 09/13/18 TIME: 17:03 Assessment/Plan VTE Prophylaxis Risk score (from Nsg)>0 risk: 2 SCD applied (from Nsg): Yes Pharmacological prophylaxis: heparin Lines/Catheters IV Catheter Type (from Nrsg): Saline Lock Urinary Cath still in place: No Assessment/Plan Hospital Course Exam: Well-appearing in no distress AO x3 Regular rate and rhythm Breathing comfortably Obese Left lower extremity wound VAC in place A/P: 33 yo female with morbid obesity and wound infection of L leg - wound vac x [address] Alegre - Requires MRSA coverage -> abx per ID Placement in SNF pending Result Diagram: 09/10/1861609/10/18616 Subjective 24 Hr Interval Summary Free Text/Dictation No change to clinical status Awaiting placemnet Exam/Review of Systems Exam Vitals Vital Signs Date Temp Pulse Resp B/P (MAP) Pulse Ox O2 O2 Flow FiO2 Time Delivery Rate 09/13/18 98.0 109 16 138/84 94 Room Air 14:24 (102) Intake and Output 09/12/18 09/12/18 09/13/18 1515:00 23:00 07:00 IntakeIntake Total 950 ml 1230 ml OutputOutput Total 10 ml BalanceBalance 950 ml 1220 ml Medications Medication Current Medications IV Flush (NS 3 ml) 3 ml PER PROTOCOL IV ; Start 08/31/18 at 23:30 Ondansetron HCl (Zofran Tab) 4 mg Q6H PRN PO NAUSEA/VOMITING; Start 08/31/18 at 23:30 Acetaminophen (Tylenol Tab) 650 mg Q6H PRN PO .PAIN 1-3 OR TEMP Last administered on 09/07/18 17:09; Admin Dose 650 MG; Start 08/31/18 at 23:30 Acetaminophen/ Hydrocodone Bitart ([place] (5/325)) 1 tab Q6H PRN PO .MOD PAIN 4- 6 Last administered on 09/13/18 10:38; Admin Dose 1 TAB; Start 08/31/18 at 23:30 Morphine Sulfate (morphine) 2 mg Q4H PRN IV .SEVERE PAIN 7-10 Last administered on 09/08/18 10:14; Admin Dose 2 MG; Start 08/31/18 at 23:30 Docusate Sodium (Colace) 100 mg Q12H PRN PO .CONSTIPATION; Start 08/31/18 at 23:30 Bisacodyl (Dulcolax) 5 mg DAILY PRN PO .CONSTIPATION; Start 08/31/18 at 23:30 Nicotine (Nicoderm 21 Mg/ 24hr) 1 patch DAILY TRANSDERM Last administered on 09/13/18 10:17; Admin Dose 1 PATCH; Start 09/01/18 at 09:00; Stop 10/01/18 at 08:59 Nicotine Polacrilex (Nicorette) 2 mg Q2H PRN BUCCAL CONTROL WITHDRAWAL SYMPTOMS; Start 08/31/18 at 23:30 Lorazepam (Ativan) 0.5 mg Q8H PRN PO ANXIETY Last administered on 09/01/18 22:02; Admin Dose 0.5 MG; Start 09/01/18 at 00:30 Collagenase (Santyl) 1 applic DAILY TOP Last administered on 09/11/18 09:32; Admin Dose 1 APPLIC; Start 09/01/18 at 09:00 Collagenase (Santyl) 1 applic PRN PRN TOP SOIL Last administered on 09/01/18 01:13; Admin Dose 1 APPLIC; Start 09/01/18 at 01:00 Lactobacillus Acidophilus/ Rhamnosus (Culturelle) 1 cap BID PO Last administered on 09/13/18 10:17; Admin Dose 1 CAP; Start 09/08/18 at 21:00 Enoxaparin Sodium (Lovenox) 40 mg DAILY SC Last administered on 09/13/18 10:18; Admin Dose 40 MG; Start 09/08/18 at 15:30 Linezolid (Zyvox) 600 mg BID PO Last administered on 09/13/18 10:18; Admin Dose 600 MG; Start 09/10/18 at 11:00 Ascorbic Acid (Vitamin C) 500 mg BID PO Last administered on 09/13/18 10:17; Admin Dose 500 MG; Start 09/13/18 at 09:00 Multivitamins/ Minerals (Theragran-M) 1 tab DAILY PO Last administered on 09/13/18 10:18; Admin Dose 1 TAB; Start 09/13/18 at 09:00 LYNDA TREJO MD September 13, 2018 17:04
[2018-09-13 20:25] VITALS: BP 148/82; PULSE 105; RESP 18
[2018-09-14 02:25] VITALS: BP 133/70; PULSE 104; RESP 18
[2018-09-14 08:00] VITALS: BP 126/62; PULSE 98; RESP 17
[2018-09-14] MEDS: LACTOBACILLUS RHAMNOSUS CAP PO SCH ×2 (10:23→20:36)
[2018-09-14] MEDS: ZYVOX 600 MG TAB PO SCH ×2 (10:23→20:36)
[2018-09-14] MEDS: MULTIVITAMINS/MINERALS TAB PO SCH (10:23)
[2018-09-14] MEDS: NICOTINE (21 MG/24 HR) PATCH TRANSDERM SCH (10:23)
[2018-09-14] MEDS: ASCORBIC ACID 500 MG TAB PO SCH ×2 (10:23→20:36)
[2018-09-14] MEDS: ENOXAPARIN 40 MG/0.4 ML SYG SC SCH (10:30)
--- NOTE | 2018-09-14 14:20 | CONS ---
Assessment/Plan Assessment/Plan Hospital Course (Demo Recall) No changes Microbiology: Blood cultures remain negative wound culture + VRE, Corynebacterium group JK Antimicrobials: Zyvox Physical examination: Morbidly obese well-developed middle-aged white woman who is in no distress. Head atraumatic normocephalic. Neck is obese. Chest rise symmetrical. Breath sounds diminished to bases. Heart: S1-S2. Abdomen obese bowel tones present. Extremities: Left lower extremity dressing intact Assessment: 1. Left lower extremity cellulitis/venous ulceration status post I&D with wound VAC application 2. Morbid obesity Plan: Stable, pending discharge arrangements, Zyvox for 5 more days Consultation Date/Type/Reason Admit Date/Time Aug 31, 2018 at 22:53 Initial Consult Date Type of Consult id Date/Time of Note DATE: 09/14/18 TIME: 14:19 Exam/Review of Systems Exam Vitals Vital Signs Date Temp Pulse Resp B/P (MAP) Pulse Ox O2 O2 Flow FiO2 Time Delivery Rate 09/14/18 97.9 98 17 126/62 94 Room Air 08:00 (83) Intake and Output 09/13/18 09/13/18 09/14/18 1414:59 22:59 06:59 IntakeIntake Total 800 ml 400 ml 1400 ml OutputOutput Total 0 ml BalanceBalance 800 ml 400 ml 1400 ml Results Result Diagram: 09/10/1861609/10/1817 Medications Medication Current Medications IV Flush (NS 3 ml) 3 ml PER PROTOCOL IV ; Start 08/31/18 at 23:30 Ondansetron HCl (Zofran Tab) 4 mg Q6H PRN PO NAUSEA/VOMITING; Start 08/31/18 at 23:30 Acetaminophen (Tylenol Tab) 650 mg Q6H PRN PO .PAIN 1-3 OR TEMP Last administered on 09/07/18at 17:09; Admin Dose 650 MG; Start 08/31/18 at 23:30 Acetaminophen/ Hydrocodone Bitart ([place] (5/325)) 1 tab Q6H PRN PO .MOD PAIN 4- 6 Last administered on 09/13/18at 10:38; Admin Dose 1 TAB; Start 08/31/18 at 23:30 Morphine Sulfate (morphine) 2 mg Q4H PRN IV .SEVERE PAIN 7-10 Last administered on 09/08/18 10:14; Admin Dose 2 MG; Start 08/31/18 at 23:30 Docusate Sodium (Colace) 100 mg Q12H PRN PO .CONSTIPATION; Start 08/31/18 at 23:30 Bisacodyl (Dulcolax) 5 mg DAILY PRN PO .CONSTIPATION; Start 08/31/18 at 23:30 Nicotine (Nicoderm 21 Mg/ 24hr) 1 patch DAILY TRANSDERM Last administered on 09/14/18 10:23; Admin Dose 1 PATCH; Start 09/01/18 at 09:00; Stop 10/01/18 at 08:59 Nicotine Polacrilex (Nicorette) 2 mg Q2H PRN BUCCAL CONTROL WITHDRAWAL SYMPTOM S; Start 08/31/18 at 23:30 Lorazepam (Ativan) 0.5 mg Q8H PRN PO ANXIETY Last administered on 09/01/18 22:02; Admin Dose 0.5 MG; Start 09/01/18 at 00:30 Collagenase (Santyl) 1 applic PRN PRN TOP SOIL Last administered on 09/01/18 01:13; Admin Dose 1 APPLIC; Start 09/01/18 at 01:00 Lactobacillus Acidophilus/ Rhamnosus (Culturelle) 1 cap BID PO Last administered on 09/14/18 10:23; Admin Dose 1 CAP; Start 09/08/18 at 21:00 Enoxaparin Sodium (Lovenox) 40 mg DAILY SC Last administered on 09/14/18 10:30; Admin Dose 40 MG; Start 09/08/18 at 15:30 Linezolid (Zyvox) 600 mg BID PO Last administered on 09/14/18 10:23; Admin Dose 600 MG; Start 09/10/18 at 11:00 Ascorbic Acid (Vitamin C) 500 mg BID PO Last administered on 09/14/18 10:23; Admin Dose 500 MG; Start 09/13/18 at 09:00 Multivitamins/ Minerals (Theragran-M) 1 tab DAILY PO Last administered on 09/14/18 10:23; Admin Dose 1 TAB; Start 09/13/18 at 09:00 AGUSTÍN CUMMINGS NP September 14, 2018 14:20
--- NOTE | 2018-09-14 16:30 | PN ---
Date/Time of Note Date/Time of Note DATE: 09/14/18 TIME: 16:30 Assessment/Plan VTE Prophylaxis Risk score (from Nsg)>0 risk: 2 SCD applied (from Nsg): Yes Pharmacological prophylaxis: heparin Lines/Catheters IV Catheter Type (from Nrsg): Saline Lock Urinary Cath still in place: No Assessment/Plan Hospital Course Exam: Well-appearing in no distress AO x3 Regular rate and rhythm Breathing comfortably Obese Left lower extremity wound VAC in place A/P: 33 yo female with morbid obesity and wound infection of L leg - wound vac x [address] Alegre - Requires MRSA coverage -> abx per ID Placement in SNF pending Result Diagram: 09/10/1861609/10/18616 Subjective 24 Hr Interval Summary Free Text/Dictation No change to clinical status Awaiting placement Exam/Review of Systems Exam Vitals Vital Signs Date Temp Pulse Resp B/P (MAP) Pulse Ox O2 O2 Flow FiO2 Time Delivery Rate 09/14/18 97.9 98 17 126/62 94 Room Air 08:00 (83) Intake and Output 09/13/18 09/13/18 09/14/18 1515:00 23:00 07:00 IntakeIntake Total 800 ml 400 ml 1400 ml OutputOutput Total 0 ml BalanceBalance 800 ml 400 ml 1400 ml Medications Medication Current Medications IV Flush (NS 3 ml) 3 ml PER PROTOCOL IV ; Start 08/31/18 at 23:30 Ondansetron HCl (Zofran Tab) 4 mg Q6H PRN PO NAUSEA/VOMITING; Start 08/31/18 at 23:30 Acetaminophen (Tylenol Tab) 650 mg Q6H PRN PO .PAIN 1-3 OR TEMP Last administered on 09/07/18at 17:09; Admin Dose 650 MG; Start 08/31/18 at 23:30 Acetaminophen/ Hydrocodone Bitart ([place] (5/325)) 1 tab Q6H PRN PO .MOD PAIN 4- 6 Last administered on 09/13/18 10:38; Admin Dose 1 TAB; Start 08/31/18 at 23:30 Morphine Sulfate (morphine) 2 mg Q4H PRN IV .SEVERE PAIN 7-10 Last administered on 09/08/18 10:14; Admin Dose 2 MG; Start 08/31/18 at 23:30 Docusate Sodium (Colace) 100 mg Q12H PRN PO .CONSTIPATION; Start 08/31/18 at 23:30 Bisacodyl (Dulcolax) 5 mg DAILY PRN PO .CONSTIPATION; Start 08/31/18 at 23:30 Nicotine (Nicoderm 21 Mg/ 24hr) 1 patch DAILY TRANSDERM Last administered on 09/14/18 10:23; Admin Dose 1 PATCH; Start 09/01/18 at 09:00; Stop 10/01/18 at 08:59 Nicotine Polacrilex (Nicorette) 2 mg Q2H PRN BUCCAL CONTROL WITHDRAWAL SYMPTOMS; Start 08/31/18 at 23:30 Lorazepam (Ativan) 0.5 mg Q8H PRN PO ANXIETY Last administered on 09/01/18 22:02; Admin Dose 0.5 MG; Start 09/01/18 at 00:30 Collagenase (Santyl) 1 applic PRN PRN TOP SOIL Last administered on 09/01/18 0 1:13; Admin Dose 1 APPLIC; Start 09/01/18 at 01:00 Lactobacillus Acidophilus/ Rhamnosus (Culturelle) 1 cap BID PO Last administered on 09/14/18 10:23; Admin Dose 1 CAP; Start 09/08/18 at 21:00 Enoxaparin Sodium (Lovenox) 40 mg DAILY SC Last administered on 09/14/18 10:30; Admin Dose 40 MG; Start 09/08/18 at 15:30 Linezolid (Zyvox) 600 mg BID PO Last administered on 09/14/18 10:23; Admin Dose 600 MG; Start 09/10/18 at 11:00 Ascorbic Acid (Vitamin C) 500 mg BID PO Last administered on 09/14/18 10:23; Admin Dose 500 MG; Start 09/13/18 at 09:00 Multivitamins/ Minerals (Theragran-M) 1 tab DAILY PO Last administered on 09/14/18 10:23; Admin Dose 1 TAB; Start 09/13/18 at 09:00 LYNDA TREJO MD September 14, 2018 16:30
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
[2018-09-14 20:25] VITALS: BP 143/86; PULSE 100; RESP 18
[2018-09-15 02:20] VITALS: BP 145/85; PULSE 94; RESP 18
[2018-09-15 07:50] VITALS: BP 121/75; PULSE 100; RESP 16
[2018-09-15] MEDS: ZYVOX 600 MG TAB PO SCH ×2 (08:51→21:13)
[2018-09-15] MEDS: ASCORBIC ACID 500 MG TAB PO SCH ×2 (08:52→21:13)
[2018-09-15] MEDS: NICOTINE (21 MG/24 HR) PATCH TRANSDERM SCH (08:52)
[2018-09-15] MEDS: MULTIVITAMINS/MINERALS TAB PO SCH (08:52)
[2018-09-15] MEDS: LACTOBACILLUS RHAMNOSUS CAP PO SCH ×2 (08:52→21:13)
[2018-09-15] MEDS: ENOXAPARIN 40 MG/0.4 ML SYG SC SCH (08:53)
[2018-09-15] MEDS: HYDROCODONE/APAP (5/325) TAB PO PRN (11:07)
--- NOTE | 2018-09-15 11:29 | CONS ---
Consultation Date/Type/Reason Admit Date/Time Aug 31, 2018 at 22:53 Initial Consult Date Type of Consult SUBJECTIVE: Pt is awake, alert, no acute distress. No fevers. VS: stable T: 97.8 LABs: Reviewed. Microbiology: Blood cultures remain negative wound culture + VRE, Corynebacterium group JK Antimicrobials: Zyvox Physical examination: GEN:Morbidly obese well-developed middle-aged white woman, who is in no distress. HENT: Head atraumatic normocephalic. Neck is obese. PULM: Chest rise symmetrical. Breath sounds diminished to bases. Heart: S1-S2. Abdomen obese bowel tones present. Extremities: Left lower extremity dressing intact Assessment: 1. Left lower extremity cellulitis/venous ulceration status post I&D with wound VAC application 2. Morbid obesity Plan: Pt remains stable. Continue Zyvox for 4 more days. Pending D/C . Date/Time of Note DATE: 09/15/18 TIME: 11:26 Exam/Review of Systems Exam Vitals Vital Signs Date Temp Pulse Resp B/P (MAP) Pulse Ox O2 O2 Flow FiO2 Time Delivery Rate 09/15/18 97.8 100 16 121/75 97 Room Air 07:50 (90) Intake and Output 09/14/18 09/14/18 09/15/18 1515:00 23:00 07:00 IntakeIntake Total 1440 ml OutputOutput Total 40 ml BalanceBalance 1400 ml Medications Medication Current Medications IV Flush (NS 3 ml) 3 ml PER PROTOCOL IV ; Start 08/31/18 at 23:30 Ondansetron HCl (Zofran Tab) 4 mg Q6H PRN PO NAUSEA/VOMITING; Start 08/31/18 at 23:30 Acetaminophen (Tylenol Tab) 650 mg Q6H PRN PO .PAIN 1-3 OR TEMP Last administered on 09/07/18at 17:09; Admin Dose 650 MG; Start 08/31/18 at 23:30 Acetaminophen/ Hydrocodone Bitart ([place] (5/325)) 1 tab Q6H PRN PO .MOD PAIN 4- 6 Last administered on 09/15/18at 11:07; Admin Dose 1 TAB; Start 08/31/18 at 23:30 Morphine Sulfate (morphine) 2 mg Q4H PRN IV .SEVERE PAIN 7-10 Last administered on 09/08/18 10:14; Admin Dose 2 MG; Start 08/31/18 at 23:30 Docusate Sodium (Colace) 100 mg Q12H PRN PO .CONSTIPATION; Start 08/31/18 at 23:30 Bisacodyl (Dulcolax) 5 mg DAILY PRN PO .CONSTIPATION; Start 08/31/18 at 23:30 Nicotine (Nicoderm 21 Mg/ 24hr) 1 patch DAILY TRANSDERM Last administered on 09/15/18 08:52; Admin Dose 1 PATCH; Start 09/01/18 at 09:00; Stop 10/01/18 at 08:59 Nicotine Polacrilex (Nicorette) 2 mg Q2H PRN BUCCAL CONTROL WITHDRAWAL SYMPTOMS; Start 08/31/18 at 23:30 Lorazepam (Ativan) 0.5 mg Q8H PRN PO ANXIETY Last administered on 09/01/18 22:02; Admin Dose 0.5 MG; Start 09/01/18 at 00:30 Collagenase (Santyl) 1 applic PRN PRN TOP SOIL Last administered on 09/01/18 01:13; Admin Dose 1 APPLIC; Start 09/01/18 at 01:00 Lactobacillus Acidophilus/ Rhamnosus (Culturelle) 1 cap BID PO Last administered on 09/15/18 08:52; Admin Dose 1 CAP; Start 09/08/18 at 21:00 Enoxaparin Sodium (Lovenox) 40 mg DAILY SC Last administered on 09/15/18 08:53; Admin Dose 40 MG; Start 09/08/18 at 15:30 Linezolid (Zyvox) 600 mg BID PO Last administered on 09/15/18 08:51; Admin Dose 600 MG; Start 09/10/18 at 11:00 Ascorbic Acid (Vitamin C) 500 mg BID PO Last administered on 09/15/18 08:52; Admin Dose 500 MG; Start 09/13/18 at 09:00 Multivitamins/ Minerals (Theragran-M) 1 tab DAILY PO Last administered on 09/15/18 08:52; Admin Dose 1 TAB; Start 09/13/18 at 09:00 SARAH SIMON September 15, 2018 11:29
[2018-09-15 14:00] VITALS: BP 143/83; PULSE 101; RESP 18
--- NOTE | 2018-09-15 15:29 | PN ---
Date/Time of Note Date/Time of Note DATE: 09/15/18 TIME: 15:29 Assessment/Plan VTE Prophylaxis Risk score (from Nsg)>0 risk: 2 SCD applied (from Nsg): Yes Pharmacological prophylaxis: heparin Lines/Catheters IV Catheter Type (from Nrsg): Saline Lock Urinary Cath still in place: No Assessment/Plan Hospital Course Exam: Well-appearing in no distress AO x3 Regular rate and rhythm Breathing comfortably Obese Left lower extremity wound VAC in place A/P: 33 yo female with morbid obesity and wound infection of L leg - wound vac x [address] Alegre - Requires MRSA coverage -> abx per ID Placement in SNF pending Subjective 24 Hr Interval Summary Free Text/Dictation Stable Awaiting placement Exam/Review of Systems Exam Vitals Vital Signs Date Temp Pulse Resp B/P (MAP) Pulse Ox O2 O2 Flow FiO2 Time Delivery Rate 09/15/18 98.6 101 18 143/83 97 Room Air 14:00 (103) Intake and Output 09/14/18 09/14/18 09/15/18 1515:00 23:00 07:00 IntakeIntake Total 1440 ml OutputOutput Total 40 ml BalanceBalance 1400 ml Medications Medication Current Medications IV Flush (NS 3 ml) 3 ml PER PROTOCOL IV ; Start 08/31/18 at 23:30 Ondansetron HCl (Zofran Tab) 4 mg Q6H PRN PO NAUSEA/VOMITING; Start 08/31/18 at 23:30 Acetaminophen (Tylenol Tab) 650 mg Q6H PRN PO .PAIN 1-3 OR TEMP Last administered on 09/07/18at 17:09; Admin Dose 650 MG; Start 08/31/18 at 23:30 Acetaminophen/ Hydrocodone Bitart ([place] (5/325)) 1 tab Q6H PRN PO .MOD PAIN 4- 6 Last administered on 09/15/18 11:07; Admin Dose 1 TAB; Start 08/31/18 at 23:30 Morphine Sulfate (morphine) 2 mg Q4H PRN IV .SEVERE PAIN 7-10 Last administered on 09/08/18 10:14; Admin Dose 2 MG; Start 08/31/18 at 23:30 Docusate Sodium (Colace) 100 mg Q12H PRN PO .CONSTIPATION; Start 08/31/18 at 23:30 Bisacodyl (Dulcolax) 5 mg DAILY PRN PO .CONSTIPATION; Start 08/31/18 at 23:30 Nicotine (Nicoderm 21 Mg/ 24hr) 1 patch DAILY TRANSDERM Last administered on 09/15/18 08:52; Admin Dose 1 PATCH; Start 09/01/18 at 09:00; Stop 10/01/18 at 08:59 Nicotine Polacrilex (Nicorette) 2 mg Q2H PRN BUCCAL CONTROL WITHDRAWAL SYMPTOMS; Start 08/31/18 at 23:30 Lorazepam (Ativan) 0.5 mg Q8H PRN PO ANXIETY Last administered on 09/01/18 22:02; Admin Dose 0.5 MG; Start 09/01/18 at 00:30 Collagenase (Santyl) 1 applic PRN PRN TOP SOIL Last administered on 09/01/18 01:13; Admin Dose 1 APPLIC; Start 09/01/18 at 01:00 Lactobacillus Acidophilus/ Rhamnosus (Culturelle) 1 cap BID PO Last administered on 09/15/18 08:52; Admin Dose 1 CAP; Start 09/08/18 at 21:00 Enoxaparin Sodium (Lovenox) 40 mg DAILY SC Last administered on 09/15/18 08:53; Admin Dose 40 MG; Start 09/08/18 at 15:30 Linezolid (Zyvox) 600 mg BID PO Last administered on 09/15/18 08:51; Admin Dose 600 MG; Start 09/10/18 at 11:00 Ascorbic Acid (Vitamin C) 500 mg BID PO Last administered on 09/15/18 08:52; Admin Dose 500 MG; Start 09/13/18 at 09:00 Multivitamins/ Minerals (Theragran-M) 1 tab DAILY PO Last administered on 09/15/18 08:52; Admin Dose 1 TAB; Start 09/13/18 at 09:00 LYNDA TREJO MD September 15, 2018 15:29
[2018-09-15 20:00] VITALS: BP 135/81; PULSE 83; RESP 18
[2018-09-16 02:00] VITALS: BP 154/69; PULSE 103; RESP 18
[2018-09-16 08:14] VITALS: BP 136/81; PULSE 81; RESP 17
[2018-09-16] MEDS: ZYVOX 600 MG TAB PO SCH ×2 (10:10→21:26)
[2018-09-16] MEDS: MULTIVITAMINS/MINERALS TAB PO SCH (10:10)
[2018-09-16] MEDS: LACTOBACILLUS RHAMNOSUS CAP PO SCH ×2 (10:10→21:26)
[2018-09-16] MEDS: ASCORBIC ACID 500 MG TAB PO SCH ×2 (10:10→21:26)
[2018-09-16] MEDS: NICOTINE (21 MG/24 HR) PATCH TRANSDERM SCH (10:10)
[2018-09-16] MEDS: ENOXAPARIN 40 MG/0.4 ML SYG SC SCH (10:11)
--- NOTE | 2018-09-16 12:04 | CONS ---
Consultation Date/Type/Reason Admit Date/Time Aug 31, 2018 at 22:53 Initial Consult Date Type of Consult SUBJECTIVE: Pt is awake, alert, afebrile . VS: stable T: 98.1 LABs: Reviewed. WBC- 11.1 Microbiology: Blood cultures remain negative wound culture + VRE, Corynebacterium group JK Antimicrobials: Zyvox Physical examination: GEN:Morbidly obese well-developed middle-aged white woman, who is in no distress. HENT: Head atraumatic normocephalic. Neck is obese. PULM: Chest rise symmetrical. Breath sounds diminished to bases. Heart: S1-S2. Abdomen obese bowel tones present. Extremities: Left lower extremity dressing intact Assessment: 1. Left lower extremity cellulitis/venous ulceration status post I&D with wound VAC application 2. Morbid obesity Plan: Pt remains stable. Continue Zyvox for 3 more days. Pending D/C . Date/Time of Note DATE: 09/16/18 TIME: 12:04 Exam/Review of Systems Exam Vitals Vital Signs Date Temp Pulse Resp B/P (MAP) Pulse Ox O2 O2 Flow FiO2 Time Delivery Rate 09/16/18 98.1 81 17 136/81 97 Room Air 08:14 (99) Intake and Output 09/15/18 09/15/18 09/16/18 1414:59 22:59 06:59 IntakeIntake Total 1800 ml 600 ml BalanceBalance 1800 ml 600 ml Results Result Diagram: 09/16/18 1029 Results 24hrs Laboratory Tests Test 09/16/18 10:29 White Blood Count 11.1 H Red Blood Count 4.24 Hemoglobin 10.1 L Hematocrit 34.1 L Mean Corpuscular Volume 80.4 L Mean Corpuscular Hemoglobin 23.8 L Mean Corpuscular Hemoglobin Concent 29.6 L Red Cell Distribution Width 15.6 H Platelet Count 607 #H Mean Platelet Volume 8.0 Immature Granulocytes % 0.400 Neutrophils % 67.8 Lymphocytes % 19.7 Monocytes % 5.0 Eosinophils % 6.6 Basophils % 0.5 Nucleated Red Blood Cells % 0.0 Immature Granulocytes # 0.040 H Neutrophils # 7.5 Lymphocytes # 2.2 Monocytes # 0.6 Eosinophils # 0.7 H Basophils # 0.1 Nucleated Red Blood Cells # 0.0 Medications Medication Current Medications IV Flush (NS 3 ml) 3 ml PER PROTOCOL IV ; Start 08/31/18 at 23:30 Ondansetron HCl (Zofran Tab) 4 mg Q6H PRN PO NAUSEA/VOMITING; Start 08/31/18 at 23:30 Acetaminophen (Tylenol Tab) 650 mg Q6H PRN PO .PAIN 1-3 OR TEMP Last administered on 09/07/18 17:09; Admin Dose 650 MG; Start 08/31/18 at 23:30 Acetaminophen/ Hydrocodone Bitart ([place] (5/325)) 1 tab Q6H PRN PO .MOD PAIN 4- 6 Last administered on 09/15/18 11:07; Admin Dose 1 TAB; Start 08/31/18 at 23:30 Morphine Sulfate (morphine) 2 mg Q4H PRN IV .SEVERE PAIN 7-10 Last administered on 09/08/18 10:14; Admin Dose 2 MG; Start 08/31/18 at 23:30 Docusate Sodium (Colace) 100 mg Q12H PRN PO .CONSTIPATION; Start 08/31/18 at 23:30 Bisacodyl (Dulcolax) 5 mg DAILY PRN PO .CONSTIPATION; Start 08/31/18 at 23:30 Nicotine (Nicoderm 21 Mg/ 24hr) 1 patch DAILY TRANSDERM Last administered on 09/16/18 10:10; Admin Dose 1 PATCH; Start 09/01/18 at 09:00; Stop 10/01/18 at 08:59 Nicotine Polacrilex (Nicorette) 2 mg Q2H PRN BUCCAL CONTROL WITHDRAWAL SYMPTOMS; Start 08/31/18 at 23:30 Lorazepam (Ativan) 0.5 mg Q8H PRN PO ANXIETY Last administered on 09/01/18 22:02; Admin Dose 0.5 MG; Start 09/01/18 at 00:30 Collagenase (Santyl) 1 applic PRN PRN TOP SOIL Last administered on 09/01/18 01:13; Admin Dose 1 APPLIC; Start 09/01/18 at 01:00 Lactobacillus Acidophilus/ Rhamnosus (Culturelle) 1 cap BID PO Last administered on 09/16/18 10:10; Admin Dose 1 CAP; Start 09/08/18 at 21:00 Enoxaparin Sodium (Lovenox) 40 mg DAILY SC Last administered on 09/16/18 10:11; Admin Dose 40 MG; Start 09/08/18 at 15:30 Linezolid (Zyvox) 600 mg BID PO Last administered on 09/16/18 10:10; Admin Dose 600 MG; Start 09/10/18 at 11:00 Ascorbic Acid (Vitamin C) 500 mg BID PO Last administered on 09/16/18 10:10; Admin Dose 500 MG; Start 09/13/18 at 09:00 Multivitamins/ Minerals (Theragran-M) 1 tab DAILY PO Last administered on 09/16/18 10:10; Admin Dose 1 TAB; Start 09/13/18 at 09:00 SARAH SIMON September 16, 2018 12:04
[2018-09-16 14:27] VITALS: BP 141/82; PULSE 98; RESP 17
--- NOTE | 2018-09-16 15:45 | PN ---
Date/Time of Note Date/Time of Note DATE: 09/16/18 TIME: 15:44 Assessment/Plan VTE Prophylaxis Risk score (from Nsg)>0 risk: 2 SCD applied (from Nsg): Yes Pharmacological prophylaxis: heparin Lines/Catheters IV Catheter Type (from Nrsg): Saline Lock Urinary Cath still in place: No Assessment/Plan Hospital Course Exam: Well-appearing in no distress AO x3 Regular rate and rhythm Breathing comfortably Obese Left lower extremity wound VAC in place A/P: 33 yo female with morbid obesity and wound infection of L leg - wound vac x [address] Alegre - Requires MRSA coverage -> abx per ID Placement in SNF pending. Complicated by lack of housing and need for chornic wound vac Result Diagram: 09/16/18 1029 Results 24hrs Laboratory Tests Test 09/16/18 10:29 White Blood Count 11.1 H Red Blood Count 4.24 Hemoglobin 10.1 L Hematocrit 34.1 L Mean Corpuscular Volume 80.4 L Mean Corpuscular Hemoglobin 23.8 L Mean Corpuscular Hemoglobin Concent 29.6 L Red Cell Distribution Width 15.6 H Platelet Count 607 #H Mean Platelet Volume 8.0 Immature Granulocytes % 0.400 Neutrophils % 67.8 Lymphocytes % 19.7 Monocytes % 5.0 Eosinophils % 6.6 Basophils % 0.5 Nucleated Red Blood Cells % 0.0 Immature Granulocytes # 0.040 H Neutrophils # 7.5 Lymphocytes # 2.2 Monocytes # 0.6 Eosinophils # 0.7 H Basophils # 0.1 Nucleated Red Blood Cells # 0.0 Subjective 24 Hr Interval Summary Free Text/Dictation No change to clinical status Awaiting placement Exam/Review of Systems Exam Vitals Vital Signs Date Temp Pulse Resp B/P (MAP) Pulse Ox O2 O2 Flow FiO2 Time Delivery Rate 09/16/18 98.6 98 17 141/82 95 Room Air 14:27 (101) Intake and Output 09/15/18 09/15/18 09/16/18 1515:00 23:00 07:00 IntakeIntake Total 1800 ml 600 ml BalanceBalance 1800 ml 600 ml Results Results 24hrs Laboratory Tests Test 09/16/18 10:29 White Blood Count 11.1 H Red Blood Count 4.24 Hemoglobin 10.1 L Hematocrit 34.1 L Mean Corpuscular Volume 80.4 L Mean Corpuscular Hemoglobin 23.8 L Mean Corpuscular Hemoglobin Concent 29.6 L Red Cell Distribution Width 15.6 H Platelet Count 607 #H Mean Platelet Volume 8.0 Immature Granulocytes % 0.400 Neutrophils % 67.8 Lymphocytes % 19.7 Monocytes % 5.0 Eosinophils % 6.6 Basophils % 0.5 Nucleated Red Blood Cells % 0.0 Immature Granulocytes # 0.040 H Neutrophils # 7.5 Lymphocytes # 2.2 Monocytes # 0.6 Eosinophils # 0.7 H Basophils # 0.1 Nucleated Red Blood Cells # 0.0 Medications Medication Current Medications IV Flush (NS 3 ml) 3 ml PER PROTOCOL IV ; Start 08/31/18 at 23:30 Ondansetron HCl (Zofran Tab) 4 mg Q6H PRN PO NAUSEA/VOMITING; Start 08/31/18 at 23:30 Acetaminophen (Tylenol Tab) 650 mg Q6H PRN PO .PAIN 1-3 OR TEMP Last administered on 09/07/18 17:09; Admin Dose 650 MG; Start 08/31/18 at 23:30 Acetaminophen/ Hydrocodone Bitart ([place] (5/325)) 1 tab Q6H PRN PO .MOD PAIN 4- 6 Last administered on 09/15/18 11:07; Admin Dose 1 TAB; Start 08/31/18 at 23:30 Morphine Sulfate (morphine) 2 mg Q4H PRN IV .SEVERE PAIN 7-10 Last administered on 09/08/18 10:14; Admin Dose 2 MG; Start 08/31/18 at 23:30 Docusate Sodium (Colace) 100 mg Q12H PRN PO .CONSTIPATION; Start 08/31/18 at 23:30 Bisacodyl (Dulcolax) 5 mg DAILY PRN PO .CONSTIPATION; Start 08/31/18 at 23:30 Nicotine (Nicoderm 21 Mg/ 24hr) 1 patch DAILY TRANSDERM Last administered on 09/16/18 10:10; Admin Dose 1 PATCH; Start 09/01/18 at 09:00; Stop 10/01/18 at 08:59 Nicotine Polacrilex (Nicorette) 2 mg Q2H PRN BUCCAL CONTROL WITHDRAWAL SYMPTOMS; Start 08/31/18 at 23:30 Lorazepam (Ativan) 0.5 mg Q8H PRN PO ANXIETY Last administered on 09/01/18 22:02; Admin Dose 0.5 MG; Start 09/01/18 at 00:30 Collagenase (Santyl) 1 applic PRN PRN TOP SOIL Last administered on 09/01/18 01:13; Admin Dose 1 APPLIC; Start 09/01/18 at 01:00 Lactobacillus Acidophilus/ Rhamnosus (Culturelle) 1 cap BID PO Last adm inistered on 09/16/18 10:10; Admin Dose 1 CAP; Start 09/08/18 at 21:00 Enoxaparin Sodium (Lovenox) 40 mg DAILY SC Last administered on 09/16/18 10:11; Admin Dose 40 MG; Start 09/08/18 at 15:30 Linezolid (Zyvox) 600 mg BID PO Last administered on 09/16/18 10:10; Admin Dose 600 MG; Start 09/10/18 at 11:00 Ascorbic Acid (Vitamin C) 500 mg BID PO Last administered on 09/16/18 10:10; Admin Dose 500 MG; Start 09/13/18 at 09:00 Multivitamins/ Minerals (Theragran-M) 1 tab DAILY PO Last administered on 09/16/18 10:10; Admin Dose 1 TAB; Start 09/13/18 at 09:00 LYNDA TREJO MD September 16, 2018 15:45
[2018-09-16 20:00] VITALS: BP 141/91; PULSE 102; RESP 18
[2018-09-17 02:00] VITALS: BP 142/75; PULSE 103; RESP 18
[2018-09-17 07:56] VITALS: BP 135/82; PULSE 75; RESP 18
[2018-09-17] MEDS: MULTIVITAMINS/MINERALS TAB PO SCH (09:54)
[2018-09-17] MEDS: NICOTINE (21 MG/24 HR) PATCH TRANSDERM SCH (09:54)
[2018-09-17] MEDS: LACTOBACILLUS RHAMNOSUS CAP PO SCH ×2 (09:54→21:43)
[2018-09-17] MEDS: ZYVOX 600 MG TAB PO SCH ×2 (09:54→21:43)
[2018-09-17] MEDS: ASCORBIC ACID 500 MG TAB PO SCH ×2 (09:54→21:43)
[2018-09-17] MEDS: ENOXAPARIN 40 MG/0.4 ML SYG SC SCH (09:55)
--- NOTE | 2018-09-17 13:32 | CONS ---
Assessment/Plan Assessment/Plan Hospital Course (Demo Recall) No changes Microbiology: Blood cultures remain negative wound culture + VRE, Corynebacterium group JK Antimicrobials: Zyvox Physical examination: Morbidly obese well-developed middle-aged white woman who is in no distress. Head atraumatic normocephalic. Neck is obese. Chest rise symmetrical. Breath sounds diminished to bases. Heart: S1-S2. Abdomen obese bowel tones present. Extremities: Left lower extremity dressing intact Assessment: 1. Left lower extremity cellulitis/venous ulceration status post I&D with wound VAC application 2. Morbid obesity Plan: Remains stable, pending discharge arrangements,continue Zyvox to complete 10-14 days Consultation Date/Type/Reason Admit Date/Time Aug 31, 2018 at 22:53 Initial Consult Date Type of Consult id Date/Time of Note DATE: 09/17/18 TIME: 13:31 Exam/Review of Systems Exam Vitals Vital Signs Date Temp Pulse Resp B/P (MAP) Pulse Ox O2 O2 Flow FiO2 Time Delivery Rate 09/17/18 98.0 75 18 135/82 98 Room Air 07:56 (99) Intake and Output 09/16/18 09/16/18 09/17/18 1515:00 23:00 07:00 IntakeIntake Total 300 ml 500 ml 800 ml OutputOutput Total 0 ml 0 ml BalanceBalance 300 ml 500 ml 800 ml Results Result Diagram: 09/16/18 1029 Medications Medication Current Medications IV Flush (NS 3 ml) 3 ml PER PROTOCOL IV ; Start 08/31/18 at 23:30 Ondansetron HCl (Zofran Tab) 4 mg Q6H PRN PO NAUSEA/VOMITING; Start 08/31/18 at 23:30 Acetaminophen (Tylenol Tab) 650 mg Q6H PRN PO .PAIN 1-3 OR TEMP Last administered on 09/07/18at 17:09; Admin Dose 650 MG; Start 08/31/18 at 23:30 Acetaminophen/ Hydrocodone Bitart ([place] (5/325)) 1 tab Q6H PRN PO .MOD PAIN 4- 6 Last administered on 09/15/18 11:07; Admin Dose 1 TAB; Start 08/31/18 at 23:30 Morphine Sulfate (morphine) 2 mg Q4H PRN IV .SEVERE PAIN 7-10 Last administered on 09/08/18 10:14; Admin Dose 2 MG; Start 08/31/18 at 23:30 Docusate Sodium (Colace) 100 mg Q12H PRN PO .CONSTIPATION; Start 08/31/18 at 23:30 Bisacodyl (Dulcolax) 5 mg DAILY PRN PO .CONSTIPATION; Start 08/31/18 at 23:30 Nicotine (Nicoderm 21 Mg/ 24hr) 1 patch DAILY TRANSDERM Last administered on 09/17/18 09:54; Admin Dose 1 PATCH; Start 09/01/18 at 09:00; Stop 10/01/18 at 08:59 Nicotine Polacrilex (Nicorette) 2 mg Q2H PRN BUCCAL CONTROL WITHDRAWAL SYMPTOMS; Start 08/31/18 at 23:30 Lorazepam (Ativan) 0.5 mg Q8H PRN PO ANXIETY Last administered on 09/01/18 22:02; Admin Dose 0.5 MG; Start 09/01/18 at 00:30 Collagenase (Santyl) 1 applic PRN PRN TOP SOIL Last administered on 09/01/18 01:13; Admin Dose 1 APPLIC; Start 09/01/18 at 01:00 Lactobacillus Acidophilus/ Rhamnosus (Culturelle) 1 cap BID PO Last administered on 09/17/18 09:54; Admin Dose 1 CAP; Start 09/08/18 at 21:00 Enoxaparin Sodium (Lovenox) 40 mg DAILY SC Last administered on 09/17/18 09:55; Admin Dose 40 MG; Start 09/08/18 at 15:30 Linezolid (Zyvox) 600 mg BID PO Last administered on 09/17/18 09:54; Admin Dose 600 MG; Start 09/10/18 at 11:00 Ascorbic Acid (Vitamin C) 500 mg BID PO Last administered on 09/17/18 09:54; Admin Dose 500 MG; Start 09/13/18 at 09:00 Multivitamins/ Minerals (Theragran-M) 1 tab DAILY PO Last administered on 09/17/18 09:54; Admin Dose 1 TAB; Start 09/13/18 at 09:00 AGUSTÍN CUMMINGS NP September 17, 2018 13:32
--- NOTE | 2018-09-17 15:24 | PN ---
Date/Time of Note Date/Time of Note DATE: 09/17/18 TIME: 15:23 Assessment/Plan VTE Prophylaxis Risk score (from Nsg)>0 risk: 4 Pharmacological prophylaxis: LMWH Lines/Catheters IV Catheter Type (from Nrsg): Saline Lock Urinary Cath still in place: No Assessment/Plan Hospital Course 33 yo female with morbid obesity and wound infection of L leg - wound vac x [address] Alegre - Requires MRSA coverage -> abx per ID Prophylaxis: Lovenox Placement in SNF pending. Complicated by lack of housing and need for chronic wound vac Result Diagram: 09/16/18 1029 Subjective 24 Hr Interval Summary Constitutional: no complaints Exam/Review of Systems Exam Vitals Vital Signs Date Temp Pulse Resp B/P (MAP) Pulse Ox O2 O2 Flow FiO2 Time Delivery Rate 09/17/18 98.0 75 18 135/82 98 Room Air 07:56 (99) Intake and Output 09/16/18 09/16/18 09/17/18 1515:00 23:00 07:00 IntakeIntake Total 300 ml 500 ml 800 ml OutputOutput Total 0 ml 0 ml BalanceBalance 300 ml 500 ml 800 ml Constitutional: alert, oriented Respiratory: clear to auscultation Cardiovascular: regular rate and rhythm Gastrointestinal: soft; No distended Musculoskeletal: No nl extremities to inspection Medications Medication Current Medications IV Flush (NS 3 ml) 3 ml PER PROTOCOL IV ; Start 08/31/18 at 23:30 Ondansetron HCl (Zofran Tab) 4 mg Q6H PRN PO NAUSEA/VOMITING; Start 08/31/18 at 23:30 Acetaminophen (Tylenol Tab) 650 mg Q6H PRN PO .PAIN 1-3 OR TEMP Last administered on 09/07/18at 17:09; Admin Dose 650 MG; Start 08/31/18 at 23:30 Acetaminophen/ Hydrocodone Bitart ([place] (5/325)) 1 tab Q6H PRN PO .MOD PAIN 4- 6 Last administered on 09/15/18 11:07; Admin Dose 1 TAB; Start 08/31/18 at 23:30 Morphine Sulfate (morphine) 2 mg Q4H PRN IV .SEVERE PAIN 7-10 Last administered on 09/08/18 10:14; Admin Dose 2 MG; Start 08/31/18 at 23:30 Docusate Sodium (Colace) 100 mg Q12H PRN PO .CONSTIPATION; Start 08/31/18 at 23:30 Bisacodyl (Dulcolax) 5 mg DAILY PRN PO .CONSTIPATION; Start 08/31/18 at 23:30 Nicotine (Nicoderm 21 Mg/ 24hr) 1 patch DAILY TRANSDERM Last administered on 09/17/18 09:54; Admin Dose 1 PATCH; Start 09/01/18 at 09:00; Stop 10/01/18 at 08:59 Nicotine Polacrilex (Nicorette) 2 mg Q2H PRN BUCCAL CONTROL WITHDRAWAL SYMPTOMS; Start 08/31/18 at 23:30 Lorazepam (Ativan) 0.5 mg Q8H PRN PO ANXIETY Last administered on 09/01/18 22:02; Admin Dose 0.5 MG; Start 09/01/18 at 00:30 Collagenase (Santyl) 1 applic PRN PRN TOP SOIL Last administered on 09/01/18 01:13; Admin Dose 1 APPLIC; Start 09/01/18 at 01:00 Lactobacillus Acidophilus/ Rhamnosus (Culturelle) 1 cap BID PO Last administe red on 09/17/18 09:54; Admin Dose 1 CAP; Start 09/08/18 at 21:00 Enoxaparin Sodium (Lovenox) 40 mg DAILY SC Last administered on 09/17/18 09:55; Admin Dose 40 MG; Start 09/08/18 at 15:30 Linezolid (Zyvox) 600 mg BID PO Last administered on 09/17/18 09:54; Admin Dose 600 MG; Start 09/10/18 at 11:00 Ascorbic Acid (Vitamin C) 500 mg BID PO Last administered on 09/17/18 09:54; Admin Dose 500 MG; Start 09/13/18 at 09:00 Multivitamins/ Minerals (Theragran-M) 1 tab DAILY PO Last administered on 09:54; Admin Dose 1 TAB; Start 09/13/18 at 09:00 Hydrocortisone (Hydrocortisone 1% Cr) 1 applic BID TOP ; Start 09/17/18 at 21:00; Status LUIS RINCON September 17, 2018 15:24
[2018-09-17 15:42] VITALS: BP 145/84; PULSE 97; RESP 17
[2018-09-17] MEDS: HYDROCORTISONE 1% 28 GM CR TOP SCH ×2 (17:31→21:47)
[2018-09-17 20:53] VITALS: BP 136/80; PULSE 96; RESP 18
[2018-09-17] MEDS ORDERED: HYDROCORTISONE 1% 28 GM CR TOP SCH (21:00)
[2018-09-18] MEDS: ZOLPIDEM 5 MG TAB PO PRN ×2 (00:28→21:54)
[2018-09-18 02:18] VITALS: BP 141/74; PULSE 95; RESP 18
[2018-09-18 08:27] VITALS: BP 142/64; PULSE 94; RESP 16
[2018-09-18] MEDS: NICOTINE (21 MG/24 HR) PATCH TRANSDERM SCH (09:07)
[2018-09-18] MEDS: ZYVOX 600 MG TAB PO SCH ×2 (09:08→20:31)
[2018-09-18] MEDS: LACTOBACILLUS RHAMNOSUS CAP PO SCH ×2 (09:08→20:32)
[2018-09-18] MEDS: MULTIVITAMINS/MINERALS TAB PO SCH (09:08)
[2018-09-18] MEDS: ENOXAPARIN 40 MG/0.4 ML SYG SC SCH (09:08)
[2018-09-18] MEDS: ASCORBIC ACID 500 MG TAB PO SCH ×2 (09:08→20:32)
[2018-09-18] MEDS: HYDROCORTISONE 1% 28 GM CR TOP SCH ×2 (09:09→20:35)
[2018-09-18] MEDS: HYDROCODONE/APAP (5/325) TAB PO PRN (11:56)
--- NOTE | 2018-09-18 12:23 | CONS ---
Assessment/Plan Assessment/Plan Hospital Course (Demo Recall) No changes Microbiology: Blood cultures remain negative wound culture + VRE, Corynebacterium group JK Antimicrobials: Zyvox Physical examination: Morbidly obese well-developed middle-aged white woman who is in no distress. Head atraumatic normocephalic. Neck is obese. Chest rise symmetrical. Breath sounds diminished to bases. Heart: S1-S2. Abdomen obese bowel tones present. Extremities: Left lower extremity dressing intact Assessment: 1. Left lower extremity cellulitis/venous ulceration status post I&D with wound VAC application 2. Morbid obesity Plan: Remains stable, pending discharge arrangements, continue Zyvox for couple more days Consultation Date/Type/Reason Admit Date/Time Aug 31, 2018 at 22:53 Initial Consult Date Type of Consult id Date/Time of Note DATE: 09/18/18 TIME: 12:23 Exam/Review of Systems Exam Vitals Vital Signs Date Temp Pulse Resp B/P (MAP) Pulse Ox O2 O2 Flow FiO2 Time Delivery Rate 09/18/18 97.9 94 16 142/64 97 08:27 (90) 09/17/18 Room Air 15:42 Intake and Output 09/17/18 09/17/18 09/18/18 1414:59 22:59 06:59 IntakeIntake Total 400 ml 300 ml BalanceBalance 400 ml 300 ml Results Result Diagram: 09/16/18 1029 Medications Medication Current Medications IV Flush (NS 3 ml) 3 ml PER PROTOCOL IV ; Start 08/31/18 at 23:30 Ondansetron HCl (Zofran Tab) 4 mg Q6H PRN PO NAUSEA/VOMITING; Start 08/31/18 at 23:30 Acetaminophen (Tylenol Tab) 650 mg Q6H PRN PO .PAIN 1-3 OR TEMP Last administered on 09/07/18at 17:09; Admin Dose 650 MG; Start 08/31/18 at 23:30 Acetaminophen/ Hydrocodone Bitart ([place] (5/325)) 1 tab Q6H PRN PO .MOD PAIN 4- 6 Last administered on 09/18/18at 11:56; Admin Dose 1 TAB; Start 08/31/18 at 23:30 Morphine Sulfate (morphine) 2 mg Q4H PRN IV .SEVERE PAIN 7-10 Last administered on 09/08/18at 10:14; Admin Dose 2 MG; Start 08/31/18 at 23:30 Docusate Sodium (Colace) 100 mg Q12H PRN PO .CONSTIPATION; Start 08/31/18 at 23:30 Bisacodyl (Dulcolax) 5 mg DAILY PRN PO .CONSTIPATION; Start 08/31/18 at 23:30 Nicotine (Nicoderm 21 Mg/ 24hr) 1 patch DAILY TRANSDERM Last administered on 09/18/18 09:07; Admin Dose 1 PATCH; Start 09/01/18 at 09:00; Stop 10/01/18 at 08:59 Nicotine Polacrilex (Nicorette) 2 mg Q2H PRN BUCCAL CONTROL WITHDRAWAL SYMPTOMS; Start 08/31/18 at 23:30 Lorazepam (Ativan) 0.5 mg Q8H PRN PO ANXIETY Last administered on 09/01/18 22:02; Admin Dose 0.5 MG; Start 09/01/18 at 00:30 Collagenase (Santyl) 1 applic PRN PRN TOP SOIL Last administered on 09/01/18 01:13; Admin Dose 1 APPLIC; Start 09/01/18 at 01:00 Lactobacillus Acidophilus/ Rhamnosus (Culturelle) 1 cap BID PO Last administered on 09/18/18 09:08; Admin Dose 1 CAP; Start 09/08/18 at 21:00 Enoxaparin Sodium (Lovenox) 40 mg DAILY SC Last administered on 09/18/18 09:08; Admin Dose 40 MG; Start 09/08/18 at 15:30 Linezolid (Zyvox) 600 mg BID PO Last administered on 09/18/18 09:08; Admin Dose 600 MG; Start 09/10/18 at 11:00 Ascorbic Acid (Vitamin C) 500 mg BID PO Last administered on 09/18/18 09:08; Admin Dose 500 MG; Start 09/13/18 at 09:00 Multivitamins/ Minerals (Theragran-M) 1 tab DAILY PO Last administered on 09/18/18 09:08; Admin Dose 1 TAB; Start 09/13/18 at 09:00 Hydrocortisone (Hydrocortisone 1% Cr) 1 applic BID TOP Last administered on 09/18/18 09:09; Admin Dose 1 APPLIC; Start 09/17/18 at 16:30 Zolpidem Tartrate (Ambien) 5 mg HS PRN PO INSOMNIA Last administered on 09/18/18at 00:28; Admin Dose 5 MG; Start 09/18/18 at 00:00 AGUSTÍN CUMMINGS NP September 18, 2018 12:23
[2018-09-18 14:14] VITALS: BP 136/75; PULSE 101; RESP 16
--- NOTE | 2018-09-18 15:39 | PN ---
Date/Time of Note Date/Time of Note DATE: 09/18/18 TIME: 15:38 Assessment/Plan VTE Prophylaxis Risk score (from Nsg)>0 risk: 3 Pharmacological prophylaxis: LMWH Lines/Catheters IV Catheter Type (from Nrsg): Saline Lock Urinary Cath still in place: No Assessment/Plan Hospital Course 33 yo female with morbid obesity and wound infection of L leg - wound vac x [address] Alegre - Requires MRSA coverage -> abx per ID Prophylaxis: Lovenox Placement in SNF pending. Complicated by lack of housing and need for chronic wound vac Result Diagram: 09/16/18 1029 Subjective 24 Hr Interval Summary Constitutional: no complaints Exam/Review of Systems Exam Vitals Vital Signs Date Temp Pulse Resp B/P (MAP) Pulse Ox O2 O2 Flow FiO2 Time Delivery Rate 09/18/18 97.8 101 16 136/75 97 14:14 (95) 09/17/18 Room Air 15:42 Intake and Output 09/17/18 09/17/18 09/18/18 1515:00 23:00 07:00 IntakeIntake Total 400 ml 300 ml BalanceBalance 400 ml 300 ml Constitutional: alert, oriented Respiratory: clear to auscultation Cardiovascular: regular rate and rhythm Gastrointestinal: soft; No distended Musculoskeletal: nl extremities to inspection Medications Medication Current Medications IV Flush (NS 3 ml) 3 ml PER PROTOCOL IV ; Start 08/31/18 at 23:30 Ondansetron HCl (Zofran Tab) 4 mg Q6H PRN PO NAUSEA/VOMITING; Start 08/31/18 at 23:30 Acetaminophen (Tylenol Tab) 650 mg Q6H PRN PO .PAIN 1-3 OR TEMP Last administered on 09/07/18at 17:09; Admin Dose 650 MG; Start 08/31/18 at 23:30 Acetaminophen/ Hydrocodone Bitart ([place] (5/325)) 1 tab Q6H PRN PO .MOD PAIN 4- 6 Last administered on 09/18/18at 11:56; Admin Dose 1 TAB; Start 08/31/18 at 23:30 Morphine Sulfate (morphine) 2 mg Q4H PRN IV .SEVERE PAIN 7-10 Last administered on 09/08/18at 10:14; Admin Dose 2 MG; Start 08/31/18 at 23:30 Docusate Sodium (Colace) 100 mg Q12H PRN PO .CONSTIPATION; Start 08/31/18 at 23:30 Bisacodyl (Dulcolax) 5 mg DAILY PRN PO .CONSTIPATION; Start 08/31/18 at 23:30 Nicotine (Nicoderm 21 Mg/ 24hr) 1 patch DAILY TRANSDERM Last administered on 09/18/18 09:07; Admin Dose 1 PATCH; Start 09/01/18 at 09:00; Stop 10/01/18 at 08:59 Nicotine Polacrilex (Nicorette) 2 mg Q2H PRN BUCCAL CONTROL WITHDRAWAL SYMPTOMS; Start 08/31/18 at 23:30 Lorazepam (Ativan) 0.5 mg Q8H PRN PO ANXIETY Last administered on 09/01/18 22:02; Admin Dose 0.5 MG; Start 09/01/18 at 00:30 Collagenase (Santyl) 1 applic PRN PRN TOP SOIL Last administered on 09/01/18 01:13; Admin Dose 1 APPLIC; Start 09/01/18 at 01:00 Lactobacillus Acidophilus/ Rhamnosus (Culturelle) 1 cap BID PO Last administered on 09/18/18 09:08; Admin Dose 1 CAP; Start 09/08/18 at 21:00 Enoxaparin Sodium (Lovenox) 40 mg DAILY SC Last administered on 09/18/18 09:08; Admin Dose 40 MG; Start 09/08/18 at 15:30 Linezolid (Zyvox) 600 mg BID PO Last administered on 09/18/18 09:08; Admin Dose 600 MG; Start 09/10/18 at 11:00 Ascorbic Acid (Vitamin C) 500 mg BID PO Last administered on 09/18/18 09:08; Admin Dose 500 MG; Start 09/13/18 at 09:00 Multivitamins/ Minerals (Theragran-M) 1 tab DAILY PO Last administered on 09/18/18 09:08; Admin Dose 1 TAB; Start 09/13/18 at 09:00 Hydrocortisone (Hydrocortisone 1% Cr) 1 applic BID TOP Last administered on 09/18/18 09:09; Admin Dose 1 APPLIC; Start 09/17/18 at 16:30 Zolpidem Tartrate (Ambien) 5 mg HS PRN PO INSOMNIA Last administered on 5/7/19at 00:28; Admin Dose 5 MG; Start 09/18/18 at 00:00 LUIS ARDON September 18, 2018 15:39
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
[2018-09-18 20:00] VITALS: BP 119/59; PULSE 97; RESP 18
[2018-09-19 02:00] VITALS: BP 134/78; PULSE 96; RESP 17
[2018-09-19 07:49] VITALS: BP 124/74; PULSE 87; RESP 16
[2018-09-19] MEDS: NICOTINE (21 MG/24 HR) PATCH TRANSDERM SCH (09:00)
[2018-09-19] MEDS: LACTOBACILLUS RHAMNOSUS CAP PO SCH ×2 (09:08→20:11)
[2018-09-19] MEDS: ASCORBIC ACID 500 MG TAB PO SCH ×2 (09:08→20:11)
[2018-09-19] MEDS: ZYVOX 600 MG TAB PO SCH ×2 (09:08→20:11)
[2018-09-19] MEDS: MULTIVITAMINS/MINERALS TAB PO SCH (09:08)
[2018-09-19] MEDS: HYDROCORTISONE 1% 28 GM CR TOP SCH ×2 (09:09→20:11)
[2018-09-19] MEDS: ENOXAPARIN 40 MG/0.4 ML SYG SC SCH (09:09)
[2018-09-19 14:30] VITALS: BP 135/79; PULSE 86; RESP 16
--- NOTE | 2018-09-19 14:31 | CONS ---
Assessment/Plan Assessment/Plan Hospital Course (Demo Recall) No changes per report Microbiology: Blood cultures remain negative wound culture + VRE, Coryn ebacterium group JK Antimicrobials: Zyvox Physical examination: Morbidly obese well-developed middle-aged white woman who is in no distress. Head atraumatic normocephalic. Neck is obese. Chest rise symmetrical. Breath sounds diminished to bases. Heart: S1-S2. Abdomen obese bowel tones present. Extremities: Left lower extremity dressing intact Assessment: 1. Left lower extremity cellulitis/venous ulceration status post I&D with wound VAC application 2. Morbid obesity Plan: Podiatry rec-s noted, continue Zyvox for couple more days Consultation Date/Type/Reason Admit Date/Time Aug 31, 2018 at 22:53 Initial Consult Date Type of Consult id Date/Time of Note DATE: 09/19/18 TIME: 14:30 Exam/Review of Systems Exam Vitals Vital Signs Date Temp Pulse Resp B/P (MAP) Pulse Ox O2 O2 Flow FiO2 Time Delivery Rate 09/19/18 97.7 87 16 124/74 96 07:49 (91) 09/17/18 Room Air 15:42 Intake and Output 09/18/18 09/18/18 09/19/18 1515:00 23:00 07:00 IntakeIntake Total 620 ml 1400 ml OutputOutput Total 50 ml BalanceBalance 620 ml 1350 ml Results Result Diagram: 09/16/18 1029 Medications Medication Current Medications IV Flush (NS 3 ml) 3 ml PER PROTOCOL IV ; Start 08/31/18 at 23:30 Ondansetron HCl (Zofran Tab) 4 mg Q6H PRN PO NAUSEA/VOMITING; Start 08/31/18 at 23:30 Acetaminophen (Tylenol Tab) 650 mg Q6H PRN PO .PAIN 1-3 OR TEMP Last administered on 09/07/18at 17:09; Admin Dose 650 MG; Start 08/31/18 at 23:30 Acetaminophen/ Hydrocodone Bitart ([place] (5/325)) 1 tab Q6H PRN PO .MOD PAIN 4- 6 Last administered on 09/18/18at 11:56; Admin Dose 1 TAB; Start 08/31/18 at 23:30 Morphine Sulfate (morphine) 2 mg Q4H PRN IV .SEVERE PAIN 7-10 Last administered on 09/08/18 10:14; Admin Dose 2 MG; Start 08/31/18 at 23:30 Docusate Sodium (Colace) 100 mg Q12H PRN PO .CONSTIPATION; Start 08/31/18 at 2 3:30 Bisacodyl (Dulcolax) 5 mg DAILY PRN PO .CONSTIPATION; Start 08/31/18 at 23:30 Nicotine (Nicoderm 21 Mg/ 24hr) 1 patch DAILY TRANSDERM Last administered on 09/18/18 09:07; Admin Dose 1 PATCH; Start 09/01/18 at 09:00; Stop 10/01/18 at 08:59 Nicotine Polacrilex (Nicorette) 2 mg Q2H PRN BUCCAL CONTROL WITHDRAWAL SYMPTOMS; Start 08/31/18 at 23:30 Lorazepam (Ativan) 0.5 mg Q8H PRN PO ANXIETY Last administered on 09/01/18 22:02; Admin Dose 0.5 MG; Start 09/01/18 at 00:30 Collagenase (Santyl) 1 applic PRN PRN TOP SOIL Last administered on 09/01/18 01:13; Admin Dose 1 APPLIC; Start 09/01/18 at 01:00 Lactobacillus Acidophilus/ Rhamnosus (Culturelle) 1 cap BID PO Last administered on 09/19/18 09:08; Admin Dose 1 CAP; Start 09/08/18 at 21:00 Enoxaparin Sodium (Lovenox) 40 mg DAILY SC Last administered on 09/19/18 09:09; Admin Dose 40 MG; Start 09/08/18 at 15:30 Linezolid (Zyvox) 600 mg BID PO Last administered on 09/19/18 09:08; Admin Dose 600 MG; Start 09/10/18 at 11:00 Ascorbic Acid (Vitamin C) 500 mg BID PO Last administered on 09/19/18 09:08; Admin Dose 500 MG; Start 09/13/18 at 09:00 Multivitamins/ Minerals (Theragran-M) 1 tab DAILY PO Last administered on 09/19/18 09:08; Admin Dose 1 TAB; Start 09/13/18 at 09:00 Hydrocortisone (Hydrocortisone 1% Cr) 1 applic BID TOP Last administered on 09/19/18 09:09; Admin Dose 1 APPLIC; Start 09/17/18 at 16:30 Zolpidem Tartrate (Ambien) 5 mg HS PRN PO INSOMNIA Last administered on 09/18/18at 21:54; Admin Dose 5 MG; Start 09/18/18 at 00:00 AGUSTÍN CUMMINGS NP September 19, 2018 14:31
--- NOTE | 2018-09-19 14:34 | PN ---
Date/Time of Note Date/Time of Note DATE: 09/19/18 TIME: 14:34 Assessment/Plan VTE Prophylaxis Risk score (from Nsg)>0 risk: 3 Pharmacological prophylaxis: LMWH Lines/Catheters IV Catheter Type (from Nrsg): Saline Lock Urinary Cath still in place: No Assessment/Plan Hospital Course 33 yo female with morbid obesity and wound infection of L leg - wound vac x [address] Alegre - Requires MRSA coverage -> abx per ID Prophylaxis: Lovenox Placement in SNF pending. Complicated by lack of housing and need for chronic wound vac Result Diagram: 09/16/18 1029 Subjective 24 Hr Interval Summary Constitutional: no complaints Exam/Review of Systems Exam Vitals Vital Signs Date Temp Pulse Resp B/P (MAP) Pulse Ox O2 O2 Flow FiO2 Time Delivery Rate 09/19/18 97.7 87 16 124/74 96 07:49 (91) 09/17/18 Room Air 15:42 Intake and Output 09/18/18 09/18/18 09/19/18 1515:00 23:00 07:00 IntakeIntake Total 620 ml 1400 ml OutputOutput Total 50 ml BalanceBalance 620 ml 1350 ml Constitutional: alert, oriented Respiratory: clear to auscultation Cardiovascular: regular rate and rhythm Gastrointestinal: soft; No distended Musculoskeletal: No nl extremities to inspection Medications Medication Current Medications IV Flush (NS 3 ml) 3 ml PER PROTOCOL IV ; Start 08/31/18 at 23:30 Ondansetron HCl (Zofran Tab) 4 mg Q6H PRN PO NAUSEA/VOMITING; Start 08/31/18 at 23:30 Acetaminophen (Tylenol Tab) 650 mg Q6H PRN PO .PAIN 1-3 OR TEMP Last administered on 09/07/18at 17:09; Admin Dose 650 MG; Start 08/31/18 at 23:30 Acetaminophen/ Hydrocodone Bitart ([place] (5/325)) 1 tab Q6H PRN PO .MOD PAIN 4- 6 Last administered on 09/18/18at 11:56; Admin Dose 1 TAB; Start 08/31/18 at 23:30 Morphine Sulfate (morphine) 2 mg Q4H PRN IV .SEVERE PAIN 7-10 Last administered on 09/08/18at 10:14; Admin Dose 2 MG; Start 08/31/18 at 23:30 Docusate Sodium (Colace) 100 mg Q12H PRN PO .CONSTIPATION; Start 08/31/18 at 23:30 Bisacodyl (Dulcolax) 5 mg DAILY PRN PO .CONSTIPATION; Start 08/31/18 at 23:30 Nicotine (Nicoderm 21 Mg/ 24hr) 1 patch DAILY TRANSDERM Last administered on 09/18/18 09:07; Admin Dose 1 PATCH; Start 09/01/18 at 09:00; Stop 10/01/18 at 08:59 Nicotine Polacrilex (Nicorette) 2 mg Q2H PRN BUCCAL CONTROL WITHDRAWAL SYMPTOMS; Start 08/31/18 at 23:30 Lorazepam (Ativan) 0.5 mg Q8H PRN PO ANXIETY Last administered on 09/01/18 22:02; Admin Dose 0.5 MG; Start 09/01/18 at 00:30 Collagenase (Santyl) 1 applic PRN PRN TOP SOIL Last administered on 09/01/18 01:13; Admin Dose 1 APPLIC; Start 09/01/18 at 01:00 Lactobacillus Acidophilus/ Rhamnosus (Culturelle) 1 cap BID PO Last administered on 09/19/18 09:08; Admin Dose 1 CAP; Start 09/08/18 at 21:00 Enoxaparin Sodium (Lovenox) 40 mg DAILY SC Last administered on 09/19/18 09:09; Admin Dose 40 MG; Start 09/08/18 at 15:30 Linezolid (Zyvox) 600 mg BID PO Last administered on 09/19/18 09:08; Admin Dose 600 MG; Start 09/10/18 at 11:00 Ascorbic Acid (Vitamin C) 500 mg BID PO Last administered on 09/19/18 09:08; Admin Dose 500 MG; Start 09/13/18 at 09:00 Multivitamins/ Minerals (Theragran-M) 1 tab DAILY PO Last administered on 09/19/18 09:08; Admin Dose 1 TAB; Start 09/13/18 at 09:00 Hydrocortisone (Hydrocortisone 1% Cr) 1 applic BID TOP Last administered on 09/19/18 09:09; Admin Dose 1 APPLIC; Start 09/17/18 at 16:30 Zolpidem Tartrate (Ambien) 5 mg HS PRN PO INSOMNIA Last administered on 5/7/19at 21:54; Admin Dose 5 MG; Start 09/18/18 at 00:00 LUIS ARDON September 19, 2018 14:34
[2018-09-19 20:00] VITALS: BP 139/77; PULSE 91; RESP 18
[2018-09-19] MEDS: HYDROCODONE/APAP (5/325) TAB PO PRN (21:14)
[2018-09-20] MEDS: ZOLPIDEM 5 MG TAB PO PRN (00:05)
[2018-09-20 02:00] VITALS: BP 136/63; PULSE 94; RESP 17
[2018-09-20 08:00] VITALS: BP 146/74; PULSE 97; RESP 17
[2018-09-20] MEDS: MULTIVITAMINS/MINERALS TAB PO SCH (09:10)
[2018-09-20] MEDS: LACTOBACILLUS RHAMNOSUS CAP PO SCH ×2 (09:10→20:55)
[2018-09-20] MEDS: NICOTINE (21 MG/24 HR) PATCH TRANSDERM SCH (09:10)
[2018-09-20] MEDS: ASCORBIC ACID 500 MG TAB PO SCH ×2 (09:10→20:55)
[2018-09-20] MEDS: ENOXAPARIN 40 MG/0.4 ML SYG SC SCH (09:10)
[2018-09-20] MEDS: ZYVOX 600 MG TAB PO SCH ×2 (09:10→20:55)
[2018-09-20] MEDS: HYDROCORTISONE 1% 28 GM CR TOP SCH ×2 (09:11→20:55)
[2018-09-20] MEDS: HYDROCODONE/APAP (5/325) TAB PO PRN (09:49)
--- NOTE | 2018-09-20 11:45 | CONS ---
Assessment/Plan Assessment/Plan Hospital Course (Demo Recall) No changes per report Microbiology: Blood cultures remain negative wound culture + VRE, Coryn ebacterium group JK Antimicrobials: Zyvox Physical examination: Morbidly obese well-developed middle-aged white woman who is in no distress. Head atraumatic normocephalic. Neck is obese. Chest rise symmetrical. Breath sounds diminished to bases. Heart: S1-S2. Abdomen obese bowel tones present. Extremities: Left lower extremity dressing intact Assessment: 1. Left lower extremity cellulitis/venous ulceration status post I&D with wound VAC application 2. Morbid obesity Plan: Completing abx Consultation Date/Type/Reason Admit Date/Time Aug 31, 2018 at 22:53 Initial Consult Date Type of Consult id Date/Time of Note DATE: 09/20/18 TIME: 11:45 Exam/Review of Systems Exam Vitals Vital Signs Date Temp Pulse Resp B/P (MAP) Pulse Ox O2 O2 Flow FiO2 Time Delivery Rate 09/20/18 98.0 97 17 146/74 95 Room Air 08:00 (98) Intake and Output 09/19/18 09/19/18 09/20/18 1515:00 23:00 07:00 IntakeIntake Total 600 ml 1000 ml BalanceBalance 600 ml 1000 ml Results Result Diagram: 09/16/18 1029 Medications Medication Current Medications IV Flush (NS 3 ml) 3 ml PER PROTOCOL IV ; Start 08/31/18 at 23:30 Ondansetron HCl (Zofran Tab) 4 mg Q6H PRN PO NAUSEA/VOMITING; Start 08/31/18 at 23:30 Acetaminophen (Tylenol Tab) 650 mg Q6H PRN PO .PAIN 1-3 OR TEMP Last administered on 09/07/18at 17:09; Admin Dose 650 MG; Start 08/31/18 at 23:30 Acetaminophen/ Hydrocodone Bitart ([place] (5/325)) 1 tab Q6H PRN PO .MOD PAIN 4- 6 Last administered on 09/20/18at 09:49; Admin Dose 1 TAB; Start 08/31/18 at 23:30 Morphine Sulfate (morphine) 2 mg Q4H PRN IV .SEVERE PAIN 7-10 Last administered on 09/08/18at 10:14; Admin Dose 2 MG; Start 08/31/18 at 23:30 Docusate Sodium (Colace) 100 mg Q12H PRN PO .CONSTIPATION; Start 08/31/18 at 23:30 Bisacodyl (Dulcolax) 5 mg DAILY PRN PO .CONSTIPATION; Start 08/31/18 at 23:30 Nicotine (Nicoderm 21 Mg/ 24hr) 1 patch DAILY TRANSDERM Last administered on 09/20/18 09:10; Admin Dose 1 PATCH; Start 09/01/18 at 09:00; Stop 10/01/18 at 08:59 Nicotine Polacrilex (Nicorette) 2 mg Q2H PRN BUCCAL CONTROL WITHDRAWAL SYMPTOMS; Start 08/31/18 at 23:30 Lorazepam (Ativan) 0.5 mg Q8H PRN PO ANXIETY Last administered on 09/01/18 22:02; Admin Dose 0.5 MG; Start 09/01/18 at 00:30 Collagenase (Santyl) 1 applic PRN PRN TOP SOIL Last administered on 09/01/18 01:13; Admin Dose 1 APPLIC; Start 09/01/18 at 01:00 Lactobacillus Acidophilus/ Rhamnosus (Culturelle) 1 cap BID PO Last administer ed on 09/20/18 09:10; Admin Dose 1 CAP; Start 09/08/18 at 21:00 Enoxaparin Sodium (Lovenox) 40 mg DAILY SC Last administered on 09/20/18 09:10; Admin Dose 40 MG; Start 09/08/18 at 15:30 Linezolid (Zyvox) 600 mg BID PO Last administered on 09/20/18 09:10; Admin Dose 600 MG; Start 09/10/18 at 11:00 Ascorbic Acid (Vitamin C) 500 mg BID PO Last administered on 09/20/18 09:10; Admin Dose 500 MG; Start 09/13/18 at 09:00 Multivitamins/ Minerals (Theragran-M) 1 tab DAILY PO Last administered on 9at 09:10; Admin Dose 1 TAB; Start 09/13/18 at 09:00 Hydrocortisone (Hydrocortisone 1% Cr) 1 applic BID TOP Last administered on 09/20/18 09:11; Admin Dose 1 APPLIC; Start 09/17/18 at 16:30 Zolpidem Tartrate (Ambien) 5 mg HS PRN PO INSOMNIA Last administered on 5/9/19at 00:05; Admin Dose 5 MG; Start 09/18/18 at 00:00 AGUSTÍN CUMMINGS NP September 20, 2018 11:45
[2018-09-20 14:00] VITALS: BP 160/85; PULSE 92; RESP 17
--- NOTE | 2018-09-20 14:42 | PN ---
Date/Time of Note Date/Time of Note DATE: 09/20/18 TIME: 14:42 Assessment/Plan VTE Prophylaxis Risk score (from Nsg)>0 risk: 3 Pharmacological prophylaxis: LMWH Lines/Catheters IV Catheter Type (from Nrsg): Saline Lock Urinary Cath still in place: No Assessment/Plan Hospital Course 33 yo female with morbid obesity and wound infection of L leg - wound vac x [address] Alegre - Requires MRSA coverage -> abx per ID Prophylaxis: Lovenox Placement in SNF pending. Complicated by lack of housing and need for chronic wound vac Result Diagram: 09/16/18 1029 Subjective 24 Hr Interval Summary Constitutional: no complaints Exam/Review of Systems Exam Vitals Vital Signs Date Temp Pulse Resp B/P (MAP) Pulse Ox O2 O2 Flow FiO2 Time Delivery Rate 09/20/18 98.0 97 17 146/74 95 Room Air 08:00 (98) Intake and Output 09/19/18 09/19/18 09/20/18 1515:00 23:00 07:00 IntakeIntake Total 600 ml 1000 ml BalanceBalance 600 ml 1000 ml Constitutional: alert, oriented Respiratory: clear to auscultation Cardiovascular: regular rate and rhythm Gastrointestinal: soft; No distended Musculoskeletal: nl extremities to inspection Medications Medication Current Medications IV Flush (NS 3 ml) 3 ml PER PROTOCOL IV ; Start 08/31/18 at 23:30 Ondansetron HCl (Zofran Tab) 4 mg Q6H PRN PO NAUSEA/VOMITING; Start 08/31/18 at 23:30 Acetaminophen (Tylenol Tab) 650 mg Q6H PRN PO .PAIN 1-3 OR TEMP Last administered on 09/07/18at 17:09; Admin Dose 650 MG; Start 08/31/18 at 23:30 Acetaminophen/ Hydrocodone Bitart ([place] (5/325)) 1 tab Q6H PRN PO .MOD PAIN 4- 6 Last administered on 09/20/18at 09:49; Admin Dose 1 TAB; Start 08/31/18 at 23:30 Morphine Sulfate (morphine) 2 mg Q4H PRN IV .SEVERE PAIN 7-10 Last administered on 09/08/18at 10:14; Admin Dose 2 MG; Start 08/31/18 at 23:30 Docusate Sodium (Colace) 100 mg Q12H PRN PO .CONSTIPATION; Start 08/31/18 at 23:30 Bisacodyl (Dulcolax) 5 mg DAILY PRN PO .CONSTIPATION; Start 08/31/18 at 23:30 Nicotine (Nicoderm 21 Mg/ 24hr) 1 patch DAILY TRANSDERM Last administered on 09/20/18 09:10; Admin Dose 1 PATCH; Start 09/01/18 at 09:00; Stop 10/01/18 at 08:59 Nicotine Polacrilex (Nicorette) 2 mg Q2H PRN BUCCAL CONTROL WITHDRAWAL SYMPTOMS; Start 08/31/18 at 23:30 Lorazepam (Ativan) 0.5 mg Q8H PRN PO ANXIETY Last administered on 09/01/18 22:02; Admin Dose 0.5 MG; Start 09/01/18 at 00:30 Collagenase (Santyl) 1 applic PRN PRN TOP SOIL Last administered on 09/01/18 01:13; Admin Dose 1 APPLIC; Start 09/01/18 at 01:00 Lactobacillus Acidophilus/ Rhamnosus (Culturelle) 1 cap BID PO Last administered on 09/20/18 09:10; Admin Dose 1 CAP; Start 09/08/18 at 21:00 Enoxaparin Sodium (Lovenox) 40 mg DAILY SC Last administered on 09/20/18 09:10; Admin Dose 40 MG; Start 09/08/18 at 15:30 Linezolid (Zyvox) 600 mg BID PO Last administered on 09/20/18 09:10; Admin Dose 600 MG; Start 09/10/18 at 11:00 Ascorbic Acid (Vitamin C) 500 mg BID PO Last administered on 09/20/18 09:10; Admin Dose 500 MG; Start 09/13/18 at 09:00 Multivitamins/ Minerals (Theragran-M) 1 tab DAILY PO Last administered on 09/20/18 09:10; Admin Dose 1 TAB; Start 09/13/18 at 09:00 Hydrocortisone (Hydrocortisone 1% Cr) 1 applic BID TOP Last administered on 09/20/18 09:11; Admin Dose 1 APPLIC; Start 09/17/18 at 16:30 Zolpidem Tartrate (Ambien) 5 mg HS PRN PO INSOMNIA Last administered on 09/20/18 00:05; Admin Dose 5 MG; Start 09/18/18 at 00:00 LUIS ARDON September 20, 2018 14:42
[2018-09-20 19:48] VITALS: BP 130/72; PULSE 100; RESP 17
[2018-09-21] MEDS: ZOLPIDEM 5 MG TAB PO PRN ×2 (00:08→22:15)
[2018-09-21 02:12] VITALS: BP 154/94; PULSE 98; RESP 18
[2018-09-21 07:40] VITALS: BP 127/75; PULSE 98; RESP 16
[2018-09-21 07:58] VITALS: BP 129/61; PULSE 99; RESP 16
[2018-09-21] MEDS: HYDROCORTISONE 1% 28 GM CR TOP SCH ×2 (08:41→20:39)
[2018-09-21] MEDS: MULTIVITAMINS/MINERALS TAB PO SCH (08:41)
[2018-09-21] MEDS: LACTOBACILLUS RHAMNOSUS CAP PO SCH ×2 (08:41→20:39)
[2018-09-21] MEDS: ASCORBIC ACID 500 MG TAB PO SCH ×2 (08:41→20:39)
[2018-09-21] MEDS: ZYVOX 600 MG TAB PO SCH ×2 (08:41→20:39)
[2018-09-21] MEDS: NICOTINE (21 MG/24 HR) PATCH TRANSDERM SCH (08:42)
[2018-09-21] MEDS: ENOXAPARIN 40 MG/0.4 ML SYG SC SCH (08:43)
--- NOTE | 2018-09-21 11:56 | CONS ---
Assessment/Plan Assessment/Plan Hospital Course (Demo Recall) No changes per report, no fevers Microbiology: Blood cultures remain negative wound culture + VRE, Corynebacterium group JK Antimicrobials: Zyvox Assessment: 1. Left lower extremity cellulitis/venous ulceration status post I&D with wound VAC application 2. Morbid obesity Plan: Stable, dc abx in am Consultation Date/Type/Reason Admit Date/Time Aug 31, 2018 at 22:53 Initial Consult Date Type of Consult id Date/Time of Note DATE: 09/21/18 TIME: 11:55 Exam/Review of Systems Exam Vitals Vital Signs Date Temp Pulse Resp B/P (MAP) Pulse Ox O2 O2 Flow FiO2 Time Delivery Rate 09/21/18 98.5 98 16 127/75 99 Room Air 07:40 (92) Intake and Output 09/20/18 09/20/18 09/21/18 1414:59 22:59 06:59 IntakeIntake Total 900 ml 100 ml OutputOutput Total 10 ml 5 ml BalanceBalance 890 ml 95 ml Medications Medication Current Medications IV Flush (NS 3 ml) 3 ml PER PROTOCOL IV ; Start 08/31/18 at 23:30 Ondansetron HCl (Zofran Tab) 4 mg Q6H PRN PO NAUSEA/VOMITING; Start 08/31/18 at 23:30 Acetaminophen (Tylenol Tab) 650 mg Q6H PRN PO .PAIN 1-3 OR TEMP Last administered on 09/07/18at 17:09; Admin Dose 650 MG; Start 08/31/18 at 23:30 Acetaminophen/ Hydrocodone Bitart ([place] (5/325)) 1 tab Q6H PRN PO .MOD PAIN 4- 6 Last administered on 09/20/18at 09:49; Admin Dose 1 TAB; Start 08/31/18 at 23:30 Morphine Sulfate (morphine) 2 mg Q4H PRN IV .SEVERE PAIN 7-10 Last administered on 09/08/18at 10:14; Admin Dose 2 MG; Start 08/31/18 at 23:30 Docusate Sodium (Colace) 100 mg Q12H PRN PO .CONSTIPATION; Start 08/31/18 at 23:30 Bisacodyl (Dulcolax) 5 mg DAILY PRN PO .CONSTIPATION; Start 08/31/18 at 23:30 Nicotine (Nicoderm 21 Mg/ 24hr) 1 patch DAILY TRANSDERM Last administered on 09/20/18 09:10; Admin Dose 1 PATCH; Start 09/01/18 at 09:00; Stop 10/01/18 at 08:59 Nicotine Polacrilex (Nicorette) 2 mg Q2H PRN BUCCAL CONTROL WITHDRAWAL SYMPTOMS; Start 08/31/18 at 23:30 Lorazepam (Ativan) 0.5 mg Q8H PRN PO ANXIETY Last administered on 09/01/18 22: 02; Admin Dose 0.5 MG; Start 09/01/18 at 00:30 Collagenase (Santyl) 1 applic PRN PRN TOP SOIL Last administered on 09/01/18 01:13; Admin Dose 1 APPLIC; Start 09/01/18 at 01:00 Lactobacillus Acidophilus/ Rhamnosus (Culturelle) 1 cap BID PO Last administe red on 09/21/18 08:41; Admin Dose 1 CAP; Start 09/08/18 at 21:00 Enoxaparin Sodium (Lovenox) 40 mg DAILY SC Last administered on 09/21/18 08:43; Admin Dose 40 MG; Start 09/08/18 at 15:30 Linezolid (Zyvox) 600 mg BID PO Last administered on 09/21/18 08:41; Admin Dose 600 MG; Start 09/10/18 at 11:00 Ascorbic Acid (Vitamin C) 500 mg BID PO Last administered on 09/21/18 08:41; A dmin Dose 500 MG; Start 09/13/18 at 09:00 Multivitamins/ Minerals (Theragran-M) 1 tab DAILY PO Last administered on 09/21/18 08:41; Admin Dose 1 TAB; Start 09/13/18 at 09:00 Hydrocortisone (Hydrocortisone 1% Cr) 1 applic BID TOP Last administered on 09/20/18 20:55; Admin Dose 1 APPLIC; Start 09/17/18 at 16:30 Zolpidem Tartrate (Ambien) 5 mg HS PRN PO INSOMNIA Last administered on 09/21/18 00:08; Admin Dose 5 MG; Start 09/18/18 at 00:00 AGUSTÍN CUMMINGS NP September 21, 2018 11:56
--- NOTE | 2018-09-21 14:15 | PN ---
Date/Time of Note Date/Time of Note DATE: 09/21/18 TIME: 14:15 Assessment/Plan VTE Prophylaxis Risk score (from Nsg)>0 risk: 3 Pharmacological prophylaxis: LMWH Lines/Catheters IV Catheter Type (from Nrsg): Saline Lock Urinary Cath still in place: No Assessment/Plan Hospital Course 33 yo female with morbid obesity and wound infection of L leg - wound vac x [address] Alegre - Requires MRSA coverage -> abx per ID Prophylaxis: Lovenox Placement in SNF pending. Complicated by lack of housing and need for chronic wound vac Subjective 24 Hr Interval Summary Constitutional: no complaints Exam/Review of Systems Exam Vitals Vital Signs Date Temp Pulse Resp B/P (MAP) Pulse Ox O2 O2 Flow FiO2 Time Delivery Rate 09/21/18 98.5 98 16 127/75 99 Room Air 07:40 (92) Intake and Output 09/20/18 09/20/18 09/21/18 1515:00 23:00 07:00 IntakeIntake Total 900 ml 100 ml OutputOutput Total 10 ml 5 ml BalanceBalance 890 ml 95 ml Constitutional: alert, oriented Respiratory: clear to auscultation Cardiovascular: regular rate and rhythm Gastrointestinal: soft; No distended Musculoskeletal: No nl extremities to inspection Medications Medication Current Medications IV Flush (NS 3 ml) 3 ml PER PROTOCOL IV ; Start 08/31/18 at 23:30 Ondansetron HCl (Zofran Tab) 4 mg Q6H PRN PO NAUSEA/VOMITING; Start 08/31/18 at 23:30 Acetaminophen (Tylenol Tab) 650 mg Q6H PRN PO .PAIN 1-3 OR TEMP Last administered on 09/07/18at 17:09; Admin Dose 650 MG; Start 08/31/18 at 23:30 Acetaminophen/ Hydrocodone Bitart ([place] (5/325)) 1 tab Q6H PRN PO .MOD PAIN 4- 6 Last administered on 09/20/18 09:49; Admin Dose 1 TAB; Start 08/31/18 at 23:30 Morphine Sulfate (morphine) 2 mg Q4H PRN IV .SEVERE PAIN 7-10 Last administered on 09/08/18at 10:14; Admin Dose 2 MG; Start 08/31/18 at 23:30 Docusate Sodium (Colace) 100 mg Q12H PRN PO .CONSTIPATION; Start 08/31/18 at 23:30 Bisacodyl (Dulcolax) 5 mg DAILY PRN PO .CONSTIPATION; Start 08/31/18 at 23:30 Nicotine (Nicoderm 21 Mg/ 24hr) 1 patch DAILY TRANSDERM Last administered on 09/20/18 09:10; Admin Dose 1 PATCH; Start 09/01/18 at 09:00; Stop 10/01/18 at 08:59 Nicotine Polacrilex (Nicorette) 2 mg Q2H PRN BUCCAL CONTROL WITHDRAWAL SYMPTOMS; Start 08/31/18 at 23:30 Lorazepam (Ativan) 0.5 mg Q8H PRN PO ANXIETY Last administered on 09/01/18 22:02; Admin Dose 0.5 MG; Start 09/01/18 at 00:30 Collagenase (Santyl) 1 applic PRN PRN TOP SOIL Last administered on 09/01/18 01:13; Admin Dose 1 APPLIC; Start 09/01/18 at 01:00 Lactobacillus Acidophilus/ Rhamnosus (Culturelle) 1 cap BID PO Last administered on 09/21/18 08:41; Admin Dose 1 CAP; Start 09/08/18 at 21:00 Enoxaparin Sodium (Lovenox) 40 mg DAILY SC Last administered on 09/21/18 08:43; Admin Dose 40 MG; Start 09/08/18 at 15:30 Linezolid (Zyvox) 600 mg BID PO Last administered on 09/21/18 08:41; Admin Dose 600 MG; Start 09/10/18 at 11:00; Stop 09/22/18 at 06:00 Ascorbic Acid (Vitamin C) 500 mg BID PO Last administered on 09/21/18 08:41; Admin Dose 500 MG; Start 09/13/18 at 09:00 Multivitamins/ Minerals (Theragran-M) 1 tab DAILY PO Last administered on 09/21/18 08:41; Admin Dose 1 TAB; Start 09/13/18 at 09:00 Hydrocortisone (Hydrocortisone 1% Cr) 1 applic BID TOP Last administered on 09/20/18 20:55; Admin Dose 1 APPLIC; Start 09/17/18 at 16:30 Zolpidem Tartrate (Ambien) 5 mg HS PRN PO INSOMNIA Last administered on 5/10/19at 00:08; Admin Dose 5 MG; Start 09/18/18 at 00:00 LUIS ARDON September 21, 2018 14:15
[2018-09-21 20:32] VITALS: BP 145/82; PULSE 99; RESP 18
[2018-09-22 02:00] VITALS: BP_SYST 139; BP_SYST 141; BP_DIAS 73; BP_DIAS 91; PULSE 80; PULSE 95; RESP 18
[2018-09-22] MEDS: HYDROCODONE/APAP (5/325) TAB PO PRN ×3 (06:03→21:43)
[2018-09-22 07:50] VITALS: BP 142/89; PULSE 87; RESP 16
[2018-09-22] MEDS: NICOTINE (21 MG/24 HR) PATCH TRANSDERM SCH (09:00)
[2018-09-22] MEDS: LACTOBACILLUS RHAMNOSUS CAP PO SCH ×2 (09:52→21:43)
[2018-09-22] MEDS: MULTIVITAMINS/MINERALS TAB PO SCH (09:52)
[2018-09-22] MEDS: ASCORBIC ACID 500 MG TAB PO SCH ×2 (09:52→21:43)
[2018-09-22] MEDS: HYDROCORTISONE 1% 28 GM CR TOP SCH ×2 (09:53→21:45)
[2018-09-22] MEDS: ENOXAPARIN 40 MG/0.4 ML SYG SC SCH (09:54)
[2018-09-22 14:30] VITALS: BP 133/87; PULSE 91; RESP 18
--- NOTE | 2018-09-22 17:26 | PN ---
Date/Time of Note Date/Time of Note DATE: 09/22/18 TIME: 17:25 Assessment/Plan VTE Prophylaxis Risk score (from Nsg)>0 risk: 3 Pharmacological prophylaxis: LMWH Lines/Catheters IV Catheter Type (from Nrsg): Saline Lock Urinary Cath still in place: No Assessment/Plan Hospital Course 33 yo female with morbid obesity and wound infection of L leg - wound vac x [address] Alegre -Status post MRSA coverage with Zyvox, antibiotic's now discontinued -Have obtained repeat wound culture to evaluate whether or not patient can be taken off isolation Prophylaxis: Lovenox Placement in SNF pending. Complicated by lack of housing and need for chronic wound vac Subjective 24 Hr Interval Summary Constitutional: no complaints Exam/Review of Systems Exam Vitals Vital Signs Date Temp Pulse Resp B/P (MAP) Pulse Ox O2 O2 Flow FiO2 Time Delivery Rate 09/22/18 98.1 91 18 133/87 94 Room Air 14:30 (102) Intake and Output 09/21/18 09/21/18 09/22/18 1515:00 23:00 07:00 IntakeIntake Total 760 ml 360 ml 900 ml OutputOutput Total 5 ml 0 ml BalanceBalance 760 ml 355 ml 900 ml Constitutional: alert, oriented Respiratory: clear to auscultation Cardiovascular: regular rate and rhythm Gastrointestinal: soft; No distended Musculoskeletal: No nl extremities to inspection Medications Medication Current Medications IV Flush (NS 3 ml) 3 ml PER PROTOCOL IV ; Start 08/31/18 at 23:30 Ondansetron HCl (Zofran Tab) 4 mg Q6H PRN PO NAUSEA/VOMITING; Start 08/31/18 at 23:30 Acetaminophen (Tylenol Tab) 650 mg Q6H PRN PO .PAIN 1-3 OR TEMP Last administered on 09/07/18at 17:09; Admin Dose 650 MG; Start 08/31/18 at 23:30 Acetaminophen/ Hydrocodone Bitart ([place] (5/325)) 1 tab Q6H PRN PO .MOD PAIN 4- 6 Last administered on 09/22/18at 11:50; Admin Dose 1 TAB; Start 08/31/18 at 23:30 Morphine Sulfate (morphine) 2 mg Q4H PRN IV .SEVERE PAIN 7-10 Last administered on 09/08/18at 10:14; Admin Dose 2 MG; Start 08/31/18 at 23:30 Docusate Sodium (Colace) 100 mg Q12H PRN PO .CONSTIPATION; Start 08/31/18 at 23:30 Bisacodyl (Dulcolax) 5 mg DAILY PRN PO .CONSTIPATION; Start 08/31/18 at 23:30 Nicotine (Nicoderm 21 Mg/ 24hr) 1 patch DAILY TRANSDERM Last administered on 09/20/18 09:10; Admin Dose 1 PATCH; Start 09/01/18 at 09:00; Stop 10/01/18 at 08:59 Nicotine Polacrilex (Nicorette) 2 mg Q2H PRN BUCCAL CONTROL WITHDRAWAL SYM PTOMS; Start 08/31/18 at 23:30 Lorazepam (Ativan) 0.5 mg Q8H PRN PO ANXIETY Last administered on 09/01/18 22:02; Admin Dose 0.5 MG; Start 09/01/18 at 00:30 Collagenase (Santyl) 1 applic PRN PRN TOP SOIL Last administered on 09/01/18 01:13; Admin Dose 1 APPLIC; Start 09/01/18 at 01:00 Lactobacillus Acidophilus/ Rhamnosus (Culturelle) 1 cap BID PO Last administered on 09/22/18 09:52; Admin Dose 1 CAP; Start 09/08/18 at 21:00 Enoxaparin Sodium (Lovenox) 40 mg DAILY SC Last administered on 09/22/18 09:5 4; Admin Dose 40 MG; Start 09/08/18 at 15:30 Ascorbic Acid (Vitamin C) 500 mg BID PO Last administered on 09/22/18 09:52; Admin Dose 500 MG; Start 09/13/18 at 09:00 Multivitamins/ Minerals (Theragran-M) 1 tab DAILY PO Last administered on 09/22/18 09:52; Admin Dose 1 TAB; Start 09/13/18 at 09:00 Hydrocortisone (Hydrocortisone 1% Cr) 1 applic BID TOP Last administered on 09/22/18 09:53; Admin Dose 1 APPLIC; Start 09/17/18 at 16:30 Zolpidem Tartrate (Ambien) 5 mg HS PRN PO INSOMNIA Last administered on 22:15; Admin Dose 5 MG; Start 09/18/18 at 00:00 LUIS ARDON September 22, 2018 17:26
[2018-09-22 20:00] VITALS: BP 137/82; PULSE 96; RESP 18
[2018-09-23] MEDS: ZOLPIDEM 5 MG TAB PO PRN ×2 (00:08→22:59)
[2018-09-23 02:00] VITALS: BP 119/71; PULSE 104; RESP 18
[2018-09-23 07:54] VITALS: BP 120/54; PULSE 93; RESP 18
[2018-09-23] MEDS: MULTIVITAMINS/MINERALS TAB PO SCH (08:54)
[2018-09-23] MEDS: ASCORBIC ACID 500 MG TAB PO SCH ×2 (08:54→20:42)
[2018-09-23] MEDS: HYDROCODONE/APAP (5/325) TAB PO PRN ×3 (08:54→20:42)
[2018-09-23] MEDS: LACTOBACILLUS RHAMNOSUS CAP PO SCH ×2 (08:55→20:42)
[2018-09-23] MEDS: ENOXAPARIN 40 MG/0.4 ML SYG SC SCH (08:56)
[2018-09-23] MEDS: NICOTINE (21 MG/24 HR) PATCH TRANSDERM SCH (09:00)
[2018-09-23] MEDS: HYDROCORTISONE 1% 28 GM CR TOP SCH ×2 (10:46→20:43)
--- NOTE | 2018-09-23 12:12 | PN ---
Date/Time of Note Date/Time of Note DATE: 09/23/18 TIME: 12:11 Assessment/Plan VTE Prophylaxis Risk score (from Nsg)>0 risk: 3 Pharmacological prophylaxis: LMWH Lines/Catheters IV Catheter Type (from Nrsg): Saline Lock Urinary Cath still in place: No Assessment/Plan Hospital Course 33 yo female with morbid obesity and wound infection of L leg - wound vac x [address] Alegre -Status post MRSA coverage with Zyvox, antibiotic's now discontinued -Have obtained repeat wound culture to evaluate whether or not patient can be taken off isolation Prophylaxis: Lovenox Placement in SNF pending. Complicated by lack of housing and need for chronic wound vac Subjective 24 Hr Interval Summary Constitutional: no complaints Exam/Review of Systems Exam Vitals Vital Signs Date Temp Pulse Resp B/P (MAP) Pulse Ox O2 O2 Flow FiO2 Time Delivery Rate 09/23/18 98.7 93 18 120/54 100 Room Air 07:54 (76) Intake and Output 09/22/18 09/22/18 09/23/18 1515:00 23:00 07:00 IntakeIntake Total 800 ml 360 ml BalanceBalance 800 ml 360 ml Constitutional: alert, oriented Respiratory: clear to auscultation Cardiovascular: regular rate and rhythm Gastrointestinal: soft; No distended Musculoskeletal: No nl extremities to inspection Medications Medication Current Medications IV Flush (NS 3 ml) 3 ml PER PROTOCOL IV ; Start 08/31/18 at 23:30 Ondansetron HCl (Zofran Tab) 4 mg Q6H PRN PO NAUSEA/VOMITING; Start 08/31/18 at 23:30 Acetaminophen (Tylenol Tab) 650 mg Q6H PRN PO .PAIN 1-3 OR TEMP Last administered on 09/07/18at 17:09; Admin Dose 650 MG; Start 08/31/18 at 23:30 Acetaminophen/ Hydrocodone Bitart ([place] (5/325)) 1 tab Q6H PRN PO .MOD PAIN 4- 6 Last administered on 09/23/18at 08:54; Admin Dose 1 TAB; Start 08/31/18 at 23:30 Morphine Sulfate (morphine) 2 mg Q4H PRN IV .SEVERE PAIN 7-10 Last administered on 09/08/18at 10:14; Admin Dose 2 MG; Start 08/31/18 at 23:30 Docusate Sodium (Colace) 100 mg Q12H PRN PO .CONSTIPATION; Start 08/31/18 at 23:30 Bisacodyl (Dulcolax) 5 mg DAILY PRN PO .CONSTIPATION; Start 08/31/18 at 23:30 Nicotine (Nicoderm 21 Mg/ 24hr) 1 patch DAILY TRANSDERM Last administered on 09/20/18 09:10; Admin Dose 1 PATCH; Start 09/01/18 at 09:00; Stop 10/01/18 at 08:59 Nicotine Polacrilex (Nicorette) 2 mg Q2H PRN BUCCAL CONTROL WITHDRAWAL SYMPTOMS; Start 08/31/18 at 23:30 Lorazepam (Ativan) 0.5 mg Q8H PRN PO ANXIETY Last administered on 09/01/18 22:02; Admin Dose 0.5 MG; Start 09/01/18 at 00:30 Collagenase (Santyl) 1 applic PRN PRN TOP SOIL Last administered on 09/01/18 01:13; Admin Dose 1 APPLIC; Start 09/01/18 at 01:00 Lactobacillus Acidophilus/ Rhamnosus (Culturelle) 1 cap BID PO Last administered on 09/23/18 08:55; Admin Dose 1 CAP; Start 09/08/18 at 21:00 Enoxaparin Sodium (Lovenox) 40 mg DAILY SC Last administered on 09/23/18 08:56; Admin Dose 40 MG; Start 09/08/18 at 15:30 Ascorbic Acid (Vitamin C) 500 mg BID PO Last administered on 09/23/18 08:54; Admin Dose 500 MG; Start 09/13/18 at 09:00 Multivitamins/ Minerals (Theragran-M) 1 tab DAILY PO Last administered on 09/23/18 08:54; Admin Dose 1 TAB; Start 09/13/18 at 09:00 Hydrocortisone (Hydrocortisone 1% Cr) 1 applic BID TOP Last administered on 09/23/18 10:46; Admin Dose 1 APPLIC; Start 09/17/18 at 16:30 Zolpidem Tartrate (Ambien) 5 mg HS PRN PO INSOMNIA Last administered on 09/23/18 00:08; Admin Dose 5 MG; Start 09/18/18 at 00:00 LUIS ARDON September 23, 2018 12:12
[2018-09-23 20:00] VITALS: BP 139/88; PULSE 90; RESP 18
[2018-09-24 06:55] VITALS: BP 140/78; PULSE 85
[2018-09-24 08:13] VITALS: BP 151/90; PULSE 99; RESP 17
[2018-09-24] MEDS: NICOTINE (21 MG/24 HR) PATCH TRANSDERM SCH (09:00)
[2018-09-24] MEDS: MULTIVITAMINS/MINERALS TAB PO SCH (09:03)
[2018-09-24] MEDS: LACTOBACILLUS RHAMNOSUS CAP PO SCH ×2 (09:03→21:48)
[2018-09-24] MEDS: ASCORBIC ACID 500 MG TAB PO SCH ×2 (09:03→21:48)
[2018-09-24] MEDS: ENOXAPARIN 40 MG/0.4 ML SYG SC SCH (09:05)
[2018-09-24] MEDS: HYDROCORTISONE 1% 28 GM CR TOP SCH ×2 (09:08→21:48)
[2018-09-24] MEDS: HYDROCODONE/APAP (5/325) TAB PO PRN (13:44)
[2018-09-24 14:59] VITALS: BP 162/78; PULSE 98; RESP 17
[2018-09-24] MEDS ORDERED: oxyCODONE 5 MG TAB PO ONE (15:00)
--- NOTE | 2018-09-24 15:58 | PN ---
Date/Time of Note Date/Time of Note DATE: 09/24/18 TIME: 15:58 Assessment/Plan VTE Prophylaxis Risk score (from Nsg)>0 risk: 3 SCD applied (from Nsg): Yes Pharmacological prophylaxis: heparin Lines/Catheters IV Catheter Type (from Nrsg): Saline Lock Urinary Cath still in place: No Assessment/Plan Hospital Course Exam: Well-appearing in no distress AO x3 Regular rate and rhythm Breathing comfortably Obese Left lower extremity wound VAC in place A/P: 33 yo female with morbid obesity and wound infection of L leg - wound vac x [address] Alegre - Requires MRSA coverage -> abx per ID Placement in SNF pending. Complicated by lack of housing and need for chornic wound vac Subjective 24 Hr Interval Summary Free Text/Dictation Stable Awaiting placement Exam/Review of Systems Exam Vitals Vital Signs Date Temp Pulse Resp B/P (MAP) Pulse Ox O2 O2 Flow FiO2 Time Delivery Rate 09/24/18 98.3 98 17 162/78 98 Room Air 14:59 (106) Intake and Output 09/23/18 09/23/18 09/24/18 1515:00 23:00 07:00 OutputOutput Total 0 ml BalanceBalance 0 ml Medications Medication Current Medications IV Flush (NS 3 ml) 3 ml PER PROTOCOL IV ; Start 08/31/18 at 23:30 Ondansetron HCl (Zofran Tab) 4 mg Q6H PRN PO NAUSEA/VOMITING; Start 08/31/18 at 23:30 Acetaminophen (Tylenol Tab) 650 mg Q6H PRN PO .PAIN 1-3 OR TEMP Last administered on 09/07/18at 17:09; Admin Dose 650 MG; Start 08/31/18 at 23:30 Docusate Sodium (Colace) 100 mg Q12H PRN PO .CONSTIPATION; Start 08/31/18 at 23:30 Bisacodyl (Dulcolax) 5 mg DAILY PRN PO .CONSTIPATION; Start 08/31/18 at 23:30 Nicotine (Nicoderm 21 Mg/ 24hr) 1 patch DAILY TRANSDERM Last administered on 09/20/18at 09:10; Admin Dose 1 PATCH; Start 09/01/18 at 09:00; Stop 10/01/18 at 08:59 Nicotine Polacrilex (Nicorette) 2 mg Q2H PRN BUCCAL CONTROL WITHDRAWAL SYMPTOMS; Start 08/31/18 at 23:30 Lorazepam (Ativan) 0.5 mg Q8H PRN PO ANXIETY Last administered on 09/01/18 22:02; Admin Dose 0.5 MG; Start 09/01/18 at 00:30 Collagenase (Santyl) 1 applic PRN PRN TOP SOIL Last administered on 09/01/18 01:13; Admin Dose 1 APPLIC; Start 09/01/18 at 01:00 Lactobacillus Acidophilus/ Rhamnosus (Culturelle) 1 cap BID PO Last administered on 09/24/18 09:03; Admin Dose 1 CAP; Start 09/08/18 at 21:00 Enoxaparin Sodium (Lovenox) 40 mg DAILY SC Last administered on 09/24/18 09:05; Admin Dose 40 MG; Start 09/08/18 at 15:30 Ascorbic Acid (Vitamin C) 500 mg BID PO Last administered on 09/24/18 09:03; Admin Dose 500 MG; Start 09/13/18 at 09:00 Multivitamins/ Minerals (Theragran-M) 1 tab DAILY PO Last administered on 09/24/18 09:03; Admin Dose 1 TAB; Start 09/13/18 at 09:00 Hydrocortisone (Hydrocortisone 1% Cr) 1 applic BID TOP Last administered on 09/24/18 09:08; Admin Dose 1 APPLIC; Start 09/17/18 at 16:30 Zolpidem Tartrate (Ambien) 5 mg HS PRN PO INSOMNIA Last administered on 09/23/18 22:59; Admin Dose 5 MG; Start 09/18/18 at 00:00 Acetaminophen/ Hydrocodone Bitart ([place] (5/325)) 1 tab Q4 PRN PO .MOD PAIN 4- 6; Start 09/24/18 at 15:00 LYNDA TREJO MD September 24, 2018 15:58
[2018-09-24 20:00] VITALS: BP 136/68; PULSE 83; RESP 19
[2018-09-24] MEDS: ZOLPIDEM 5 MG TAB PO PRN (21:56)
[2018-09-25] MEDS: HYDROCODONE/APAP (5/325) TAB PO PRN ×4 (00:06→19:33)
[2018-09-25 02:00] VITALS: BP 155/84; PULSE 97; RESP 19
[2018-09-25 07:59] VITALS: BP 134/86; PULSE 95; RESP 16
[2018-09-25] MEDS: LACTOBACILLUS RHAMNOSUS CAP PO SCH (10:41)
[2018-09-25] MEDS: ASCORBIC ACID 500 MG TAB PO SCH ×2 (10:41→21:23)
[2018-09-25] MEDS: MULTIVITAMINS/MINERALS TAB PO SCH (10:41)
[2018-09-25] MEDS: NICOTINE (21 MG/24 HR) PATCH TRANSDERM SCH (10:42)
[2018-09-25] MEDS: ENOXAPARIN 40 MG/0.4 ML SYG SC SCH (10:43)
[2018-09-25] MEDS: HYDROCORTISONE 1% 28 GM CR TOP SCH ×2 (10:43→21:23)
[2018-09-25 14:14] VITALS: BP 148/103; PULSE 90; RESP 16
--- NOTE | 2018-09-25 17:32 | PN ---
Date/Time of Note Date/Time of Note DATE: 09/25/18 TIME: 17:31 Assessment/Plan VTE Prophylaxis Risk score (from Nsg)>0 risk: 3 SCD applied (from Nsg): Yes Pharmacological prophylaxis: heparin Lines/Catheters IV Catheter Type (from Nrsg): Saline Lock Urinary Cath still in place: No Assessment/Plan Hospital Course Exam: Well-appearing in no distress AO x3 Regular rate and rhythm Breathing comfortably Obese Left lower extremity wound VAC in place A/P: 33 yo female with morbid obesity and wound infection of L leg - wound vac x 3 months per surgery - s/p abx Placement in SNF pending. Complicated by lack of housing and need for chornic wound vac Subjective 24 Hr Interval Summary Free Text/Dictation No change to clinical status Awaiting placement Exam/Review of Systems Exam Vitals Vital Signs Date Temp Pulse Resp B/P (MAP) Pulse Ox O2 O2 Flow FiO2 Time Delivery Rate 09/25/18 98.0 90 16 148/103 97 14:14 (118) 09/24/18 Room Air 14:59 Intake and Output 09/24/18 09/24/18 09/25/18 1515:00 23:00 07:00 IntakeIntake Total 480 ml 500 ml BalanceBalance 480 ml 500 ml Medications Medication Current Medications IV Flush (NS 3 ml) 3 ml PER PROTOCOL IV ; Start 08/31/18 at 23:30 Ondansetron HCl (Zofran Tab) 4 mg Q6H PRN PO NAUSEA/VOMITING; Start 08/31/18 at 23:30 Acetaminophen (Tylenol Tab) 650 mg Q6H PRN PO .PAIN 1-3 OR TEMP Last administered on 09/07/18at 17:09; Admin Dose 650 MG; Start 08/31/18 at 23:30 Docusate Sodium (Colace) 100 mg Q12H PRN PO .CONSTIPATION; Start 08/31/18 at 23 :30 Bisacodyl (Dulcolax) 5 mg DAILY PRN PO .CONSTIPATION; Start 08/31/18 at 23:30 Nicotine (Nicoderm 21 Mg/ 24hr) 1 patch DAILY TRANSDERM Last administered on 09/25/18at 10:42; Admin Dose 1 PATCH; Start 09/01/18 at 09:00; Stop 10/01/18 at 08:59 Nicotine Polacrilex (Nicorette) 2 mg Q2H PRN BUCCAL CONTROL WITHDRAWAL SYMPTOMS; Start 08/31/18 at 23:30 Lorazepam (Ativan) 0.5 mg Q8H PRN PO ANXIETY Last administered on 09/01/18 22:02; Admin Dose 0.5 MG; Start 09/01/18 at 00:30 Collagenase (Santyl) 1 applic PRN PRN TOP SOIL Last administered on 09/01/18 01:13; Admin Dose 1 APPLIC; Start 09/01/18 at 01:00 Lactobacillus Acidophilus/ Rhamnosus (Culturelle) 1 cap BID PO Last administered on 09/25/18 10:41; Admin Dose 1 CAP; Start 09/08/18 at 21:00 Enoxaparin Sodium (Lovenox) 40 mg DAILY SC Last administered on 09/25/18 10:43; Admin Dose 40 MG; Start 09/08/18 at 15:30 Ascorbic Acid (Vitamin C) 500 mg BID PO Last administered on 09/25/18 10:41; Admin Dose 500 MG; Start 09/13/18 at 09:00 Multivitamins/ Minerals (Theragran-M) 1 tab DAILY PO Last administered on 09/25/18 10:41; Admin Dose 1 TAB; Start 09/13/18 at 09:00 Hydrocortisone (Hydrocortisone 1% Cr) 1 applic BID TOP Last administered on 09/25/18 10:43; Admin Dose 1 APPLIC; Start 09/17/18 at 16:30 Zolpidem Tartrate (Ambien) 5 mg HS PRN PO INSOMNIA Last administered on 09/24/18 21:56; Admin Dose 5 MG; Start 09/18/18 at 00:00 Acetaminophen/ Hydrocodone Bitart ([place] (5/325)) 1 tab Q4 PRN PO .MOD PAIN 4-6 Last administered on 09/25/18 15:17; Admin Dose 1 TAB; Start 09/24/18 at 15:00 Fluconazole (Diflucan) 200 mg DAILY PO ; Start 09/26/18 at 09:00 LYNDA TREJO MD September 25, 2018 17:32
[2018-09-25 20:00] VITALS: BP 147/86; PULSE 87; RESP 18
[2018-09-25] MEDS: ZOLPIDEM 5 MG TAB PO PRN (23:08)
[2018-09-26] MEDS: HYDROCODONE/APAP (5/325) TAB PO PRN ×4 (01:14→21:34)
[2018-09-26 02:00] VITALS: BP 140/80; PULSE 82; RESP 19
[2018-09-26 08:00] VITALS: BP 137/85; PULSE 91; RESP 18
[2018-09-26] MEDS: ASCORBIC ACID 500 MG TAB PO SCH ×2 (08:55→21:34)
[2018-09-26] MEDS: FLUCONAZOLE 200 MG TAB PO SCH (08:55)
[2018-09-26] MEDS: NICOTINE (21 MG/24 HR) PATCH TRANSDERM SCH (08:56)
[2018-09-26] MEDS: ENOXAPARIN 40 MG/0.4 ML SYG SC SCH (08:56)
[2018-09-26] MEDS: HYDROCORTISONE 1% 28 GM CR TOP SCH ×2 (08:57→21:34)
[2018-09-26 14:00] VITALS: BP 134/82; PULSE 103; RESP 18
--- NOTE | 2018-09-26 14:28 | CONS ---
Assessment/Plan Assessment/Plan Hospital Course (Demo Recall) Patient is alert looks comfortable no fevers overnight. Repeat wound culture grew Sade albicans. She is off antibiotics started on fluconazole Microbiology: Blood cultures remain negative wound culture + VRE, Corynebacterium group JK Antimicrobials: Zyvox Assessment: 1. Left lower extremity cellulitis/venous ulceration status post I&D with wound VAC application 2. Morbid obesity Plan: Stable, positive wound cultures likely colonization as wound looks clean, continue fluconazole, DC isolation. Discussed with Dr. Ashley richardson pt Consultation Date/Type/Reason Admit Date/Time Aug 31, 2018 at 22:53 Initial Consult Date Type of Consult id Date/Time of Note DATE: 09/26/18 TIME: 14:27 Exam/Review of Systems Exam Vitals Vital Signs Date Temp Pulse Resp B/P (MAP) Pulse Ox O2 O2 Flow FiO2 Time Delivery Rate 09/26/18 98.3 91 18 137/85 96 Room Air 08:00 (102) Intake and Output 09/25/18 09/25/18 09/26/18 1515:00 23:00 07:00 IntakeIntake Total 1700 ml 800 ml BalanceBalance 1700 ml 800 ml Medications Medication Current Medications IV Flush (NS 3 ml) 3 ml PER PROTOCOL IV ; Start 08/31/18 at 23:30 Ondansetron HCl (Zofran Tab) 4 mg Q6H PRN PO NAUSEA/VOMITING; Start 08/31/18 at 23:30 Acetaminophen (Tylenol Tab) 650 mg Q6H PRN PO .PAIN 1-3 OR TEMP Last administered on 09/07/18at 17:09; Admin Dose 650 MG; Start 08/31/18 at 23:30 Docusate Sodium (Colace) 100 mg Q12H PRN PO .CONSTIPATION; Start 08/31/18 at 23:30 Bisacodyl (Dulcolax) 5 mg DAILY PRN PO .CONSTIPATION; Start 08/31/18 at 23:30 Nicotine (Nicoderm 21 Mg/ 24hr) 1 patch DAILY TRANSDERM Last administered on 09/25/18at 10:42; Admin Dose 1 PATCH; Start 09/01/18 at 09:00; Stop 10/01/18 at 08:59 Nicotine Polacrilex (Nicorette) 2 mg Q2H PRN BUCCAL CONTROL WITHDRAWAL SYMPTOMS; Start 08/31/18 at 23:30 Lorazepam (Ativan) 0.5 mg Q8H PRN PO ANXIETY Last administered on 09/01/18 22:02; Admin Dose 0.5 MG; Start 09/01/18 at 00:30 Collagenase (Santyl) 1 applic PRN PRN TOP SOIL Last administered on 09/01/18 01:13; Admin Dose 1 APPLIC; Start 09/01/18 at 01:00 Enoxaparin Sodium (Lovenox) 40 mg DAILY SC Last administered on 09/26/18 08:56; Admin Dose 40 MG; Start 09/08/18 at 15:30 Ascorbic Acid (Vitamin C) 500 mg BID PO Last administered on 09/26/18 08:55; Admin Dose 500 MG; Start 09/13/18 at 09:00 Hydrocortisone (Hydrocortisone 1% Cr) 1 applic BID TOP Last administered on 09/26/18 08:57; Admin Dose 1 APPLIC; Start 09/17/18 at 16:30 Zolpidem Tartrate (Ambien) 5 mg HS PRN PO INSOMNIA Last administered on 09/25/18 23:08; Admin Dose 5 MG; Start 09/18/18 at 00:00 Acetaminophen/ Hydrocodone Bitart ([place] (5/325)) 1 tab Q4 PRN PO .MOD PAIN 4-6 Last administered on 09/26/18 09:06; Admin Dose 1 TAB; Start 09/24/18 at 15:00 Fluconazole (Diflucan) 200 mg DAILY PO Last administered on 09/26/18 08:55; Admin Dose 200 MG; Start 09/26/18 at 09:00 AGUSTÍN CUMMINGS NP September 26, 2018 14:28
--- NOTE | 2018-09-26 15:54 | PN ---
Date/Time of Note Date/Time of Note DATE: 09/26/18 TIME: 15:54 Assessment/Plan VTE Prophylaxis Risk score (from Nsg)>0 risk: 3 SCD applied (from Nsg): Yes Pharmacological prophylaxis: heparin Lines/Catheters IV Catheter Type (from Nrsg): Saline Lock Urinary Cath still in place: No Assessment/Plan Hospital Course Exam: Well-appearing in no distress AO x3 Regular rate and rhythm Breathing comfortably Obese Left lower extremity wound VAC in place A/P: 33 yo female with morbid obesity and wound infection of L leg - wound vac x 3 months per surgery - s/p abx Placement in SNF pending. Complicated by lack of housing and need for chornic wound vac Subjective 24 Hr Interval Summary Free Text/Dictation No change to clinical status Comfortable, awaiting placement Exam/Review of Systems Exam Vitals Vital Signs Date Temp Pulse Resp B/P (MAP) Pulse Ox O2 O2 Flow FiO2 Time Delivery Rate 09/26/18 98.1 103 18 134/82 92 14:00 (99) 09/26/18 Room Air 08:00 Intake and Output 09/25/18 09/25/18 09/26/18 1515:00 23:00 07:00 IntakeIntake Total 1700 ml 800 ml BalanceBalance 1700 ml 800 ml Medications Medication Current Medications IV Flush (NS 3 ml) 3 ml PER PROTOCOL IV ; Start 08/31/18 at 23:30 Ondansetron HCl (Zofran Tab) 4 mg Q6H PRN PO NAUSEA/VOMITING; Start 08/31/18 at 23:30 Acetaminophen (Tylenol Tab) 650 mg Q6H PRN PO .PAIN 1-3 OR TEMP Last administered on 09/07/18at 17:09; Admin Dose 650 MG; Start 08/31/18 at 23:30 Docusate Sodium (Colace) 100 mg Q12H PRN PO .CONSTIPATION; Start 08/31/18 at 23:30 Bisacodyl (Dulcolax) 5 mg DAILY PRN PO .CONSTIPATION; Start 08/31/18 at 23:30 Nicotine (Nicoderm 21 Mg/ 24hr) 1 patch DAILY TRANSDERM Last administered on 09/25/18at 10:42; Admin Dose 1 PATCH; Start 09/01/18 at 09:00; Stop 10/01/18 at 08:59 Nicotine Polacrilex (Nicorette) 2 mg Q2H PRN BUCCAL CONTROL WITHDRAWAL SYMPTOMS; Start 08/31/18 at 23:30 Lorazepam (Ativan) 0.5 mg Q8H PRN PO ANXIETY Last administered on 09/01/18 22:02; Admin Dose 0.5 MG; Start 09/01/18 at 00:30 Collagenase (Santyl) 1 applic PRN PRN TOP SOIL Last administered on 09/01/18 01:13; Admin Dose 1 APPLIC; Start 09/01/18 at 01:00 Enoxaparin Sodium (Lovenox) 40 mg DAILY SC Last administered on 09/26/18 08:56; Admin Dose 40 MG; Start 09/08/18 at 15:30 Ascorbic Acid (Vitamin C) 500 mg BID PO Last administered on 09/26/18 08:55; Admin Dose 500 MG; Start 09/13/18 at 09:00 Hydrocortisone (Hydrocortisone 1% Cr) 1 applic BID TOP Last administered on 09/26/18 08:57; Admin Dose 1 APPLIC; Start 09/17/18 at 16:30 Zolpidem Tartrate (Ambien) 5 mg HS PRN PO INSOMNIA Last administered on 09/25/18 23:08; Admin Dose 5 MG; Start 09/18/18 at 00:00 Acetaminophen/ Hydrocodone Bitart ([place] (5/325)) 1 tab Q4 PRN PO .MOD PAIN 4-6 Last administered on 09/26/18 09:06; Admin Dose 1 TAB; Start 09/24/18 at 15:00 Fluconazole (Diflucan) 200 mg DAILY PO Last administered on 09/26/18 08:55; Admin Dose 200 MG; Start 09/26/18 at 09:00 LYNDA TREJO MD September 26, 2018 15:54
[2018-09-26 20:30] VITALS: BP 140/89; PULSE 88; RESP 18
[2018-09-26] MEDS: ZOLPIDEM 5 MG TAB PO PRN (22:41)
[2018-09-27 02:17] VITALS: BP 136/85; PULSE 82; RESP 18
[2018-09-27] MEDS: NICOTINE (21 MG/24 HR) PATCH TRANSDERM SCH (09:00)
[2018-09-27] MEDS: HYDROCORTISONE 1% 28 GM CR TOP SCH ×2 (09:04→21:22)
[2018-09-27] MEDS: FLUCONAZOLE 200 MG TAB PO SCH (09:04)
[2018-09-27] MEDS: ASCORBIC ACID 500 MG TAB PO SCH ×2 (09:04→21:20)
[2018-09-27] MEDS: ENOXAPARIN 40 MG/0.4 ML SYG SC SCH (09:05)
[2018-09-27] MEDS: HYDROCODONE/APAP (5/325) TAB PO PRN ×3 (09:08→21:25)
[2018-09-27 09:10] VITALS: BP 141/83; PULSE 89; RESP 18
--- NOTE | 2018-09-27 13:15 | CONS ---
Assessment/Plan Assessment/Plan Hospital Course (Demo Recall) No events, looks comfortable, no fevers Repeat wound culture grew Sade albicans. She is on fluconazole Physical examination: Morbidly obese well-developed middle-aged white woman who is in no distress. Head atraumatic normocephalic. Neck is obese. Chest rise symmetrical. Breath sounds diminished to bases. Heart: S1-S2. Abdomen obese bowel tones present. Extremities: Left lower extremity dressing intact Assessment: 1. Left lower extremity cellulitis/venous ulceration status post I&D with wound VAC application 2. Morbid obesity Plan: Stable, positive wound cultures likely colonization as wound looks clean, continue fluconazole, DC isolation. Discussed with Dr. Ramirez Consultation Date/Type/Reason Admit Date/Time Aug 31, 2018 at 22:53 Initial Consult Date Type of Consult id Date/Time of Note DATE: 09/27/18 TIME: 13:13 Exam/Review of Systems Exam Vitals Vital Signs Date Temp Pulse Resp B/P (MAP) Pulse Ox O2 O2 Flow FiO2 Time Delivery Rate 09/27/18 98.2 89 18 141/83 95 09:10 (102) 09/26/18 Room Air 08:00 Intake and Output 09/26/18 09/26/18 09/27/18 1515:00 23:00 07:00 IntakeIntake Total 240 ml 720 ml 720 ml BalanceBalance 240 ml 720 ml 720 ml Medications Medication Current Medications IV Flush (NS 3 ml) 3 ml PER PROTOCOL IV ; Start 08/31/18 at 23:30 Ondansetron HCl (Zofran Tab) 4 mg Q6H PRN PO NAUSEA/VOMITING; Start 08/31/18 at 23:30 Acetaminophen (Tylenol Tab) 650 mg Q6H PRN PO .PAIN 1-3 OR TEMP Last administered on 09/07/18at 17:09; Admin Dose 650 MG; Start 08/31/18 at 23:30 Docusate Sodium (Colace) 100 mg Q12H PRN PO .CONSTIPATION; Start 08/31/18 at 23:30 Bisacodyl (Dulcolax) 5 mg DAILY PRN PO .CONSTIPATION; Start 08/31/18 at 23:30 Nicotine (Nicoderm 21 Mg/ 24hr) 1 patch DAILY TRANSDERM Last administered on 09/25/18at 10:42; Admin Dose 1 PATCH; Start 09/01/18 at 09:00; Stop 10/01/18 at 08:59 Nicotine Polacrilex (Nicorette) 2 mg Q2H PRN BUCCAL CONTROL WITHDRAWAL SYMPTOMS; Start 08/31/18 at 23:30 Lorazepam (Ativan) 0.5 mg Q8H PRN PO ANXIETY Last administered on 09/01/18 22:02; Admin Dose 0.5 MG; Start 09/01/18 at 00:30 Collagenase (Santyl) 1 applic PRN PRN TOP SOIL Last administered on 09/01/18 01:13; Admin Dose 1 APPLIC; Start 09/01/18 at 01:00 Enoxaparin Sodium (Lovenox) 40 mg DAILY SC Last administered on 09/27/18 09:05; Admin Dose 40 MG; Start 09/08/18 at 15:30 Ascorbic Acid (Vitamin C) 500 mg BID PO Last administered on 09/27/18 09:04; Admin Dose 500 MG; Start 09/13/18 at 09:00 Hydrocortisone (Hydrocortisone 1% Cr) 1 applic BID TOP Last administered on 09/27/18 09:04; Admin Dose 1 APPLIC; Start 09/17/18 at 16:30 Zolpidem Tartrate (Ambien) 5 mg HS PRN PO INSOMNIA Last administered on 09/26/18 22:41; Admin Dose 5 MG; Start 09/18/18 at 00:00 Acetaminophen/ Hydrocodone Bitart ([place] (5/325)) 1 tab Q4 PRN PO .MOD PAIN 4-6 Last administered on 09/27/18 09:08; Admin Dose 1 TAB; Start 09/24/18 at 15:00 Fluconazole (Diflucan) 200 mg DAILY PO Last administered on 09/27/18 09:04; Admin Dose 200 MG; Start 09/26/18 at 09:00 AGUSTÍN CUMMINGS NP September 27, 2018 13:15
[2018-09-27 14:00] VITALS: BP 140/83; PULSE 94; RESP 18
[2018-09-27 20:25] VITALS: BP 155/91; PULSE 85; RESP 20
[2018-09-27] MEDS: ZOLPIDEM 5 MG TAB PO PRN (23:24)
[2018-09-28 02:35] VITALS: BP 145/77; PULSE 93; RESP 20
[2018-09-28 08:00] VITALS: BP 146/80; PULSE 92; RESP 19
[2018-09-28] MEDS: ENOXAPARIN 40 MG/0.4 ML SYG SC SCH (09:00)
[2018-09-28] MEDS: NICOTINE (21 MG/24 HR) PATCH TRANSDERM SCH (09:00)
[2018-09-28] MEDS: FLUCONAZOLE 200 MG TAB PO SCH (09:41)
[2018-09-28] MEDS: ASCORBIC ACID 500 MG TAB PO SCH ×2 (09:41→21:12)
[2018-09-28] MEDS: HYDROCODONE/APAP (5/325) TAB PO PRN (09:42)
[2018-09-28] MEDS: HYDROCORTISONE 1% 28 GM CR TOP SCH ×2 (09:43→21:14)
--- NOTE | 2018-09-28 12:50 | CONS ---
Assessment/Plan Assessment/Plan Hospital Course (Demo Recall) No events, looks comfortable, no fevers Repeat wound culture grew Sade albicans and Burkholderia. She is on fluconazole Physical examination: Morbidly obese well-developed middle-aged white woman who is in no distress. Head atraumatic normocephalic. Neck is obese. Chest rise symmetrical. Breath sounds diminished to bases. Heart: S1-S2. Abdomen obese bowel tones present. Extremities: Left lower extremity dressing intact Assessment: 1. Left lower extremity cellulitis/venous ulceration status post I&D with wound VAC application 2. Morbid obesity Plan: Stable, positive wound cultures likely colonization, continue fluconazole and add Cipro Consultation Date/Type/Reason Admit Date/Time Aug 31, 2018 at 22:53 Initial Consult Date Type of Consult id Date/Time of Note DATE: 09/28/18 TIME: 12:48 Exam/Review of Systems Exam Vitals Vital Signs Date Temp Pulse Resp B/P (MAP) Pulse Ox O2 O2 Flow FiO2 Time Delivery Rate 09/28/18 98.0 92 19 146/80 97 Room Air 08:00 (102) Intake and Output 09/27/18 09/27/18 09/28/18 1515:00 23:00 07:00 IntakeIntake Total 600 ml 240 ml 1050 ml BalanceBalance 600 ml 240 ml 1050 ml Medications Medication Current Medications IV Flush (NS 3 ml) 3 ml PER PROTOCOL IV ; Start 08/31/18 at 23:30 Ondansetron HCl (Zofran Tab) 4 mg Q6H PRN PO NAUSEA/VOMITING; Start 08/31/18 at 23:30 Acetaminophen (Tylenol Tab) 650 mg Q6H PRN PO .PAIN 1-3 OR TEMP Last administered on 09/07/18at 17:09; Admin Dose 650 MG; Start 08/31/18 at 23:30 Docusate Sodium (Colace) 100 mg Q12H PRN PO .CONSTIPATION; Start 08/31/18 at 23 :30 Bisacodyl (Dulcolax) 5 mg DAILY PRN PO .CONSTIPATION; Start 08/31/18 at 23:30 Nicotine (Nicoderm 21 Mg/ 24hr) 1 patch DAILY TRANSDERM Last administered on 09/25/18at 10:42; Admin Dose 1 PATCH; Start 09/01/18 at 09:00; Stop 10/01/18 at 08:59 Nicotine Polacrilex (Nicorette) 2 mg Q2H PRN BUCCAL CONTROL WITHDRAWAL SYMPTOMS; Start 08/31/18 at 23:30 Lorazepam (Ativan) 0.5 mg Q8H PRN PO ANXIETY Last administered on 09/01/18 22:02; Admin Dose 0.5 MG; Start 09/01/18 at 00:30 Collagenase (Santyl) 1 applic PRN PRN TOP SOIL Last administered on 09/01/18 01:13; Admin Dose 1 APPLIC; Start 09/01/18 at 01:00 Enoxaparin Sodium (Lovenox) 40 mg DAILY SC Last administered on 09/27/18 09:05; Admin Dose 40 MG; Start 09/08/18 at 15:30 Ascorbic Acid (Vitamin C) 500 mg BID PO Last administered on 09/28/18 09:41; Admin Dose 500 MG; Start 09/13/18 at 09:00 Hydrocortisone (Hydrocortisone 1% Cr) 1 applic BID TOP Last administered on 09/28/18 09:43; Admin Dose 1 APPLIC; Start 09/17/18 at 16:30 Zolpidem Tartrate (Ambien) 5 mg HS PRN PO INSOMNIA Last administered on 09/27/18 23:24; Admin Dose 5 MG; Start 09/18/18 at 00:00 Acetaminophen/ Hydrocodone Bitart ([place] (5/325)) 1 tab Q4 PRN PO .MOD PAIN 4-6 Last administered on 09/28/18 09:42; Admin Dose 1 TAB; Start 09/24/18 at 15:00 Fluconazole (Diflucan) 200 mg DAILY PO Last administered on 09/28/18 09:41; Admin Dose 200 MG; Start 09/26/18 at 09:00 AGUSTÍN CUMMINGS NP September 28, 2018 12:50
[2018-09-28 14:00] VITALS: BP 146/81; PULSE 93; RESP 18
--- NOTE | 2018-09-28 16:59 | PN ---
Date/Time of Note Date/Time of Note DATE: 09/28/18 TIME: 16:59 Assessment/Plan VTE Prophylaxis Risk score (from Nsg)>0 risk: 2 SCD applied (from Nsg): Yes Pharmacological prophylaxis: heparin Lines/Catheters IV Catheter Type (from Nrsg): Saline Lock Urinary Cath still in place: No Assessment/Plan Hospital Course Exam: Well-appearing in no distress AO x3 Regular rate and rhythm Breathing comfortably Obese Left lower extremity wound VAC in place A/P: 33 yo female with morbid obesity and wound infection of L leg - wound vac x 3 months per surgery - s/p abx Placement in SNF pending. Complicated by lack of housing and need for chornic wound vac Subjective 24 Hr Interval Summary Free Text/Dictation No change to clinical status Awaiting placement Exam/Review of Systems Exam Vitals Vital Signs Date Temp Pulse Resp B/P (MAP) Pulse Ox O2 O2 Flow FiO2 Time Delivery Rate 09/28/18 97.9 93 18 146/81 98 Room Air 14:00 (102) Intake and Output 09/27/18 09/27/18 09/28/18 1515:00 23:00 07:00 IntakeIntake Total 600 ml 240 ml 1050 ml BalanceBalance 600 ml 240 ml 1050 ml Medications Medication Current Medications IV Flush (NS 3 ml) 3 ml PER PROTOCOL IV ; Start 08/31/18 at 23:30 Ondansetron HCl (Zofran Tab) 4 mg Q6H PRN PO NAUSEA/VOMITING; Start 08/31/18 at 23:30 Acetaminophen (Tylenol Tab) 650 mg Q6H PRN PO .PAIN 1-3 OR TEMP Last administered on 09/07/18at 17:09; Admin Dose 650 MG; Start 08/31/18 at 23:30 Docusate Sodium (Colace) 100 mg Q12H PRN PO .CONSTIPATION; Start 08/31/18 at 23:30 Bisacodyl (Dulcolax) 5 mg DAILY PRN PO .CONSTIPATION; Start 08/31/18 at 23:30 Nicotine (Nicoderm 21 Mg/ 24hr) 1 patch DAILY TRANSDERM Last administered on 09/25/18at 10:42; Admin Dose 1 PATCH; Start 09/01/18 at 09:00; Stop 10/01/18 at 08:59 Nicotine Polacrilex (Nicorette) 2 mg Q2H PRN BUCCAL CONTROL WITHDRAWAL SYMPTOMS; Start 08/31/18 at 23:30 Lorazepam (Ativan) 0.5 mg Q8H PRN PO ANXIETY Last administered on 09/01/18 22:02; Admin Dose 0.5 MG; Start 09/01/18 at 00:30 Collagenase (Santyl) 1 applic PRN PRN TOP SOIL Last administered on 09/01/18 01:13; Admin Dose 1 APPLIC; Start 09/01/18 at 01:00 Enoxaparin Sodium (Lovenox) 40 mg DAILY SC Last administered on 09/27/18 09:05; Admin Dose 40 MG; Start 09/08/18 at 15:30 Ascorbic Acid (Vitamin C) 500 mg BID PO Last administered on 09/28/18 09:41; Admin Dose 500 MG; Start 09/13/18 at 09:00 Hydrocortisone (Hydrocortisone 1% Cr) 1 applic BID TOP Last administered on 09/28/18 09:43; Admin Dose 1 APPLIC; Start 09/17/18 at 16:30 Zolpidem Tartrate (Ambien) 5 mg HS PRN PO INSOMNIA Last administered on 09/27/18 23:24; Admin Dose 5 MG; Start 09/18/18 at 00:00 Acetaminophen/ Hydrocodone Bitart ([place] (5/325)) 1 tab Q4 PRN PO .MOD PAIN 4-6 Last administered on 09/28/18 09:42; Admin Dose 1 TAB; Start 09/24/18 at 15:00 Fluconazole (Diflucan) 200 mg DAILY PO Last administered on 09/28/18 09:41; Admin Dose 200 MG; Start 09/26/18 at 09:00 Ciprofloxacin (Cipro) 500 mg BID@,18 PO ; Start 09/28/18 at 18:00 LYNDA TREJO MD September 28, 2018 16:59
[2018-09-28] MEDS: CIPROFLOXACIN 500 MG TAB PO SCH (17:24)
[2018-09-28 20:10] VITALS: BP 142/93; PULSE 91; RESP 20
--- NOTE | 2018-09-28 23:03 | CONS ---
Assessment/Plan Assessment/Plan Assessment/Plan (Daily) Left lower extremity venous ulceration - s/p excisional debridement with wound VAC application (DOS: 09/06/18) Hx of trauma and laceration to left lower extremity Hx of hematoma Left lower extremity cellulitis - improved Edema b/l Morbid obesity homelessness Nicotine dependence Plan Possible plan for next week split thickness skin graft. Continue with wound VAC dressing changes. 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 Appreciate ID recommendations. Appreciate assistance from social work associate for placement. Recommend continue with compression dressing changes. Educated patient on infection precautions. Consultation Date/Type/Reason Admit Date/Time Aug 31, 2018 at 22:53 Initial Consult Date Date/Time of Note DATE: 09/28/18 TIME: 23:03 24 HR Interval Summary Free Text/Dictation No acute events overnight Exam/Review of Systems Exam Vitals Vital Signs Date Temp Pulse Resp B/P (MAP) Pulse Ox O2 O2 Flow FiO2 Time Delivery Rate 09/28/18 97.9 93 18 146/81 98 Room Air 14:00 (102) Intake and Output 09/27/18 09/27/18 09/28/18 1515:00 23:00 07:00 IntakeIntake Total 600 ml 240 ml 1050 ml BalanceBalance 600 ml 240 ml 1050 ml Exam wound VAC dressings clean dry and intact. 125mmHg low continuous therapy Medications Medication Current Medications IV Flush (NS 3 ml) 3 ml PER PROTOCOL IV ; Start 08/31/18 at 23:30 Ondansetron HCl (Zofran Tab) 4 mg Q6H PRN PO NAUSEA/VOMITING; Start 08/31/18 at 23:30 Acetaminophen (Tylenol Tab) 650 mg Q6H PRN PO .PAIN 1-3 OR TEMP Last admin istered on 09/07/18at 17:09; Admin Dose 650 MG; Start 08/31/18 at 23:30 Docusate Sodium (Colace) 100 mg Q12H PRN PO .CONSTIPATION; Start 08/31/18 at 23:30 Bisacodyl (Dulcolax) 5 mg DAILY PRN PO .CONSTIPATION; Start 08/31/18 at 23:30 Nicotine (Nicoderm 21 Mg/ 24hr) 1 patch DAILY TRANSDERM Last administered on 09/25/18at 10:42; Admin Dose 1 PATCH; Start 09/01/18 at 09:00; Stop 10/01/18 at 08:59 Nicotine Polacrilex (Nicorette) 2 mg Q2H PRN BUCCAL CONTROL WITHDRAWAL SYMPTOMS; Start 08/31/18 at 23:30 Lorazepam (Ativan) 0.5 mg Q8H PRN PO ANXIETY Last administered on 09/01/18 22:02; Admin Dose 0.5 MG; Start 09/01/18 at 00:30 Collagenase (Santyl) 1 applic PRN PRN TOP SOIL Last administered on 09/01/18 01:13; Admin Dose 1 APPLIC; Start 09/01/18 at 01:00 Enoxaparin Sodium (Lovenox) 40 mg DAILY SC Last administered on 09/27/18 09:05; Admin Dose 40 MG; Start 09/08/18 at 15:30 Ascorbic Acid (Vitamin C) 500 mg BID PO Last administered on 09/28/18 09:41; Admin Dose 500 MG; Start 09/13/18 at 09:00 Hydrocortisone (Hydrocortisone 1% Cr) 1 applic BID TOP Last administered on 09/28/18 09:43; Admin Dose 1 APPLIC; Start 09/17/18 at 16:30 Zolpidem Tartrate (Ambien) 5 mg HS PRN PO INSOMNIA Last administered on 09/27/18 23:24; Admin Dose 5 MG; Start 09/18/18 at 00:00 Acetaminophen/ Hydrocodone Bitart ([place] (5/325)) 1 tab Q4 PRN PO .MOD PAIN 4-6 Last administered on 09/28/18 09:42; Admin Dose 1 TAB; Start 09/24/18 at 15:00 Fluconazole (Diflucan) 200 mg DAILY PO Last administered on 09/28/18 09:41; Admin Dose 200 MG; Start 09/26/18 at 09:00 Ciprofloxacin (Cipro) 500 mg BID@,18 PO ; Start 09/28/18 at 18:00 SILVIA LINARES DPSamantha September 28, 2018 23:03
[2018-09-29] MEDS: ZOLPIDEM 5 MG TAB PO PRN (01:47)
[2018-09-29 02:22] VITALS: BP 145/91; PULSE 102; RESP 18
[2018-09-29] MEDS: CIPROFLOXACIN 500 MG TAB PO SCH ×2 (05:50→18:00)
[2018-09-29] MEDS: ASCORBIC ACID 500 MG TAB PO SCH ×2 (08:35→21:29)
[2018-09-29] MEDS: FLUCONAZOLE 200 MG TAB PO SCH (08:35)
[2018-09-29] MEDS: NICOTINE (21 MG/24 HR) PATCH TRANSDERM SCH (08:35)
[2018-09-29] MEDS: ENOXAPARIN 40 MG/0.4 ML SYG SC SCH (08:36)
[2018-09-29 08:50] VITALS: BP 119/59; PULSE 105; RESP 16
[2018-09-29] MEDS: HYDROCODONE/APAP (5/325) TAB PO PRN ×3 (08:55→21:29)
[2018-09-29] MEDS: HYDROCORTISONE 1% 28 GM CR TOP SCH ×2 (14:09→21:29)
--- NOTE | 2018-09-29 14:22 | CONS ---
Consultation Date/Type/Reason Admit Date/Time Aug 31, 2018 at 22:53 Initial Consult Date Type of Consult SUBJECTIVE: Pt is awake, alert, afebrile . VS: stable T: 98.0 LABs: Reviewed. Microbiology: Blood cultures remain negative wound culture + VRE, Corynebacterium group JK Specimen: [id number] Status: Complete Fe: 09/27/18-1040 Rcvd: 09/27/18-1134 Source: LEFT LEG Sp Descrip: Procedure Result Microbiology GRAM STAIN Final POLYMORPH. LEUKOCYTE NONE SEEN GRAM NEGATIVE RODS RARE WOUND CULTURE Final Organism 1 BURKHOLDERIA CEPACIA QUANTITY 1+ Antimicrobials: Cipro, Diflucan Physical examination: GEN:Morbidly obese well-developed middle-aged white woman, who is in no distress. HENT: Head atraumatic normocephalic. Neck is obese. PULM: Chest rise symmetrical. Breath sounds diminished to bases. Heart: S1-S2. Abdomen obese bowel tones present. Extremities: Left lower extremity dressing intact Assessment: 1. Left lower extremity cellulitis/venous ulceration status post I&D with wound VAC application 2. Morbid obesity Plan: Pt remains stable. continue with current antbx. Pending DC . Date/Time of Note DATE: 09/29/18 TIME: 14:20 Exam/Review of Systems Exam Vitals Vital Signs Date Temp Pulse Resp B/P (MAP) Pulse Ox O2 O2 Flow FiO2 Time Delivery Rate 09/29/18 98.0 105 16 119/59 95 08:50 (79) 09/28/18 Room Air 14:00 Intake and Output 09/28/18 09/28/18 09/29/18 1515:00 23:00 07:00 IntakeIntake Total 900 ml BalanceBalance 900 ml Medications Medication Current Medications IV Flush (NS 3 ml) 3 ml PER PROTOCOL IV ; Start 08/31/18 at 23:30 Ondansetron HCl (Zofran Tab) 4 mg Q6H PRN PO NAUSEA/VOMITING; Start 08/31/18 at 23:30 Acetaminophen (Tylenol Tab) 650 mg Q6H PRN PO .PAIN 1-3 OR TEMP Last administered on 09/07/18 17:09; Admin Dose 650 MG; Start 08/31/18 at 23:30 Docusate Sodium (Colace) 100 mg Q12H PRN PO .CONSTIPATION; Start 08/31/18 at 23:30 Bisacodyl (Dulcolax) 5 mg DAILY PRN PO .CONSTIPATION; Start 08/31/18 at 23:30 Nicotine (Nicoderm 21 Mg/ 24hr) 1 patch DAILY TRANSDERM Last administered on 09/29/18 08:35; Admin Dose 1 PATCH; Start 09/01/18 at 09:00; Stop 10/01/18 at 08:59 Nicotine Polacrilex (Nicorette) 2 mg Q2H PRN BUCCAL CONTROL WITHDRAWAL SYMPTOMS; Start 08/31/18 at 23:30 Lorazepam (Ativan) 0.5 mg Q8H PRN PO ANXIETY Last administered on 09/01/18 22:02; Admin Dose 0.5 MG; Start 09/01/18 at 00:30 Collagenase (Santyl) 1 applic PRN PRN TOP SOIL Last administered on 09/01/18at 01:13; Admin Dose 1 APPLIC; Start 09/01/18 at 01:00 Enoxaparin Sodium (Lovenox) 40 mg DAILY SC Last administered on 09/29/18 08:36; Admin Dose 40 MG; Start 09/08/18 at 15:30 Ascorbic Acid (Vitamin C) 500 mg BID PO Last administered on 09/29/18 08:35; Admin Dose 500 MG; Start 09/13/18 at 09:00 Hydrocortisone (Hydrocortisone 1% Cr) 1 applic BID TOP Last administered on 09/29/18 14:09; Admin Dose 1 APPLIC; Start 09/17/18 at 16:30 Zolpidem Tartrate (Ambien) 5 mg HS PRN PO INSOMNIA Last administered on 09/29/18at 01:47; Admin Dose 5 MG; Start 09/18/18 at 00:00 Acetaminophen/ Hydrocodone Bitart ([place] (5/325)) 1 tab Q4 PRN PO .MOD PAIN 4-6 Last administered on 09/29/18at 14:07; Admin Dose 1 TAB; Start 09/24/18 at 15:00 Fluconazole (Diflucan) 200 mg DAILY PO Last administered on 09/29/18at 08:35; Admin Dose 200 MG; Start 09/26/18 at 09:00 Ciprofloxacin (Cipro) 500 mg BID@18 PO ; Start 09/28/18 at 18:00 SARAH SIMON September 29, 2018 14:22
--- NOTE | 2018-09-29 15:05 | PN ---
Date/Time of Note Date/Time of Note DATE: 09/29/18 TIME: 15:04 Assessment/Plan VTE Prophylaxis Risk score (from Nsg)>0 risk: 2 SCD applied (from Nsg): Yes Pharmacological prophylaxis: heparin Lines/Catheters IV Catheter Type (from Nrsg): Saline Lock Urinary Cath still in place: No Assessment/Plan Hospital Course Exam: Well-appearing in no distress AO x3 Regular rate and rhythm Breathing comfortably Obese Left lower extremity wound VAC in place A/P: 33 yo female with morbid obesity and chronic wound of L leg - wound vac - Plan for skin graft this coming week - Abx per ID Placement in SNF pending. Complicated by lack of housing and need for chornic wound vac Subjective 24 Hr Interval Summary Free Text/Dictation No change to clinical status Exam/Review of Systems Exam Vitals Vital Signs Date Temp Pulse Resp B/P (MAP) Pulse Ox O2 O2 Flow FiO2 Time Delivery Rate 09/29/18 98.0 105 16 119/59 95 08:50 (79) 09/28/18 Room Air 14:00 Intake and Output 09/28/18 09/28/18 09/29/18 1414:59 22:59 06:59 IntakeIntake Total 900 ml BalanceBalance 900 ml Medications Medication Current Medications IV Flush (NS 3 ml) 3 ml PER PROTOCOL IV ; Start 08/31/18 at 23:30 Ondansetron HCl (Zofran Tab) 4 mg Q6H PRN PO NAUSEA/VOMITING; Start 08/31/18 at 23:30 Acetaminophen (Tylenol Tab) 650 mg Q6H PRN PO .PAIN 1-3 OR TEMP Last administered on 09/07/18at 17:09; Admin Dose 650 MG; Start 08/31/18 at 23:30 Docusate Sodium (Colace) 100 mg Q12H PRN PO .CONSTIPATION; Start 08/31/18 at 23:30 Bisacodyl (Dulcolax) 5 mg DAILY PRN PO .CONSTIPATION; Start 08/31/18 at 23:30 Nicotine (Nicoderm 21 Mg/ 24hr) 1 patch DAILY TRANSDERM Last administered on 09/29/18at 08:35; Admin Dose 1 PATCH; Start 09/01/18 at 09:00; Stop 10/01/18 at 08:59 Nicotine Polacrilex (Nicorette) 2 mg Q2H PRN BUCCAL CONTROL WITHDRAWAL SYMPTOMS; Start 08/31/18 at 23:30 Lorazepam (Ativan) 0.5 mg Q8H PRN PO ANXIETY Last administered on 09/01/18 22:02; Admin Dose 0.5 MG; Start 09/01/18 at 00:30 Collagenase (Santyl) 1 applic PRN PRN TOP SOIL Last administered on 09/01/18 01:13; Admin Dose 1 APPLIC; Start 09/01/18 at 01:00 Enoxaparin Sodium (Lovenox) 40 mg DAILY SC Last administered on 09/29/18 08:36; Admin Dose 40 MG; Start 09/08/18 at 15:30 Ascorbic Acid (Vitamin C) 500 mg BID PO Last administered on 09/29/18 08:35; Admin Dose 500 MG; Start 09/13/18 at 09:00 Hydrocortisone (Hydrocortisone 1% Cr) 1 applic BID TOP Last administered on 09/29/18 14:09; Admin Dose 1 APPLIC; Start 09/17/18 at 16:30 Zolpidem Tartrate (Ambien) 5 mg HS PRN PO INSOMNIA Last administered on 09/29/18 01:47; Admin Dose 5 MG; Start 09/18/18 at 00:00 Acetaminophen/ Hydrocodone Bitart ([place] (5/325)) 1 tab Q4 PRN PO .MOD PAIN 4-6 Last administered on 09/29/18 14:07; Admin Dose 1 TAB; Start 09/24/18 at 15:00 Fluconazole (Diflucan) 200 mg DAILY PO Last administered on 09/29/18 08:35; Admin Dose 200 MG; Start 09/26/18 at 09:00 Ciprofloxacin (Cipro) 500 mg BID@18 PO ; Start 09/28/18 at 18:00 LYNDA TREJO MD September 29, 2018 15:05
[2018-09-29 19:45] VITALS: BP 139/69; PULSE 90; RESP 20
[2018-09-30] MEDS: ZOLPIDEM 5 MG TAB PO PRN (01:55)
[2018-09-30 02:06] VITALS: BP 127/79; PULSE 85; RESP 17
[2018-09-30] MEDS: CIPROFLOXACIN 500 MG TAB PO SCH ×2 (05:22→18:00)
[2018-09-30 08:37] VITALS: BP 131/77; PULSE 103; RESP 18
[2018-09-30] MEDS: NICOTINE (21 MG/24 HR) PATCH TRANSDERM SCH (09:00)
[2018-09-30] MEDS: ENOXAPARIN 40 MG/0.4 ML SYG SC SCH (09:00)
[2018-09-30] MEDS: HYDROCORTISONE 1% 28 GM CR TOP SCH ×2 (09:33→21:09)
[2018-09-30] MEDS: ASCORBIC ACID 500 MG TAB PO SCH ×2 (09:34→21:08)
[2018-09-30] MEDS: FLUCONAZOLE 200 MG TAB PO SCH (09:34)
--- NOTE | 2018-09-30 11:50 | CONS ---
Consultation Date/Type/Reason Admit Date/Time Aug 31, 2018 at 22:53 Initial Consult Date Type of Consult SUBJECTIVE: Pt is awake, alert, afebrile . No Acute events over night. VS: stable T: 97.6 LABs: Reviewed. Microbiology: Blood cultures remain negative wound culture + VRE, Corynebacterium group JK Specimen: [id number] Status: Complete Fe: 09/27/18-1040 Rcvd: 09/27/18 Source: LEFT LEG Sp Descrip: Procedure Result Microbiology GRAM STAIN Final POLYMORPH. LEUKOCYTE NONE SEEN GRAM NEGATIVE RODS RARE WOUND CULTURE Final Organism 1 BURKHOLDERIA CEPACIA QUANTITY 1+ Antimicrobials: Cipro, Diflucan Physical examination: GEN:Morbidly obese well-developed middle-aged white woman, who is in no distress. HENT: Head atraumatic normocephalic. Neck is obese. PULM: Chest rise symmetrical. Breath sounds diminished to bases. Heart: S1-S2. Abdomen obese bowel tones present. Extremities: Left lower extremity dressing intact Assessment: 1. Left lower extremity cellulitis/venous ulceration status post I&D with wound VAC application 2. Morbid obesity Plan: Pt remains stable. Continue with current antbx. Pending DC placement . Date/Time of Note DATE: 09/30/18 TIME: 11:49 Exam/Review of Systems Exam Vitals Vital Signs Date Temp Pulse Resp B/P (MAP) Pulse Ox O2 O2 Flow FiO2 Time Delivery Rate 09/30/18 97.6 103 18 131/77 97 08:37 (95) 09/28/18 Room Air 14:00 Intake and Output 09/29/18 09/29/18 09/30/18 1515:00 23:00 07:00 IntakeIntake Total 1400 ml BalanceBalance 1400 ml Medications Medication Current Medications IV Flush (NS 3 ml) 3 ml PER PROTOCOL IV ; Start 08/31/18 at 23:30 Ondansetron HCl (Zofran Tab) 4 mg Q6H PRN PO NAUSEA/VOMITING; Start 08/31/18 at 23:30 Acetaminophen (Tylenol Tab) 650 mg Q6H PRN PO .PAIN 1-3 OR TEMP Last administered on 09/07/18 17:09; Admin Dose 650 MG; Start 08/31/18 at 23:30 Docusate Sodium (Colace) 100 mg Q12H PRN PO .CONSTIPATION; Start 08/31/18 at 23:30 Bisacodyl (Dulcolax) 5 mg DAILY PRN PO .CONSTIPATION; Start 08/31/18 at 23:30 Nicotine (Nicoderm 21 Mg/ 24hr) 1 patch DAILY TRANSDERM Last administered on at 08:35; Admin Dose 1 PATCH; Start 09/01/18 at 09:00; Stop 10/01/18 at 08:59 Nicotine Polacrilex (Nicorette) 2 mg Q2H PRN BUCCAL CONTROL WITHDRAWAL SYMPTOMS; Start 08/31/18 at 23:30 Lorazepam (Ativan) 0.5 mg Q8H PRN PO ANXIETY Last administered on 09/01/18at 22:02; Admin Dose 0.5 MG; Start 09/01/18 at 00:30 Collagenase (Santyl) 1 applic PRN PRN TOP SOIL Last administered on 09/01/18at 01:13; Admin Dose 1 APPLIC; Start 09/01/18 at 01:00 Enoxaparin Sodium (Lovenox) 40 mg DAILY SC Last administered on 09/29/18 08:36; Admin Dose 40 MG; Start 09/08/18 at 15:30 Ascorbic Acid (Vitamin C) 500 mg BID PO Last administered on 09/30/18 09:34; Admin Dose 500 MG; Start 09/13/18 at 09:00 Hydrocortisone (Hydrocortisone 1% Cr) 1 applic BID TOP Last administered on 09/30/18 09:33; Admin Dose 1 APPLIC; Start 09/17/18 at 16:30 Zolpidem Tartrate (Ambien) 5 mg HS PRN PO INSOMNIA Last administered on 09/30/18at 01:55; Admin Dose 5 MG; Start 09/18/18 at 00:00 Acetaminophen/ Hydrocodone Bitart ([place] (5/325)) 1 tab Q4 PRN PO .MOD PAIN 4-6 Last administered on 09/29/18at 21:29; Admin Dose 1 TAB; Start 09/24/18 at 15:00 Fluconazole (Diflucan) 200 mg DAILY PO Last administered on 09/30/18at 09:34; Admin Dose 200 MG; Start 09/26/18 at 09:00 Ciprofloxacin (Cipro) 500 mg BID@,18 PO ; Start 09/28/18 at 18:00 SARAH SIMON September 30, 2018 11:50
--- NOTE | 2018-09-30 13:34 | PN ---
Date/Time of Note Date/Time of Note DATE: 09/30/18 TIME: 13:33 Assessment/Plan VTE Prophylaxis Risk score (from Nsg)>0 risk: 3 SCD applied (from Nsg): Yes Pharmacological prophylaxis: heparin Lines/Catheters IV Catheter Type (from Nrsg): Saline Lock Urinary Cath still in place: No Assessment/Plan Hospital Course Exam: Well-appearing in no distress AO x3 Regular rate and rhythm Breathing comfortably Obese Left lower extremity wound VAC in place A/P: 33 yo female with morbid obesity and chronic wound of L leg - wound vac - Plan for skin graft this coming week - Abx per ID Placement in SNF pending. Complicated by lack of housing Subjective 24 Hr Interval Summary Free Text/Dictation No change to status Wound vac Exam/Review of Systems Exam Vitals Vital Signs Date Temp Pulse Resp B/P (MAP) Pulse Ox O2 O2 Flow FiO2 Time Delivery Rate 09/30/18 97.6 103 18 131/77 97 08:37 (95) 09/28/18 Room Air 14:00 Intake and Output 09/29/18 09/29/18 09/30/18 1515:00 23:00 07:00 IntakeIntake Total 1400 ml BalanceBalance 1400 ml Medications Medication Current Medications IV Flush (NS 3 ml) 3 ml PER PROTOCOL IV ; Start 08/31/18 at 23:30 Ondansetron HCl (Zofran Tab) 4 mg Q6H PRN PO NAUSEA/VOMITING; Start 08/31/18 at 23:30 Acetaminophen (Tylenol Tab) 650 mg Q6H PRN PO .PAIN 1-3 OR TEMP Last administered on 09/07/18at 17:09; Admin Dose 650 MG; Start 08/31/18 at 23:30 Docusate Sodium (Colace) 100 mg Q12H PRN PO .CONSTIPATION; Start 08/31/18 at 23:30 Bisacodyl (Dulcolax) 5 mg DAILY PRN PO .CONSTIPATION; Start 08/31/18 at 23:30 Nicotine (Nicoderm 21 Mg/ 24hr) 1 patch DAILY TRANSDERM Last administered on 09/29/18at 08:35; Admin Dose 1 PATCH; Start 09/01/18 at 09:00; Stop 10/01/18 at 08:59 Nicotine Polacrilex (Nicorette) 2 mg Q2H PRN BUCCAL CONTROL WITHDRAWAL SYMPTOMS; Start 08/31/18 at 23:30 Lorazepam (Ativan) 0.5 mg Q8H PRN PO ANXIETY Last administered on 09/01/18 22:02; Admin Dose 0.5 MG; Start 09/01/18 at 00:30 Collagenase (Santyl) 1 applic PRN PRN TOP SOIL Last administered on 09/01/18 01:13; Admin Dose 1 APPLIC; Start 09/01/18 at 01:00 Enoxaparin Sodium (Lovenox) 40 mg DAILY SC Last administered on 09/29/18 08:36; Admin Dose 40 MG; Start 09/08/18 at 15:30 Ascorbic Acid (Vitamin C) 500 mg BID PO Last administered on 09/30/18 09:34; Admin Dose 500 MG; Start 09/13/18 at 09:00 Hydrocortisone (Hydrocortisone 1% Cr) 1 applic BID TOP Last administered on 09/30/18 09:33; Admin Dose 1 APPLIC; Start 09/17/18 at 16:30 Zolpidem Tartrate (Ambien) 5 mg HS PRN PO INSOMNIA Last administered on 01:55; Admin Dose 5 MG; Start 09/18/18 at 00:00 Acetaminophen/ Hydrocodone Bitart ([place] (5/325)) 1 tab Q4 PRN PO .MOD PAIN 4-6 Last administered on 09/29/18 21:29; Admin Dose 1 TAB; Start 09/24/18 at 15:00 Fluconazole (Diflucan) 200 mg DAILY PO Last administered on 09/30/18 09:34; Admin Dose 200 MG; Start 09/26/18 at 09:00 Ciprofloxacin (Cipro) 500 mg BID@,18 PO ; Start 09/28/18 at 18:00 LYNDA TREJO MD September 30, 2018 13:34
[2018-09-30 13:58] VITALS: BP 137/86; PULSE 101; RESP 16
[2018-09-30] MEDS: HYDROCODONE/APAP (5/325) TAB PO PRN ×2 (15:30→23:55)
[2018-09-30 20:00] VITALS: BP 135/69; PULSE 90; RESP 18
[2018-10-01] MEDS: ZOLPIDEM 5 MG TAB PO PRN ×2 (01:59→22:32)
[2018-10-01 02:00] VITALS: BP 140/75; PULSE 97; RESP 19
[2018-10-01] MEDS: CIPROFLOXACIN 500 MG TAB PO SCH ×2 (05:28→17:45)
[2018-10-01 08:00] VITALS: BP 148/73; PULSE 85; RESP 18
[2018-10-01] MEDS: FLUCONAZOLE 200 MG TAB PO SCH (08:42)
[2018-10-01] MEDS: ASCORBIC ACID 500 MG TAB PO SCH ×2 (08:42→20:13)
[2018-10-01] MEDS: HYDROCORTISONE 1% 28 GM CR TOP SCH ×2 (08:43→20:13)
[2018-10-01] MEDS: ENOXAPARIN 40 MG/0.4 ML SYG SC SCH (08:43)
[2018-10-01] MEDS: HYDROCODONE/APAP (5/325) TAB PO PRN ×2 (08:43→20:15)
--- NOTE | 2018-10-01 13:59 | CONS ---
Assessment/Plan Assessment/Plan Hospital Course (Demo Recall) No events Repeat wound culture grew Sade albicans and Burkholderia. Antimicrobials: Cipro, fluconazole Physical examination: Morbidly obese well-developed middle-aged white woman who is in no distress. Head atraumatic normocephalic. Neck is obese. Chest rise symmetrical. Breath sounds diminished to bases. Heart: S1-S2. Abdomen obese bowel tones present. Extremities: Left lower extremity dressing intact Assessment: 1. Left lower extremity cellulitis/venous ulceration status post I&D with wound VAC application 2. Morbid obesity Plan: Stable, continue wound management per podiatry Consultation Date/Type/Reason Admit Date/Time Aug 31, 2018 at 22:53 Initial Consult Date Type of Consult id Date/Time of Note DATE: 10/01/18 TIME: 13:58 Exam/Review of Systems Exam Vitals Vital Signs Date Temp Pulse Resp B/P (MAP) Pulse Ox O2 O2 Flow FiO2 Time Delivery Rate 10/01/18 97.9 85 18 148/73 98 Room Air 08:00 (98) Intake and Output 09/30/18 09/30/18 10/01/18 1515:00 23:00 07:00 IntakeIntake Total 1500 ml BalanceBalance 1500 ml Medications Medication Current Medications IV Flush (NS 3 ml) 3 ml PER PROTOCOL IV ; Start 08/31/18 at 23:30 Ondansetron HCl (Zofran Tab) 4 mg Q6H PRN PO NAUSEA/VOMITING; Start 08/31/18 at 23:30 Acetaminophen (Tylenol Tab) 650 mg Q6H PRN PO .PAIN 1-3 OR TEMP Last administered on 09/07/18at 17:09; Admin Dose 650 MG; Start 08/31/18 at 23:30 Docusate Sodium (Colace) 100 mg Q12H PRN PO .CONSTIPATION; Start 08/31/18 at 23:30 Bisacodyl (Dulcolax) 5 mg DAILY PRN PO .CONSTIPATION; Start 08/31/18 at 23:30 Nicotine Polacrilex (Nicorette) 2 mg Q2H PRN BUCCAL CONTROL WITHDRAWAL SYMPTOMS; Start 08/31/18 at 23:30 Lorazepam (Ativan) 0.5 mg Q8H PRN PO ANXIETY Last administered on 09/01/18at 22:02; Admin Dose 0.5 MG; Start 09/01/18 at 00:30 Collagenase (Santyl) 1 applic PRN PRN TOP SOIL Last administered on 09/01/18 01:13; Admin Dose 1 APPLIC; Start 09/01/18 at 01:00 Enoxaparin Sodium (Lovenox) 40 mg DAILY SC Last administered on 09/29/18 08:36; Admin Dose 40 MG; Start 09/08/18 at 15:30 Ascorbic Acid (Vitamin C) 500 mg BID PO Last administered on 10/01/18 08:42; Admin Dose 500 MG; Start 09/13/18 at 09:00 Hydrocortisone (Hydrocortisone 1% Cr) 1 applic BID TOP Last administered on 10/01/18 08:43; Admin Dose 1 APPLIC; Start 09/17/18 at 16:30 Zolpidem Tartrate (Ambien) 5 mg HS PRN PO INSOMNIA Last administered on 10/01/18 01:59; Admin Dose 5 MG; Start 09/18/18 at 00:00 Acetaminophen/ Hydrocodone Bitart ([place] (5/325)) 1 tab Q4 PRN PO .MOD PAIN 4-6 Last administered on 10/01/18 08:43; Admin Dose 1 TAB; Start 09/24/18 at 15:00 Fluconazole (Diflucan) 200 mg DAILY PO Last administered on 10/01/18 08:42; Admin Dose 200 MG; Start 09/26/18 at 09:00 Ciprofloxacin (Cipro) 500 mg BID@,18 PO ; Start 09/28/18 at 18:00 AGUSTÍN CUMMINGS NP October 01, 2018 13:59
[2018-10-01 14:00] VITALS: BP 154/70; PULSE 107; RESP 18
--- NOTE | 2018-10-01 15:32 | PN ---
Date/Time of Note Date/Time of Note DATE: 10/01/18 TIME: 15:26 Assessment/Plan VTE Prophylaxis Risk score (from Ns)>0 risk: 2 SCD applied (from Ns): No SCD contraindicated: other Pharmacological prophylaxis: LMWH Lines/Catheters IV Catheter Type (from Nrsg): Saline Lock Urinary Cath still in place: No Assessment/Plan Hospital Course S: Per nursing staff, patient apparently refusing p.o. antibiotics. O: VS - see below PE: Well-appearing in no distress AO x3 Regular rate and rhythm Breathing comfortably Obese Left lower extremity wound VAC in place A/P:33 yo female with morbid obesity and chronic wound of L leg # Left lower extremity cellulitis/venous ulceration - status post I&D with wound VAC application on September 06, 2018. Presently on p.o. fluconazole and Cipro. -Monitor, for possible plan for skin graft this coming week - we will discuss with ID and podiatry teams about this -Continue wound VAC, and continue Abx per ID #Morbid obesity: Counseled on weight cessation Dispo: Placement in SNF pending-although complicated by lack of housing apparently -we will follow-up with case management on this Exam/Review of Systems Exam Vitals Vital Signs Date Temp Pulse Resp B/P (MAP) Pulse Ox O2 O2 Flow FiO2 Time Delivery Rate 10/01/18 97.9 85 18 148/73 98 Room Air 08:00 (98) Intake and Output 09/30/18 09/30/18 10/01/18 1515:00 23:00 07:00 IntakeIntake Total 1500 ml BalanceBalance 1500 ml Medications Medication Current Medications IV Flush (NS 3 ml) 3 ml PER PROTOCOL IV ; Start 08/31/18 at 23:30 Ondansetron HCl (Zofran Tab) 4 mg Q6H PRN PO NAUSEA/VOMITING; Start 08/31/18 at 23:30 Acetaminophen (Tylenol Tab) 650 mg Q6H PRN PO .PAIN 1-3 OR TEMP Last administered on 09/07/18at 17:09; Admin Dose 650 MG; Start 08/31/18 at 23:30 Docusate Sodium (Colace) 100 mg Q12H PRN PO .CONSTIPATION; Start 08/31/18 at 23:30 Bisacodyl (Dulcolax) 5 mg DAILY PRN PO .CONSTIPATION; Start 08/31/18 at 23:30 Nicotine Polacrilex (Nicorette) 2 mg Q2H PRN BUCCAL CONTROL WITHDRAWAL SYMPTOMS; Start 08/31/18 at 23:30 Lorazepam (Ativan) 0.5 mg Q8H PRN PO ANXIETY Last administered on 09/01/18 22:02; Admin Dose 0.5 MG; Start 09/01/18 at 00:30 Collagenase (Santyl) 1 applic PRN PRN TOP SOIL Last administered on 09/01/18 01:13; Admin Dose 1 APPLIC; Start 09/01/18 at 01:00 Enoxaparin Sodium (Lovenox) 40 mg DAILY SC Last administered on 09/29/18 08:36; Admin Dose 40 MG; Start 09/08/18 at 15:30 Ascorbic Acid (Vitamin C) 500 mg BID PO Last administered on 10/01/18 08:42; Admin Dose 500 MG; Start 09/13/18 at 09:00 Hydrocortisone (Hydrocortisone 1% Cr) 1 applic BID TOP Last administered on 10/01/18 08:43; Admin Dose 1 APPLIC; Start 09/17/18 at 16:30 Zolpidem Tartrate (Ambien) 5 mg HS PRN PO INSOMNIA Last administered on 10/01/18 01:59; Admin Dose 5 MG; Start 09/18/18 at 00:00 Acetaminophen/ Hydrocodone Bitart ([place] (5/325)) 1 tab Q4 PRN PO .MOD PAIN 4-6 Last administered on 10/01/18 08:43; Admin Dose 1 TAB; Start 09/24/18 at 15:00 Fluconazole (Diflucan) 200 mg DAILY PO Last administered on 10/01/18 08:42; Admin Dose 200 MG; Start 09/26/18 at 09:00 Ciprofloxacin (Cipro) 500 mg BID@,18 PO ; Start 09/28/18 at 18:00 KWABENA SIMONS October 01, 2018 15:32
[2018-10-01 20:00] VITALS: BP 134/74; PULSE 87; RESP 18
[2018-10-02] MEDS: CIPROFLOXACIN 500 MG TAB PO SCH (05:05)
[2018-10-02 08:00] VITALS: BP 132/71; PULSE 98; RESP 19
[2018-10-02] MEDS: ENOXAPARIN 40 MG/0.4 ML SYG SC SCH (09:00)
[2018-10-02] MEDS: FLUCONAZOLE 200 MG TAB PO SCH (09:14)
[2018-10-02] MEDS: ASCORBIC ACID 500 MG TAB PO SCH ×2 (09:14→20:40)
[2018-10-02] MEDS: HYDROCORTISONE 1% 28 GM CR TOP SCH ×2 (09:15→20:39)
[2018-10-02] MEDS: HYDROCODONE/APAP (5/325) TAB PO PRN ×2 (09:51→17:31)
[2018-10-02 14:00] VITALS: BP 149/66; PULSE 95; RESP 19
--- NOTE | 2018-10-02 15:14 | CONS ---
Assessment/Plan Assessment/Plan Hospital Course (Demo Recall) patient is refusing ciprofloxacin Repeat wound culture grew Burkholderia. Antimicrobials: Cipro, fluconazole Physical examination: Morbidly obese well-developed middle-aged white woman who is in no distress. Head atraumatic normocephalic. Neck is obese. Chest rise symmetrical. Breath sounds diminished to bases. Heart: S1-S2. Abdomen obese bowel tones present. Extremities: Left lower extremity dressing intact Assessment: 1. Left lower extremity cellulitis/venous ulceration status post I&D with wound VAC application 2. Morbid obesity Plan: Stable, the wound looks clean, we are going to discontinue antibiotics, continue wound management per podiatry, pending skin graft this week Discussed with patient and RN Consultation Date/Type/Reason Admit Date/Time Aug 31, 2018 at 22:53 Initial Consult Date Type of Consult id Date/Time of Note DATE: 10/02/18 TIME: 15:12 Exam/Review of Systems Exam Vitals Vital Signs Date Temp Pulse Resp B/P (MAP) Pulse Ox O2 O2 Flow FiO2 Time Delivery Rate 10/02/18 97.9 98 19 132/71 94 08:00 (91) 10/01/18 Room Air 08:00 Intake and Output 10/01/18 10/01/18 10/02/18 1515:00 23:00 07:00 IntakeIntake Total 1100 ml 900 ml BalanceBalance 1100 ml 900 ml Medications Medication Current Medications IV Flush (NS 3 ml) 3 ml PER PROTOCOL IV ; Start 08/31/18 at 23:30 Ondansetron HCl (Zofran Tab) 4 mg Q6H PRN PO NAUSEA/VOMITING; Start 08/31/18 at 23:30 Acetaminophen (Tylenol Tab) 650 mg Q6H PRN PO .PAIN 1-3 OR TEMP Last administered on 09/07/18at 17:09; Admin Dose 650 MG; Start 08/31/18 at 23:30 Docusate Sodium (Colace) 100 mg Q12H PRN PO .CONSTIPATION; Start 08/31/18 at 23:30 Bisacodyl (Dulcolax) 5 mg DAILY PRN PO .CONSTIPATION; Start 08/31/18 at 23:30 Nicotine Polacrilex (Nicorette) 2 mg Q2H PRN BUCCAL CONTROL WITHDRAWAL SYMPTOMS; Start 08/31/18 at 23:30 Lorazepam (Ativan) 0.5 mg Q8H PRN PO ANXIETY Last administered on 09/01/18 22:02; Admin Dose 0.5 MG; Start 09/01/18 at 00:30 Collagenase (Santyl) 1 applic PRN PRN TOP SOIL Last administered on 09/01/18 01:13; Admin Dose 1 APPLIC; Start 09/01/18 at 01:00 Enoxaparin Sodium (Lovenox) 40 mg DAILY SC Last administered on 09/29/18 08:36; Admin Dose 40 MG; Start 09/08/18 at 15:30 Ascorbic Acid (Vitamin C) 500 mg BID PO Last administered on 10/02/18 09:14; Admin Dose 500 MG; Start 09/13/18 at 09:00 Hydrocortisone (Hydrocortisone 1% Cr) 1 applic BID TOP Last administered on 10/02/18 09:15; Admin Dose 1 APPLIC; Start 09/17/18 at 16:30 Zolpidem Tartrate (Ambien) 5 mg HS PRN PO INSOMNIA Last administered on 10/01/18 22:32; Admin Dose 5 MG; Start 09/18/18 at 00:00 Acetaminophen/ Hydrocodone Bitart ([place] (5/325)) 1 tab Q4 PRN PO .MOD PAIN 4-6 Last administered on 10/02/18 09:51; Admin Dose 1 TAB; Start 09/24/18 at 15:00 Fluconazole (Diflucan) 200 mg DAILY PO Last administered on 10/02/18 09:14; Ad min Dose 200 MG; Start 09/26/18 at 09:00 Ciprofloxacin (Cipro) 500 mg BID@18 PO ; Start 09/28/18 at 18:00 AGUSTÍN CUMMINGS NP October 02, 2018 15:14
--- NOTE | 2018-10-02 16:21 | PN ---
Date/Time of Note Date/Time of Note DATE: 10/02/18 TIME: 16:19 Assessment/Plan VTE Prophylaxis Risk score (from Nsg)>0 risk: 4 SCD applied (from Ns): No SCD contraindicated: other Pharmacological prophylaxis: LMWH Lines/Catheters IV Catheter Type (from Nrsg): Saline Lock Urinary Cath still in place: No Assessment/Plan Hospital Course S: Patient seen by ID team earlier today, now off p.o. ciprofloxacin medicine. No acute events overnight. O: VS - see below PE: Well-appearing in no distress AO x3 Regular rate and rhythm Breathing comfortably Obese Left lower extremity wound VAC in place A/P:33 yo female with morbid obesity and chronic wound of L leg # Left lower extremity cellulitis/venous ulceration - status post I&D with wound VAC application on September 06, 2018. Presently on p.o. fluconazole. -Monitor, for possible plan for skin graft this coming week - we will discuss with ID and podiatry teams about this -Continue wound VAC for now, and continue Abx per ID #Morbid obesity: Counseled on weight cessation Dispo: Placement in SNF pending-although complicated by patient's relatively young age and lack of housing apparently -we will follow-up with case management on this Exam/Review of Systems Exam Vitals Vital Signs Date Temp Pulse Resp B/P (MAP) Pulse Ox O2 O2 Flow FiO2 Time Delivery Rate 10/02/18 97.6 95 19 149/66 95 Room Air 14:00 (93) Intake and Output 10/01/18 10/01/18 10/02/18 1515:00 23:00 07:00 IntakeIntake Total 1100 ml 900 ml BalanceBalance 1100 ml 900 ml Medications Medication Current Medications IV Flush (NS 3 ml) 3 ml PER PROTOCOL IV ; Start 08/31/18 at 23:30 Ondansetron HCl (Zofran Tab) 4 mg Q6H PRN PO NAUSEA/VOMITING; Start 08/31/18 at 23:30 Acetaminophen (Tylenol Tab) 650 mg Q6H PRN PO .PAIN 1-3 OR TEMP Last administered on 09/07/18at 17:09; Admin Dose 650 MG; Start 08/31/18 at 23:30 Docusate Sodium (Colace) 100 mg Q12H PRN PO .CONSTIPATION; Start 08/31/18 at 23:30 Bisacodyl (Dulcolax) 5 mg DAILY PRN PO .CONSTIPATION; Start 08/31/18 at 23:30 Nicotine Polacrilex (Nicorette) 2 mg Q2H PRN BUCCAL CONTROL WITHDRAWAL SYMPTOMS; Start 08/31/18 at 23:30 Lorazepam (Ativan) 0.5 mg Q8H PRN PO ANXIETY Last administered on 09/01/18 22:02; Admin Dose 0.5 MG; Start 09/01/18 at 00:30 Collagenase (Santyl) 1 applic PRN PRN TOP SOIL Last administered on 09/01/18 01:13; Admin Dose 1 APPLIC; Start 09/01/18 at 01:00 Enoxaparin Sodium (Lovenox) 40 mg DAILY SC Last administered on 09/29/18 08:36; Admin Dose 40 MG; Start 09/08/18 at 15:30 Ascorbic Acid (Vitamin C) 500 mg BID PO Last administered on 10/02/18 09:14; Admin Dose 500 MG; Start 09/13/18 at 09:00 Hydrocortisone (Hydrocortisone 1% Cr) 1 applic BID TOP Last administered on 10/02/18 09:15; Admin Dose 1 APPLIC; Start 09/17/18 at 16:30 Zolpidem Tartrate (Ambien) 5 mg HS PRN PO INSOMNIA Last administered on 10/01/18 22:32; Admin Dose 5 MG; Start 09/18/18 at 00:00 Acetaminophen/ Hydrocodone Bitart ([place] (5/325)) 1 tab Q4 PRN PO .MOD PAIN 4-6 Last administered on 10/02/18 09:51; Admin Dose 1 TAB; Start 09/24/18 at 15:00 Fluconazole (Diflucan) 200 mg DAILY PO Last administered on 10/02/18 09:14; Admin Dose 200 MG; Start 09/26/18 at 09:00 KWABENA SIMONS October 02, 2018 16:21
[2018-10-02] MEDS ORDERED: GENTAMICIN 0.1% 15 GM OINT TOP SCH (18:30)
[2018-10-02 20:00] VITALS: BP_SYST 133; BP_SYST 137; BP_DIAS 84; BP_DIAS 85; PULSE 100; PULSE 92; RESP 18
[2018-10-02] MEDS: GENTAMICIN 0.1% 15 GM OINT TOP SCH (20:41)
[2018-10-03] MEDS ORDERED: ONDANSETRON 4 MG TAB PO PRN
[2018-10-03] MEDS ORDERED: BISACODYL (EC) 5 MG TAB PO PRN
[2018-10-03] MEDS ORDERED: NICOTINE POLACRILEX 2 MG GUM BUCCAL PRN
[2018-10-03] MEDS ORDERED: ACETAMINOPHEN 325 MG TAB PO PRN
[2018-10-03] MEDS ORDERED: DOCUSATE SODIUM 100 MG CAP PO PRN
[2018-10-03] MEDS: ZOLPIDEM 5 MG TAB PO PRN ×2 (00:18→22:59)
[2018-10-03 07:40] VITALS: BP 146/96; PULSE 52; RESP 18
[2018-10-03] MEDS: FLUCONAZOLE 200 MG TAB PO SCH (08:42)
[2018-10-03] MEDS: ASCORBIC ACID 500 MG TAB PO SCH ×2 (08:43→21:00)
[2018-10-03] MEDS: HYDROCODONE/APAP (5/325) TAB PO PRN ×2 (08:43→15:57)
[2018-10-03] MEDS: LORAZEPAM 0.5 MG TAB PO PRN (08:43)
[2018-10-03] MEDS: ENOXAPARIN 40 MG/0.4 ML SYG SC SCH (08:44)
[2018-10-03] MEDS: HYDROCORTISONE 1% 28 GM CR TOP SCH ×2 (09:00→21:19)
[2018-10-03] MEDS: MUPIROCIN 2% 22 GM OINT TOP SCH (11:26)
--- NOTE | 2018-10-03 12:45 | PN ---
Date/Time of Note Date/Time of Note DATE: 10/03/18 TIME: 12:44 Assessment/Plan VTE Prophylaxis Risk score (from Ns)>0 risk: 4 SCD applied (from [facility]): No SCD contraindicated: other Pharmacological prophylaxis: LMWH Lines/Catheters IV Catheter Type (from [facility]): Saline Lock Urinary Cath still in place: No Assessment/Plan Hospital Course S: Patient had no acute events overnight. O: VS - see below PE: Well-appearing in no distress AO x3 Regular rate and rhythm Breathing comfortably Obese Left lower extremity wound VAC in place A/P:33 yo female with morbid obesity and chronic wound of L leg # Left lower extremity cellulitis/venous ulceration - status post I&D with wound VAC application on September 06, 2018. Presently on p.o. fluconazole. -Monitor, for possible plan for skin graft this coming week -Per podiatry team likely in 48 weeks. -Continue wound VAC for now, and continue Abx per ID #Morbid obesity: Counseled on weight cessation Dispo: Placement in SNF pending-although complicated by patient's relatively young age and lack of housing apparently - we will follow-up with case management on this Result Diagram: 10/03/18 0703 10/03/18 0703 Results 24hrs Laboratory Tests Test 10/03/18 07:03 White Blood Count 10.7 Red Blood Count 4.19 L Hemoglobin 10.2 L Hematocrit 33.4 L Mean Corpuscular Volume 79.7 L Mean Corpuscular Hemoglobin 24.3 L Mean Corpuscular Hemoglobin Concent 30.5 L Red Cell Distribution Width 17.3 H Platelet Count 434 #H Mean Platelet Volume 8.5 Immature Granulocytes % 0.500 H Neutrophils % 67.9 Lymphocytes % 21.0 Monocytes % 5.1 Eosinophils % 5.0 Basophils % 0.5 Nucleated Red Blood Cells % 0.0 Immature Granulocytes # 0.050 H Neutrophils # 7.3 Lymphocytes # 2.2 Monocytes # 0.6 Eosinophils # 0.5 Basophils # 0.1 Nucleated Red Blood Cells # 0.0 Sodium Level 139 Potassium Level 4.0 Chloride Level 104 Carbon Dioxide Level 29 Anion Gap 6 Blood Urea Nitrogen 17 Creatinine 0.66 Est Glomerular Filtrat Rate mL/min > 60 Glucose Level 103 Calcium Level 8.8 Exam/Review of Systems Exam Vitals Vital Signs Date Temp Pulse Resp B/P (MAP) Pulse Ox O2 O2 Flow FiO2 Time Delivery Rate 10/03/18 98.4 52 18 146/96 93 Room Air 07:40 (113) Intake and Output 10/02/18 10/02/18 10/03/18 1515:00 23:00 07:00 IntakeIntake Total 1100 ml BalanceBalance 1100 ml Results Results 24hrs Laboratory Tests Test 10/03/18 07:03 White Blood Count 10.7 Red Blood Count 4.19 L Hemoglobin 10.2 L Hematocrit 33.4 L Mean Corpuscular Volume 79.7 L Mean Corpuscular Hemoglobin 24.3 L Mean Corpuscular Hemoglobin Concent 30.5 L Red Cell Distribution Width 17.3 H Platelet Count 434 #H Mean Platelet Volume 8.5 Immature Granulocytes % 0.500 H Neutrophils % 67.9 Lymphocytes % 21.0 Monocytes % 5.1 Eosinophils % 5.0 Basophils % 0.5 Nucleated Red Blood Cells % 0.0 Immature Granulocytes # 0.050 H Neutrophils # 7.3 Lymphocytes # 2.2 Monocytes # 0.6 Eosinophils # 0.5 Basophils # 0.1 Nucleated Red Blood Cells # 0.0 Sodium Level 139 Potassium Level 4.0 Chloride Level 104 Carbon Dioxide Level 29 Anion Gap 6 Blood Urea Nitrogen 17 Creatinine 0.66 Est Glomerular Filtrat Rate mL/min > 60 Glucose Level 103 Calcium Level 8.8 Medications Medication Current Medications Lorazepam (Ativan) 0.5 mg Q8H PRN PO ANXIETY Last administered on 10/03/18 08:43; Admin Dose 0.5 MG; Start 09/01/18 at 00:30 Collagenase (Santyl) 1 applic PRN PRN TOP SOIL Last administered on 09/01/18at 01:13; Admin Dose 1 APPLIC; Start 09/01/18 at 01:00 Enoxaparin Sodium (Lovenox) 40 mg DAILY SC Last administered on 09/29/18 08:36; Admin Dose 40 MG; Start 09/08/18 at 15:30 Ascorbic Acid (Vitamin C) 500 mg BID PO Last administered on 10/03/18 08:43; Admin Dose 500 MG; Start 09/13/18 at 09:00 Hydrocortisone (Hydrocortisone 1% Cr) 1 applic BID TOP Last administered on 10/02/18at 20:39; Admin Dose 1 APPLIC; Start 09/17/18 at 16:30 Zolpidem Tartrate (Ambien) 5 mg HS PRN PO INSOMNIA Last administered on 10/03/18 00:18; Admin Dose 5 MG; Start 09/18/18 at 00:00 Acetaminophen/ Hydrocodone Bitart ([place] (5/325)) 1 tab Q4 PRN PO .MOD PAIN 4-6 Last administered on 10/03/18 08:43; Admin Dose 1 TAB; Start 09/24/18 at 15:00 Fluconazole (Diflucan) 200 mg DAILY PO Last administered on 10/03/18 08:42; Admin Dose 200 MG; Start 09/26/18 at 09:00 Mupirocin (Bactroban) 1 applic DAILY TOP Last administered on 10/03/18 11:26; Admin Dose 1 APPLIC; Start 10/03/18 at 09:00 Gentamicin Sulfate (Gentamicin 0.1% Oint) 1 applic DAILY TOP Last administered on 10/02/18at 20:41; Admin Dose 1 APPLIC; Start 10/02/18 at 21:00 Nicotine Polacrilex (Nicorette) 2 mg Q2H PRN BUCCAL CONTROL WITHDRAWAL SYMPTOMS; Start 10/03/18 at 00:00 Ondansetron HCl (Zofran Tab) 4 mg Q6H PRN PO NAUSEA AND/OR VOMITING; Start 10/03/18 at 00:00 Docusate Sodium (Colace) 100 mg Q12 PRN PO CONSTIPATION; Start 10/03/18 at 00:00 Bisacodyl (Dulcolax) 5 mg DAILY PRN PO CONSTIPATION; Start 10/03/18 at 00:00 Acetaminophen (Tylenol Tab) 650 mg Q6H PRN PO MILD PAIN(1-3)OR ELEVATED TEMP; Start 10/03/18 at 00:00 KWABENA SIMONS October 03, 2018 12:45
[2018-10-03 14:03] VITALS: BP 137/63; PULSE 101; RESP 18
[2018-10-03 16:00] VITALS: BP 125/65; PULSE 68
[2018-10-03 20:00] VITALS: BP 129/79; PULSE 90; RESP 19
[2018-10-03] MEDS: GENTAMICIN 0.1% 15 GM OINT TOP SCH (21:19)
[2018-10-04 02:00] VITALS: BP 130/72; PULSE 98; RESP 18
[2018-10-04] MEDS: ENOXAPARIN 40 MG/0.4 ML SYG SC SCH (09:00)
[2018-10-04] MEDS: GENTAMICIN 0.1% 15 GM OINT TOP SCH ×2 (09:00→20:29)
[2018-10-04 09:16] VITALS: BP 135/77; PULSE 104; RESP 16
[2018-10-04] MEDS: FLUCONAZOLE 200 MG TAB PO SCH (09:38)
[2018-10-04] MEDS: ASCORBIC ACID 500 MG TAB PO SCH ×2 (09:38→20:29)
[2018-10-04] MEDS: MUPIROCIN 2% 22 GM OINT TOP SCH (09:38)
[2018-10-04] MEDS: HYDROCODONE/APAP (5/325) TAB PO PRN ×3 (09:39→20:28)
[2018-10-04] MEDS: HYDROCORTISONE 1% 28 GM CR TOP SCH ×2 (09:39→20:29)
--- NOTE | 2018-10-04 14:54 | PN ---
Date/Time of Note Date/Time of Note DATE: 10/04/18 TIME: 14:53 Assessment/Plan VTE Prophylaxis Risk score (from Ns)>0 risk: 2 SCD applied (from Ns): No SCD contraindicated: other Pharmacological prophylaxis: LMWH Lines/Catheters IV Catheter Type (from Nrs): Saline Lock Urinary Cath still in place: No Assessment/Plan Hospital Course S: Patient had no acute events overnight, wound VAC is off, awaiting surgical procedure to be performed in the next 24 hours. O: VS - see below PE: Well-appearing in no distress AO x3 Regular rate and rhythm Breathing comfortably Obese Bandage over the left lower extremity lesion. A/P:33 yo female with morbid obesity and chronic wound of L leg # Left lower extremity cellulitis/venous ulceration - status post I&D with wound VAC application on September 06, 2018, now off. Presently on p.o. fluconazole. -Monitor, for possible plan for skin graft this coming week -Per podiatry team likely 24 hours. -Continue topical gentamicin for now we will follow further ID recommendations #Morbid obesity: Counseled on weight cessation Dispo: Placement in SNF pending-although complicated by patient's relatively young age and lack of housing apparently -however the patient proceeds to get her skin graft surgery in the next 24 hours, and hopefully if she will not need wound VAC at that time, possible discharge after that home with home health nursing when cleared by podiatry and ID teams. We will follow-up with case management on this Result Diagram: 10/03/18 0703 10/03/18 0703 Results 24hrs Laboratory Tests Test 10/04/18 13:30 Urine Test NEGATIVE Exam/Review of Systems Exam Vitals Vital Signs Date Temp Pulse Resp B/P (MAP) Pulse Ox O2 O2 Flow FiO2 Time Delivery Rate 10/04/18 98.2 104 16 135/77 96 Room Air 09:16 (96) Intake and Output 10/03/18 10/03/18 10/04/18 1414:59 22:59 06:59 IntakeIntake Total 850 ml 300 ml 280 ml BalanceBalance 850 ml 300 ml 280 ml Results Results 24hrs Laboratory Tests Test 10/04/18 13:30 Urine Test NEGATIVE Medications Medication Current Medications Lorazepam (Ativan) 0.5 mg Q8H PRN PO ANXIETY Last administered on 5/22/19at 08:43; Admin Dose 0.5 MG; Start 09/01/18 at 00:30 Collagenase (Santyl) 1 applic PRN PRN TOP SOIL Last administered on 09/01/18 01:13; Admin Dose 1 APPLIC; Start 09/01/18 at 01:00 Enoxaparin Sodium (Lovenox) 40 mg DAILY SC Last administered on 09/29/18 08:36; Admin Dose 40 MG; Start 09/08/18 at 15:30 Ascorbic Acid (Vitamin C) 500 mg BID PO Last administered on 10/04/18 09:38; Admin Dose 500 MG; Start 09/13/18 at 09:00 Hydrocortisone (Hydrocortisone 1% Cr) 1 applic BID TOP Last administered on 10/04/18 09:39; Admin Dose 1 APPLIC; Start 09/17/18 at 16:30 Zolpidem Tartrate (Ambien) 5 mg HS PRN PO INSOMNIA Last administered on 10/03/18 22:59; Admin Dose 5 MG; Start 09/18/18 at 00:00 Acetaminophen/ Hydrocodone Bitart ([place] (5/325)) 1 tab Q4 PRN PO .MOD PAIN 4-6 Last administered on 10/04/18 09:39; Admin Dose 1 TAB; Start 09/24/18 at 15:00 Fluconazole (Diflucan) 200 mg DAILY PO Last administered on 10/04/18 09:38; Admin Dose 200 MG; Start 09/26/18 at 09:00 Mupirocin (Bactroban) 1 applic DAILY TOP Last administered on 10/04/18 09:38; Admin Dose 1 APPLIC; Start 10/03/18 at 09:00 Nicotine Polacrilex (Nicorette) 2 mg Q2H PRN BUCCAL CONTROL WITHDRAWAL SYMPTOMS; Start 10/03/18 at 00:00 Ondansetron HCl (Zofran Tab) 4 mg Q6H PRN PO NAUSEA AND/OR VOMITING; Start 10/03/18 at 00:00 Docusate Sodium (Colace) 100 mg Q12 PRN PO CONSTIPATION; Start 10/03/18 at 00:00 Bisacodyl (Dulcolax) 5 mg DAILY PRN PO CONSTIPATION; Start 10/03/18 at 00:00 Acetaminophen (Tylenol Tab) 650 mg Q6H PRN PO MILD PAIN(1-3)OR ELEVATED TEMP; Start 10/03/18 at 00:00 Gentamicin Sulfate (Gentamicin 0.1% Oint) 1 applic HS TOP ; Start 10/04/18 at 21:00 KWABENA SIMONS October 04, 2018 14:54
--- NOTE | 2018-10-04 16:54 | PREAC ---
Date/Time of Note Date/Time of Note DATE: 10/04/18 TIME: 16:53 Anesthesia Eval and Record Evaluation Time Pre-Procedure Interview DATE: 10/04/18 TIME: 16:53 Age 33 Sex female NPO: 8 hrs Preoperative diagnosis left lower extremity wound with cellulitis Planned procedure DEBRIDEMENT LEFT LOWER EXTREMITY Past Medical History Past Medical History: Includes GI: Morbid obesity Heme: Anemia Surgery & Anesthesia Issues No known issue Meds Anticoagulation: No Beta Cristina within 24 hr: No Reason Beta Cristina not given: Pt. not on B-Cristina No Active Prescriptions or Reported Meds Current Medications Lorazepam (Ativan) 0.5 mg Q8H PRN PO ANXIETY Last administered on 10/03/18 08:43; Admin Dose 0.5 MG; Start 09/01/18 at 00:30 Collagenase (Santyl) 1 applic PRN PRN TOP SOIL Last administered on 09/01/18 01:13; Admin Dose 1 APPLIC; Start 09/01/18 at 01:00 Enoxaparin Sodium (Lovenox) 40 mg DAILY SC Last administered on 09/29/18 08:36; Admin Dose 40 MG; Start 09/08/18 at 15:30; Status Hold Ascorbic Acid (Vitamin C) 500 mg BID PO Last administered on 10/04/18 09:38; Admin Dose 500 MG; Start 09/13/18 at 09:00 Hydrocortisone (Hydrocortisone 1% Cr) 1 applic BID TOP Last administered on 10/04/18 09:39; Admin Dose 1 APPLIC; Start 09/17/18 at 16:30 Zolpidem Tartrate (Ambien) 5 mg HS PRN PO INSOMNIA Last administered on 10/03/18 22:59; Admin Dose 5 MG; Start 09/18/18 at 00:00 Acetaminophen/ Hydrocodone Bitart ([place] (5/325)) 1 tab Q4 PRN PO .MOD PAIN 4-6 Last administered on 10/04/18 16:13; Admin Dose 1 TAB; Start 09/24/18 at 15:00 Fluconazole (Diflucan) 200 mg DAILY PO Last administered on 10/04/18 09:38; Admin Dose 200 MG; Start 09/26/18 at 09:00 Mupirocin (Bactroban) 1 applic DAILY TOP Last administered on 10/04/18 09:38; Admin Dose 1 APPLIC; Start 10/03/18 at 09:00 Nicotine Polacrilex (Nicorette) 2 mg Q2H PRN BUCCAL CONTROL WITHDRAWAL SYMPTOMS; Start 10/03/18 at 00:00 Ondansetron HCl (Zofran Tab) 4 mg Q6H PRN PO NAUSEA AND/OR VOMITING; Start 10/03/18 at 00:00 Docusate Sodium (Colace) 100 mg Q12 PRN PO CONSTIPATION; Start 10/03/18 at 00:00 Bisacodyl (Dulcolax) 5 mg DAILY PRN PO CONSTIPATION; Start 10/03/18 at 00:00 Acetaminophen (Tylenol Tab) 650 mg Q6H PRN PO MILD PAIN(1-3)OR ELEVATED TEMP; Start 10/03/18 at 00:00 Gentamicin Sulfate (Gentamicin 0.1% Oint) 1 applic HS TOP ; Start 10/04/18 at 21:00 Meds reviewed: Yes Allergies Coded Allergies: Iodine and Iodide Containing Produc (Unverified Allergy, Severe, 08/31/18) only if iodine is introduced into the blood stream.skin is ok. Allergies Reviewed: Yes Labs/Studies Labs Reviewed: Reviewed by anesthesiologist Result Diagram: 10/03/1870210/03/18702 test: Negative Studies: 2D Echo (60% EF) Pre-procedure Exam Last vitals Vital Signs Date Temp Pulse Resp B/P (MAP) Pulse Ox O2 O2 Flow FiO2 Time Delivery Rate 10/04/18 98.2 104 16 135/77 96 Room Air 09:16 (96) Airway: Adequate mouth opening Mallampati: Mallampati II Teeth: Normal Lung: Normal Heart: Normal ASA Physical Status ASA physical status: 4 Emergency: None Planned Anesthetic General/MAC: ETT Pre-operative Attestations Prior to commencing anesthesia and surgery, the patient was re-evaluated, there was verification of: *The patient's identity *The results of appropriate recent lab work and preoperative vital signs *The above evaluation not changing prior to induction *Anesthetic plan, risk benefits, alternative and complications discussed with patient/family; questions answered; patient/family understands, accepts and wishes to proceed. ARMANDO TOTH October 04, 2018 16:54
[2018-10-04 20:00] VITALS: BP 119/68; PULSE 89; RESP 18
[2018-10-05] VITALS (11 sets, daily range): BP systolic 102–125; BP diastolic 53–64; PULSE 76–100; RESP 18–26
[2018-10-05] MEDS: ZOLPIDEM 5 MG TAB PO PRN ×2 (00:07→23:28)
[2018-10-05] MEDS ORDERED: CEFAZOLIN 1 GM INJ ONE (07:00)
[2018-10-05] MEDS: FLUCONAZOLE 200 MG TAB PO SCH (09:00)
[2018-10-05] MEDS: ASCORBIC ACID 500 MG TAB PO SCH ×2 (09:00→21:24)
[2018-10-05] MEDS: HYDROCODONE/APAP (5/325) TAB PO PRN ×3 (10:45→21:24)
[2018-10-05] MEDS: MUPIROCIN 2% 22 GM OINT TOP SCH (10:45)
[2018-10-05] MEDS: HYDROCORTISONE 1% 28 GM CR TOP SCH ×2 (10:45→21:00)
--- NOTE | 2018-10-05 12:19 | HPN ---
Date/Time of Note Date/Time of Note DATE: 10/05/18 TIME: 12:19 Interval H&P Admission Note Pt. seen H&P reviewed: No system changes SILVIA LINARES DPM October 05, 2018 12:19
[2018-10-05] MEDS ORDERED: MIDAZOLAM 1 MG/ML 2 ML INJ ONE (12:32)
[2018-10-05] MEDS ORDERED: BUPIVACAINE 0.5% (SDV) 30 ML INJ ONE (12:33)
[2018-10-05] MEDS ORDERED: LIDOCAINE 1% (MPF) 30 ML INJ ONE ×2 (12:33→12:44)
[2018-10-05] MEDS ORDERED: MINERAL OIL LIGHT 10 ML VIAL ONE (12:37)
[2018-10-05] MEDS ORDERED: LIDOCAINE 1%/EPI (1:100,000) (MDV) 20 ML ONE (12:39)
[2018-10-05] MEDS ORDERED: FENTAnyl 50 MCG/ML VIAL ONE ×4 (12:50→13:30)
--- NOTE | 2018-10-05 12:59 | PN ---
Date/Time of Note Date/Time of Note DATE: 10/05/18 TIME: 12:55 Assessment/Plan VTE Prophylaxis Risk score (from Ns)>0 risk: 1 SCD applied (from [facility] – [place], [place]): No SCD contraindicated: other Pharmacological prophylaxis: LMWH Lines/Catheters IV Catheter Type (from [facility]): Saline Lock Urinary Cath still in place: No Assessment/Plan Hospital Course S: Patient had no acute events overnight presently off the floor at surgical procedure. O: VS - see below PE: -Unable to be performed today because patient presently off the floor at surgical procedure A/P:33 yo female with morbid obesity and chronic wound of L leg # Left lower extremity cellulitis/venous ulceration - status post I&D with wound VAC application on September 06, 2018, now off. Presently on p.o. fluconazole. -Monitor, presently at surgery for skin graft today- follow-up post op recommendations -Continue topical gentamicin for now we will follow further ID recommendations #Morbid obesity: Counseled on weight cessation Dispo: Placement in SNF pending-although complicated by patient's relatively young age and lack of housing apparently -however the patient as stated above is presently getting her skin graft surgery now, and hopefully if she will not need wound VAC at that time, possible discharge after that home with home health nursing when cleared by podiatry and ID teams. We will follow-up with case management on this. Result Diagram: 10/05/18 0602 10/05/18 0602 Results 24hrs Laboratory Tests Test 10/04/18 13:30 10/05/18 06:02 Urine Test NEGATIVE White Blood Count 10.7 Red Blood Count 4.11 L Hemoglobin 10.0 L Hematocrit 33.2 L Mean Corpuscular Volume 80.8 L Mean Corpuscular Hemoglobin 24.3 L Mean Corpuscular Hemoglobin Concent 30.1 L Red Cell Distribution Width 17.2 H Platelet Count 505 H Mean Platelet Volume 8.5 Immature Granulocytes % 0.700 H Neutrophils % 66.5 Lymphocytes % 21.0 Monocytes % 6.5 Eosinophils % 4.8 Basophils % 0.5 Nucleated Red Blood Cells % 0.0 Immature Granulocytes # 0.070 H Neutrophils # 7.1 Lymphocytes # 2.2 Monocytes # 0.7 Eosinophils # 0.5 Basophils # 0.1 Nucleated Red Blood Cells # 0.0 Sodium Level 139 Potassium Level 4.3 Chloride Level 105 Carbon Dioxide Level 28 Anion Gap 6 Blood Urea Nitrogen 20 Creatinine 0.70 Est Glomerular Filtrat Rate mL/min > 60 Glucose Level 100 Calcium Level 8.6 Phosphorus Level 4.5 Magnesium Level 1.9 Exam/Review of Systems Exam Vitals Vital Signs Date Temp Pulse Resp B/P (MAP) Pulse Ox O2 O2 Flow FiO2 Time Delivery Rate 10/05/18 98.8 100 20 118/58 94 08:00 (78) 10/04/18 Room Air 09:16 Results Results 24hrs Laboratory Tests Test 10/04/18 13:30 10/05/18 06:02 Urine Test NEGATIVE White Blood Count 10.7 Red Blood Count 4.11 L Hemoglobin 10.0 L Hematocrit 33.2 L Mean Corpuscular Volume 80.8 L Mean Corpuscular Hemoglobin 24.3 L Mean Corpuscular Hemoglobin Concent 30.1 L Red Cell Distribution Width 17.2 H Platelet Count 505 H Mean Platelet Volume 8.5 Immature Granulocytes % 0.700 H Neutrophils % 66.5 Lymphocytes % 21.0 Monocytes % 6.5 Eosinophils % 4.8 Basophils % 0.5 Nucleated Red Blood Cells % 0.0 Immature Granulocytes # 0.070 H Neutrophils # 7.1 Lymphocytes # 2.2 Monocytes # 0.7 Eosinophils # 0.5 Basophils # 0.1 Nucleated Red Blood Cells # 0.0 Sodium Level 139 Potassium Level 4.3 Chloride Level 105 Carbon Dioxide Level 28 Anion Gap 6 Blood Urea Nitrogen 20 Creatinine 0.70 Est Glomerular Filtrat Rate mL/min > 60 Glucose Level 100 Calcium Level 8.6 Phosphorus Level 4.5 Magnesium Level 1.9 Medications Medication Current Medications Lorazepam (Ativan) 0.5 mg Q8H PRN PO ANXIETY Last administered on 10/03/18at 08:43; Admin Dose 0.5 MG; Start 09/01/18 at 00:30 Collagenase (Santyl) 1 applic PRN PRN TOP SOIL Last administered on 09/01/18 01:13; Admin Dose 1 APPLIC; Start 09/01/18 at 01:00 Enoxaparin Sodium (Lovenox) 40 mg DAILY SC Last administered on 09/29/18 08:36; Admin Dose 40 MG; Start 09/08/18 at 15:30; Status Hold Ascorbic Acid (Vitamin C) 500 mg BID PO Last administered on 10/04/18at 20:29; Admin Dose 500 MG; Start 09/13/18 at 09:00 Hydrocortisone (Hydrocortisone 1% Cr) 1 applic BID TOP Last administered on 10/05/18 10:45; Admin Dose 1 APPLIC; Start 09/17/18 at 16:30 Zolpidem Tartrate (Ambien) 5 mg HS PRN PO INSOMNIA Last administered on 10/05/18 00:07; Admin Dose 5 MG; Start 09/18/18 at 00:00 Acetaminophen/ Hydrocodone Bitart ([place] (5/325)) 1 tab Q4 PRN PO .MOD PAIN 4-6 Last administered on 10/05/18 10:45; Admin Dose 1 TAB; Start 09/24/18 at 15:00 Mupirocin (Bactroban) 1 applic DAILY TOP Last administered on 10/05/18 10:45; Admin Dose 1 APPLIC; Start 10/03/18 at 09:00 Nicotine Polacrilex (Nicorette) 2 mg Q2H PRN BUCCAL CONTROL WITHDRAWAL SYMPT OMS; Start 10/03/18 at 00:00 Ondansetron HCl (Zofran Tab) 4 mg Q6H PRN PO NAUSEA AND/OR VOMITING; Start 10/03/18 at 00:00 Docusate Sodium (Colace) 100 mg Q12 PRN PO CONSTIPATION; Start 10/03/18 at 0 0:00 Bisacodyl (Dulcolax) 5 mg DAILY PRN PO CONSTIPATION; Start 10/03/18 at 00:00 Acetaminophen (Tylenol Tab) 650 mg Q6H PRN PO MILD PAIN(1-3)OR ELEVATED TEMP; Start 10/03/18 at 00:00 Gentamicin Sulfate (Gentamicin 0.1% Oint) 1 applic HS TOP Last administered on 10/04/18 20:29; Admin Dose 1 APPLIC; Start 10/04/18 at 21:00 KWABENA SIMONS October 05, 2018 12:59
[2018-10-05] MEDS ORDERED: PROPOFOL 20 ML ONE (13:14)
--- NOTE | 2018-10-05 13:22 | SIPON ---
Date/Time of Note Date/Time of Note DATE: 10/05/18 TIME: 13:22 Operative Report Preoperative Diagnosis Left lower extremity venous ulceration Hx of trauma and laceration to left lower extremity Hx of hematoma Edema b/l Morbid obesity Postoperative Diagnosis Left lower extremity venous ulceration Hx of trauma and laceration to left lower extremity Hx of hematoma Edema b/l Morbid obesity Operation/Procedure Performed Left lower extremity wound bed preparation Application of split thickness skin graft left lower extremity Surgeon see signature line kindergarten assistant none Anesthesia: MAC Estimated blood loss: 0 - 10 ml's Transfusion Required none Specimen left leg wound culture Grafts/Implants none Complications none SILVIA LINARES DPM October 05, 2018 13:22
[2018-10-05] MEDS ORDERED: HYDROmorphONE 1 MG/5 ML IV SYRINGE IV ONE (13:31)
[2018-10-05] MEDS: HYDROmorphONE 1 MG/5 ML IV SYRINGE IV PRN ×3 (13:37→14:11)
--- NOTE | 2018-10-05 13:43 | OPR ---
Date/Time of Note Date/Time of Note DATE: 10/05/18 TIME: 13:43 Operative Report Preoperative Diagnosis Left lower extremity venous ulceration Hx of trauma and laceration to left lower extremity Hx of hematoma Edema b/l Postoperative Diagnosis Left lower extremity venous ulceration Hx of trauma and laceration to left lower extremity Hx of hematoma Edema b/l Operation/Procedure Performed Left lower extremity wound bed preparation Application of split thickness skin graft left lower extremity Surgeon see signature line Acting Instructor none Anesthesia Type: MAC Estimated Blood Loss: 0 - 10 ml's Transfusion none Specimen left leg wound culture Grafts/Implants none Complications none Indications 33 y/o F patient with a chronic left lower extremity ulceration which has undergone debridements and wound VAC therapy and is now amenable to skin grafting of the left lower extremity. Addressed all of the patient's questions and concerns. No promises or guarantees were given. Procedure Description Patient was brought into the OR and placed on the OR table in the supine position. The left lower extremity was scrubbed, prepped, and draped in the usual aseptic manner. A formal time out was conducted. Attention was directed to the left lower extremity ulceration which measured 3.5 x 1.6 x 0.3cm which is granular in nature. There was a location to the lateral aspect of the wound which had some tunneling measured 2.0 cm. The tunnel did no probe to bone, no proximal streaking was appreciated and no surrounding erythema noted. Copious antibiotic infused saline was used to irrigate the ulceration and tunneling site. Wound cultures were obtained. The ulcer site underwent wound bed preparation using a curette and adequate bleeding was appreciated to the wound bed. A split thickness skin graft was harvested from the proximal left lower extremity using a dermatome with 0.018in depth. Local anesthesia was used with lidocaine 1% with epinephrine at the graft harvest site. The skin was meshed with 3:1 mesher and the skin graft was secured with 3-0 nylon to the ulceration site. Dry sterile dressings was applied to the donor and recipient site. Compression was applied to the left lower extremity. Patient was transferred to the PACU with vital signs stable and neurovascular status intact. SILVIA LINARES DPM October 05, 2018 13:43
[2018-10-05] MEDS ORDERED: HYDROmorphONE 1 MG/5 ML IV SYRINGE IV PRN (14:00)
[2018-10-05] MEDS ORDERED: FENTAnyl 50 MCG/ML VIAL IV PRN ×2 (14:00)
[2018-10-05] MEDS ORDERED: morphine 2 MG INJ IV PRN ×2 (15:00→20:30)
--- NOTE | 2018-10-05 16:22 | PAC ---
Date/Time of Note Date/Time of Note DATE: 10/05/18 TIME: 16:22 Post-Anesthesia Notes Post-Anesthesia Note Last documented vital signs Vital Signs Date Temp Pulse Resp B/P (MAP) Pulse Ox O2 O2 Flow FiO2 Time Delivery Rate 10/05/18 98.6 76 18 125/64 96 14:45 (84) 10/05/18 Room Air 14:04 Activity: WNL Respiratory function: WNL Cardiovascular function: WNL Mental status: Baseline Pain reasonably controlled: Yes Hydration appropriate: Yes Nausea/Vomiting absent: Yes CALVIN DAVILA October 05, 2018 16:22
[2018-10-05] MEDS: GENTAMICIN 0.1% 15 GM OINT TOP SCH (21:00)
[2018-10-05] MEDS ORDERED: HYDROmorphONE 1 MG/ML SYG IV ONE (22:00)
[2018-10-05] MEDS ORDERED: HYDROCODONE/APAP (5/325) TAB PO PRN (22:00)
[2018-10-06 02:21] VITALS: BP 111/57; PULSE 102; RESP 20
[2018-10-06] MEDS: morphine 4 MG/ML VIAL IV PRN ×3 (04:15→15:40)
[2018-10-06 08:00] VITALS: BP 122/74; PULSE 76; RESP 20
[2018-10-06] MEDS: ASCORBIC ACID 500 MG TAB PO SCH ×2 (10:07→20:07)
--- NOTE | 2018-10-06 10:55 | CONS ---
Assessment/Plan Assessment/Plan Assessment/Plan (Daily) Left lower extremity venous ulceration - s/p skin graft application (DOS: 10/05/18) Hx of trauma and laceration to left lower extremity Hx of hematoma Left lower extremity cellulitis - improved Edema b/l Morbid obesity homelessness Nicotine dependence Plan Patient tolerated procedure well. Patient is permitted to weight bear as tolerated. Keep dressings clean, dry and intact. No topical applications needed at this time and wound VAC can be stopped at this time. Patient is stable for discharge and can follow up in wound care clinic here at [facility] Consultation Date/Type/Reason Admit Date/Time Aug 31, 2018 at 22:53 Initial Consult Date Date/Time of Note DATE: 10/06/18 TIME: 10:54 24 HR Interval Summary Free Text/Dictation Per nursing patient's dressings became disheveled. Exam/Review of Systems Exam Vitals Vital Signs Date Temp Pulse Resp B/P (MAP) Pulse Ox O2 O2 Flow FiO2 Time Delivery Rate 10/06/18 98.8 76 20 122/74 96 08:00 (90) 10/05/18 Room Air 14:04 Intake and Output 10/05/18 10/05/18 10/06/18 1515:00 23:00 07:00 IntakeIntake Total 760 ml 250 ml BalanceBalance 760 ml 250 ml Exam Skin graft in placed and secured with sutures No purulent drainage No proximal streaking No foul odor Mild pain on palpation Donor site with dry sterile dressings in place, minimal strikethrough drainage appreciated. Results Result Diagram: 10/05/18 0602 10/05/18 0602 Medications Medication Current Medications Lorazepam (Ativan) 0.5 mg Q8H PRN PO ANXIETY Last administered on 10/03/18at 08:43; Admin Dose 0.5 MG; Start 09/01/18 at 00:30 Collagenase (Santyl) 1 applic PRN PRN TOP SOIL Last administered on 09/01/18at 01:13; Admin Dose 1 APPLIC; Start 09/01/18 at 01:00 Enoxaparin Sodium (Lovenox) 40 mg DAILY SC Last administered on 09/29/18at 08:36; Admin Dose 40 MG; Start 09/08/18 at 15:30; Status Hold Ascorbic Acid (Vitamin C) 500 mg BID PO Last administered on 10/06/18at 10:07; Admin Dose 500 MG; Start 09/13/18 at 09:00 Zolpidem Tartrate (Ambien) 5 mg HS PRN PO INSOMNIA Last administered on 10/05/18at 23:28; Admin Dose 5 MG; Start 09/18/18 at 00:00 Acetaminophen/ Hydrocodone Bitart ([place] (5/325)) 1 tab Q4 PRN PO .MOD PAIN 4-6 Last administered on 10/05/18at 21:24; Admin Dose 1 TAB; Start 09/24/18 at 15:00 Nicotine Polacrilex (Nicorette) 2 mg Q2H PRN BUCCAL CONTROL WITHDRAWAL SYMPTOMS; Start 10/03/18 at 00:00 Ondansetron HCl (Zofran Tab) 4 mg Q6H PRN PO NAUSEA AND/OR VOMITING; Start 10/03/18 at 00:00 Docusate Sodium (Colace) 100 mg Q12 PRN PO CONSTIPATION; Start 10/03/18 at 00:00 Bisacodyl (Dulcolax) 5 mg DAILY PRN PO CONSTIPATION; Start 10/03/18 at 00:00 Acetaminophen (Tylenol Tab) 650 mg Q6H PRN PO MILD PAIN(1-3)OR ELEVATED TEMP; Start 10/03/18 at 00:00 Gentamicin Sulfate (Gentamicin 0.1% Oint) 1 applic HS TOP Last administered on 10/04/18at 20:29; Admin Dose 1 APPLIC; Start 10/04/18 at 21:00 Morphine Sulfate (morphine) 4 mg Q4H PRN IV SEVERE PAIN LEVEL 7-10 Last administered on 10/06/18at 10:04; Admin Dose 4 MG; Start 10/05/18 at 22:00 Acetaminophen/ Hydrocodone Bitart ([place] (5/325)) 2 tab Q4H PRN PO PAIN LEVEL 6-10; Start 10/05/18 at 22:00 SILVIA LINARES DPM October 06, 2018 10:55
[2018-10-06 14:00] VITALS: BP 120/52; PULSE 86; RESP 18
[2018-10-06] MEDS ORDERED: HYDROCODONE/APAP (5/325) TAB PO PRN ×2 (17:00→21:00)
--- NOTE | 2018-10-06 17:04 | PN ---
Date/Time of Note Date/Time of Note DATE: 10/06/18 TIME: 16:59 Assessment/Plan VTE Prophylaxis Risk score (from Nsg)>0 risk: 2 SCD applied (from Ns): No SCD contraindicated: other Pharmacological prophylaxis: LMWH Lines/Catheters IV Catheter Type (from Nrs): Saline Lock Urinary Cath still in place: No Assessment/Plan Hospital Course S: Patient had surgical debridement performed yesterday, seen by podiatry team this morning. O: VS - see below PE: Well-appearing in no distress AO x3 Regular rate and rhythm Breathing comfortably Obese Bandage over the left lower extremity lesion. Date/Time of Note Date/Time of Note DATE: 10/05/18 TIME: 13:43 Operative Report Preoperative Diagnosis Left lower extremity venous ulceration Hx of trauma and laceration to left lower extremity Hx of hematoma Edema b/l Postoperative Diagnosis Left lower extremity venous ulceration Hx of trauma and laceration to left lower extremity Hx of hematoma Edema b/l Operation/Procedure Performed Left lower extremity wound bed preparation Application of split thickness skin graft left lower extremity A/P:33 yo female with morbid obesity and chronic wound of L leg # Left lower extremity cellulitis/venous ulceration - status post application of split-thickness skin graft to the left lower extremity postop day #1. -Monitor, follow-up post op recommendations -Continue topical gentamicin for now we will follow further ID recommendations #Morbid obesity: Counseled on weight cessation Dispo: Per podiatry team, patient is cleared for discharge from their perspective and is weightbearing as tolerated. We will have rn social services come and reevaluate the patient particularly her possible homelessness situation. May need to provide her with resources or find other means of placement. Again we will discuss with rn social services first. Result Diagram: 10/05/18 0602 10/05/18 0602 Exam/Review of Systems Exam Vitals Vital Signs Date Temp Pulse Resp B/P (MAP) Pulse Ox O2 O2 Flow FiO2 Time Delivery Rate 10/06/18 99.0 86 18 120/52 0 14:00 (74) 10/05/18 Room Air 14:04 Intake and Output 10/05/18 10/05/18 10/06/18 1515:00 23:00 07:00 IntakeIntake Total 760 ml 250 ml BalanceBalance 760 ml 250 ml Medications Medication Current Medications Lorazepam (Ativan) 0.5 mg Q8H PRN PO ANXIETY Last administered on 10/03/18 08:43; Admin Dose 0.5 MG; Start 09/01/18 at 00:30 Collagenase (Santyl) 1 applic PRN PRN TOP SOIL Last administered on 09/01/18at 01:13; Admin Dose 1 APPLIC; Start 09/01/18 at 01:00 Enoxaparin Sodium (Lovenox) 40 mg DAILY SC Last administered on 09/29/18 08:36; Admin Dose 40 MG; Start 09/08/18 at 15:30; Status Hold Ascorbic Acid (Vitamin C) 500 mg BID PO Last administered on 10/06/18 10:07; Admin Dose 500 MG; Start 09/13/18 at 09:00 Zolpidem Tartrate (Ambien) 5 mg HS PRN PO INSOMNIA Last administered on 10/05/18 23:28; Admin Dose 5 MG; Start 09/18/18 at 00:00 Acetaminophen/ Hydrocodone Bitart ([place] (5/325)) 1 tab Q4 PRN PO .MOD PAIN 4-6 Last administered on 10/05/18at 21:24; Admin Dose 1 TAB; Start 09/24/18 at 15:00 Nicotine Polacrilex (Nicorette) 2 mg Q2H PRN BUCCAL CONTROL WITHDRAWAL SYMPTOMS; Start 10/03/18 at 00:00 Ondansetron HCl (Zofran Tab) 4 mg Q6H PRN PO NAUSEA AND/OR VOMITING; Start 10/03/18 at 00:00 Docusate Sodium (Colace) 100 mg Q12 PRN PO CONSTIPATION; Start 10/03/18 at 00:00 Bisacodyl (Dulcolax) 5 mg DAILY PRN PO CONSTIPATION; Start 10/03/18 at 00:00 Acetaminophen (Tylenol Tab) 650 mg Q6H PRN PO MILD PAIN(1-3)OR ELEVATED TEMP; Start 10/03/18 at 00:00 Gentamicin Sulfate (Gentamicin 0.1% Oint) 1 applic HS TOP Last administered on 10/04/18at 20:29; Admin Dose 1 APPLIC; Start 10/04/18 at 21:00 Acetaminophen/ Hydrocodone Bitart ([place] (5/325)) 1 tab Q6H PRN PO PAIN LEVEL 6-10; Start 10/06/18 at 17:00 Morphine Sulfate (morphine) 3 mg Q4H PRN IV SEVERE PAIN LEVEL 7-10; Start 10/06/18 at 18:00; Status UNV KWABENA SIMONS October 06, 2018 17:04
[2018-10-06] MEDS ORDERED: morphine 4 MG/ML VIAL IV PRN (18:00)
[2018-10-06 20:00] VITALS: BP 114/58; PULSE 99; RESP 18
[2018-10-06] MEDS: HYDROCODONE/APAP (5/325) TAB PO PRN ×2 (20:09→21:08)
[2018-10-06] MEDS: GENTAMICIN 0.1% 15 GM OINT TOP SCH (20:09)
[2018-10-06] MEDS: ZOLPIDEM 5 MG TAB PO PRN (22:42)
[2018-10-07] MEDS: ASCORBIC ACID 500 MG TAB PO SCH ×2 (08:52→21:00)
--- NOTE | 2018-10-07 13:35 | PN ---
Date/Time of Note Date/Time of Note DATE: 10/07/18 TIME: 13:32 Assessment/Plan VTE Prophylaxis Risk score (from Ns)>0 risk: 3 SCD applied (from Ns): No SCD contraindicated: other Pharmacological prophylaxis: LMWH Lines/Catheters IV Catheter Type (from Nrs): Saline Lock Urinary Cath still in place: No Assessment/Plan Hospital Course S: Patient seen by podiatry team earlier today as well as licensed master social worker. No other acute events overnight. O: VS - see below PE: Well-appearing in no distress AO x3 Regular rate and rhythm Breathing comfortably Obese Bandage over the left lower extremity lesion. Date/Time of Note Date/Time of Note DATE: 10/05/18 TIME: 13:43 Operative Report Preoperative Diagnosis Left lower extremity venous ulceration Hx of trauma and laceration to left lower extremity Hx of hematoma Edema b/l Postoperative Diagnosis Left lower extremity venous ulceration Hx of trauma and laceration to left lower extremity Hx of hematoma Edema b/l Operation/Procedure Performed Left lower extremity wound bed preparation Application of split thickness skin graft left lower extremity A/P:33 yo female with morbid obesity and chronic wound of L leg # Left lower extremity cellulitis/venous ulceration -patient had positive wound culture growth earlier this admission status post antibiotic treatment earlier this admission. Now status post application of split-thickness skin graft to the left lower extremity postop day # 2. -Monitor, follow-up post op recommendations -podiatry team has tentatively cleared her for discharge at this point. -Continue topical gentamicin for now we will follow further ID recommendatio ns #Morbid obesity: Counseled on weight cessation Dispo: Again, per podiatry team, patient is cleared for discharge from their perspective and is weightbearing as tolerated. Patient initially told licensed master social worker she would go back to live in her car, now she is asking for recuperative care placement. We will ask case management to help assist in this. Also may need to provide her with resources or find other means of placement. Result Diagram: 10/05/18 0602 10/05/18 06 Exam/Review of Systems Exam Vitals Vital Signs Date Temp Pulse Resp B/P (MAP) Pulse Ox O2 O2 Flow FiO2 Time Delivery Rate 10/06/18 98.7 99 18 114/58 94 20:00 (76) 10/05/18 Room Air 14:04 Intake and Output 10/06/18 10/06/18 10/07/18 1515:00 23:00 07:00 IntakeIntake Total 1040 ml 240 ml BalanceBalance 1040 ml 240 ml Medications Medication Current Medications Lorazepam (Ativan) 0.5 mg Q8H PRN PO ANXIETY Last administered on 10/03/18 08:43; Admin Dose 0.5 MG; Start 09/01/18 at 00:30 Collagenase (Santyl) 1 applic PRN PRN TOP SOIL Last administered on 09/01/18 01:13; Admin Dose 1 APPLIC; Start 09/01/18 at 01:00 Enoxaparin Sodium (Lovenox) 40 mg DAILY SC Last administered on 09/29/18 08:36; Admin Dose 40 MG; Start 09/08/18 at 15:30; Status Hold Ascorbic Acid (Vitamin C) 500 mg BID PO Last administered on 10/06/18 20:07; Admin Dose 500 MG; Start 09/13/18 at 09:00 Zolpidem Tartrate (Ambien) 5 mg HS PRN PO INSOMNIA Last administered on 22:42; Admin Dose 5 MG; Start 09/18/18 at 00:00 Acetaminophen/ Hydrocodone Bitart ([place] (5/325)) 1 tab Q4 PRN PO .MOD PAIN 4-6 Last administered on 10/06/18 21:08; Admin Dose 1 TAB; Start 09/24/18 at 15:00 Nicotine Polacrilex (Nicorette) 2 mg Q2H PRN BUCCAL CONTROL WITHDRAWAL SYMPTOMS; Start 10/03/18 at 00:00 Ondansetron HCl (Zofran Tab) 4 mg Q6H PRN PO NAUSEA AND/OR VOMITING; Start 10/03/18 at 00:00 Docusate Sodium (Colace) 100 mg Q12 PRN PO CONSTIPATION; Start 10/03/18 at 00:00 Bisacodyl (Dulcolax) 5 mg DAILY PRN PO CONSTIPATION; Start 10/03/18 at 00:00 Acetaminophen (Tylenol Tab) 650 mg Q6H PRN PO MILD PAIN(1-3)OR ELEVATED TEMP; Start 10/03/18 at 00:00 Gentamicin Sulfate (Gentamicin 0.1% Oint) 1 applic HS TOP Last administered on 5/23/19at 20:29; Admin Dose 1 APPLIC; Start 10/04/18 at 21:00 Morphine Sulfate (morphine) 3 mg Q4H PRN IV SEVERE PAIN LEVEL 7-10 Last admin istered on 10/07/18at 05:40; Admin Dose 3 MG; Start 10/06/18 at 18:00 Acetaminophen/ Hydrocodone Bitart ([place] (5/325)) 2 tab Q4H PRN PO SEVERE PAIN LEVEL 7-10; Start 10/06/18 at 21:30 KWABENA SIMONS October 07, 2018 13:35
--- NOTE | 2018-10-07 13:53 | CONS ---
Assessment/Plan Assessment/Plan Assessment/Plan (Daily) Left lower extremity venous ulceration - s/p skin graft application (DOS: 10/05/18) Hx of trauma and laceration to left lower extremity Hx of hematoma Left lower extremity cellulitis - improved Edema b/l Morbid obesity homelessness Nicotine dependence Plan Patient wants to go to [facility]. administrative services assistant on board and will make arrangements for transition. Patient amenable to staying until arrangements are made. Patient is permitted to weight bear as tolerated. Keep dressings clean, dry and intact. No topical applications needed at this time a nd wound VAC can be stopped at this time. Patient is stable for discharge and can follow up in wound care clinic here at [facility] Consultation Date/Type/Reason Admit Date/Time Aug 31, 2018 at 22:53 Initial Consult Date Date/Time of Note DATE: 10/07/18 TIME: 13:52 24 HR Interval Summary Free Text/Dictation No acute events overnight Exam/Review of Systems Exam Vitals Vital Signs Date Temp Pulse Resp B/P (MAP) Pulse Ox O2 O2 Flow FiO2 Time Delivery Rate 10/06/18 98.7 99 18 114/58 94 20:00 (76) 10/05/18 Room Air 14:04 Intake and Output 10/06/18 10/06/18 10/07/18 1515:00 23:00 07:00 IntakeIntake Total 1040 ml 240 ml BalanceBalance 1040 ml 240 ml Exam Skin graft in placed and secured with sutures No purulent drainage No proximal streaking No foul odor Mild pain on palpation Donor site with dry sterile dressings in place, minimal strikethrough drainage appreciated. Results Result Diagram: 10/05/18 0602 10/05/18 0602 Medications Medication Current Medications Lorazepam (Ativan) 0.5 mg Q8H PRN PO ANXIETY Last administered on 10/03/18at 08:43; Admin Dose 0.5 MG; Start 09/01/18 at 00:30 Collagenase (Santyl) 1 applic PRN PRN TOP SOIL Last administered on 09/01/18at 01:13; Admin Dose 1 APPLIC; Start 09/01/18 at 01:00 Enoxaparin Sodium (Lovenox) 40 mg DAILY SC Last administered on 09/29/18at 08:36; Admin Dose 40 MG; Start 09/08/18 at 15:30; Status Hold Ascorbic Acid (Vitamin C) 500 mg BID PO Last administered on 10/06/18 20:07; Admin Dose 500 MG; Start 09/13/18 at 09:00 Zolpidem Tartrate (Ambien) 5 mg HS PRN PO INSOMNIA Last administered on 10/06/18at 22:42; Admin Dose 5 MG; Start 09/18/18 at 00:00 Acetaminophen/ Hydrocodone Bitart ([place] (5/325)) 1 tab Q4 PRN PO .MOD PAIN 4-6 Last administered on 10/06/18at 21:08; Admin Dose 1 TAB; Start 09/24/18 at 15:00 Nicotine Polacrilex (Nicorette) 2 mg Q2H PRN BUCCAL CONTROL WITHDRAWAL SYMPTOMS; Start 10/03/18 at 00:00 Ondansetron HCl (Zofran Tab) 4 mg Q6H PRN PO NAUSEA AND/OR VOMITING; Start 10/03/18 at 00:00 Docusate Sodium (Colace) 100 mg Q12 PRN PO CONSTIPATION; Start 10/03/18 at 00:00 Bisacodyl (Dulcolax) 5 mg DAILY PRN PO CONSTIPATION; Start 10/03/18 at 00:00 Acetaminophen (Tylenol Tab) 650 mg Q6H PRN PO MILD PAIN(1-3)OR ELEVATED TEMP; Start 10/03/18 at 00:00 Gentamicin Sulfate (Gentamicin 0.1% Oint) 1 applic HS TOP Last administered on 10/04/18at 20:29; Admin Dose 1 APPLIC; Start 10/04/18 at 21:00 Acetaminophen/ Hydrocodone Bitart ([place] (5/325)) 2 tab Q4H PRN PO SEVERE PAIN LEVEL 7-10; Start 10/06/18 at 21:30 Morphine Sulfate (morphine) 2 mg Q4H PRN IV SEVERE PAIN LEVEL 7-10; Start 10/07/18 at 14:00; Status SILVIA ALMANZA DPM October 07, 2018 13:53
[2018-10-07] MEDS: morphine 2 MG INJ IV PRN ×2 (15:07→22:30)
[2018-10-07 20:00] VITALS: BP 165/98; PULSE 91; RESP 19
[2018-10-07] MEDS: GENTAMICIN 0.1% 15 GM OINT TOP SCH (22:36)
[2018-10-08] MEDS: morphine 2 MG INJ IV PRN ×2 (02:34→10:01)
[2018-10-08 02:38] VITALS: BP 119/78; PULSE 82; RESP 19
[2018-10-08] MEDS: HYDROCODONE/APAP (5/325) TAB PO PRN ×3 (09:42→19:58)
[2018-10-08] MEDS: ASCORBIC ACID 500 MG TAB PO SCH ×2 (09:42→19:58)
--- NOTE | 2018-10-08 11:29 | PDOCDIS ---
Discharge Instructions CONDITION [id number] Patient Condition: [id number] Stable ACTIVITY: [id number] Activity Restrictions: [id number] Slowly Increase Activity Rest between Activity Avoid heavy lifting FOLLOW UP/APPOINTMENTS Follow-up Plan Please take your medications as prescribed and keep your wound site clean dry and intact as much as possible. Please follow-up with your regular doctor and bed and breakfast operator in the clinic in the next few days. KWABENA SIMONS October 08, 2018 11:29
[2018-10-08] MEDS ORDERED: SAN30GM TOP (11:31)
[2018-10-08] MEDS ORDERED: NICO2GUM7 BUCCAL (11:31)
[2018-10-08] MEDS ORDERED: GENT30OI2 TOP (11:31)
[2018-10-08] MEDS ORDERED: ASC500 PO (11:31)
--- NOTE | 2018-10-08 11:37 | DS ---
Date/Time of Note Date/Time of Note DATE: 10/08/18 TIME: 11:32 Discharge Summary Admission/Discharge Info Admit Date/Time Aug 31, 2018 at 22:53 Discharge Date/Time Discharge Diagnosis # Left lower extremity cellulitis/venous ulceration -patient had positive wound culture growth earlier this admission status post antibiotic treatment earlier this admission. Now status post application of split-thickness skin graft to the left lower extremity postop day # 3. -Monitor, follow-up post op recommendations -podiatry team has tentatively cleared her for discharge at this point. -Continue topical gentamicin for now we will follow further ID re commendations #Morbid obesity: Counseled on weight cessation # smoking history: On Nicorette gum, counseled on smoking cessation # Asthma # Chronic anemia: Stable Patient Condition: Stable Procedures Date/Time of Note Date/Time of Note DATE: 10/05/18 TIME: 13:43 Operative Report Preoperative Diagnosis Left lower extremity venous ulceration Hx of trauma and laceration to left lower extremity Hx of hematoma Edema b/l Postoperative Diagnosis Left lower extremity venous ulceration Hx of trauma and laceration to left lower extremity Hx of hematoma Edema b/l Operation/Procedure Performed Left lower extremity wound bed preparation Application of split thickness skin graft left lower extremity Hx of Present Illness 33-year-old female who presents to the emergency room because of left lower extremity cellulitis. Dr. Alegre the vector control specialist sent the patient to be admitted. The patient notes significant swelling and drainage from a wound to the lateral aspect of the left lower extremity. The pain is mild at this time. Previously was treated for cellulitis and a hematoma with debridement status p ost wound VAC. She states that she was walking and she fell but she is unsure whether her bone got worse or not. She does report foul odor and discharge from the wound. Denies any fevers. Hospital Course Patient was admitted and initially treated for cellulitis and hematoma of the lower extremity. She was seen by infectious disease, podiatry teams during this hospital stay. She also continued on wound care treatment, and also seen by physical therapy team and social services analyst teams during this hospital stay. The hematoma resolved and the cellulitis resolved as well. She did have a wound VAC in place as recommended by podiatry team and she continued on that for significant amount of time while she was here in the hospital. She was also treated for fungal and bacterial wound infections from the affected site, completed antibiotic treatment while here in the hospital for that. Eventually she underwent split-thickness skin graft procedure as well which he tolerated well. She is able to ambulate at baseline, tolerate diet, vital signs and labs are stable. After getting clearance of the podiatry team she will be discharged home today improved condition. We are working on trying to get her to recuperative care facility today, if that occurs she will be discharged there and continue with wound dressing changes and follow-up with podiatry team and a regular doctor in the clinic in the next few days. See below for full list of discharge medications. Home Meds Active Scripts Ascorbic Acid (Vitamin C) 500 Mg Tab, 500 MG PO BID, #60 TAB 2 Refills Prov:KWABENA SIMONS. 10/08/18 Gentamicin Sulfate* (Gentamicin Sulfate* Oint) 0.1% - 30 Gm Oint..gm., 1 APPLIC TOP HS, #1 TUB 1 Refill Prov:KWABENA SIMONS S. 10/08/18 Collagenase* (Santyl*) 30 Gm Oint..gm., 1 APPLIC TOP PRN PRN for SOIL, #1 TUB Prov:KWABENA SIMONS S. 10/08/18 Nicotine Polacrilex (Nicorette) 2 Mg Gum, 2 MG BUCCAL Q2H PRN for CONTROL WITHDRAWAL SYMPTOMS, #1 BOTTLE 1 Refill Prov:KWABENA SIMONS. 10/08/18 Follow-up Plan Please take your medications as prescribed and keep your wound site clean dry and intact as much as possible. Please follow-up with your regular doctor and vector control specialist in the clinic in the next few days. Primary Care Provider Not On Staff Doctor Time spent on discharge: > 30 minutes KWABENA SIMONS October 08, 2018 11:37
--- NOTE | 2018-10-08 11:44 | PAC ---
Date/Time of Note Date/Time of Note DATE: 10/08/18 TIME: 11:44 Post-Anesthesia Notes Post-Anesthesia Note Last documented vital signs Vital Signs Date Temp Pulse Resp B/P (MAP) Pulse Ox O2 O2 Flow FiO2 Time Delivery Rate 10/08/18 98.9 82 19 119/78 94 Room Air 02:38 (92) Activity: WNL Respiratory function: WNL Cardiovascular function: WNL Mental status: Baseline Pain reasonably controlled: Yes Hydration appropriate: Yes Nausea/Vomiting absent: Yes CALVIN DAVILA October 08, 2018 11:44
[2018-10-08] MEDS: GENTAMICIN 0.1% 15 GM OINT TOP SCH (19:58)
[2018-10-08 20:37] VITALS: BP 131/73; PULSE 78; RESP 20
--- NOTE | 2018-10-10 16:40 | PN ---
Date/Time of Note Date/Time of Note DATE: 09/27/18 TIME: 16:40 Assessment/Plan VTE Prophylaxis Risk score (from Nsg)>0 risk: 2 SCD applied (from Nsg): Yes Pharmacological prophylaxis: heparin Lines/Catheters IV Catheter Type (from Nrsg): Saline Lock Urinary Cath still in place: No Assessment/Plan Hospital Course Exam: Well-appearing in no distress AO x3 Regular rate and rhythm Breathing comfortably Obese Left lower extremity wound VAC in place A/P: 33 yo female with morbid obesity and chronic wound of L leg - wound vac - Plan for skin graft this coming week - Abx per ID Placement in SNF pending. Complicated by lack of housing Subjective 24 Hr Interval Summary Free Text/Dictation No change to clinical status Exam/Review of Systems Exam Vitals Vital Signs Date Temp Pulse Resp B/P (MAP) Pulse Ox O2 O2 Flow FiO2 Time Delivery Rate 10/08/18 98.0 78 20 131/73 97 20:37 (92) 10/08/18 Room Air 02:38 LYNDA TREJO MD October 10, 2018 16:40
== END 2018-10-08 21:03 | disposition left against medical advice (07) | DRG 854 ==
LOC: E/R 19:30 → PP2 22:53
PROVIDERS: ADMIT Family Medicine; ATTEND Hospitalist
PROC: 0JBP0ZZ Excision of Left Lower Leg Subcutaneous Tissue and Fascia, Open Approach (ICD-10-PCS; principal; 2018-09-06 16:00)
PROC: 0HRLX74 Replacement of Left Lower Leg Skin with Autologous Tissue Substitute, Partial Thickness, External Approach (ICD-10-PCS; 2018-10-05)
PROC: 0HBJXZZ Excision of Left Upper Leg Skin, External Approach (ICD-10-PCS; 2018-10-05)
DX: A41.9 Sepsis, unspecified organism (principal); L03.116 Cellulitis of left lower limb; Z68.44 Body mass index [BMI] 60.0-69.9, adult; L97.929 Non-pressure chronic ulcer of unspecified part of left lower leg with unspecified severity; E66.01 Morbid (severe) obesity due to excess calories; F17.200 Nicotine dependence, unspecified, uncomplicated; D63.8 Anemia in other chronic diseases classified elsewhere; D50.9 Iron deficiency anemia, unspecified; I51.7 Cardiomegaly; J45.909 Unspecified asthma, uncomplicated; Z59.0 Homelessness
CPT/HCPCS: 36415; 71045; 73700; 73721; 80048; 80053; 80202; 81025; 83036; 83605; 83735; 83880; 84100; 84702; 84703; 85025; 85610; 85651; 85730; 86140; 87070; 87075; 87081; 87102; 87116; 93005; 93306; 96365; 96366; 96368; J0690; J0692; J1170; J1650; J2250; J2270; J2405; J2543; J2765; J3010; J3370; J7030; J7040

== ENCOUNTER 2019-03-06 11:45 | Inpatient (IN) | payer OTHER ==
[~2019-03-06] VITALS: Ht 170.2 cm; Wt 168.3 kg
[~2019-03-06 11:45] MED LIST changes: +ASC500 PO; +CIPR-193 PO; +GENT30OI2 TOP; -HYDR-3609 PO; -LEVO500T48 PO; +LINE600T15 PO; +METO-335 PO; +NICO2GUM7 BUCCAL; +SAN30GM TOP; -SULF-182 PO
[2019-03-06] MEDS ORDERED: SODIUM CHLORIDE 0.9% 1L BAG IV* STA (12:26)
[2019-03-06] MEDS ORDERED: IBUPROFEN 600 MG TAB PO ONE (12:30)
[2019-03-06] MEDS ORDERED: CEFTRIAXONE 2 GM/50 ML (PMX) 50 ML IVPB ONE (12:30)
[2019-03-06] MEDS ORDERED: VANCOMYCIN 1 GM (PMX) 250 ML IVPB ONE (14:00)
[2019-03-06] MEDS ORDERED: ONDANSETRON 4 MG INJ IV PRN (17:00)
[2019-03-06] MEDS ORDERED: MAGNESIUM HYDROXIDE 30ML CUP PO PRN (17:00)
[2019-03-06] MEDS ORDERED: SOD CHLORIDE 0.9% IV ONE (17:00)
[2019-03-06] MEDS ORDERED: NACL 0.9% 3 ML SYG IV SCH (17:00)
[2019-03-06] MEDS ORDERED: DOCUSATE SODIUM 100 MG CAP PO PRN (17:00)
[2019-03-06] MEDS ORDERED: BISACODYL 10 MG SUPP PR PRN (17:00)
[2019-03-06] MEDS ORDERED: VANCOMYCIN IV PER PHARMACY XX SCH (17:00)
[2019-03-06] MEDS: HYDROCODONE/APAP (5/325) TAB PO PRN (17:19)
[2019-03-06] MEDS ORDERED: VANCOMYCIN 1 GM in 250 ML IVPB SCH (18:00)
[2019-03-06 20:00] VITALS: BP 106/71; PULSE 115; RESP 22
[2019-03-06 20:19] VITALS: Ht 170.2 cm; Wt 168.3 kg
[2019-03-06] MEDS: SOD CHLORIDE 0.9% 1,000 ML IV SCH (20:28)
[2019-03-06] MEDS: VANCOMYCIN 1 GM in 250 ML IVPB SCH (20:40)
[2019-03-06] MEDS: ACETAMINOPHEN 325 MG TAB PO PRN (20:53)
[2019-03-06] MEDS: HEPARIN 5,000 UNIT/1 ML VIAL SC SCH (21:01)
[2019-03-06 23:52] VITALS: BP 122/79; PULSE 115; RESP 18
[2019-03-07] MEDS: CEFEPIME 2GM/50 ML (PMX) 50 ML IVPB SCH ×3 (00:15→14:41)
[2019-03-07] MEDS: SOD CHLORIDE 0.9% 1,000 ML IV SCH ×3 (00:37→16:37)
[2019-03-07] MEDS: HYDROCODONE/APAP (5/325) TAB PO PRN ×2 (02:15→10:10)
[2019-03-07 04:00] VITALS: BP 129/85; PULSE 120; RESP 22
[2019-03-07] MEDS ORDERED: SOD CHLORIDE 0.9% 500 ML IV ONE (04:30)
[2019-03-07] MEDS: VANCOMYCIN 1 GM in 250 ML IVPB SCH ×3 (05:17→21:46)
[2019-03-07] MEDS: ACETAMINOPHEN 325 MG TAB PO PRN (05:18)
[2019-03-07] MEDS: morphine 2 MG INJ IV PRN ×3 (06:25→17:08)
[2019-03-07] MEDS: PANTOPRAZOLE 40 MG INJ IV SCH (06:42)
[2019-03-07 07:13] VITALS: BP 120/80; PULSE 120; RESP 20
[2019-03-07] MEDS: HEPARIN 5,000 UNIT/1 ML VIAL SC SCH ×2 (08:39→21:00)
[2019-03-07 11:13] VITALS: BP_SYST 133; BP_SYST 173; BP_DIAS 63; BP_DIAS 88; PULSE 119; RESP 22
[2019-03-07] MEDS: METOPROLOL (XL) 25 MG TAB PO SCH (12:27)
[2019-03-07 15:57] VITALS: BP 153/80; PULSE 118; RESP 20
[2019-03-07] MEDS ORDERED: ACET/BUTAL/CAFF TAB PO PRN (16:00)
[2019-03-07 19:17] VITALS: BP 147/81; PULSE 116; RESP 21
[2019-03-07 23:15] VITALS: BP 156/78; PULSE 120; RESP 23
[2019-03-08] VITALS (7 sets, daily range): BP systolic 133–171; BP diastolic 73–90; PULSE 110–123; RESP 20–24
[2019-03-08] MEDS: CEFEPIME 2GM/50 ML (PMX) 50 ML IVPB SCH ×4 (00:59→21:32)
[2019-03-08] MEDS: morphine 2 MG INJ IV PRN ×4 (01:03→21:32)
[2019-03-08] MEDS: ACETAMINOPHEN 325 MG TAB PO PRN ×4 (01:22→21:33)
[2019-03-08] MEDS: VANCOMYCIN 1 GM in 250 ML IVPB SCH (04:53)
[2019-03-08] MEDS: PANTOPRAZOLE 40 MG INJ IV SCH (05:55)
[2019-03-08] MEDS: SOD CHLORIDE 0.9% 1,000 ML IV SCH ×3 (05:56→20:00)
[2019-03-08] MEDS: BUPROPION (SR) 150 MG TAB PO SCH (08:47)
[2019-03-08] MEDS: METOPROLOL (XL) 25 MG TAB PO SCH (08:47)
[2019-03-08] MEDS: DAKINS 0.0125%(1/40) 473 ML SOLUTION TP SCH (08:47)
[2019-03-08] MEDS: COLLAGENASE 5 GM (UD JAR) TOP SCH (08:48)
[2019-03-08] MEDS: HEPARIN 5,000 UNIT/1 ML VIAL SC SCH ×2 (08:48→21:00)
[2019-03-08] MEDS ORDERED: hydrALAzine 20 MG INJ IV PRN (14:00)
[2019-03-08] MEDS: CLINDAMYCIN 900 MG (PMX) 50 ML IVPB SCH ×2 (14:31→21:31)
[2019-03-09] MEDS: SOD CHLORIDE 0.9% 1,000 ML IV SCH ×2 (00:37→08:43)
[2019-03-09 04:43] VITALS: BP 165/90; PULSE 106; RESP 24
[2019-03-09] MEDS: CEFEPIME 2GM/50 ML (PMX) 50 ML IVPB SCH ×3 (05:33→21:13)
[2019-03-09] MEDS: PANTOPRAZOLE 40 MG INJ IV SCH (05:33)
[2019-03-09] MEDS: CLINDAMYCIN 900 MG (PMX) 50 ML IVPB SCH ×3 (05:33→22:05)
[2019-03-09] MEDS: morphine 2 MG INJ IV PRN ×3 (05:42→20:59)
[2019-03-09 07:12] VITALS: BP 165/94; PULSE 109; RESP 20
[2019-03-09] MEDS: METOPROLOL (XL) 25 MG TAB PO SCH (08:44)
[2019-03-09] MEDS: BUPROPION (SR) 150 MG TAB PO SCH (08:44)
[2019-03-09] MEDS: COLLAGENASE 5 GM (UD JAR) TOP SCH (08:44)
[2019-03-09] MEDS: DAKINS 0.0125%(1/40) 473 ML SOLUTION TP SCH (08:45)
[2019-03-09] MEDS: HEPARIN 5,000 UNIT/1 ML VIAL SC SCH ×2 (08:47→20:16)
[2019-03-09 11:42] VITALS: BP 128/64; PULSE 108; RESP 20
[2019-03-09] MEDS ORDERED: POTASSIUM CHLORIDE (SR) 20 MEQ TAB PO STA (13:26)
[2019-03-09 15:04] VITALS: BP 137/95; PULSE 105; RESP 20
[2019-03-09 19:16] VITALS: BP 158/91; PULSE 95; RESP 21
[2019-03-10] VITALS (7 sets, daily range): BP systolic 140–157; BP diastolic 79–95; PULSE 83–103; RESP 20–22
[2019-03-10] MEDS: CEFEPIME 2GM/50 ML (PMX) 50 ML IVPB SCH (06:00)
[2019-03-10] MEDS: PANTOPRAZOLE 40 MG INJ IV SCH (06:00)
[2019-03-10] MEDS: CLINDAMYCIN 900 MG (PMX) 50 ML IVPB SCH (06:00)
[2019-03-10] MEDS: COLLAGENASE 5 GM (UD JAR) TOP SCH (09:04)
[2019-03-10] MEDS: BUPROPION (SR) 150 MG TAB PO SCH (09:05)
[2019-03-10] MEDS: METOPROLOL (XL) 25 MG TAB PO SCH (09:05)
[2019-03-10] MEDS: DAKINS 0.0125%(1/40) 473 ML SOLUTION TP SCH (09:05)
[2019-03-10] MEDS: HEPARIN 5,000 UNIT/1 ML VIAL SC SCH ×2 (09:10→20:13)
[2019-03-10] MEDS ORDERED: CLINDAMYCIN 300 MG CAP PO SCH (12:00)
[2019-03-10] MEDS ORDERED: ZYVOX 600 MG TAB PO SCH (12:30)
[2019-03-10] MEDS: ZYVOX 600 MG TAB PO SCH ×2 (13:59→20:14)
[2019-03-10] MEDS: HYDROCODONE/APAP (5/325) TAB PO PRN (14:31)
[2019-03-10] MEDS: CIPROFLOXACIN 250 MG TAB NGT SCH (18:27)
[2019-03-11 04:18] VITALS: PULSE 97
[2019-03-11] MEDS: CIPROFLOXACIN 250 MG TAB NGT SCH (06:22)
[2019-03-11] MEDS: PANTOPRAZOLE (EC) 40 MG TAB PO SCH (06:24)
[2019-03-11 07:28] VITALS: BP 134/79; PULSE 92; RESP 20
[2019-03-11] MEDS: METOPROLOL (XL) 25 MG TAB PO SCH (08:38)
[2019-03-11] MEDS: ZYVOX 600 MG TAB PO SCH ×2 (08:38→21:30)
[2019-03-11] MEDS: BUPROPION (SR) 150 MG TAB PO SCH ×2 (08:38→09:00)
[2019-03-11] MEDS: DAKINS 0.0125%(1/40) 473 ML SOLUTION TP SCH (08:39)
[2019-03-11] MEDS: HEPARIN 5,000 UNIT/1 ML VIAL SC SCH ×2 (08:39→21:33)
[2019-03-11] MEDS: COLLAGENASE 5 GM (UD JAR) TOP SCH (08:39)
[2019-03-11 11:16] VITALS: BP 142/76; PULSE 89; RESP 17
[2019-03-11] MEDS ORDERED: POTASSIUM CHLORIDE (SR) 10 MEQ TAB PO ONE (11:30)
[2019-03-11 15:11] VITALS: BP 123/67; PULSE 90; RESP 20
[2019-03-11] MEDS: CIPROFLOXACIN 250 MG TAB PO SCH (18:16)
[2019-03-11 20:00] VITALS: BP 133/60; PULSE 90; RESP 18
[2019-03-12] VITALS: BP_SYST 139; BP_SYST 160; BP_DIAS 63; BP_DIAS 89; PULSE 64; PULSE 89; RESP 19
[2019-03-12 04:00] VITALS: BP 151/83; PULSE 91; RESP 20
[2019-03-12] MEDS: PANTOPRAZOLE (EC) 40 MG TAB PO SCH (06:54)
[2019-03-12] MEDS: CIPROFLOXACIN 250 MG TAB PO SCH (06:55)
[2019-03-12 07:31] VITALS: BP 133/75; PULSE 84; RESP 20
[2019-03-12] MEDS: BUPROPION (SR) 150 MG TAB PO SCH (09:00)
[2019-03-12] MEDS: METOPROLOL (XL) 25 MG TAB PO SCH (09:00)
[2019-03-12] MEDS: HEPARIN 5,000 UNIT/1 ML VIAL SC SCH (09:00)
[2019-03-12] MEDS: COLLAGENASE 5 GM (UD JAR) TOP SCH (09:12)
[2019-03-12] MEDS: ZYVOX 600 MG TAB PO SCH (09:12)
[2019-03-12 11:40] VITALS: BP 133/80; PULSE 83; RESP 20
== END 2019-03-12 17:40 | disposition home or self-care (01) | DRG 854 ==
LOC: E/R 11:45 → 6WM 14:51
PROVIDERS: ADMIT Internal Medicine; ATTEND Internal Medicine
PROC: 0JBP0ZZ Excision of Left Lower Leg Subcutaneous Tissue and Fascia, Open Approach (ICD-10-PCS; principal; 2019-03-07)
DX: A41.9 Sepsis, unspecified organism (principal); Z68.43 Body mass index [BMI] 50.0-59.9, adult; E87.2 Acidosis; F33.9 Major depressive disorder, recurrent, unspecified; N39.0 Urinary tract infection, site not specified; L97.829 Non-pressure chronic ulcer of other part of left lower leg with unspecified severity; L97.819 Non-pressure chronic ulcer of other part of right lower leg with unspecified severity; L03.116 Cellulitis of left lower limb; R10.32 Left lower quadrant pain; E66.01 Morbid (severe) obesity due to excess calories; D50.9 Iron deficiency anemia, unspecified; Z59.0 Homelessness; R65.20 Severe sepsis without septic shock; B96.89 Other specified bacterial agents as the cause of diseases classified elsewhere; Z72.0 Tobacco use; Z91.19 Patient's noncompliance with other medical treatment and regimen
CPT/HCPCS: 36415; 71045; 73560; 73590; 74176; 80048; 80053; 80061; 80202; 81001; 81025; 82565; 82728; 83036; 83540; 83605; 83690; 83735; 84100; 84436; 84443; 84479; 84484; 84520; 85025; 85610; 85730; 86140; 87070; 87081; 87086; 93005; 93306; 93970; 96374; 96375; C9113; J0692; J0696; J1644; J2270; J3370; J7030; J7040